=== PATIENT | female | born 1955 | race Caucasian/White ===

== ENCOUNTER 2018-01-15 20:39 | Inpatient (IN) ==
--- NOTE | 2018-01-15 23:34 | P.HPCC ---
History of Present Illness Service: Critical care medicine Primary Care Physician: PROVIDER NON STAFF Chief Complaint: headache, brain mass History of Present Illness: 62-year-old female who has had no significant past medical history until she was recently diagnosed with multiple posterior fossa masses consistent with brain metastasis on outpatient MRI Saturday 01/13. She states she has been having pain in neck and occipital region since the second week of November. She initially attributed symptoms to sinusitis and completed a course of antibiotics. She has also had chiropractic adjustments. Over the last 2 weeks she had worsening headache that she describes as "excruciating" throbbing of anterior and posterior head. It is worse with cough, upright position, and awakens her from sleep. Unremitting with motrin. She has had nausea, vomiting, and poor po intake. Lost 12 pounds over the last 2 weeks, felt "off balance" today. No seizures, focal weakness, visual changes/diplopia. Her primary was arranging for outpatient workup for primary. Today she presented to the emergency department at [facility] due to intractable headache, nausea, vomiting. CT brain demonstrated hyperdense lesions L cerebellum ( largest 18 mm x 18 mm, another 5mm) with surrounding edema. There was 5 mm lesion right cerebellum with moderate hydrocephalus. ED physician discussed with home paraprofessional neurosurgeon and then vice president corporate communications was consulted for admission. CXR demonstrated L lung mass. Patient has had a dry cough, denies chest pain or hemoptysis, +dyspnea with climbing stairs. Her daughter is at bedside and states that earlier this year she had a negative screening colonoscopy, negative mammogram. She had seen a wire weaver for skin cancer screening and had lesions removed from her left shoulder that showed benign pathology. She is a former smoker with extensive family history of malignancy (daughter melanoma, 2 brothers of lung cancer in their 50s, mother colon cancer age 65). Hysterectomy with BSO in 1991 for "precancerous condition". She has been on hormone replacement w/ estradiol. Inpatient Certification: I certify that the inpatient services were ordered in accordance with Medicare regulations governing the order. This includes certification that hospital inpatient services are reasonable and necessary and in the case of services not specified as inpatient-only under 42 CFR 419.22(n), that they are appropriately provided as inpatient services in accordance to with the 2-midnight benchmark under 43 CFR 412.3(e) Review of Systems All other systems reviewed negative except as stated in HPI PMFSH - History History Provided By: Patient, Family Member, Significant Other - Medical History Medical History: Medical History (Last Updated 01/16/18 @ 01:05 by Jacquelyn Holloway MD) Patient denies medical problems - Surgical History Surgical History: Surgical History (Last Updated 01/16/18 @ 01:13 by Jacquelyn Holloway MD) S/P total hysterectomy and BSO (bilateral salpingo-oophorectomy) - Family History Family History: Family History (Last Updated 01/16/18 @ 01:11 by Jacquelyn Hollowya MD) Daughter Melanoma Mother Family history of colon cancer Family history of cancer Family history of hypertension Mother No problems noted. Father Family history of acute myocardial infarction Family history of diabetes mellitus Family history of hypertension Aunt Family history of breast cancer Sister Family history of hypertension Brother Family history of hypertension Lung cancer - Tobacco History Tobacco Use In Past 30 Days: No Smoking Status: Former smoker Tobacco Type: Cigarettes Packs Per Day: 2 Years Smoked: 39 Smoking End Date: 1991 - Substance Use History Substance History: No History of Abuse Medications and Allergies Allergies Allergy/AdvReac Type Severity Reaction Status Date / Time No Known Allergies Allergy Unverified 01/15/18 23:43 Exam Narrative: GENERAL: Well-nourished, well-developed patient patient who is alert and interactive. SKIN: Warm and dry, well perfused. HEAD: Atraumatic. Normocephalic. EYES: Pupils equal and round, 4mm and reactive to 3 mm bilaterally. No scleral icterus. No injection or drainage. ENT: No nasal bleeding or discharge. Mucous membranes pink. NECK: Trachea midline. No JVD. CARDIOVASCULAR: Regular rate and rhythm. No murmurs rubs or gallops. RESPIRATORY: Breathing comfortably on nasal cannula with no accessory muscle use. Clear to auscultation. Breath sounds equal bilaterally. GASTROINTESTINAL: Abdomen soft, non-tender, nondistended. Bowel sounds present, no palpable mass. Hepatic and splenic margins not palpable. MUSCULOSKELETAL: Extremities without clubbing, cyanosis, or edema. No obvious deformities. No calf tenderness. NEUROLOGICAL: Awake and alert, oriented x3 with normal speech. Cranial nerves intact, tongue protrusion midline, EOMI without nystagmus. Strength 5/5 in all extremities, sensation intact. Normal finger to nose on right, slow to perform task with LUE. No truncal ataxia noted. Caprini VTE Risk Assessment Caprini VTE Risk Assessment: Moderate/High Risk (score >= 2) VTE Pharmacological Exception Reason: Intracranial lesions Caprini Risk Assessment Model: Point Value = 1 Point Value = 2 Point Value = 3 Point Value = 5 Age 41-60 Minor surgery BMI > 25 kg/m2 Swollen legs Varicose veins or History of unexplained or recurrent spontaneous Oral contraceptives or hormone replacement Sepsis (< 1 month) Serious lung disease, including pneumonia (< 1 month) Abnormal pulmonary function Acute myocardial infarction Congestive heart failure (< 1 month) History of inflammatory bowel disease Medical patient at bed rest Age 61-74 Arthroscopic surgery Major open surgery (> 45 min) Laparoscopic surgery (> 45 min) Malignancy Confined to bed (> 72 hours) Immobilizing plaster cast Central venous access Age >= 75 History of VTE Family history of VTE Factor V Leiden Prothrombin [id number] Lupus anticoagulant Anticardiolipin antibodies Elevated serum homocysteine Heparin-induced thrombocytopenia Other congenital or acquired thrombophilia Stroke (< 1 month) Elective arthroplasty Hip, pelvis, or leg fracture Acute spinal cord injury (< 1 month) Prophylaxis Regimen: Total Risk Factor Score Risk Level Prophylaxis Regimen 0-1 Low Early ambulation 2 Moderate Order ONE of the following: *Sequential Compression Device (SCD) *Heparin 5000 units SQ BID 3-4 Higher Order ONE of the following medications: *Heparin 5000 units SQ TID *Enoxaparin/Lovenox 40 mg SQ daily (WT < 150 kg, CrCl > 30 mL/min) *Enoxaparin/Lovenox 30 mg SQ daily (WT < 150 kg, CrCl > 10-29 mL/min) *Enoxaparin/Lovenox 30 mg SQ BID (WT < 150 kg, CrCl > 30 mL/min) AND/OR *Sequential Compression Device (SCD) 5 or more Highest Order ONE of the following medications: *Heparin 5000 units SQ TID (Preferred with Epidurals) *Enoxaparin/Lovenox 40 mg SQ daily (WT < 150 kg, CrCl > 30 mL/min) *Enoxaparin/Lovenox 30 mg SQ daily (WT < 150 kg, CrCl > 10-29 mL/min) *Enoxaparin/Lovenox 30 mg SQ BID (WT < 150 kg, CrCl > 30 mL/min) AND *Sequential Compression Device (SCD) Assessment and Plan - Assessment and Plan Plan: NEURO: Multiple cerebellar masses c/w metastatic disease Moderate hydrocephalus MRI brain w&w/o. Decadron 4 mg IV q6 hours. NSG consult Headache Nausea/Vomiting Lortab prn .Morphine prn breakthrough Phenergan prn (Zofran did not help). RESP: L lung mass Former tobacco abuse CT chest/abd/pelvis Albuterol prn IS q1 hour CV: HTN Does not carry diagnosis of essential hypertension. Presently hypertensive and pain anxiety playing some role. Labetalol prn for SBP >165. GI: Regular diet LFTS WNL outside hospital. FEN/RENAL: NS with 20 MQ KCL /L for now as plan to give IV contrast. Received KCl 40 MEQ po at outside hospital for potassium 3.1. Creatinine was 0.45 Monitor BMP ID: Monitor for signs and symptoms of infection. HEME/ONC: Metastatic brain lesions ?Primary lung cancer Followup MRI brain and CT scans C/A/P. Oncology consult. ENDO: Monitor bedside glucose AC/at bedtime while on steroids and administer low-dose insulin sliding scale as indicated. Glucose 131 outside hospital. PROPH: SCDs for DVT prophylaxis. I have held off on Lovenox at this time due to intracerebral lesions, though prophylaxis would likely be appropriate if workup points away from diagnosis of melanoma and if felt to be appropriate from NSG/oncology standpoint. Protonix for stress ulcer prophylaxis (poor po intake, on steroids). ACCESS: PIV providing adequate access at this time. Patient has an advanced directive. Her is her healthcare surrogate and her daughter alternate if she loses capacity. She is currently capacitated for medical decision making. She desires FULL CODE. She would not want prolonged life support if no change of functional recovery. FULL CODE Patient and family updated Level 3 H and P.
[2018-01-16] MEDS ORDERED: Bisacodyl 10 MG Supp RECTAL PRN (00:13)
[2018-01-16] MEDS ORDERED: Dextrose 50% in Water 50 ML Vial IV.PUSH PRN (00:23)
[2018-01-16] MEDS ORDERED: *Labetalol HCl Inj 100 MG/20 ML Vial PERIprocedural Use ONLY IV.PUSH PRN (01:03)
[2018-01-16 01:51] LABS: Hematocrit 37.3 % (35.0-46.0); Mean Corpuscular HGB Conc 34.8 % (32.0-36.0); Mean Corpuscular Hemoglobin 28.4 pg (27.0-34.0); Mean Corpuscular Volume 81.7 fL (80.0-100.0); Mean Platelet Volume 8.3 fL (7.0-11.0); Platelet Count 392 th/mm3 (150-450); Red Blood Count 4.57 mil/mm3 (4.00-5.30); Red Cell Distribution Width 14.3 % (11.6-17.2); White Blood Count 10.3 th/mm3 (4.0-11.0)
[2018-01-16 02:06] LABS: Alanine Aminotransferase 30 U/L (10-53); Albumin 3.3 g/dL (3.4-5.0); Anion Gap 9 meq/L (5-15); Aspartate Aminotransferase 15 U/L (15-37); Blood Urea Nitrogen 12 mg/dL (7-18); Calcium 9.1 mg/dL (8.5-10.1); Carbon Dioxide 26.5 meq/L (21.0-32.0); Chloride 102 meq/L (98-107); Glomerular Filtration Rate Greater Than 89 mL/min (>89); Glucose,Random 137 mg/dL (74-106); Magnesium 2.3 mg/dL (1.5-2.5); Phosphorus 2.3 mg/dL (2.5-4.9); Potassium 3.7 meq/L (3.5-5.1); Sodium 137 meq/L (136-145)
[2018-01-16 02:08] LABS: Alkaline Phosphatase 77 U/L (45-117)
[2018-01-16] MEDS ORDERED: Chlorhexidine Gluconate 2% 1 Pack (2 Cloths) TOPICAL PRN (04:00)
[2018-01-16] MEDS: Chlorhexidine Gluconate 2% 1 Pack (2 Cloths) TOPICAL SCH (05:39)
[2018-01-16] MEDS: Senna/Docusate Sodium 8.6/50 MG Tablet PO SCH ×2 (08:05→20:20)
--- NOTE | 2018-01-16 08:13 | P.CONNS ---
History of Present Illness Service: Neurosurgery Consult date: 01/16/18 Requesting Physician: Jacquelyn Holloway (Take Off Man) Reason for Consult: Brain masses Primary Care Provider: PROVIDER NON STAFF Chief Complaint: headache, brain mass History of Present Illness: 62-year-old female recently diagnosed with multiple brain masses consistent with brain metastasis on outpatient MRI Saturday 01/13. She states she has been experiencing unsteadiness along with the lightheadedness and dizziness for the last couple of months with complaints of pain in neck and occipital region since the second week of November. She initially attributed symptoms to sinusitis and completed a course of antibiotics. She has also had chiropractic adjustments. Over the last 2 weeks she had worsening headache that she describes as "excruciating" throbbing of anterior and posterior head. It is worse with cough, upright position, and awakens her from sleep. Unremitting with motrin. She has had nausea, vomiting, and poor po intake. Lost 12 pounds over the last 2 weeks, felt "off balance" today. No seizures, focal weakness, visual changes/diplopia. Her primary was arranging for outpatient workup for primary. She presented to the emergency department at [facility] due to intractable headache, nausea, vomiting. CT brain demonstrated hyperdense lesions involving the left cerebellar hemisphere as well as possible smaller lesion in the right cerebellar hemisphere with surrounding edema. There is slight impingement of the fourth ventricle to the left side but not completely obstructed. She also has another lesion in the left posterior frontoparietal aspect with surrounding edema. There is moderate hydrocephalus associated with this. She was transferred to [facility] intensive care unit and neurosurgery consultation requested. CXR demonstrated Left lung mass. Patient has had a dry cough, denies chest pain or hemoptysis, although does have dyspnea with climbing stairs. Review of Systems All other systems reviewed negative except as stated in HPI PMFSH - History History Provided By: Patient, Family Member, Significant Other - Medical History Medical History: Medical History (Last Reviewed 01/16/18 @ 08:39 by Bhupinder Espinoza) Patient denies medical problems - Surgical History Surgical History: Surgical History (Last Reviewed 01/16/18 @ 08:39 by Bhupinder Espinoza) S/P total hysterectomy and BSO (bilateral salpingo-oophorectomy) - Family History Family History: Family History (Last Updated 01/16/18 @ 01:11 by Jacquelyn Holloway MD) Daughter Melanoma Mother Family history of colon cancer Family history of cancer Family history of hypertension Mother No problems noted. Father Family history of acute myocardial infarction Family history of diabetes mellitus Family history of hypertension Aunt Family history of breast cancer Sister Family history of hypertension Brother Family history of hypertension Lung cancer - Tobacco History Second Hand Smoke Exposure: No Tobacco Use In Past 30 Days: No Smoking Status: Former smoker Tobacco Type: Cigarettes Packs Per Day: 2 Years Smoked: 39 Smoking End Date: 1991 - Alcohol History How Often Do You Have a Drink Containing Alcohol: Monthly or less - Substance Use History Substance History: No History of Abuse - Immunization History Tetanus Immunization: Unsure Hx Influenza Vaccine This Season: No Medications and Allergies Active Medications: Active Medications Hydrocodone Bitart/Acetaminophen (Scalf 5/325) 1 tab PO Q4H PRN PRN Reason: pain 1-6 Hydrocodone Bitart/Acetaminophen (Scalf 5/325) 2 tab PO Q4H PRN PRN Reason: pain 7-10 Last Admin: 01/16/18 08:06 Dose: 2 tab Al Hydroxide/Mg Hydroxide (Milk Of Leodan Pichardo) 30 ml PO Q12H PRN PRN Reason: Mild Constipation Albuterol (Albuterol Neb (Prn)) 2.5 mg NEB Q2HR NEB PRN PRN Reason: SHORTNESS OF BREATH/WHEEZING Bisacodyl (Dulcolax Supp) 10 mg RECTAL DAILY PRN PRN Reason: SEVERE CONSITIPATION Chlorhexidine Gluconate (Chlorhexidine 2% Cloth) 3 pack TOPICAL DAILY@0400 MARILIA Stop: 01/21/18 03:59 Last Admin: 01/16/18 05:39 Dose: 3 pack Chlorhexidine Gluconate (Chlorhexidine 2% Cloth) 3 pack TOPICAL DAILY@0400 PRN PRN Reason: Extra cloth needed Stop: 01/21/18 03:59 Dexamethasone Sodium Phosphate (Decadron Inj) 4 mg IV.PUSH Q6HR MARILIA Last Admin: 01/16/18 05:39 Dose: 4 mg Dextrose (D50w Vial) 50 ml IV.PUSH UNSCH PRN PRN Reason: PER HYPOGLYCEMIA PROTOCOL Glucagon (Glucagon Inj) 1 mg OTHER PRN PRN PRN Reason: for Hypoglycemia Protocol Potassium Chloride/Sodium Chloride (Ns + Kcl 20 Meq Inj) 1,000 mls @ 84 mls/hr IV.CONT .[id number] [facility] Last Admin: 01/16/18 01:10 Dose: 84 mls/hr Insulin Aspart (Novolog Insulin Correctional Sugar Inj) 0 unit SQ ACHS [facility]; Protocol Labetalol HCl (*Trandate Inj Periprocedural Use Only) 10 mg IV.PUSH Q4H PRN PRN Reason: SBP >165 Lactulose (Lactulose Liq) 30 ml PO DAILY PRN PRN Reason: SEVERE CONSITIPATION Lorazepam (Ativan Inj) 1 mg IV.PUSH Q5M PRN PRN Reason: seizure Morphine Sulfate (Morphine Inj) 2 mg IV.PUSH Q2H PRN PRN Reason: BREAKTHROUGH PAIN Pantoprazole Sodium (Protonix) 40 mg PO DAILY [facility] Last Admin: 01/16/18 08:05 Dose: 40 mg Promethazine HCl (Phenergan) 25 mg PO Q6H PRN PRN Reason: nausea Last Admin: 01/16/18 08:05 Dose: 25 mg Promethazine HCl (Phenergan Inj) 25 mg IM Q6H PRN PRN Reason: nausea/vomiting/cant use po Senna/Docusate Sodium (Geni-Colace) 1 tab PO BID [facility] Last Admin: 01/16/18 08:05 Dose: 1 tab Sennosides (Senokot) 17.2 mg PO Q12H PRN PRN Reason: Moderate Constipation Sodium Chloride (Ns Flush) 2 ml IV.FLUSH BID [facility] Sodium Chloride (Ns Flush) 2 ml IV.FLUSH PRN PRN PRN Reason: FLUSH AFTER USING IV ACCESS Allergies Allergy/AdvReac Type Severity Reaction Status Date / Time No Known Allergies Allergy Unverified 01/15/18 23:43 Exam Vital signs: Vital Signs 01/16/18 00:00 01/16/18 04:00 Temperature 98.4 F 98.6 F Pulse Rate 90 75 Respiratory Rate 29 H 10 L Blood Pressure 175/78 H 151/65 H Pulse Oximetry 96 95 Intake & Output 01/15/18 01/16/18 01/16/18 18:59 06:59 18:59 Weight 58.2 kg Other: # Voids 4 Date of Last Bowel Movement 01/15/18 Weight On Admission 58.2 kg - Constitutional no acute distress, average body habitus - Routine HEENT Exam Head: Present: normocephalic, atraumatic Eye: Present: EOMI, PERRL ENT: Present: mucous membranes moist, oropharynx clear, nares patent, external ear normal - Routine Neck Exam Present: supple, full ROM - Routine Respiratory Exam Present: CTA bilaterally - Routine Cardiovascular Exam Present: RRR, S1, S2 - Routine Abdominal Exam Present: soft, normoactive bowel sounds - Routine Extremities Exam Present: full ROM, pulses intact, normal capillary refill - Routine Skin Exam Present: intact - Routine Neurological Exam Present: oriented X3, CN II-XII intact, abnormal gait, moving all extremities, normal speech, tremors Positive bilateral dysmetria and ataxia Results - Laboratory Findings CBC and BMP: 01/16/18 01:41 01/16/18 01:41 Abnormal lab findings: Abnormal Labs 01/16/18 01:41 Random Glucose 137 H Phosphorus 2.3 L Albumin 3.3 L Assessment and Plan - Assessment (1) Neoplasm of brain causing mass effect on adjacent structures Code(s): D49.6 - Neoplasm of unspecified behavior of brain Status: Acute (2) Lung mass Code(s): R91.8 - Other nonspecific abnormal finding of lung field Status: Acute - Plan 62-year-old lady with the lung mass and multiple brain masses the larger one in the left cerebellar hemisphere with a smaller one in the right posterior frontoparietal lobe with some edema. There is impingement of the fourth ventricle on the left side although not completely obstructed with moderate hydrocephalus. She relates that with the Decadron her headaches have improved along with the nausea. We will obtain MRI scan of the brain to further evaluate the extent of the metastatic disease. Should her neurologic condition deteriorate that we may contemplate placement of a ventriculostomy. Metastatic workup as per the medical team/oncology. Given the multiple brain masses likely metastases from a lung cancer as the working diagnosis her prognosis is very grim. Discussed with patient as well as and daughter at bedside.
[2018-01-16] MEDS: Insulin NovoLOG Aspart Correctional Sugar Inj SQ SCH ×4 (08:20→20:20)
[2018-01-16] MEDS ORDERED: Diatrizoate Meglum/Diatrizoate Sod Liq 9 ML UDC PO ONE (09:45)
--- NOTE | 2018-01-16 09:53 | P.PNCC ---
Subjective Subjective Remarks/Hospital Course: 62-year-old female who has had no significant past medical history until she was recently diagnosed with multiple posterior fossa masses consistent with brain metastasis on outpatient MRI Saturday 01/13. She states she has been having pain in neck and occipital region since the second week of November. She initially attributed symptoms to sinusitis and completed a course of antibiotics. She has also had chiropractic adjustments. Over the last 2 weeks she had worsening headache that she describes as "excruciating" throbbing of anterior and posterior head. It is worse with cough, upright position, and awakens her from sleep. Unremitting with motrin. She has had nausea, vomiting, and poor po intake. Lost 12 pounds over the last 2 weeks, felt "off balance" today. No seizures, focal weakness, visual changes/diplopia. Her primary was arranging for outpatient workup for primary. Today she presented to the emergency department at [facility] due to intractable headache, nausea, vomiting. CT brain demonstrated hyperdense lesions L cerebellum ( largest 18 mm x 18 mm, another 5mm) with surrounding edema. There was 5 mm lesion right cerebellum with moderate hydrocephalus. ED physician discussed with configuration management specialist neurosurgeon and then match up person was consulted for admission. CXR demonstrated L lung mass. Patient has had a dry cough, denies chest pain or hemoptysis, +dyspnea with climbing stairs. Her daughter is at bedside and states that earlier this year she had a negative screening colonoscopy, negative mammogram. She had seen a bank appraiser for skin cancer screening and had lesions removed from her left shoulder that showed benign pathology. She is a former smoker with extensive family history of malignancy (daughter melanoma, 2 brothers of lung cancer in their 50s, mother colon cancer age 65). Hysterectomy with BSO in 1991 for "precancerous condition". She has been on hormone replacement w/ estradiol. SUBJ 01/16: Patient's headaches improved with IV Decadron. Appreciate neurosurgery consult, there is slight impingement of the fourth ventricle on the left side. There is moderate hydrocephalus associated. If patient clinically deteriorates she would need ventriculostomy placement Objective Vital Signs / I&O: Vital Signs 01/16/18 00:00 01/16/18 04:00 01/16/18 08:00 Temperature 98.4 F 98.6 F 98.6 F Pulse Rate 90 75 82 Respiratory Rate 29 H 10 L 15 Blood Pressure 175/78 H 151/65 H 167/80 H Pulse Oximetry 96 95 95 Intake & Output 01/15/18 01/16/18 01/16/18 18:59 06:59 18:59 Weight 58.2 kg Other: # Voids 4 Date of Last Bowel Movement 01/15/18 01/15/18 Weight On Admission 58.2 kg Result Diagrams: 01/16/18 01:41 01/16/18 01:41 Objective Remarks: GENERAL: Well-nourished, well-developed patient patient who is alert and awake, oriented, pleasant SKIN: Warm and dry, well perfused. HEAD: Atraumatic. Normocephalic. EYES: Pupils equal and round, 4mm and reactive to 3 mm bilaterally. No scleral icterus. No nystagmus. ENT: No nasal bleeding or discharge. Mucous membranes pink. NECK: Trachea midline. No JVD. CARDIOVASCULAR: Regular rate and rhythm. No murmurs rubs or gallops. RESPIRATORY: Clear to auscultation. Breath sounds equal bilaterally. GASTROINTESTINAL: Abdomen soft, non-tender, nondistended. Bowel sounds present, no palpable mass. Hepatic and splenic margins not palpable. MUSCULOSKELETAL: Extremities without clubbing, cyanosis, or edema. No obvious deformities. No calf tenderness. NEUROLOGICAL: Awake and alert, oriented x3 with normal speech. Cranial nerves intact, tongue protrusion midline, EOMI without nystagmus. Strength 5/5 in all extremities, sensation intact. Abnormal finger to nose bilaterally. Assessment and Plan - Assessment and Plan Plan: NEURO: Multiple cerebellar masses c/w metastatic disease Moderate hydrocephalus MRI brain w&w/o pending Decadron 4 mg IV q6 hours. NSG consult appreciated. If clinical deterioration may need ventriculostomy placement Headache Nausea/Vomiting Lortab prn .Morphine prn breakthrough Phenergan prn (Zofran did not help). RESP: L lung mass Former tobacco abuse CT chest/abd/pelvis pending at this Albuterol prn IS q1 hour CV: HTN Does not carry diagnosis of essential hypertension. Presently hypertensive and pain anxiety playing some role. Labetalol prn for SBP >165. GI: Regular diet LFTS WNL outside hospital. FEN/RENAL: NS with 20 MQ KCL /L for now as plan to give IV contrast. reduce rate to 50 mL/h Received KCl 40 MEQ po at outside hospital for potassium 3.1. Creatinine was 0.45 Monitor BMP ID: Monitor for signs and symptoms of infection. HEME/ONC: Metastatic brain lesions ?Primary lung cancer Followup MRI brain and CT scans C/A/P. Oncology consult pending at this time ENDO: Monitor bedside glucose AC/at bedtime while on steroids and administer low-dose insulin sliding scale as indicated. PROPH: SCDs for DVT prophylaxis. Avoid chemical DVT prophylaxis until cleared by neurosurgery Protonix for stress ulcer prophylaxis (poor po intake, on steroids). ACCESS: PIV providing adequate access at this time. Patient has an advanced directive. Her is her healthcare surrogate and her daughter alternate if she loses capacity. She is currently capacitated for medical decision making. She desires FULL CODE. She would not want prolonged life support if no change of functional recovery. FULL CODE Patient and family updated Patient is critically ill but stable. She has moderate hydronephrosis, potentially can deteriorate quickly needing emergency airway management and ventriculostomy placement. Continue close ICU monitoring Level 3
[2018-01-16] MEDS ORDERED: Gadobutrol PF 7.5 MMOL/7.5 ML Vial (for RAD) IV.SIG ONE (13:54)
--- NOTE | 2018-01-16 13:59 | CT ---
EXAM DATE: 01/16/2018 1:39 PM EDT AGE/SEX: 62 years / Female INDICATIONS: Lung mass CLINICAL DATA: This is the patient's initial encounter. Patient reports that signs and symptoms have been present for 3 days and indicates a pain score of 7/10. MEDICAL/SURGICAL HISTORY: . Brain Tumor Hysterectomy. RADIATION DOSE: 5.17 CTDI (mGy) ; Combined studies COMPARISON: No prior exams available for comparison. TECHNIQUE: Multiple contiguous axial images were obtained through the chest during bolus infusion of 99ML ml Omnipaque 350 (iohexol) nonionic water-soluble contrast as a cumulative dose for multiple e xams. Images were obtained in suspended respiration using multiple row detector helical technique. Using automated exposure control and adjustment of the mA and/or kV according to patient size, radia tion dose was kept as low as reasonably achievable to obtain optimal diagnostic quality images. DICO M format image data is available electronically for review and comparison. FINDINGS: Approximate 4.7 cm left upper lobe mass is present almost certainly malignant. There is metastatic ad enopathy in the AP window and left hilum the largest measures 4 cm in the left hilum causing mass eff ect on the left main pulmonary artery. Approximate 2 cm hazy parenchymal opacities in right upper lob e with 7 mm similar opacity in left lower lobe anteriorly possible scar, however indeterminant could be inflammatory. Possibility of bronchoalveolar cell carcinoma in these 2 areas of groundglass opacit y is not excluded. There is a questionable tiny 3 to 4 mm nodule versus tortuous blood vessel right a pex of the lung and lingula near the major fissure. Approximate 1.3 cm left adrenal mass is present n onspecific may be metastatic. There is no pleural effusion. CONCLUSION: 1. Left upper lobe mass almost certainly malignant with metastatic adenopathy within the mediastinum and left hilum. 2. Groundglass opacities right upper lobe and left lower lobe could be followed with repeat noncontr ast chest CT in 6 months after appropriate clinical therapy. There are also tiny nodules in both lung s versus tortuous blood vessels. 3. Left adrenal mass could be an adenoma versus metastatic disease. Electronically signed by: Jc Cuevas MD 01/16/2018 1:57 PM EDT
--- NOTE | 2018-01-16 14:14 | CT ---
EXAM DATE: 01/16/2018 1:41 PM EDT AGE/SEX: 62 years / Female INDICATIONS: Mass CLINICAL DATA: This is the patient's initial encounter. Patient reports that signs and symptoms have been present for 3 days and indicates a pain score of 7/10. MEDICAL/SURGICAL HISTORY: . Brain tumor, lung mass Hysterectomy. ORAL CONTRAST: Prescribed oral contrast ingested. RADIATION DOSE: 5.17 CTDI (mGy) ; Combined studies COMPARISON: No prior exams available for comparison. TECHNIQUE: Multiple contiguous axial images were obtained through the abdomen and pelvis following b olus infusion of 99ML ml Omnipaque 350 (iohexol) nonionic water-soluble contrast as a cumulative do se for multiple exams. Prescribed oral contrast ingested. Using automated exposure control and adjus tment of the mA and/or kV according to patient size, radiation dose was kept as low as reasonably ach ievable to obtain optimal diagnostic quality images. DICOM format image data is available electronic ally for review and comparison. FINDINGS: Abdomen CT: The liver, pancreas, right adrenal are unremarkable. Approximate 1.3 cm left adrenal nodule is presen t may be an adenoma, however metastatic disease is difficult to exclude. There are simple cysts in th e kidneys the largest measures 1.7 cm on the left. Approximate 1 cm cystic lesion is present in the m edial portion of the spleen most likely benign. There is no evidence for any appreciable pathological adenopathy, free fluid, or bowel obstruction. Pelvic CT: There is no evidence for mass, abscess formation, or any significant adenopathy within the pelvis. T here are numerous diverticuli within the colon mainly the sigmoid colon without signs of diverticulit is for technique. CONCLUSION: Colonic diverticulosis and left adrenal nodule may be adenoma, however metastatic disease is difficult to exclude. Electronically signed by: Jc Cuevas MD 01/16/2018 2:13 PM EDT
--- NOTE | 2018-01-16 15:07 | MR ---
EXAM DATE: 01/16/2018 2:10 PM EDT AGE/SEX: 62 years / Female INDICATIONS: Metastatic disease. CLINICAL DATA: This is the patient's initial encounter. Patient reports that signs and symptoms have been present for 1 day and indicates a pain score of 0/10. MEDICAL/SURGICAL HISTORY: None. Hysterectomy. COMPARISON: No prior exams available for comparison. TECHNIQUE: Multiplanar, multisequence examination of the brain was performed without and with 6 ml Om niscan (gadodiamide) contrast as a single exam dose. FINDINGS: MRI with contrast reveals too numerous to count metastatic deposits throughout the supratentorial and infratentorial brain majority of which are centered in around the moyer-white matter junction. Severa l small metastatic deposits are present on the cortical surface of the brain showing intense enhancem ent. This appearance can be associated with carcinomatous meningitis as well. A small metastatic deposit is present in the cerebral aqueduct is well between supratentorial and inf ratentorial ventricular system. These metastatic lesions have a hemorrhagic component as well that can be seen with small cell carcin te of the lung. This would be a typical appearance for malignant melanoma however large lung mass cl early favors small cell carcinoma. Ventricles are mildly prominent. There is minimal compression on t he fourth ventricle. There are no extra-axial fluid collections appreciated. CONCLUSION: 1. Too numerous to count enhancing mildly hemorrhagic metastatic deposits throughout the brain most numerous in the posterior fossa with some compression of the fourth ventricle. 2. Carcinomatous meningitis would be consideration 3. Lung mass would be amenable to pancreas biopsy for rapid diagnosis. 4. There is no significant hydronephrosis as yet. Electronically signed by: Edgard Barth MD 01/16/2018 3:05 PM EDT
--- NOTE | 2018-01-16 19:22 | P.CON ---
History of Present Illness Service: Hematology/oncology Consult date: 01/16/18 Requesting Physician: Jacquelyn Holloway Reason for Consult: Left upper lobe lung mass associated with multiple brain masses. Primary Care Provider: PROVIDER NON STAFF Dr. Power in [place], [place]. Chief Complaint: Persistent headache, difficulty balancing, nausea. History of Present Illness: Ms. umana is a very pleasant 62-year-old female who is originally from [place], she moved down to [place] in the late . 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 She reports being a smoker, she smoked about a pack and a half a day for 20 years (she quit in 1991). Ms. umana reports being in her usual very good state of health up until she began to notice headaches in early November 2017. She in fact is able to recall going on a jet ski ride with her son on 26 November, she noticed a headache shortly thereafter. She reports the headache initially involved the back of her head and her upper neck as well as a frontal sinus type distribution. She reported the symptoms to her primary care physician and was initiated on antibiotics for suspected sinusitis. Her symptoms did not resolve and she consulted a chiropractor who performed various adjustments on her neck assuming she had developed muscular skeletal aches. She had a period of time when the headache subsided but this was short-lived. Over the past 2 weeks she has noticed increased headaches, increased lightheadedness, dizziness, difficulty balancing and nausea. Over the past several days she noticed symptoms of worsening headache when she laid flat, worsening headaches when she coughed and progressive nausea. She was advised an MRI of the brain by her chiropractor, this was performed in [place] on 01/13/2018 and finding of multiple brain lesions was established. The results of the scan was reported to her primary care physician Dr. Tono [place] who had recommended an outpatient workup with CT imaging of the chest abdomen pelvis as well as an outpatient referral to an oncologist in [place] (Dr. Polanco). Unfortunately on 01/16/2018 the patient's symptoms worsened and she was brought into [facility] in [place], repeat imaging of the brain was performed. The intracranial brain metastases were identified and the patient was recommended neurosurgical evaluation. Because of lack of neurosurgical coverage in [place] she was referred to [facility] in [place] for evaluation by neurosurgery. Additional imaging was performed this included CT imaging of the chest abdomen pelvis, the patient was found to have a 5.5 x 5 cm mass involving the left upper lobe lung. There is no definite evidence of metastatic disease involving the abdomen or pelvis. The patient has been initiated on corticosteroid therapy with dexamethasone and reports her symptoms of headaches have improved significantly over the past 12 hours. Review of Systems Constitutional: Reports fatigue, Reports lack of energy, Reports malaise, Reports weakness, Denies anorexia Eyes: Denies blurry vision, Denies change in vision, Denies loss of vision Ears, Nose, Mouth, and Throat: Denies abnormal hearing, Denies change in voice, Denies sore throat Cardiovascular: Denies chest pain, Denies fainting, Denies shortness of breath when lying down, Denies shortness of breath causing sudden awakening Respiratory: Denies chest congestion, Denies cough, Denies shortness of breath Gastrointestinal: Denies abdominal pain, Denies belching, Denies bloating, Denies pain with swallowing, Denies vomiting blood Genitourinary: Denies difficulty urinating, Denies painful urination, Denies urinary urgency Musculoskeletal: Reports abnormal walking, Reports neck pain, Denies back pain, Denies body aches, Denies decreased muscle mass, Denies joint pain, Denies joint swelling, Denies muscle weakness Skin/Breast: Denies rash Neurologic: Reports abnormal walking, Reports dizziness, Reports headache(s), Reports lack of coordination, Reports unsteadiness, Denies abnormal hearing, Denies abnormal movements, Denies abnormal speech, Denies confusion, Denies localized weakness, Denies loss of vision, Denies memory loss, Denies numbness, Denies other visual disturbances, Denies restless legs, Denies tremor(s) Psychiatric: Denies abnormal sleep pattern, Denies anxiety, Denies behavioral changes Endocrine: Denies cold intolerance Hematologic/Lymphatic: Denies easy bleeding Allergic/Immunologic: Denies GI upset with certain foods PMFSH - History History Provided By: Patient, Family Member, Significant Other - Medical History Medical History: Medical History (Last Updated 01/16/18 @ 19:12 by Watson Zamorano MD) History of cigarette smoking Patient denies medical problems - Surgical History Surgical History: Surgical History (Last Reviewed 01/16/18 @ 08:39 by Bhupinder Espinoza) S/P total hysterectomy and BSO (bilateral salpingo-oophorectomy) - Family History Family History: Family History (Last Updated 01/16/18 @ 01:11 by Jacquelyn Holloway MD) Daughter Melanoma Mother Family history of colon cancer Family history of cancer Family history of hypertension Mother No problems noted. Father Family history of acute myocardial infarction Family history of diabetes mellitus Family history of hypertension Aunt Family history of breast cancer Sister Family history of hypertension Brother Family history of hypertension Lung cancer - Tobacco History Second Hand Smoke Exposure: No Tobacco Use In Past 30 Days: No Smoking Status: Former smoker Tobacco Type: Cigarettes Packs Per Day: 2 Years Smoked: 39 Smoking End Date: 1991 - Alcohol History How Often Do You Have a Drink Containing Alcohol: Monthly or less - Substance Use History Substance History: No History of Abuse - Immunization History Tetanus Immunization: Unsure Hx Influenza Vaccine This Season: No Medications and Allergies Active Medications: Active Medications Hydrocodone Bitart/Acetaminophen ([place] 5/325) 1 tab PO Q4H PRN PRN Reason: pain 1-6 Last Admin: 01/16/18 16:53 Dose: 1 tab Hydrocodone Bitart/Acetaminophen ([place] 5/325) 2 tab PO Q4H PRN PRN Reason: pain 7-10 Last Admin: 01/16/18 01:11 Dose: 2 tab Al Hydroxide/Mg Hydroxide (Milk Of Leodan Pichardo) 30 ml PO Q12H PRN PRN Reason: Mild Constipation Albuterol (Albuterol Neb (Prn)) 2.5 mg NEB Q2HR NEB PRN PRN Reason: SHORTNESS OF BREATH/WHEEZING Bisacodyl (Dulcolax Supp) 10 mg RECTAL DAILY PRN PRN Reason: SEVERE CONSITIPATION Chlorhexidine Gluconate (Chlorhexidine 2% Cloth) 3 pack TOPICAL DAILY@0400 MARILIA Stop: 01/21/18 03:59 Last Admin: 01/16/18 05:39 Dose: 3 pack Chlorhexidine Gluconate (Chlorhexidine 2% Cloth) 3 pack TOPICAL DAILY@0400 PRN PRN Reason: Extra cloth needed Stop: 01/21/18 03:59 Dexamethasone Sodium Phosphate (Decadron Inj) 4 mg IV.PUSH Q6HR MARILIA Last Admin: 01/16/18 11:44 Dose: 4 mg Dextrose (D50w Vial) 50 ml IV.PUSH UNSCH PRN PRN Reason: PER HYPOGLYCEMIA PROTOCOL Glucagon (Glucagon Inj) 1 mg OTHER PRN PRN PRN Reason: for Hypoglycemia Protocol Potassium Chloride/Sodium Chloride (Ns + Kcl 20 Meq Inj) 1,000 mls @ 50 mls/hr IV.CONT .Q20H [facility] Last Admin: 01/16/18 13:47 Dose: 84 mls/hr Insulin Aspart (Novolog Insulin Correctional Sugar Inj) 0 unit SQ ACHS [facility]; Protocol Last Admin: 01/16/18 16:53 Dose: 3 unit Labetalol HCl (*Trandate Inj Periprocedural Use Only) 10 mg IV.PUSH Q4H PRN PRN Reason: SBP >165 Lactulose (Lactulose Liq) 30 ml PO DAILY PRN PRN Reason: SEVERE CONSITIPATION Lorazepam (Ativan Inj) 1 mg IV.PUSH Q5M PRN PRN Reason: seizure Morphine Sulfate (Morphine Inj) 2 mg IV.PUSH Q2H PRN PRN Reason: BREAKTHROUGH PAIN Pantoprazole Sodium (Protonix) 40 mg PO DAILY [facility] Last Admin: 01/16/18 08:05 Dose: 40 mg Promethazine HCl (Phenergan) 25 mg PO Q6H PRN PRN Reason: nausea Last Admin: 01/16/18 08:05 Dose: 25 mg Promethazine HCl (Phenergan Inj) 25 mg IM Q6H PRN PRN Reason: nausea/vomiting/cant use po Senna/Docusate Sodium (Geni-Colace) 1 tab PO BID [facility] Last Admin: 01/16/18 08:05 Dose: 1 tab Sennosides (Senokot) 17.2 mg PO Q12H PRN PRN Reason: Moderate Constipation Sodium Chloride (Ns Flush) 2 ml IV.FLUSH BID [facility] Last Admin: 01/16/18 08:21 Dose: 2 ml Sodium Chloride (Ns Flush) 2 ml IV.FLUSH PRN PRN PRN Reason: FLUSH AFTER USING IV ACCESS Allergies Allergy/AdvReac Type Severity Reaction Status Date / Time No Known Allergies Allergy Unverified 01/15/18 23:43 Physical Exam Vital signs: Vital Signs 01/16/18 00:00 01/16/18 04:00 01/16/18 08:00 Temperature 98.4 F 98.6 F 98.6 F Pulse Rate 90 75 82 Respiratory Rate 29 H 10 L 15 Blood Pressure 175/78 H 151/65 H 167/80 H Pulse Oximetry 96 95 95 Intake & Output 01/16/18 01/16/18 01/17/18 06:59 18:59 06:59 Intake Total 1000 / 1000 Balance 1000 / 1000 Weight 58.2 kg Intake: IV 1000 / 1000 NS + KCl 20 mEq Inj 1,000 ML @ 1000 / 1000 50 mls/hr IV.CONT .Q20H [facility] Rx# :[id number] Other: # Voids 4 Date of Last Bowel Movement 01/15/18 01/15/18 Weight On Admission 58.2 kg - Constitutional no acute distress - Routine HEENT Exam Head: Present: normocephalic Eye: Present: EOMI, PERRL - Routine Neck Exam Present: supple. Absent: full ROM, JVD, lymphadenopathy - Routine Respiratory Exam Present: CTA bilaterally, rales, respiratory distress, rhonchi, stridor, wheezes , crackles. Absent: accessory muscle use, distant breath sounds - Routine Cardiovascular Exam Present: RRR, S1, S2. Absent: murmur, gallop, rubs, S3, S4, tachycardia - Routine Abdominal Exam Present: soft. Absent: normoactive bowel sounds, tenderness, distended, rebound , guarding - Routine Extremities Exam Present: full ROM, pulses intact. Absent: cyanosis, clubbing, edema - Routine Skin Exam Present: intact - Routine Neurological Exam Present: alert, oriented X3, CN II-XII intact, normal reflexes, normal speech. Absent: sensory deficit, motor deficit, facial asymmetry, tremors, asterixis Assessment and Plan - Plan Ms. umana is a very pleasant 62-year-old female with a remote history of tobaccoism, she developed symptoms of persistent headaches initially frontal but subsequently mostly involving the back of her head and upper neck about 2-1/ 2 months ago. Over the past 2 weeks she has had increasing difficulty with lightheadedness, dizziness, difficulty balancing, coordinating and nausea. Imaging studies performed in the outpatient setting in [place], [place] on revealed multiple intracranial masses with clustering in the cerebellum. She was awaiting outpatient systemic staging studies as well as outpatient referral to an oncologist in [place] when her symptoms acutely worsened on the night of 01/15/2018. She was transferred from the local hospital in [facility] to [facility] in [place] for neurosurgical evaluation. MRI brain revealed findings concerning for hydrocephalus secondary to impingement of the fourth ventricle on the left side by metastatic disease burden. She has been initiated on corticosteroid therapy for management of vasogenic edema. Staging studies including CT thorax, abdomen pelvis indicate findings suggestive of a large mass involving the left upper lobe of the lung which is most certainly the primary lesion. At today's visit I had a long discussion with the patient, her and her children. We talked about the likely underlying diagnosis of primary lung malignancy with extensive intracranial metastases. I explained to the patient and her family that typically a biopsy of 1 of the easily accessed lesions would be obtained to help identify the specific histologic characteristics of her malignancy and to furthermore obtain molecular testing studies to identify any specific molecular/mutational targets which may contribute to treatment selection and also to obtain PDL-1 expression status if the patient has non- small cell carcinoma. I did explain to the patient and her family that treatment is ultimately palliative in nature and designed specifically to help prolong life, help maintain functional status and quality of life. The patient's has requested the patient be treated aggressively without regard to her eventual transition back to care in [place]. Recommendations: 1. Continue corticosteroid therapy for management of vasogenic edema secondary to multiple brain metastases. 2. I have added on Keppra for seizure prophylaxis. 3. I will request CT-guided biopsy of the left upper lobe lung mass. 4. Request radiation oncology evaluation to discuss initiation of palliative radiation as per the family's wishes. Code Status: Full. Discussed Condition With: The patient, her , her children.
[2018-01-16] MEDS: levETIRAcetam 500 MG Tablet PO SCH (20:20)
[2018-01-16] MEDS: Morphine Inj 4 MG/ML Vial IV.PUSH PRN (20:21)
[2018-01-17] MEDS: Labetalol HCl Inj 100 MG/20 ML Vial IV.PUSH PRN ×4 (00:21→18:06)
[2018-01-17 04:30] LABS: Baso % (Auto) 0.1 % (0.0-2.0); Eos % (Auto) 0.1 % (0.0-4.0); Hematocrit 38.6 % (35.0-46.0); Hemoglobin 12.7 gm/dL (11.6-15.3); Lymph # (Auto) 1.9 th/mm3 (1.0-4.8); Lymph % (Auto) 9.6 % (9.0-44.0); Mean Corpuscular HGB Conc 32.8 % (32.0-36.0); Mean Corpuscular Hemoglobin 27.6 pg (27.0-34.0); Mean Corpuscular Volume 84.1 fL (80.0-100.0); Mean Platelet Volume 9.1 fL (7.0-11.0); Mono # (Auto) 0.5 th/mm3 (0.0-0.9); Mono % (Auto) 2.6 % (0.0-8.0); Neut % (Auto) 87.6 % (16.0-70.0); Platelet Count 374 th/mm3 (150-450); Red Blood Count 4.59 mil/mm3 (4.00-5.30); Red Cell Distribution Width 14.5 % (11.6-17.2); White Blood Count 19.4 th/mm3 (4.0-11.0)
[2018-01-17 04:32] LABS: Alanine Aminotransferase 26 U/L (10-53); Albumin 3.3 g/dL (3.4-5.0); Anion Gap 11 meq/L (5-15); Aspartate Aminotransferase 13 U/L (15-37); Blood Urea Nitrogen 14 mg/dL (7-18); Calcium 9.1 mg/dL (8.5-10.1); Carbon Dioxide 24.7 meq/L (21.0-32.0); Chloride 106 meq/L (98-107); Glomerular Filtration Rate 67 mL/min (>89); Glucose,Random 117 mg/dL (74-106); Potassium 3.9 meq/L (3.5-5.1); Sodium 142 meq/L (136-145)
[2018-01-17 04:34] LABS: Alkaline Phosphatase 68 U/L (45-117); Total Protein 7.8 g/dL (6.4-8.2)
[2018-01-17] MEDS: Chlorhexidine Gluconate 2% 1 Pack (2 Cloths) TOPICAL SCH (06:04)
[2018-01-17] MEDS: Insulin NovoLOG Aspart Correctional Sugar Inj SQ SCH ×4 (08:24→20:16)
[2018-01-17] MEDS: levETIRAcetam 500 MG Tablet PO SCH ×2 (08:24→20:15)
[2018-01-17] MEDS: Senna/Docusate Sodium 8.6/50 MG Tablet PO SCH ×2 (08:25→20:15)
--- NOTE | 2018-01-17 08:28 | P.PNCC ---
Subjective Subjective Remarks/Hospital Course: 62-year-old female who has had no significant past medical history until she was recently diagnosed with multiple posterior fossa masses consistent with brain metastasis on outpatient MRI Saturday 01/13. She states she has been having pain in neck and occipital region since the second week of November. She initially attributed symptoms to sinusitis and completed a course of antibiotics. She has also had chiropractic adjustments. Over the last 2 weeks she had worsening headache that she describes as "excruciating" throbbing of anterior and posterior head. It is worse with cough, upright position, and awakens her from sleep. Unremitting with motrin. She has had nausea, vomiting, and poor po intake. Lost 12 pounds over the last 2 weeks, felt "off balance" today. No seizures, focal weakness, visual changes/diplopia. Her primary was arranging for outpatient workup for primary. Today she presented to the emergency department at [facility] due to intractable headache, nausea, vomiting. CT brain demonstrated hyperdense lesions L cerebellum ( largest 18 mm x 18 mm, another 5mm) with surrounding edema. There was 5 mm lesion right cerebellum with moderate hydrocephalus. ED physician discussed with english as a second language instructor neurosurgeon and then windows server architect was consulted for admission. CXR demonstrated L lung mass. Patient has had a dry cough, denies chest pain or hemoptysis, +dyspnea with climbing stairs. Her daughter is at bedside and states that earlier this year she had a negative screening colonoscopy, negative mammogram. She had seen a stencil typist for skin cancer screening and had lesions removed from her left shoulder that showed benign pathology. She is a former smoker with extensive family history of malignancy (daughter melanoma, 2 brothers of lung cancer in their 50s, mother colon cancer age 65). Hysterectomy with BSO in 1991 for "precancerous condition". She has been on hormone replacement w/ estradiol. SUBJ 01/16: Patient's headaches improved with IV Decadron. Appreciate neurosurgery consult, there is slight impingement of the fourth ventricle on the left side. There is moderate hydrocephalus associated. If patient clinically deteriorates she would need ventriculostomy placement. 01/17: Remains conversant. Continues to feel a little better after steroids have been started. Leukocytosis undoubtedly related to steroids. Dr. Zamorano from medical oncology discussed options in detail with the extended family last evening. Objective Vital Signs / I&O: Vital Signs 01/16/18 16:00 01/16/18 19:36 01/16/18 20:00 Temperature 98.6 F 98.2 F Pulse Rate 88 100 H Respiratory Rate 20 18 18 Blood Pressure 173/77 H 159/72 H Pulse Oximetry 99 97 01/17/18 00:00 01/17/18 04:00 Temperature 98.1 F 98.4 F Pulse Rate 78 72 Respiratory Rate 18 16 Blood Pressure 186/80 H 165/74 H Pulse Oximetry Intake & Output 01/16/18 01/17/18 01/17/18 18:59 06:59 18:59 Intake Total 1680 / 1680 1000 / 1000 Balance 1680 / 1680 1000 / 1000 Weight 58.2 kg Intake: IV 1000 / 1000 1000 / 1000 NS + KCl 20 mEq Inj 1,000 ML @ 1000 / 1000 1000 / 1000 50 mls/hr IV.CONT .Q20H [facility] Rx# :[id number] Oral 680 / 680 Other: # Voids 8 2 Date of Last Bowel Movement 01/15/18 01/15/18 Result Diagrams: 01/17/18 03:41 01/17/18 03:41 Imaging: MRI brain -multiple cerebral and cerebellar metastases Objective Remarks: GENERAL: Well-nourished, well-developed patient patient who is alert and awake, oriented, pleasant SKIN: Warm and dry, well perfused. HEAD: Atraumatic. Normocephalic. EYES: Pupils equal and round, 4mm and reactive to 3 mm bilaterally. No scleral icterus. No nystagmus. ENT: No nasal bleeding or discharge. Mucous membranes pink. NECK: Trachea midline. No JVD. CARDIOVASCULAR: Regular rate and rhythm. No murmurs rubs or gallops. RESPIRATORY: Clear to auscultation. Breath sounds equal bilaterally. GASTROINTESTINAL: Abdomen soft, non-tender, nondistended. Bowel sounds present, no palpable mass. Hepatic and splenic margins not palpable. MUSCULOSKELETAL: Extremities without clubbing, cyanosis, or edema. No obvious deformities. No calf tenderness. NEUROLOGICAL: Awake and alert, oriented x3 with normal speech. Cranial nerves intact, tongue protrusion midline, EOMI without nystagmus. Strength 5/5 in all extremities, sensation intact. Abnormal finger to nose bilaterally. Assessment and Plan - Assessment and Plan Plan: NEURO: Multiple cerebellar masses c/w metastatic disease Moderate hydrocephalus MRI brain w&w/o pending Decadron 4 mg IV q6 hours. NSG consult appreciated. If clinical deterioration may need ventriculostomy placement Headache Nausea/Vomiting Lortab prn .Morphine prn breakthrough Phenergan prn (Zofran did not help). RESP: L lung mass Former tobacco abuse CT chest/abd/pelvis pending at this Albuterol prn IS q1 hour CV: HTN Does not carry diagnosis of essential hypertension. Presently hypertensive and pain anxiety playing some role. Labetalol prn for SBP >165. GI: Regular diet LFTS WNL outside hospital. FEN/RENAL: NS with 20 MQ KCL /L for now as plan to give IV contrast. reduce rate to 50 mL/h Received KCl 40 MEQ po at outside hospital for potassium 3.1. Creatinine was 0.45 Monitor BMP ID: Monitor for signs and symptoms of infection. HEME/ONC: Metastatic brain lesions ?Primary lung cancer Followup MRI brain and CT scans C/A/P -multiple cerebral and cerebellar metastases. Oncology consult pending at this time ENDO: Monitor bedside glucose AC/at bedtime while on steroids and administer low-dose insulin sliding scale as indicated. PROPH: SCDs for DVT prophylaxis. Avoid chemical DVT prophylaxis until cleared by neurosurgery Protonix for stress ulcer prophylaxis (poor po intake, on steroids). ACCESS: PIV providing adequate access at this time. Patient has an advanced directive. Her is her healthcare surrogate and her daughter alternate if she loses capacity. She is currently capacitated for medical decision making. She desires FULL CODE. She would not want prolonged life support if no change of functional recovery. FULL CODE Overall impression: Widely metastatic malignancy, undoubtedly lung primary. She protects her airway presently and is neurologically stable.
--- NOTE | 2018-01-17 10:13 | P.PNNS ---
Subjective Interval history: 62-year-old female recently diagnosed with multiple brain masses consistent with brain metastasis on outpatient MRI Saturday 01/13. She states she has been experiencing unsteadiness along with the lightheadedness and dizziness for the last couple of months with complaints of pain in neck and occipital region since the second week of November. She initially attributed symptoms to sinusitis and completed a course of antibiotics. She has also had chiropractic adjustments. Over the last 2 weeks she had worsening headache that she describes as "excruciating" throbbing of anterior and posterior head. It is worse with cough, upright position, and awakens her from sleep. Unremitting with motrin. She has had nausea, vomiting, and poor po intake. Lost 12 pounds over the last 2 weeks, felt "off balance" today. No seizures, focal weakness, visual changes/diplopia. Her primary was arranging for outpatient workup for primary. She presented to the emergency department at [facility] due to intractable headache, nausea, vomiting. CT brain demonstrated hyperdense lesions involving the left cerebellar hemisphere as well as possible smaller lesion in the right cerebellar hemisphere with surrounding edema. There is slight impingement of the fourth ventricle to the left side but not completely obstructed. She also has another lesion in the left posterior frontoparietal aspect with surrounding edema. There is moderate hydrocephalus associated with this. She was transferred to [facility] intensive care unit and neurosurgery consultation requested. CXR demonstrated Left lung mass. Patient has had a dry cough, denies chest pain or hemoptysis, although does have dyspnea with climbing stairs. 01/18: feeling emotional today, however reports headaches better, brief increase if she coughs. denies feeling sleepy, focal weakness, vomiting. <Nan Sy - Last Filed: 01/18/18 11:21> Physical Exam Vital signs: Vital Signs 01/16/18 16:00 01/16/18 19:36 01/16/18 20:00 Temperature 98.6 F 98.2 F Pulse Rate 88 100 H Respiratory Rate 20 18 18 Blood Pressure 173/77 H 159/72 H Pulse Oximetry 99 97 01/17/18 00:00 01/17/18 04:00 Temperature 98.1 F 98.4 F Pulse Rate 78 72 Respiratory Rate 18 16 Blood Pressure 186/80 H 165/74 H Pulse Oximetry Intake & Output 01/16/18 01/17/18 01/17/18 18:59 06:59 18:59 Intake Total 1680 / 1680 1000 / 1000 Balance 1680 / 1680 1000 / 1000 Weight 58.2 kg Intake: IV 1000 / 1000 1000 / 1000 NS + KCl 20 mEq Inj 1,000 ML @ 1000 / 1000 1000 / 1000 50 mls/hr IV.CONT .Q20H [facility] Rx# :[id number] Oral 680 / 680 Other: # Voids 8 2 Date of Last Bowel Movement 01/15/18 01/15/18 Narrative: Constitutional: no acute distress, average body habitus Head: normocephalic, atraumatic Eye: EOMI, PERRL ENT: mucous membranes moist, oropharynx clear, nares patent, external ear normal Neck: supple, full ROM Respiratory: CTA bilaterally Cardiovascular: regular rate rhythm Extremities Exam: full ROM, no obvious deformities Skin: intact Neurological Exam: alert. oriented X3, CN II-XII intact, moving all extremities , normal speech, <Nan Sy - Last Filed: 01/18/18 11:21> Vital signs: Vital Signs 01/17/18 16:00 01/17/18 20:00 01/18/18 00:00 Temperature 97.7 F 98.4 F 99.0 F Pulse Rate 80 78 76 Respiratory Rate 23 18 13 Blood Pressure 173/77 H 157/69 H 156/69 H Pulse Oximetry 96 96 94 L 01/18/18 04:00 01/18/18 08:00 Temperature 98.5 F 97 F L Pulse Rate 63 70 Respiratory Rate 9 L 18 Blood Pressure 145/66 H 177/79 H Pulse Oximetry 97 95 Intake & Output 01/17/18 01/18/18 01/18/18 18:59 06:59 18:59 Intake Total 1620 / 1620 860 / 860 Balance 1620 / 1620 860 / 860 Weight 58.2 kg Intake: IV 900 / 900 NS + KCl 20 mEq Inj 1,000 ML @ 900 / 900 50 mls/hr IV.CONT .Q20H [facility] Rx# :[id number] Oral 720 / 720 860 / 860 Other: # Voids 5 2 Date of Last Bowel Movement 01/15/18 01/17/18 01/17/18 # Bowel Movements 0 3 Narrative: Ms umana is alert, awake. Comfortable, in no acute distress. Speech is fluent. Cranial nerve examination: pupils to be equal, round and reactive to light. Extra-ocular movements are intact. Facial motor and sensory function are normal and symmetrical. Gross hearing appears intact. Sternocleidomastoid and trapezius muscles are symmetrical. Other cranial nerves are intact. Neck is soft and supple with a good range of motion without pain. Muscle strength is normal in all muscle groups of both upper and lower extremities. Sensory examination is intact to light touch and pin prick in both the upper and lower extremities. Deep tendon reflexes are symmetrical in both upper and lower extremities. There is a bilateral plantar flexion response. Cerebellar examination is unremarkable, without deficits. Lungs are clear Heart regular rhythm is regular rate Skin warm and dry <Brandon Serra - Last Filed: 01/18/18 12:41> Assessment and Plan - Plan 62-year-old lady with the lung mass and multiple brain masses the larger one in the left cerebellar hemisphere with a smaller one in the right posterior frontoparietal lobe with some edema. There is impingement of the fourth ventricle on the left side although not completely obstructed with moderate hydrocephalus. MRI Brain reviewed cont Decadron metastatic work up per medical/oncology team Oncology following Should her neurologic condition deteriorate that we may contemplate placement of a ventriculostomy <Nan Sy - Last Filed: 01/18/18 11:21> - Plan 62-year-old lady with the lung mass and multiple brain masses the larger one in the left cerebellar hemisphere with a smaller one in the right posterior frontoparietal lobe with cerebral edema. There is impingement of the fourth ventricle on the left side although not completely obstructed with moderate hydrocephalus. Neuro: Continue neuro checks in a serial fashion. She is at risk for deterioration due to hydrocephalus. She may need a ventriculostomy catheter if her condition gets worse. We evaluated by a radiation oncologist. She has been seen by Dr. Zamorano. She will need to undergo biopsy for tissue diagnosis, possibly of a lung lesion Pulmonary: aggressive pulmonary toilette, nasotracheal suction, and breathing treatments with nebulizers. Daily PT and OT Renal: Continue to monitor closely urine output, BUN and creatinine Endocrine: Continue to Monitor serial Acu checks and SSI as needed in detail ID continue to monitor for signs of infection Continue Protonix for stress ulcer prophylaxis Continue Prashanth mario and SCD's for DVT prophylaxis Further recommendations will be provided depending on the patient's clinical evaluation and follow up studies. The exam, history, and the medical decision-making described in the above note were completed with the assistance of the mid-level provider. I reviewed and agree with the findings presented. I attest that I had a [id number] encounter with the patient on the same day, and personally performed and documented my assessment and findings in the medical record. <Brandon Serra - Last Filed: 01/18/18 12:41>
--- NOTE | 2018-01-17 13:05 | P.PNONC ---
Subjective Interval history: Afebrile Patient sitting up in chair at bedside Reports her headache is much improved Still has pain when she coughs or laughs Did mention she was able to walk the hallways of the unit; her unsteadiness is gone Objective Vital Signs/Intake & Output: Vital Signs 01/16/18 16:00 01/16/18 19:36 01/16/18 20:00 Temperature 98.6 F 98.2 F Pulse Rate 88 100 H Respiratory Rate 20 18 18 Blood Pressure 173/77 H 159/72 H Pulse Oximetry 99 97 01/17/18 00:00 01/17/18 04:00 01/17/18 08:00 Temperature 98.1 F 98.4 F 97.7 F Pulse Rate 78 72 86 Respiratory Rate 18 16 20 Blood Pressure 186/80 H 165/74 H 184/82 H Pulse Oximetry 99 01/17/18 09:00 Temperature Pulse Rate Respiratory Rate 20 Blood Pressure Pulse Oximetry Intake & Output 01/16/18 01/17/18 01/17/18 18:59 06:59 18:59 Intake Total 1680 / 1680 1000 / 1000 Balance 1680 / 1680 1000 / 1000 Weight 128 lb 4.944 oz Intake: IV 1000 / 1000 1000 / 1000 NS + KCl 20 mEq Inj 1,000 ML @ 1000 / 1000 1000 / 1000 50 mls/hr IV.CONT .Q20H [facility] Rx# :[id number] Oral 680 / 680 Other: # Voids 8 2 Date of Last Bowel Movement 01/15/18 01/15/18 01/15/18 Result Diagrams: 01/17/18 03:41 01/17/18 03:41 Laboratory Results: Laboratory Results - last 24 hr 01/16/18 01/16/18 01/17/18 16:33 20:09 03:41 WBC 19.4 H RBC 4.59 Hgb 12.7 Hct 38.6 MCV 84.1 MCH 27.6 MCHC 32.8 RDW 14.5 Plt Count 374 MPV 9.1 Neut % (Auto) 87.6 H Lymph % (Auto) 9.6 Scott % (Auto) 2.6 Eos % (Auto) 0.1 Baso % (Auto) 0.1 Neut # (Auto) 17.0 H Lymph # (Auto) 1.9 Scott # (Auto) 0.5 Eos # (Auto) 0.0 Baso # (Auto) 0.0 WBC Differential . Differential Comment Auto diff final Sodium Potassium Chloride Carbon Dioxide Anion Gap BUN Creatinine Estimated GFR POC Glucose 226 H 174 H Random Glucose Calcium Total Bilirubin AST ALT Alkaline Phosphatase Total Protein Albumin 01/17/18 01/17/18 01/17/18 03:41 07:57 12:46 WBC RBC Hgb Hct MCV MCH MCHC RDW Plt Count MPV Neut % (Auto) Lymph % (Auto) Scott % (Auto) Eos % (Auto) Baso % (Auto) Neut # (Auto) Lymph # (Auto) Scott # (Auto) Eos # (Auto) Baso # (Auto) WBC Differential Differential Comment Sodium 142 Potassium 3.9 Chloride 106 Carbon Dioxide 24.7 Anion Gap 11 BUN 14 Creatinine 0.85 Estimated GFR 67 L POC Glucose 112 H 96 Random Glucose 117 H Calcium 9.1 Total Bilirubin 0.2 AST 13 L ALT 26 Alkaline Phosphatase 68 Total Protein 7.8 Albumin 3.3 L Imaging Studies: Impressions Abdomen/Pelvis CT 01/16/18 00:00 CONCLUSION: Colonic diverticulosis and left adrenal nodule may be adenoma, however metastatic disease is difficult to exclude. Chest CT 01/16/18 00:00 CONCLUSION: 1. Left upper lobe mass almost certainly malignant with metastatic adenopathy within the mediastinum and left hilum. 2. Groundglass opacities right upper lobe and left lower lobe could be followed with repeat noncontrast chest CT in 6 months after appropriate clinical therapy. There are also tiny nodules in both lungs versus tortuous blood vessels. 3. Left adrenal mass could be an adenoma versus metastatic disease. Head MRI 01/16/18 00:00 CONCLUSION: 1. Too numerous to count enhancing mildly hemorrhagic metastatic deposits throughout the brain most numerous in the posterior fossa with some compression of the fourth ventricle. 2. Carcinomatous meningitis would be consideration 3. Lung mass would be amenable to pancreas biopsy for rapid diagnosis. 4. There is no significant hydronephrosis as yet. Medications: Active Medications Generic Name Dose Route Start Last Admin Trade Name Freq PRN Reason Stop Dose Admin Hydrocodone Bitart/Acetaminophen 1 tab 01/15/18 23:43 01/16/18 23:43 [place] 5/325 PO 1 tab Q4H PRN Administration pain 1-6 Hydrocodone Bitart/Acetaminophen 2 tab 01/15/18 23:44 01/17/18 08:30 [place] 5/325 PO 2 tab Q4H PRN Administration pain 7-10 Chlorhexidine Gluconate 3 pack 01/16/18 04:00 01/17/18 06:04 Chlorhexidine 2% Cloth TOPICAL 01/21/18 03:59 Not Given DAILY@0400 [facility] Dexamethasone Sodium Phosphate 4 mg 01/16/18 00:00 01/17/18 12:52 Decadron Inj IV.PUSH 4 mg Q6HR [facility] Administration Potassium Chloride/Sodium Chloride 1,000 mls @ 50 mls/hr 01/16/18 00:15 01/17 08:25 Ns + Kcl 20 Meq Inj IV.CONT Not Given .Q20H [facility] Insulin Aspart 0 unit 01/16/18 08:00 01/17/18 12:52 Novolog Insulin Correctional Sugar Inj SQ Not Given ACHS [facility] Protocol Labetalol HCl 10 mg 01/17/18 00:09 01/17/18 09:34 Trandate Inj IV.PUSH 10 mg Q4H PRN Administration SYSTOLIC BP GREATER THAN 165 Levetiracetam 500 mg 01/16/18 21:00 01/17/18 08:24 Keppra PO 500 mg BID [facility] Administration Morphine Sulfate 2 mg 01/16/18 00:45 01/16/18 20:21 Morphine Inj IV.PUSH 2 mg Q2H PRN Administration BREAKTHROUGH PAIN Pantoprazole Sodium 40 mg 01/16/18 09:00 01/17/18 08:25 Protonix PO 40 mg DAILY [facility] Administration Promethazine HCl 25 mg 01/15/18 23:45 01/16/18 19:35 Phenergan PO 25 mg Q6H PRN Administration nausea Senna/Docusate Sodium 1 tab 01/16/18 09:00 01/17/18 08:25 Geni-Colace PO 1 tab BID [facility] Administration Sodium Chloride 2 ml 01/16/18 09:00 01/17/18 08:25 Ns Flush IV.FLUSH 2 ml BID [facility] Administration Objective Remarks: GENERAL: Older female sitting up in chair at bedside. She appears comfortable. She is speaking in easy conversation. SKIN: Warm and dry. HEAD: Normocephalic. EYES: No scleral icterus. No injection or drainage. NECK: Supple, trachea midline. CARDIOVASCULAR: Regular rate and rhythm without murmurs. RESPIRATORY: Clear anteriorly. Breathing unlabored at rest. GASTROINTESTINAL: Abdomen soft, non-tender, nondistended. EXTREMITIES: No cyanosis, or edema. MUSCULOSKELETAL: Adequate muscle tone. NEUROLOGICAL: Occasional dysarthria. Awake and alert. Follows commands. Assessment/Plan - Plan 62-year-old female with probable new diagnosis of metastatic lung cancer. Patient was transferred from [place] for neurosurgery consultation. She had an outpatient MRI of the brain that showed multiple brain lesions. CT imaging of the chest abdomen and pelvis showed a 5.5 x 5 cm mass involving the left upper lobe lung. No definite evidence of metastatic disease involving the abdomen or pelvis. 1. Patient will have a biopsy on Friday of left upper lobe mass. 2. Awaiting radiation oncology consult for their recommendations. 3. Obtain molecular studies for possible targeted therapy as well as PDL 1 status after biopsy. 4. Continue Roddy Leos. - Attending Statement The exam, history, and the medical decision-making described in the above note were completed with the assistance of the mid-level provider. I reviewed and agree with the findings presented. I attest that I had a [id number] encounter with the patient on the same day, and personally performed and documented my assessment and findings in the medical record. Patient denies any headache or focal weakness. She is sitting up eating her lunch. No pulmonary symptom. Await biopsy of lung mass on Friday. Continue Decadron. Await radiation oncology evaluation. Discussed with patient and family.
--- NOTE | 2018-01-17 18:52 | P.CON ---
History of Present Illness Service: radiation oncology Primary Care Provider: PROVIDER NON STAFF Chief Complaint: Persistent headache, difficulty balancing, nausea. History of Present Illness: Headaches, balance not as good, pressure in head. Better with steroids as inpatient. PMF - History History Provided By: Patient, Family Member, Significant Other - Medical History Medical History: Medical History (Last Updated 01/16/18 @ 19:12 by Watson Zamorano MD) History of cigarette smoking Patient denies medical problems - Surgical History Surgical History: Surgical History (Last Reviewed 01/16/18 @ 08:39 by Bhupinder Espinoza) S/P total hysterectomy and BSO (bilateral salpingo-oophorectomy) - Family History Family History: Family History (Last Updated 01/16/18 @ 01:11 by Jacquelyn Holloway MD) Daughter Melanoma Mother Family history of colon cancer Family history of cancer Family history of hypertension Mother No problems noted. Father Family history of acute myocardial infarction Family history of diabetes mellitus Family history of hypertension Aunt Family history of breast cancer Sister Family history of hypertension Brother Family history of hypertension Lung cancer - Tobacco History Second Hand Smoke Exposure: No Tobacco Use In Past 30 Days: No Smoking Status: Former smoker Tobacco Type: Cigarettes Packs Per Day: 2 Years Smoked: 39 Smoking End Date: 1991 - Alcohol History How Often Do You Have a Drink Containing Alcohol: Monthly or less - Substance Use History Substance History: No History of Abuse - Immunization History Tetanus Immunization: Unsure Hx Influenza Vaccine This Season: No Medications and Allergies Active Medications: Active Medications Hydrocodone Bitart/Acetaminophen ([place] 5/325) 1 tab PO Q4H PRN PRN Reason: pain 1-6 Last Admin: 01/16/18 23:43 Dose: 1 tab Hydrocodone Bitart/Acetaminophen ([place] 5/325) 2 tab PO Q4H PRN PRN Reason: pain 7-10 Last Admin: 01/17/18 15:35 Dose: 2 tab Al Hydroxide/Mg Hydroxide (Milk Of Magnesia Liq) 30 ml PO Q12H PRN PRN Reason: Mild Constipation Albuterol (Albuterol Neb (Prn)) 2.5 mg NEB Q2HR NEB PRN PRN Reason: SHORTNESS OF BREATH/WHEEZING Alprazolam (Xanax) 0.5 mg PO Q6H PRN PRN Reason: ANXIETY Bisacodyl (Dulcolax Supp) 10 mg RECTAL DAILY PRN PRN Reason: SEVERE CONSITIPATION Chlorhexidine Gluconate (Chlorhexidine 2% Cloth) 3 pack TOPICAL DAILY@0400 [facility] Stop: 01/21/18 03:59 Last Admin: 01/17/18 06:04 Dose: Not Given Chlorhexidine Gluconate (Chlorhexidine 2% Cloth) 3 pack TOPICAL DAILY@0400 PRN PRN Reason: Extra cloth needed Stop: 01/21/18 03:59 Dexamethasone Sodium Phosphate (Decadron Inj) 4 mg IV.PUSH Q6HR [facility] Last Admin: 01/17/18 18:06 Dose: 4 mg Dextrose (D50w Vial) 50 ml IV.PUSH UNSCH PRN PRN Reason: PER HYPOGLYCEMIA PROTOCOL Glucagon (Glucagon Inj) 1 mg OTHER PRN PRN PRN Reason: for Hypoglycemia Protocol Potassium Chloride/Sodium Chloride (Ns + Kcl 20 Meq Inj) 1,000 mls @ 50 mls/hr IV.CONT .Q20H [facility] Last Infusion: 01/17/18 17:42 Dose: Infused Insulin Aspart (Novolog Insulin Correctional Sugar Inj) 0 unit SQ ACHS [facility]; Protocol Last Admin: 01/17/18 18:05 Dose: Not Given Labetalol HCl (Trandate Inj) 10 mg IV.PUSH Q4H PRN PRN Reason: SYSTOLIC BP GREATER THAN 165 Last Admin: 01/17/18 18:06 Dose: 10 mg Lactulose (Lactulose Liq) 30 ml PO DAILY PRN PRN Reason: SEVERE CONSITIPATION Levetiracetam (Keppra) 500 mg PO BID [facility] Last Admin: 01/17/18 08:24 Dose: 500 mg Lorazepam (Ativan Inj) 1 mg IV.PUSH Q5M PRN PRN Reason: seizure Morphine Sulfate (Morphine Inj) 2 mg IV.PUSH Q2H PRN PRN Reason: BREAKTHROUGH PAIN Last Admin: 01/16/18 20:21 Dose: 2 mg Pantoprazole Sodium (Protonix) 40 mg PO DAILY [facility] Last Admin: 01/17/18 08:25 Dose: 40 mg Promethazine HCl (Phenergan) 25 mg PO Q6H PRN PRN Reason: nausea Last Admin: 01/16/18 19:35 Dose: 25 mg Promethazine HCl (Phenergan Inj) 25 mg IM Q6H PRN PRN Reason: nausea/vomiting/cant use po Senna/Docusate Sodium (Geni-Colace) 1 tab PO BID [facility] Last Admin: 01/17/18 08:25 Dose: 1 tab Sennosides (Senokot) 17.2 mg PO Q12H PRN PRN Reason: Moderate Constipation Sodium Chloride (Ns Flush) 2 ml IV.FLUSH BID [facility] Last Admin: 01/17/18 08:25 Dose: 2 ml Sodium Chloride (Ns Flush) 2 ml IV.FLUSH PRN PRN PRN Reason: FLUSH AFTER USING IV ACCESS Allergies Allergy/AdvReac Type Severity Reaction Status Date / Time No Known Allergies Allergy Unverified 01/15/18 23:43 Physical Exam Vital signs: Vital Signs 01/16/18 19:36 01/16/18 20:00 01/17/18 00:00 Temperature 98.2 F 98.1 F Pulse Rate 100 H 78 Respiratory Rate 18 18 18 Blood Pressure 159/72 H 186/80 H Pulse Oximetry 97 01/17/18 04:00 01/17/18 08:00 01/17/18 09:00 Temperature 98.4 F 97.7 F Pulse Rate 72 86 Respiratory Rate 16 20 20 Blood Pressure 165/74 H 184/82 H Pulse Oximetry 99 01/17/18 12:00 Temperature 97.9 F Pulse Rate 78 Respiratory Rate 18 Blood Pressure 178/82 H Pulse Oximetry 96 Intake & Output 01/16/18 01/17/18 01/17/18 18:59 06:59 18:59 Intake Total 1680 / 1680 1000 / 1000 900 / 900 Balance 1680 / 1680 1000 / 1000 900 / 900 Weight 58.2 kg Intake: IV 1000 / 1000 1000 / 1000 900 / 900 NS + KCl 20 mEq Inj 1,000 ML @ 1000 / 1000 1000 / 1000 900 / 900 50 mls/hr IV.CONT .Q20H [facility] Rx# :[id number] Oral 680 / 680 Other: # Voids 8 2 Date of Last Bowel Movement 01/15/18 01/15/18 01/15/18 Assessment and Plan - Assessment (1) Neoplasm of brain causing mass effect on adjacent structures Code(s): D49.6 - Neoplasm of unspecified behavior of brain Status: Acute - Plan Discussed whole brain radiation. Lung biopsy pending.
[2018-01-17] MEDS: ALPRAZolam 0.5 MG Tablet PO PRN (20:15)
[2018-01-17] MEDS: Metoprolol Tartrate 25 MG Tablet PO SCH (21:41)
[2018-01-18] MEDS: Morphine Inj 4 MG/ML Vial IV.PUSH PRN ×2 (00:11→23:29)
[2018-01-18] MEDS: Chlorhexidine Gluconate 2% 1 Pack (2 Cloths) TOPICAL SCH (04:18)
[2018-01-18] MEDS: Insulin NovoLOG Aspart Correctional Sugar Inj SQ SCH ×4 (08:25→20:51)
[2018-01-18] MEDS: Metoprolol Tartrate 25 MG Tablet PO SCH ×2 (08:25→20:50)
[2018-01-18] MEDS: levETIRAcetam 500 MG Tablet PO SCH ×2 (08:25→20:50)
[2018-01-18] MEDS: Senna/Docusate Sodium 8.6/50 MG Tablet PO SCH ×2 (08:26→20:51)
--- NOTE | 2018-01-18 08:34 | P.PNCC ---
Subjective Subjective Remarks/Hospital Course: 62-year-old female who has had no significant past medical history until she was recently diagnosed with multiple posterior fossa masses consistent with brain metastasis on outpatient MRI Saturday 01/13. She states she has been having pain in neck and occipital region since the second week of November. She initially attributed symptoms to sinusitis and completed a course of antibiotics. She has also had chiropractic adjustments. Over the last 2 weeks she had worsening headache that she describes as "excruciating" throbbing of anterior and posterior head. It is worse with cough, upright position, and awakens her from sleep. Unremitting with motrin. She has had nausea, vomiting, and poor po intake. Lost 12 pounds over the last 2 weeks, felt "off balance" today. No seizures, focal weakness, visual changes/diplopia. Her primary was arranging for outpatient workup for primary. Today she presented to the emergency department at [facility] due to intractable headache, nausea, vomiting. CT brain demonstrated hyperdense lesions L cerebellum ( largest 18 mm x 18 mm, another 5mm) with surrounding edema. There was 5 mm lesion right cerebellum with moderate hydrocephalus. ED physician discussed with nuclear operations specialist neurosurgeon and then senior db2 systems programmer was consulted for admission. CXR demonstrated L lung mass. Patient has had a dry cough, denies chest pain or hemoptysis, +dyspnea with climbing stairs. Her daughter is at bedside and states that earlier this year she had a negative screening colonoscopy, negative mammogram. She had seen a boatbuilder apprentice wood for skin cancer screening and had lesions removed from her left shoulder that showed benign pathology. She is a former smoker with extensive family history of malignancy (daughter melanoma, 2 brothers of lung cancer in their 50s, mother colon cancer age 65). Hysterectomy with BSO in 1991 for "precancerous condition". She has been on hormone replacement w/ estradiol. SUBJ 01/16: Patient's headaches improved with IV Decadron. Appreciate neurosurgery consult, there is slight impingement of the fourth ventricle on the left side. There is moderate hydrocephalus associated. If patient clinically deteriorates she would need ventriculostomy placement. 01/17: Remains conversant. Continues to feel a little better after steroids have been started. Leukocytosis undoubtedly related to steroids. Dr. Zamorano from medical oncology discussed options in detail with the extended family last evening. 01/18: Large left upper lobe lung mass with pathologic size mediastinal nodes and numerous cerebral metastasis. Easiest source for tissue diagnosis is the lung mass itself. Plan is for needle biopsy tomorrow. Patient is medically ready for this procedure. Objective Vital Signs / I&O: Vital Signs 01/17/18 09:00 01/17/18 12:00 01/17/18 16:00 Temperature 97.9 F 97.7 F Pulse Rate 78 80 Respiratory Rate 20 18 23 Blood Pressure 178/82 H 173/77 H Pulse Oximetry 96 96 01/17/18 20:00 01/18/18 00:00 01/18/18 04:00 Temperature 98.4 F 99.0 F 98.5 F Pulse Rate 78 76 63 Respiratory Rate 18 13 9 L Blood Pressure 157/69 H 156/69 H 145/66 H Pulse Oximetry 96 94 L 97 Intake & Output 01/17/18 01/18/18 01/18/18 18:59 06:59 18:59 Intake Total 1620 / 1620 860 / 860 Balance 1620 / 1620 860 / 860 Weight 58.2 kg Intake: IV 900 / 900 NS + KCl 20 mEq Inj 1,000 ML @ 900 / 900 50 mls/hr IV.CONT .Q20H [facility] Rx# :[id number] Oral 720 / 720 860 / 860 Other: # Voids 5 2 Date of Last Bowel Movement 01/15/18 01/17/18 # Bowel Movements 0 3 Result Diagrams: 01/17/18 03:41 01/17/18 03:41 Objective Remarks: GENERAL: Well-nourished, well-developed patient patient who is alert and awake, oriented, pleasant SKIN: Warm and dry, well perfused. HEAD: Atraumatic. Normocephalic. EYES: Pupils equal and round, 4mm and reactive to 3 mm bilaterally. No scleral icterus. No nystagmus. ENT: No nasal bleeding or discharge. Mucous membranes pink. NECK: Trachea midline. No JVD. CARDIOVASCULAR: Regular rate and rhythm. No murmurs rubs or gallops. RESPIRATORY: Clear to auscultation. Breath sounds equal bilaterally. GASTROINTESTINAL: Abdomen soft, non-tender, nondistended. Bowel sounds present, no palpable mass. Hepatic and splenic margins not palpable. MUSCULOSKELETAL: Extremities without clubbing, cyanosis, or edema. No obvious deformities. No calf tenderness. NEUROLOGICAL: Awake and alert, oriented x3 with normal speech. Cranial nerves intact, tongue protrusion midline, EOMI without nystagmus. Strength 5/5 in all extremities, sensation intact. Abnormal finger to nose bilaterally. Assessment and Plan - Assessment and Plan Plan: NEURO: Multiple cerebellar masses c/w metastatic disease Moderate hydrocephalus MRI brain w&w/o pending Decadron 4 mg IV q6 hours. NSG consult appreciated. If clinical deterioration may need ventriculostomy placement Headache Nausea/Vomiting Lortab prn .Morphine prn breakthrough Phenergan prn (Zofran did not help). RESP: L lung mass, mediastinal adenopathy Former tobacco abuse CT chest/abd/pelvis pending at this Albuterol prn IS q1 hour CV: HTN Does not carry diagnosis of essential hypertension. Presently hypertensive and pain anxiety playing some role. Labetalol prn for SBP >165. GI: Regular diet LFTS WNL outside hospital. FEN/RENAL: NS with 20 MQ KCL /L for now as plan to give IV contrast. reduce rate to 50 mL/h Received KCl 40 MEQ po at outside hospital for potassium 3.1. Creatinine was 0.45 Monitor BMP ID: Monitor for signs and symptoms of infection. HEME/ONC: Metastatic brain lesions ?Primary lung cancer Followup MRI brain and CT scans C/A/P -multiple cerebral and cerebellar metastases. Oncology consult reviewed. ENDO: Monitor bedside glucose AC/at bedtime while on steroids and administer low-dose insulin sliding scale as indicated. PROPH: SCDs for DVT prophylaxis. Avoid chemical DVT prophylaxis until cleared by neurosurgery Protonix for stress ulcer prophylaxis (poor po intake, on steroids). ACCESS: PIV providing adequate access at this time. Patient has an advanced directive. Her is her healthcare surrogate and her daughter alternate if she loses capacity. She is currently capacitated for medical decision making. She desires FULL CODE. She would not want prolonged life support if no change of functional recovery. FULL CODE Overall impression: Widely metastatic malignancy, undoubtedly lung primary. She protects her airway presently and is neurologically stable. Transfer to floor.
--- NOTE | 2018-01-18 09:27 | P.PNNS ---
Subjective Interval history: 01/18: sitting up in chair, remains awake, alert, minimal headaches. denies new neurological symptoms <Nan Sy - Last Filed: 01/18/18 11:21> Physical Exam Vital signs: Vital Signs 01/17/18 12:00 01/17/18 16:00 01/17/18 20:00 Temperature 97.9 F 97.7 F 98.4 F Pulse Rate 78 80 78 Respiratory Rate 18 23 18 Blood Pressure 178/82 H 173/77 H 157/69 H Pulse Oximetry 96 96 96 01/18/18 00:00 01/18/18 04:00 Temperature 99.0 F 98.5 F Pulse Rate 76 63 Respiratory Rate 13 9 L Blood Pressure 156/69 H 145/66 H Pulse Oximetry 94 L 97 Intake & Output 01/17/18 01/18/18 01/18/18 18:59 06:59 18:59 Intake Total 1620 / 1620 860 / 860 Balance 1620 / 1620 860 / 860 Weight 58.2 kg Intake: IV 900 / 900 NS + KCl 20 mEq Inj 1,000 ML @ 900 / 900 50 mls/hr IV.CONT .Q20H [facility] Rx# :[id number] Oral 720 / 720 860 / 860 Other: # Voids 5 2 Date of Last Bowel Movement 01/15/18 01/17/18 # Bowel Movements 0 3 Narrative: Constitutional: no acute distress, average body habitus Head: normocephalic, atraumatic Eye: EOMI, PERRL ENT: mucous membranes moist, oropharynx clear, nares patent, external ear normal Neck: supple, full ROM Respiratory: CTA bilaterally Cardiovascular: regular rate rhythm Extremities Exam: full ROM, no obvious deformities Skin: intact Neurological Exam: alert. oriented X3, CN II-XII intact, moving all extremities , normal speech, <Nan Sy - Last Filed: 01/18/18 11:21> Vital signs: Vital Signs 01/17/18 16:00 01/17/18 20:00 01/18/18 00:00 Temperature 97.7 F 98.4 F 99.0 F Pulse Rate 80 78 76 Respiratory Rate 23 18 13 Blood Pressure 173/77 H 157/69 H 156/69 H Pulse Oximetry 96 96 94 L 01/18/18 04:00 01/18/18 08:00 Temperature 98.5 F 97 F L Pulse Rate 63 70 Respiratory Rate 9 L 18 Blood Pressure 145/66 H 177/79 H Pulse Oximetry 97 95 Intake & Output 01/17/18 01/18/18 01/18/18 18:59 06:59 18:59 Intake Total 1620 / 1620 860 / 860 Balance 1620 / 1620 860 / 860 Weight 58.2 kg Intake: IV 900 / 900 NS + KCl 20 mEq Inj 1,000 ML @ 900 / 900 50 mls/hr IV.CONT .Q20H [facility] Rx# :[id number] Oral 720 / 720 860 / 860 Other: # Voids 5 2 Date of Last Bowel Movement 01/15/18 01/17/18 01/17/18 # Bowel Movements 0 3 Ms gross is alert, awake. Comfortable, in no acute distress. Speech is fluent. Cranial nerve examination: pupils to be equal, round and reactive to light. Extra-ocular movements are intact. Facial motor and sensory function are normal and symmetrical. Gross hearing appears intact. Sternocleidomastoid and trapezius muscles are symmetrical. Other cranial nerves are intact. Neck is soft and supple with a good range of motion without pain. Muscle strength is normal in all muscle groups of both upper and lower extremities. Sensory examination is intact to light touch and pin prick in both the upper and lower extremities. Deep tendon reflexes are symmetrical in both upper and lower extremities. There is a bilateral plantar flexion response. Cerebellar examination is unremarkable, without deficits. Lungs are clear Heart regular rhythm is regular rate Skin warm and dry <Brandon Serra - Last Filed: 01/18/18 12:44> Assessment and Plan - Plan 62-year-old lady with the lung mass and multiple brain masses the larger one in the left cerebellar hemisphere with a smaller one in the right posterior frontoparietal lobe with some edema. There is impingement of the fourth ventricle on the left side although not completely obstructed with moderate hydrocephalus. cont Decadron metastatic work up per medical/oncology team Oncology and radiation oncology following cont neuro checks Should her neurologic condition deteriorate that we may contemplate placement of a ventriculostomy <Nan Sy - Last Filed: 01/18/18 11:21> - Plan 62-year-old lady with the lung mass and multiple brain masses the larger one in the left cerebellar hemisphere with a smaller one in the right posterior frontoparietal lobe with cerebral edema. There is impingement of the fourth ventricle on the left side although not completely obstructed with moderate hydrocephalus. Neuro: Continue neuro checks in a serial fashion. her condition remains critical ! She is at risk for deterioration due to hydrocephalus. She may need a ventriculostomy catheter or a ventriculoperitoneal shunt if her condition gets worse. She has been seen byh Dr arora, from radiation oncologist. She will need full brain radiation her oncologist Dr. Zamorano, recommends alung biopsy biopsy for tissue diagnosis, to be done tomorrow Pulmonary: aggressive pulmonary toilette, nasotracheal suction, and breathing treatments with nebulizers. Daily PT and OT Renal: Continue to monitor closely urine output, BUN and creatinine Endocrine: Continue to Monitor serial Acu checks and SSI as needed in detail ID continue to monitor for signs of infection Continue Protonix for stress ulcer prophylaxis Continue Prashanth hose and SCD's for DVT prophylaxis Further recommendations will be provided depending on the patient's clinical evaluation and follow up studies. The exam, history, and the medical decision-making described in the above note were completed with the assistance of the mid-level provider. I reviewed and agree with the findings presented. I attest that I had a [id number] encounter with the patient on the same day, and personally performed and documented my assessment and findings in the medical record <Brandon Serra - Last Filed: 01/18/18 12:44>
[2018-01-18] MEDS: ALPRAZolam 0.5 MG Tablet PO PRN (11:09)
[2018-01-19] MEDS: ALPRAZolam 0.5 MG Tablet PO PRN ×2 (02:39→08:42)
[2018-01-19] MEDS: Chlorhexidine Gluconate 2% 1 Pack (2 Cloths) TOPICAL SCH (03:40)
--- NOTE | 2018-01-19 08:04 | P.PNONC ---
Subjective Interval history: Ms. Man was seen and examined this morning, vital signs, labs, medications and events over the past weekend were reviewed. Subjectively; the patient reports her headache is improved, she specifically reports pain with coughing, laughing and reclining has resolved. She has remained on corticosteroids since presentation to this facility on 01/15/2018. Over the weekend she was evaluated by radiation oncology for palliative whole brain radiation. She has been advised continued monitoring by neurosurgery as well. No surgical interventions are planned at this time to the best of my knowledge or based on review of electronic medical records. Later today the patient is scheduled to undergo CT-guided biopsy of the left lung mass. Objective Vital Signs/Intake & Output: Vital Signs 01/18/18 12:00 01/18/18 16:00 01/18/18 20:00 Temperature 97.4 F L 97.6 F 98.4 F Pulse Rate 62 68 80 Respiratory Rate 20 18 18 Blood Pressure 166/72 H 124/58 L 176/74 H Pulse Oximetry 94 L 94 L 97 01/19/18 00:00 01/19/18 00:59 01/19/18 01:53 Temperature 97.6 F 97.4 F L Pulse Rate 67 68 70 Respiratory Rate 18 16 Blood Pressure 167/73 H 167/77 H Pulse Oximetry 96 98 01/19/18 04:00 01/19/18 07:00 Temperature 97.5 F L Pulse Rate 65 64 Respiratory Rate 16 Blood Pressure 147/77 H Pulse Oximetry Intake & Output 01/18/18 01/19/18 01/19/18 18:59 06:59 18:59 Intake Total 720 / 720 480 / 480 Balance 720 / 720 480 / 480 Weight 59.4 kg Intake: Oral 720 / 720 480 / 480 Other: # Voids 4 2 Date of Last Bowel Movement 01/18/18 01/18/18 # Bowel Movements 1 Result Diagrams: 01/17/18 03:41 01/17/18 03:41 Laboratory Results: Laboratory Results - last 24 hr 01/18/18 01/18/18 01/18/18 07:55 12:22 17:14 POC Glucose 109 95 165 H 01/18/18 20:23 POC Glucose 173 H Culture Results: Microbiology 01/18/18 19:00 Stool Occult Blood (JELANI) - Final Stool Hemoccult positive Medications: Active Medications Generic Name Dose Route Start Last Admin Trade Name Key PRN Reason Stop Dose Admin Hydrocodone Bitart/Acetaminophen 1 tab 01/15/18 23:43 01/18/18 20:50 [place] 5/325 PO 1 tab Q4H PRN Administration pain 1-6 Hydrocodone Bitart/Acetaminophen 2 tab 01/15/18 23:44 01/19/18 01:22 [place] 5/325 PO 2 tab Q4H PRN Administration pain 7-10 Alprazolam 0.5 mg 01/17/18 15:29 01/19/18 02:39 Xanax PO 0.5 mg Q6H PRN Administration ANXIETY Chlorhexidine Gluconate 3 pack 01/16/18 04:00 01/19/18 03:40 Chlorhexidine 2% Cloth TOPICAL 01/21/18 03:59 3 pack DAILY@0400 [facility] Administration Clonidine HCl 0.1 mg 01/17/18 20:01 01/18/18 12:35 Catapres PO 0.1 mg Q6H PRN Administration SBP >165 Dexamethasone Sodium Phosphate 4 mg 01/16/18 00:00 01/19/18 06:02 Decadron Inj IV.PUSH 4 mg Q6HR [facility] Administration Potassium Chloride/Sodium Chloride 1,000 mls @ 50 mls/hr 01/16/18 00:15 01/19 00:20 Ns + Kcl 20 Meq Inj IV.CONT Not Given .Q20H [facility] Insulin Aspart 0 unit 01/16/18 08:00 01/18/18 20:51 Novolog Insulin Correctional Sugar Inj SQ Not Given ACHS [facility] Protocol Labetalol HCl 10 mg 01/17/18 00:09 01/17/18 18:06 Trandate Inj IV.PUSH 10 mg Q4H PRN Administration SYSTOLIC BP GREATER THAN 165 Levetiracetam 500 mg 01/16/18 21:00 01/18/18 20:50 Keppra PO 500 mg BID [facility] Administration Metoprolol Tartrate 25 mg 01/17/18 21:00 01/18/18 20:50 Lopressor PO 25 mg BID [facility] Administration Morphine Sulfate 2 mg 01/16/18 00:45 01/18/18 23:29 Morphine Inj IV.PUSH 2 mg Q2H PRN Administration BREAKTHROUGH PAIN Pantoprazole Sodium 40 mg 01/16/18 09:00 01/18/18 08:25 Protonix PO 40 mg DAILY [facility] Administration Promethazine HCl 25 mg 01/15/18 23:45 01/16/18 19:35 Phenergan PO 25 mg Q6H PRN Administration nausea Senna/Docusate Sodium 1 tab 01/16/18 09:00 01/18/18 20:51 Geni-Colace PO Not Given BID [facility] Sodium Chloride 2 ml 01/16/18 09:00 01/18/18 20:51 Ns Flush IV.FLUSH 2 ml BID [facility] Administration Objective Remarks: GENERAL: Well-nourished, well-developed patient. SKIN: Warm and dry. HEAD: Normocephalic. EYES: No scleral icterus. No injection or drainage. Oral exam: Thrush. NECK: Supple, trachea midline. No JVD or lymphadenopathy. LYMPHATIC: No adenopathy. CARDIOVASCULAR: Regular rate and rhythm without murmurs. RESPIRATORY: Breath sounds equal bilaterally. No accessory muscle use. GASTROINTESTINAL: Abdomen soft, non-tender, nondistended. EXTREMITIES: No cyanosis, or edema. MUSCULOSKELETAL: Adequate muscle tone. NEUROLOGICAL: No obvious focal deficit. Awake, alert, and oriented x3. PSYCHIATRIC: Appropriate mood and affect; insight and judgment normal. Assessment/Plan - Plan 62-year-old female with probable new diagnosis of metastatic lung cancer. Patient was transferred from [place] for neurosurgery consultation. She had an outpatient MRI of the brain that showed multiple brain lesions. CT imaging of the chest abdomen and pelvis showed a 5.5 x 5 cm mass involving the left upper lobe lung MRI brain performed at this facility confirmed presence of innumerable brain metastases clustered in her cerebellum but also present in the supratentorial brain associated with extensive vasogenic edema. No definite evidence of metastatic disease involving the abdomen or pelvis. 1. Left lung mass: Await CT-guided biopsy. She will depending on histology require PDL 1 testing and additional molecular testing (provided her disease is non-small cell carcinoma). 2. Radiation oncology has seen the patient, she has been advised palliative whole brain radiation therapy. The patient has elected to undergo treatment at our [facility] facility which is the closest facility we have to [place], [place]. 3. Continue Keppra, Decadron. 4. Thrush: Initiate nystatin swish and swallow 5 mL p.o. every 8 hours. Continue ongoing care.
[2018-01-19] MEDS: Metoprolol Tartrate 25 MG Tablet PO SCH ×2 (08:42→20:42)
[2018-01-19] MEDS: levETIRAcetam 500 MG Tablet PO SCH ×2 (08:42→20:42)
[2018-01-19] MEDS: Senna/Docusate Sodium 8.6/50 MG Tablet PO SCH ×2 (08:46→20:41)
[2018-01-19] MEDS: Insulin NovoLOG Aspart Correctional Sugar Inj SQ SCH ×4 (09:04→20:54)
[2018-01-19] MEDS: Labetalol HCl Inj 100 MG/20 ML Vial IV.PUSH PRN (11:17)
[2018-01-19] MEDS: Nystatin Liq 500,000 UNIT/5 ML UDC SWISH-SWAL SCH ×3 (12:16→20:42)
[2018-01-19 13:30] LABS: Prothrombin Time 9.9 sec (9.8-11.6)
[2018-01-19] MEDS ORDERED: Lidocaine 1%/Epinephrine 1:100,000 Inj 20 ML Vial ONE (15:17)
[2018-01-19] MEDS ORDERED: fentaNYL Citrate Inj 100 MCG/2 ML Ampul ONE (15:30)
--- NOTE | 2018-01-19 16:42 | XR ---
EXAM DATE: 01/19/2018 4:36 PM EDT AGE/SEX: 62 years / Female INDICATIONS: Post needle biopsy left lung CLINICAL DATA: This is the patient's initial encounter. Patient reports that signs and symptoms have been present for 1 day and indicates a pain score of 0/10. MEDICAL/SURGICAL HISTORY: . brain tumor, left lung mass, adrenal mass Non-responsive. COMPARISON: No prior exams available for comparison. FINDINGS: Negative for pneumothorax. Large mass left upper lobe. Right lung clear. The heart and pulmonary vasc ularity are normal. CONCLUSION: Negative for pneumothorax Electronically signed by: Edgard Barth MD 01/19/2018 4:40 PM EDT
--- NOTE | 2018-01-19 16:45 | CT ---
EXAM DATE: 01/19/2018 4:33 PM EDT AGE/SEX: 62 years / Female INDICATIONS: Left lung mass. CLINICAL DATA: This is the patient's initial encounter. Patient reports that signs and symptoms have been present for 1 day and indicates a pain score of 4/10. MEDICAL/SURGICAL HISTORY: None. Hysterectomy. COMPARISON: [facility] – [place], [place] CHEST W CONTRAST, 01/16/2018. . BIOPSY SITE: Left lung MEDICATION(S): 2mg midazolam (Versed) IV 100mcg fentanyl (Sublimaze) IV DEVICE(S): 20 gauge BARD biopsy needle One core specimen(s) sent to the laboratory for pathologic evaluation. . . PROCEDURE: CT guided Left lung biopsy Prior to the procedure informed consent was obtained. Any appropriate prior imaging studies were rev iewed. Using automated exposure control and adjustment of the mA and/or kV according to patient size , radiation dose was kept as low as reasonably achievable to obtain optimal diagnostic quality images . DICOM format image data is available electronically for review and comparison. The site was prepped in a sterile fashion. Full sterile technique was used, including cap, mask, brenna rile gloves and gown and a large sterile sheet. Hand hygiene and 2% chlorhexidine and/or betadine/al cohol prep was utilized per protocol for cutaneous antisepsis. The skin and subcutaneous tissues wer e infiltrated with local anesthetic solution. With CT guidance the previously identified target was localized. Biopsy was performed using the presc ribed needle as above. Adequate hemostasis was obtained with compression at the puncture site. Follow-up CT scan reveals no pneumothorax. Conscious sedation was performed with the prescribed dosages and duration as above in the presence of an independent trained radiology nurse to assist in the monitoring of the patient. EKG and oximetry remained stable throughout the procedure. The patient tolerated the procedure well and there were no complications. The patient was sent to Radiology Outpatient Unit in stable condition. FINDINGS: After obtaining consent, a CT-guided left lung mass biopsy was performed as described above. The darcy ent tolerated the procedure well without complications. CONCLUSION: 1. Uncomplicated CT guided biopsy. Electronically signed by: Hitesh Shoemaker MD 01/19/2018 4:44 PM EDT
[2018-01-19] MEDS ORDERED: Fluconazole 100 MG Tablet PO ONE (17:00)
--- NOTE | 2018-01-19 17:13 | P.PNIM ---
Subjective Interval history: No new complaints. Physical Exam Vital signs: 01/19/18 11:51 01/19/18 16:30 01/19/18 16:45 Temperature 97.6 F Pulse Rate 70 66 Respiratory Rate 18 20 Blood Pressure 135/83 175/84 H 159/84 H Pulse Oximetry 97 95 Narrative: GENERAL: This is a well-nourished, well-developed patient, in no apparent distress. CARDIOVASCULAR: Regular rate and rhythm without murmurs, gallops, or rubs. RESPIRATORY: Clear to auscultation. Breath sounds equal bilaterally. No wheezes , rales, or rhonchi. GASTROINTESTINAL: Abdomen soft, non-tender, nondistended. Normal active bowel sounds MUSCULOSKELETAL: Extremities without clubbing, cyanosis, or edema. NEURO: Alert & Oriented x4 to person, place, time, situation. Moves all ext x4 Results - Labs CBC & Chem 7: 01/17/18 03:41 01/17/18 03:41 - Imaging Lung Biopsy CT 01/19/18 00:00 CONCLUSION: 1. Uncomplicated CT guided biopsy. Chest X-Ray 01/19/18 16:16 CONCLUSION: Negative for pneumothorax Assessment and Plan - Assessment (1) Lung mass Code(s): R91.8 - Other nonspecific abnormal finding of lung field Status: Acute Plan: 62-year-old female with probable new diagnosis of metastatic lung cancer. Patient was transferred from [place] for neurosurgery consultation. She had an outpatient MRI of the brain that showed multiple brain lesions. CT imaging of the chest abdomen and pelvis showed a 5.5 x 5 cm mass involving the left upper lobe lung MRI brain performed at this facility confirmed presence of innumerable brain metastases clustered in her cerebellum but also present in the supratentorial brain associated with extensive vasogenic edema. No definite evidence of metastatic disease involving the abdomen or pelvis. - comgmt with Medical Oncology, Surgical Oncology, and Neurosurgery MRI brain 1. Too numerous to count enhancing mildly hemorrhagic metastatic deposits throughout the brain most numerous in the posterior fossa with some compression of the fourth ventricle. 2. Carcinomatous meningitis would be consideration 3. Lung mass would be amenable to pancreas biopsy for rapid diagnosis. 4. There is no significant hydronephrosis as yet. - Pt underwent CT guided Bx of left lung mass (01/19/18) - pathology pending - Per Oncology, depending on histology require PDL 1 testing and additional molecular testing (provided her disease is non-small cell carcinoma). - Radiation oncology has seen the patient, she has been advised palliative whole brain radiation therapy. The patient has elected to undergo treatment at [facility] facility - Roddy Leos. - Celexa xanax - Thrush: Initiate nystatin swish and swallow 5 mL p.o. every 8 hours. HTN - stable - continue BB
--- NOTE | 2018-01-19 18:40 | XR ---
EXAM DATE: 01/19/2018 6:18 PM EDT AGE/SEX: 62 years / Female INDICATIONS: Follow-up post left lung biopsy. CLINICAL DATA: This is the patient's subsequent encounter. Patient reports that signs and symptoms h ave been present for 1 day and indicates a pain score of 0/10. MEDICAL/SURGICAL HISTORY: . Brain tumor, left lung mass, adrenal mass. None. COMPARISON: [facility] – [place], [place] BIOPSY LUNG LEFT, 01/19/2018. [facility] – [place], CHEST EXPIRATION ONLY, 01/19/2018. . FINDINGS: There is a 5.6 cm mass in the left upper lung. Since the prior examination is been development of a p neumothorax. This appears mild. It measures up to 1 cm. The heart size is normal. There is enlargemen t of the left hilum. The right lung is grossly clear. CONCLUSION: Development of a mild left pneumothorax. Electronically signed by: Elton Hernandez MD 01/19/2018 6:39 PM EDT
--- NOTE | 2018-01-19 18:42 | P.PNNS ---
Subjective Interval history: Pt awake and alert. Complains of left sided trapezius area pain states she thinks because she had to hold her LUE up for a while. She denies any chest pain or sob. No headaches currently. No n/v. <Primo [place] - Last Filed: 01/19/18 18:38> Physical Exam Vital signs: Vital Signs 01/18/18 20:00 01/19/18 00:00 01/19/18 00:59 Temperature 98.4 F 97.6 F 97.4 F L Pulse Rate 80 67 68 Respiratory Rate 18 18 16 Blood Pressure 176/74 H 167/73 H 167/77 H Pulse Oximetry 97 96 98 01/19/18 01:53 01/19/18 04:00 01/19/18 07:00 Temperature 97.5 F L Pulse Rate 70 65 64 Respiratory Rate 16 Blood Pressure 147/77 H Pulse Oximetry 01/19/18 08:27 01/19/18 11:00 01/19/18 11:10 Temperature 97.6 F 97.6 F Pulse Rate 65 69 70 Respiratory Rate 18 18 Blood Pressure 170/73 H 165/87 H Pulse Oximetry 98 98 01/19/18 11:51 01/19/18 16:30 01/19/18 16:45 Temperature 97.6 F Pulse Rate 70 66 Respiratory Rate 18 20 Blood Pressure 135/83 175/84 H 159/84 H Pulse Oximetry 97 95 01/19/18 17:16 Temperature 96 F L Pulse Rate 66 Respiratory Rate 18 Blood Pressure 145/71 H Pulse Oximetry 98 Intake & Output 01/18/18 01/19/18 01/19/18 18:59 06:59 18:59 Intake Total 720 / 720 480 / 480 480 / 480 Balance 720 / 720 480 / 480 480 / 480 Weight 59.4 kg Intake: Oral 720 / 720 480 / 480 480 / 480 Other: # Voids 4 2 3 Date of Last Bowel Movement 01/18/18 01/18/18 01/18/18 # Bowel Movements 1 - Constitutional no acute distress - Routine HEENT Exam Head: Present: normocephalic, atraumatic Eye: Present: PERRL (Pupils 4mm bilaterally reactive bilaterally.). Absent: conjunctival icterus ENT: Present: oropharynx clear - Routine Neck Exam Present: trachea midline - Routine Respiratory Exam Present: CTA bilaterally. Absent: respiratory distress, rhonchi, wheezes - Routine Cardiovascular Exam Present: RRR, S1, S2. Absent: murmur - Routine Abdominal Exam Present: soft, normoactive bowel sounds. Absent: tenderness, distended - Routine Skin Exam Absent: cyanosis, erythema - Routine Neurological Exam Present: alert, oriented X3, CN II-XII intact, moving all extremities, vision grossly intact, normal speech. Absent: sensory deficit, motor deficit, altered mental status - Detailed Neurological Exam: Coma Scale Eye Opening: Spontaneous Verbal Response: Oriented Motor Response: Obey commands [place] Coma Scale Total: 15 - Routine Psychiatric Exam Present: normal affect, normal thought process, cooperative, good insight, good judgment. Absent: agitated <Primo [place] - Last Filed: 01/19/18 18:38> Vital signs: Vital Signs 01/19/18 16:30 01/19/18 16:45 01/19/18 17:16 Temperature 97.6 F 96 F L Pulse Rate 70 66 66 Respiratory Rate 18 20 18 Blood Pressure 175/84 H 159/84 H 145/71 H Pulse Oximetry 97 95 98 01/19/18 18:49 01/19/18 20:00 01/19/18 20:54 Temperature 97.5 F L Pulse Rate 74 Respiratory Rate 18 18 18 Blood Pressure 128/63 Pulse Oximetry 97 01/19/18 23:13 01/19/18 23:47 01/20/18 00:42 Temperature 97.9 F Pulse Rate 72 69 Respiratory Rate 18 18 Blood Pressure 143/79 H Pulse Oximetry 01/20/18 04:00 01/20/18 07:00 01/20/18 07:52 Temperature 98 F 97.7 F Pulse Rate 67 70 64 Respiratory Rate 18 18 Blood Pressure 135/89 177/95 H Pulse Oximetry 97 97 01/20/18 09:40 01/20/18 09:55 01/20/18 10:10 Temperature 98.0 F Pulse Rate 73 69 75 Respiratory Rate 18 18 18 Blood Pressure 156/76 H 130/80 150/80 H Pulse Oximetry 93 L 95 95 01/20/18 10:49 01/20/18 11:15 01/20/18 11:26 Temperature 97.6 F Pulse Rate 72 82 Respiratory Rate 18 18 Blood Pressure 159/87 H Pulse Oximetry 96 Intake & Output 0801/20/18 01/20/18 18:59 06:59 18:59 Intake Total 480 / 480 720 / 720 Balance 480 / 480 720 / 720 Weight 56.9 kg Intake: Oral 480 / 480 720 / 720 Other: # Voids 3 1 Date of Last Bowel Movement 01/18/18 01/18/18 01/18/18 <Dex Mendoza - Last Filed: 01/20/18 13:05> Assessment and Plan - Assessment (1) History of hysterectomy Code(s): Z90.710 - Acquired absence of both cervix and uterus Status: Acute (2) Neck pain Code(s): M54.2 - Cervicalgia Status: Acute (3) H/O hysterectomy for benign disease Code(s): Z90.710 - Acquired absence of both cervix and uterus Status: Acute (4) Neoplasm of brain causing mass effect on adjacent structures Code(s): D49.6 - Neoplasm of unspecified behavior of brain Status: Acute (5) Lung mass Code(s): R91.8 - Other nonspecific abnormal finding of lung field Status: Acute - Plan 62-year-old lady with the lung mass and multiple brain masses the larger one in the left cerebellar hemisphere with a smaller one in the right posterior frontoparietal lobe with cerebral edema. There is impingement of the fourth ventricle on the left side although not completely obstructed with moderate hydrocephalus. Neuro: Continue neuro checks in a serial fashion. She is at risk for deterioration due to hydrocephalus. She may need a ventriculostomy catheter or a ventriculoperitoneal shunt if her condition gets worse. She has been seen by Dr arora, from radiation oncologist. She will need full brain radiation Pt has undergone a lung biopsy for tissue diagnosis today 01/19/18. Pulmonary: aggressive pulmonary toilette, nasotracheal suction, and breathing treatments with nebulizers. Daily PT and OT Renal: Continue to monitor closely urine output, BUN and creatinine Endocrine: Continue to Monitor serial Acu checks and SSI as needed in detail ID continue to monitor for signs of infection Continue Protonix for stress ulcer prophylaxis Continue Prashanth hose and SCD's for DVT prophylaxis Further recommendations will be provided depending on the patient's clinical evaluation and follow up studies. <Primo [place] - Last Filed: 01/19/18 18:38> - Assessment (1) Neoplasm of brain causing mass effect on adjacent structures Code(s): D49.6 - Neoplasm of unspecified behavior of brain Status: Acute (2) Lung mass Code(s): R91.8 - Other nonspecific abnormal finding of lung field Status: Acute - Attending Attestation The exam, history, and the medical decision-making described in the above note were completed with the assistance of the mid-level provider. I reviewed and agree with the findings presented. I attest that I had a [id number] encounter with the patient on the same day, and personally performed and documented my assessment and findings in the medical record. <Dex Mendoza - Last Filed: 01/20/18 13:05>
[2018-01-19] MEDS: Morphine Inj 4 MG/ML Vial IV.PUSH PRN (20:52)
[2018-01-20] MEDS: ALPRAZolam 0.5 MG Tablet PO PRN ×2 (00:28→13:17)
[2018-01-20] MEDS: Chlorhexidine Gluconate 2% 1 Pack (2 Cloths) TOPICAL SCH (06:00)
--- NOTE | 2018-01-20 06:21 | XR ---
EXAM DATE: 01/20/2018 6:09 AM EDT AGE/SEX: 62 years / Female INDICATIONS: Evaluate PTX CLINICAL DATA: This is the patient's subsequent encounter. Patient reports that signs and symptoms h ave been present for 2 days and indicates a pain score of 0/10. MEDICAL/SURGICAL HISTORY: . Brain tumor, left lung mass, adrenal mass None. COMPARISON: [facility] – [place], CT CHEST W CONTRAST, 01/16/2018. [facility] – [place], CHEST EXPIRATION ONLY, 01/19/2018. . FINDINGS: Persistent pneumothorax on the left and appears slightly larger, currently small to moderate; slight mediastinal shift to the right. Large mass of the left upper lobe again noted. Right lung is clear. N o pleural effusion. No right pneumothorax. Heart size stable, within normal limits. CONCLUSION: Small to moderate left pneumothorax is slightly larger than yesterday. Electronically signed by: Elton Spence MD 01/20/2018 6:20 AM EDT
--- NOTE | 2018-01-20 07:35 | P.PNONC ---
Subjective Interval history: Patient seen and examined, vital signs, labs and medications reviewed. Patient reports having had an uneventful CT-guided biopsy yesterday. She reports having some pain on the back of her left shoulder this morning. She denies difficulty breathing, cough or hemoptysis. 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 She feels her thrush is better with 1 day of nystatin. Objective Vital Signs/Intake & Output: Vital Signs 01/19/18 08:27 01/19/18 11:00 01/19/18 11:10 Temperature 97.6 F 97.6 F Pulse Rate 65 69 70 Respiratory Rate 18 18 Blood Pressure 170/73 H 165/87 H Pulse Oximetry 98 98 01/19/18 11:51 01/19/18 16:30 01/19/18 16:45 Temperature 97.6 F Pulse Rate 70 66 Respiratory Rate 18 20 Blood Pressure 135/83 175/84 H 159/84 H Pulse Oximetry 97 95 01/19/18 17:16 01/19/18 18:49 01/19/18 20:00 Temperature 96 F L 97.5 F L Pulse Rate 66 74 Respiratory Rate 18 18 18 Blood Pressure 145/71 H 128/63 Pulse Oximetry 98 97 01/19/18 20:54 01/19/18 23:13 01/19/18 23:47 Temperature 97.9 F Pulse Rate 72 Respiratory Rate 18 18 18 Blood Pressure 143/79 H Pulse Oximetry 01/20/18 00:42 01/20/18 04:00 Temperature 98 F Pulse Rate 69 67 Respiratory Rate 18 Blood Pressure 135/89 Pulse Oximetry 97 Intake & Output 01/19/18 01/20/18 01/20/18 18:59 06:59 18:59 Intake Total 480 / 480 480 / 480 Balance 480 / 480 480 / 480 Weight 56.9 kg Intake: Oral 480 / 480 480 / 480 Other: # Voids 3 2 Date of Last Bowel Movement 01/18/18 01/18/18 Result Diagrams: 01/17/18 03:41 01/17/18 03:41 Laboratory Results: Laboratory Results - last 24 hr 01/19/18 01/19/18 01/19/18 08:33 11:11 12:59 PT 9.9 INR 1.0 POC Glucose 119 H 106 01/19/18 01/19/18 17:22 20:47 PT INR POC Glucose 110 125 H Culture Results: Microbiology 01/18/18 19:00 Stool Occult Blood (JELANI) - Final Stool Hemoccult positive Imaging Studies: Impressions Lung Biopsy CT 01/19/18 00:00 CONCLUSION: 1. Uncomplicated CT guided biopsy. Chest X-Ray 01/19/18 16:16 CONCLUSION: Negative for pneumothorax Chest X-Ray 01/19/18 18:15 CONCLUSION: Development of a mild left pneumothorax. Chest X-Ray 01/20/18 06:00 CONCLUSION: Small to moderate left pneumothorax is slightly larger than yesterday. Medications: Active Medications Generic Name Dose Route Start Last Admin Trade Name Freq PRN Reason Stop Dose Admin Hydrocodone Bitart/Acetaminophen 1 tab 01/15/18 23:43 01/19/18 18:19 [place] 5/325 PO 1 tab Q4H PRN Administration pain 1-6 Hydrocodone Bitart/Acetaminophen 2 tab 01/15/18 23:44 01/20/18 06:58 [place] 5/325 PO 2 tab Q4H PRN Administration pain 7-10 Alprazolam 0.5 mg 01/17/18 15:29 01/20/18 00:28 Xanax PO 0.5 mg Q6H PRN Administration ANXIETY Chlorhexidine Gluconate 3 pack 01/16/18 04:00 01/20/18 06:00 Chlorhexidine 2% Cloth TOPICAL 01/21/18 03:59 Not Given DAILY@0400 [facility] Clonidine HCl 0.1 mg 01/17/18 20:01 01/19/18 08:42 Catapres PO 0.1 mg Q6H PRN Administration SBP >165 Dexamethasone Sodium Phosphate 4 mg 01/16/18 00:00 01/20/18 05:55 Decadron Inj IV.PUSH 4 mg Q6HR MARILIA Administration Insulin Aspart 0 unit 01/16/18 08:00 01/19/18 20:54 Novolog Insulin Correctional Sugar Inj SQ Not Given [facility] Protocol Labetalol HCl 10 mg 01/17/18 00:09 01/19/18 11:17 Trandate Inj IV.PUSH 10 mg Q4H PRN Administration SYSTOLIC BP GREATER THAN 165 Levetiracetam 500 mg 01/16/18 21:00 01/19/18 20:42 Keppra PO 500 mg BID MARILIA Administration Metoprolol Tartrate 25 mg 01/17/18 21:00 01/19/18 20:42 Lopressor PO 25 mg BID MARILIA Administration Morphine Sulfate 2 mg 01/16/18 00:45 01/19/18 20:52 Morphine Inj IV.PUSH 2 mg Q2H PRN Administration BREAKTHROUGH PAIN Nystatin 5 ml 01/19/18 13:00 01/19/18 20:42 Mycostatin Liq SWISH-SWAL 5 ml QID MARILIA Administration Pantoprazole Sodium 40 mg 01/16/18 09:00 01/19/18 08:42 Protonix PO 40 mg DAILY MARILIA Administration Promethazine HCl 25 mg 01/15/18 23:45 01/16/18 19:35 Phenergan PO 25 mg Q6H PRN Administration nausea Senna/Docusate Sodium 1 tab 01/16/18 09:00 01/19/18 20:41 Geni-Colace PO 1 tab BID MARILIA Administration Sodium Chloride 2 ml 01/16/18 09:00 01/19/18 20:45 Ns Flush IV.FLUSH 2 ml BID MARILIA Administration Objective Remarks: GENERAL: Middle-aged female, sitting up in bed, appears to be comfortable, speaks to me in full sentences at bedside.. SKIN: Warm and dry. HEAD: Normocephalic. EYES: No scleral icterus. No injection or drainage. NECK: Supple, trachea midline. No JVD or lymphadenopathy. LYMPHATIC: No adenopathy. CARDIOVASCULAR: Regular rate and rhythm without murmurs. RESPIRATORY: Breath sounds equal bilaterally. No accessory muscle use. GASTROINTESTINAL: Abdomen soft, non-tender, nondistended. EXTREMITIES: No cyanosis, or edema. MUSCULOSKELETAL: Adequate muscle tone. NEUROLOGICAL: No obvious focal deficit. Awake, alert, and oriented x3. PSYCHIATRIC: Appropriate mood and affect; insight and judgment normal. Assessment/Plan - Plan 62-year-old female with probable new diagnosis of metastatic lung cancer. Patient was transferred from [place] for neurosurgery consultation. She had an outpatient MRI of the brain that showed multiple brain lesions. CT imaging of the chest abdomen and pelvis showed a 5.5 x 5 cm mass involving the left upper lobe lung MRI brain performed at this facility confirmed presence of innumerable brain metastases clustered in her cerebellum but also present in the supratentorial brain associated with extensive vasogenic edema. No definite evidence of metastatic disease involving the abdomen or pelvis. 1. Left lung mass: CT-guided biopsy of left upper lobe lung mass performed on . Await histologic evaluation, molecular testing and PDL 1 testing if her disease is non-small cell histology. If she has adenocarcinoma/non- squamous histology additional testing including EGFR, ALK, ROS-1, B DENISE mutation analysis will be ordered. 2. Numerous brain metastases: I will need to have radiation oncology coordinate with neurosurgery. If neurosurgery do not plan surgical intervention this patient will need to proceed with radiation planning. At some point we will be ready to discharge her home, she certainly does not need to wait in the hospital to await the results of her lung biopsy. The focus should be on managing her brain metastases and if surgical intervention is not indicated at this time appropriate management of her brain metastases would be whole brain radiation. 3. Continue Keppra, Decadron. 4. Thrush: Continue nystatin swish and swallow 5 mL p.o. every 8 hours. 5. Iatrogenic left-sided pneumothorax: She may require a chest tube, results of chest x-ray on the morning of 01/20/2018 were reviewed.
[2018-01-20] MEDS ORDERED: fentaNYL Citrate Inj 100 MCG/2 ML Ampul ONE (08:07)
[2018-01-20] MEDS: Labetalol HCl Inj 100 MG/20 ML Vial IV.PUSH PRN (08:18)
[2018-01-20] MEDS: Insulin NovoLOG Aspart Correctional Sugar Inj SQ SCH ×4 (08:33→20:53)
--- NOTE | 2018-01-20 09:24 | P.RAD ---
Post Procedure Progress Note - Procedure Information Procedure Date: 01/20/18 Supervising Radiologist: Guille John MD Estimated blood loss (mL): 5 Anesthesia: Conscious Sedation - Plan of Activity Patient to Unit: ROPU Patient Condition: Good See PACS Report for procedural detail/treatment.
[2018-01-20] MEDS: Nystatin Liq 500,000 UNIT/5 ML UDC SWISH-SWAL SCH ×4 (10:53→20:48)
[2018-01-20] MEDS: levETIRAcetam 500 MG Tablet PO SCH ×2 (11:04→20:48)
[2018-01-20] MEDS: Senna/Docusate Sodium 8.6/50 MG Tablet PO SCH ×2 (11:04→20:48)
[2018-01-20] MEDS: Metoprolol Tartrate 25 MG Tablet PO SCH ×2 (11:05→20:48)
--- NOTE | 2018-01-20 13:16 | P.PNNS ---
Subjective Interval history: 62-year-old female with a lung mass and multiple brain metastasis bilaterally supratentorial and infratentorial with the left cerebellar hemisphere masses being the larger ones with the surrounding edema and mass-effect with partial compression of the fourth ventricle and moderate hydrocephalus. With initiation of steroids the severe headaches that prompted the emergency room visit have improved. She underwent a lung mass biopsy yesterday and has developed a pneumothorax and had a chest tube placed today. She has been seen by medical and radiation oncology and are planning on whole brain radiation therapy once the lung biopsy pathology reports are available. Physical Exam Vital signs: Vital Signs 01/19/18 16:30 01/19/18 16:45 01/19/18 17:16 Temperature 97.6 F 96 F L Pulse Rate 70 66 66 Respiratory Rate 18 20 18 Blood Pressure 175/84 H 159/84 H 145/71 H Pulse Oximetry 97 95 98 01/19/18 18:49 01/19/18 20:00 01/19/18 20:54 Temperature 97.5 F L Pulse Rate 74 Respiratory Rate 18 18 18 Blood Pressure 128/63 Pulse Oximetry 97 01/19/18 23:13 01/19/18 23:47 01/20/18 00:42 Temperature 97.9 F Pulse Rate 72 69 Respiratory Rate 18 18 Blood Pressure 143/79 H Pulse Oximetry 01/20/18 04:00 01/20/18 07:00 01/20/18 07:52 Temperature 98 F 97.7 F Pulse Rate 67 70 64 Respiratory Rate 18 18 Blood Pressure 135/89 177/95 H Pulse Oximetry 97 97 01/20/18 09:40 01/20/18 09:55 01/20/18 10:10 Temperature 98.0 F Pulse Rate 73 69 75 Respiratory Rate 18 18 18 Blood Pressure 156/76 H 130/80 150/80 H Pulse Oximetry 93 L 95 95 01/20/18 10:49 01/20/18 11:15 01/20/18 11:26 Temperature 97.6 F Pulse Rate 72 82 Respiratory Rate 18 18 Blood Pressure 159/87 H Pulse Oximetry 96 Intake & Output 01/19/18 01/20/18 01/20/18 18:59 06:59 18:59 Intake Total 480 / 480 720 / 720 Balance 480 / 480 720 / 720 Weight 56.9 kg Intake: Oral 480 / 480 720 / 720 Other: # Voids 3 1 Date of Last Bowel Movement 01/18/18 01/18/18 01/18/18 - Constitutional no acute distress, average body habitus - Routine HEENT Exam Head: Present: normocephalic, atraumatic Eye: Present: EOMI, PERRL ENT: Present: mucous membranes moist, oropharynx clear, nares patent, external ear normal - Routine Neck Exam Present: supple, full ROM - Routine Respiratory Exam Present: decreased breath sounds, CTA bilaterally - Routine Cardiovascular Exam Present: RRR, S1, S2 - Routine Abdominal Exam Present: soft, normoactive bowel sounds - Routine Extremities Exam Present: full ROM - Routine Skin Exam Present: intact - Routine Neurological Exam Present: oriented X3, CN II-XII intact, abnormal gait, moving all extremities, normal speech - Detailed Neurological Exam: Coma Scale Eye Opening: Spontaneous Verbal Response: Oriented Motor Response: Obey commands Marichuy Coma Scale Total: 15 - Routine Psychiatric Exam Present: normal affect, normal thought process, good insight, good judgment - Additional findings Additional findings: Abdomen/Pelvis CT 01/16/18 00:00 CONCLUSION: Colonic diverticulosis and left adrenal nodule may be adenoma, however metastatic disease is difficult to exclude. Chest CT 01/16/18 00:00 CONCLUSION: 1. Left upper lobe mass almost certainly malignant with metastatic adenopathy within the mediastinum and left hilum. 2. Groundglass opacities right upper lobe and left lower lobe could be followed with repeat noncontrast chest CT in 6 months after appropriate clinical therapy. There are also tiny nodules in both lungs versus tortuous blood vessels. 3. Left adrenal mass could be an adenoma versus metastatic disease. Head MRI 01/16/18 00:00 CONCLUSION: 1. Too numerous to count enhancing mildly hemorrhagic metastatic deposits throughout the brain most numerous in the posterior fossa with some compression of the fourth ventricle. 2. Carcinomatous meningitis would be consideration 3. Lung mass would be amenable to pancreas biopsy for rapid diagnosis. 4. There is no significant hydronephrosis as yet. Lung Biopsy CT 01/19/18 00:00 CONCLUSION: 1. Uncomplicated CT guided biopsy. Chest X-Ray 01/19/18 16:16 CONCLUSION: Negative for pneumothorax Chest X-Ray 01/19/18 18:15 CONCLUSION: Development of a mild left pneumothorax. Chest X-Ray 01/20/18 06:00 CONCLUSION: Small to moderate left pneumothorax is slightly larger than yesterday. Assessment and Plan - Assessment (1) Neoplasm of brain causing mass effect on adjacent structures Code(s): D49.6 - Neoplasm of unspecified behavior of brain Status: Acute (2) Lung mass Code(s): R91.8 - Other nonspecific abnormal finding of lung field Status: Acute - Plan 62-year-old lady with the lung mass and multiple brain masses bilateral cerebral hemispheres supratentorial and bilateral cerebellar hemispheres infratentorial the larger ones in the left cerebellar hemisphere with cerebral edema. There is impingement of the fourth ventricle on the left side although not completely obstructed with moderate hydrocephalus. Neuro: Continue neuro checks in a serial fashion. She is at risk for deterioration due to hydrocephalus. She may need a ventriculostomy catheter or a ventriculoperitoneal shunt if her condition gets worse. She has been seen by Dr arora, from radiation oncologist and plan is for whole brain radiation Pt has undergone a lung biopsy for tissue diagnosis 01/19/18 with the subsequent pneumothorax status post chest tube placement today. Pulmonary: aggressive pulmonary toilette, nasotracheal suction, and breathing treatments with nebulizers. Daily PT and OT Renal: Continue to monitor closely urine output, BUN and creatinine Endocrine: Continue to Monitor serial Acu checks and SSI as needed in detail ID continue to monitor for signs of infection Continue Protonix for stress ulcer prophylaxis Continue Prashanth hose and SCD's for DVT prophylaxis Had a lengthy discussion with the patient as well as hier sister and brother-in- law at the bedside regarding treatment options for the brain masses. Of particular concern and more likely to lead to neurologic decompensation in the near future are the left cerebellar hemisphere larger masses with surrounding edema and partial compression of the fourth ventricle. It appears that with steroids the headaches have improved although there is a potential of worsening with acute obstruction of the fourth ventricle and worsening hydrocephalus. Radiation treatment can also trigger cerebral edema although steroids hopefully will prevent complete obstruction of the fourth ventricle. The other option is left suboccipital craniectomy with resection of the cerebellar masses but this will not address the other multiple brain masses. The risks and benefits involved were discussed and her questions answered. Accordingly she will review her options with her and daughter and subsequently inform us accordingly.
--- NOTE | 2018-01-20 13:35 | IR ---
rEXAM DATE: 01/20/2018 9:38 AM EDT AGE/SEX: 62 years / Female INDICATIONS: Patient presents with left pneumothorax post left lung biopsy, in need of chest tube pl acement. CLINICAL DATA: This is the patient's initial encounter. Patient reports that signs and symptoms have been present for 1 day and indicates a pain score of 2/10. MEDICAL/SURGICAL HISTORY: Carcinoma, lung. Hysterectomy. BSO COMPARISON: [facility], CT BIOPSY LUNG LEFT, 01/19/2018. . FLUORO TIME (min): 1.9 IMAGE SERIES: 2 ACCESS SITE: SEDATION TIME (min): 30 MEDICATION(S): 1.5mg midazolam (Versed) IV 125mcg fentanyl (Sublimaze) IV DEVICE(S): 8 Latvian non-locking catheter Melvin . . PROCEDURE: 1. Fluoroscopically guided chest tube placement. 2. Conscious sedation with continuous EKG and oximetry monitoring. The risks, benefits and alternatives to the procedure were explained and verbal and written consent w as obtained. The site was prepped in sterile fashion. Full sterile technique was used, including ca p, mask, sterile gloves and gown and a large sterile sheet. Hand hygiene and 2% chlorhexidine and/or betadine/alcohol prep was utilized per protocol for cutaneous antisepsis. The skin and subcutaneous tissues were infiltrated with local anesthetic solution. With fluoroscopic guidance the chest was punctured between the first and second interspace and the pr escribed catheter was placed in the lung apex. Wall suction was applied. Post procedure images demon strate satisfactory position of the tube. The catheter was sutured in place and a Percu-Stay was cathleen lied. Conscious sedation was performed with the prescribed dosages and duration as above in the presence of an independent trained radiology nurse to assist in the monitoring of the patient. EKG and oximetry remained stable throughout the procedure. The patient tolerated the procedure well and there were n o complications. The patient was sent to post anesthesia recovery in stable condition. CONCLUSION: 1. Uncomplicated chest tube placement as above. Electronically signed by: Guille John MD 01/20/2018 1:34 PM EDT
--- NOTE | 2018-01-20 14:13 | P.PNIM ---
Subjective Interval history: HAs improved from admission. Pt denies SOB. Physical Exam Vital signs: 01/20/18 10:49 01/20/18 11:15 01/20/18 11:26 Temperature 97.6 F Pulse Rate 72 82 Respiratory Rate 18 18 Blood Pressure 159/87 H Pulse Oximetry 96 Narrative: GENERAL: This is a well-nourished, well-developed patient, in no apparent distress. CARDIOVASCULAR: Regular rate and rhythm without murmurs, gallops, or rubs. RESPIRATORY: Clear to auscultation. Breath sounds equal bilaterally. No wheezes , rales, or rhonchi. GASTROINTESTINAL: Abdomen soft, non-tender, nondistended. Normal active bowel sounds MUSCULOSKELETAL: Extremities without clubbing, cyanosis, or edema. NEURO: Alert & Oriented x4 to person, place, time, situation. Moves all ext x4 Results - Labs CBC & Chem 7: 01/17/18 03:41 01/17/18 03:41 - Imaging Abdomen/Pelvis CT 01/16/18 00:00 CONCLUSION: Colonic diverticulosis and left adrenal nodule may be adenoma, however metastatic disease is difficult to exclude. Chest CT 01/16/18 00:00 CONCLUSION: 1. Left upper lobe mass almost certainly malignant with metastatic adenopathy within the mediastinum and left hilum. 2. Groundglass opacities right upper lobe and left lower lobe could be followed with repeat noncontrast chest CT in 6 months after appropriate clinical therapy. There are also tiny nodules in both lungs versus tortuous blood vessels. 3. Left adrenal mass could be an adenoma versus metastatic disease. Head MRI 01/16/18 00:00 CONCLUSION: 1. Too numerous to count enhancing mildly hemorrhagic metastatic deposits throughout the brain most numerous in the posterior fossa with some compression of the fourth ventricle. 2. Carcinomatous meningitis would be consideration 3. Lung mass would be amenable to pancreas biopsy for rapid diagnosis. 4. There is no significant hydronephrosis as yet. Lung Biopsy CT 01/19/18 00:00 CONCLUSION: 1. Uncomplicated CT guided biopsy. Chest X-Ray 01/19/18 16:16 CONCLUSION: Negative for pneumothorax Chest X-Ray 01/19/18 18:15 CONCLUSION: Development of a mild left pneumothorax. Chest Tube Insertion 01/20/18 00:00 CONCLUSION: 1. Uncomplicated chest tube placement as above. Chest X-Ray 01/20/18 06:00 CONCLUSION: Small to moderate left pneumothorax is slightly larger than yesterday. Assessment and Plan - Assessment (1) Lung mass Code(s): R91.8 - Other nonspecific abnormal finding of lung field Status: Acute Plan: 62-year-old female with probable new diagnosis of metastatic lung cancer. Patient was transferred from [place] for neurosurgery consultation. She had an outpatient MRI of the brain that showed multiple brain lesions. CT imaging of the chest abdomen and pelvis showed a 5.5 x 5 cm mass involving the left upper lobe lung MRI brain performed at this facility confirmed presence of innumerable brain metastases clustered in her cerebellum but also present in the supratentorial brain associated with extensive vasogenic edema. No definite evidence of metastatic disease involving the abdomen or pelvis. - comgmt with Medical Oncology, Surgical Oncology, and Neurosurgery MRI brain 1. Too numerous to count enhancing mildly hemorrhagic metastatic deposits throughout the brain most numerous in the posterior fossa with some compression of the fourth ventricle. 2. Carcinomatous meningitis would be consideration 3. Lung mass would be amenable to pancreas biopsy for rapid diagnosis. 4. There is no significant hydronephrosis as yet. - Pt underwent CT guided Bx of left lung mass (01/19/18) - pathology pending - Per Oncology, depending on histology require PDL 1 testing and additional molecular testing (provided her disease is non-small cell carcinoma). - Radiation oncology has seen the patient, she has been advised palliative whole brain radiation therapy. The patient has elected to undergo treatment at [facility] facility - Roddy Leos. - Celexa, xanax - Thrush: Initiate nystatin swish and swallow 5 mL p.o. every 8 hours. - Case d/w Dr. Zamorano (01/20) - Pt/family met with Dr. Mendoza earlier today. - Pt/family consider if she should proceed with surgical excision of obstructing brain lesion HTN - stable - continue BB Pneumothorax - chest tube placed by IR (01/20/18)
--- NOTE | 2018-01-21 07:55 | P.PNONC ---
Subjective Interval history: Patient seen and examined, vital signs, labs, medications and clinical operations consultant notes reviewed. Subjectively; patient reports her headaches are well controlled, she denies pain with coughing, she denies pain with reclining. Yesterday she required a left-sided chest tube to be placed for management of a pneumothorax. Chest x-ray from this morning is pending at this time. Yesterday, the patient was evaluated/reevaluated by neurosurgery, she was advised to consider undergoing surgical resection/debulking of the bulky metastatic deposits involving the right and the left cerebellar hemisphere. The concern was radiation related swelling which could worsen hydrocephalus. Objective Vital Signs/Intake & Output: Vital Signs 01/20/18 07:52 01/20/18 09:40 01/20/18 09:55 Temperature 97.7 F 98.0 F Pulse Rate 64 73 69 Respiratory Rate 18 18 18 Blood Pressure 177/95 H 156/76 H 130/80 Pulse Oximetry 97 93 L 95 01/20/18 10:10 01/20/18 10:49 01/20/18 11:15 Temperature 97.6 F Pulse Rate 75 72 82 Respiratory Rate 18 18 Blood Pressure 150/80 H 159/87 H Pulse Oximetry 95 96 01/20/18 11:26 01/20/18 13:32 01/20/18 15:00 Temperature Pulse Rate 78 Respiratory Rate 18 18 Blood Pressure Pulse Oximetry 01/20/18 16:00 01/20/18 20:00 01/21/18 00:00 Temperature 97.9 F 98 F 97.5 F L Pulse Rate 80 87 63 Respiratory Rate 18 16 16 Blood Pressure 144/68 H 163/79 H 163/79 H Pulse Oximetry 96 96 98 01/21/18 04:00 01/21/18 05:00 Temperature 97.6 F Pulse Rate 75 Respiratory Rate Blood Pressure 184/92 H 134/76 Pulse Oximetry 95 Intake & Output 01/20/18 01/21/18 01/21/18 18:59 06:59 18:59 Intake Total 1000 / 1000 240 / 240 Output Total 600 / 600 Balance 1000 / 1000 -360 / -360 Weight 56.7 kg Intake: Oral 1000 / 1000 240 / 240 Output: Urine 600 / 600 Other: # Voids 4 1 Date of Last Bowel Movement 01/18/18 01/18/18 # Bowel Movements 1 Result Diagrams: 01/17/18 03:41 01/17/18 03:41 Laboratory Results: Laboratory Results - last 24 hr 01/20/18 01/20/18 01/20/18 08:03 11:04 16:16 POC Glucose 124 H 116 H 162 H 01/20/18 01/20/18 17:16 20:45 POC Glucose 176 H 177 H Culture Results: Microbiology 01/18/18 19:00 Stool Occult Blood (JELANI) - Final Stool Hemoccult positive Imaging Studies: Impressions Chest Tube Insertion 01/20/18 00:00 CONCLUSION: 1. Uncomplicated chest tube placement as above. Medications: Active Medications Generic Name Dose Route Start Last Admin Trade Name Freq PRN Reason Stop Dose Admin Hydrocodone Bitart/Acetaminophen 1 tab 01/15/18 23:43 01/19/18 18:19 [place] 5/325 PO 1 tab Q4H PRN Administration pain 1-6 Hydrocodone Bitart/Acetaminophen 2 tab 01/15/18 23:44 01/21/18 03:44 [place] 5/325 PO 2 tab Q4H PRN Administration pain 7-10 Alprazolam 0.5 mg 01/17/18 15:29 01/20/18 13:17 Xanax PO 0.5 mg Q6H PRN Administration ANXIETY Clonidine HCl 0.1 mg 01/17/18 20:01 01/21/18 03:47 Catapres PO 0.1 mg Q6H PRN Administration SBP >165 Dexamethasone Sodium Phosphate 4 mg 01/16/18 00:00 01/21/18 06:26 Decadron Inj IV.PUSH 4 mg Q6HR MARILIA Administration Insulin Aspart 0 unit 01/16/18 08:00 01/20/18 20:53 Novolog Insulin Correctional Sugar Inj SQ 1 unit ACHS MARILIA Administration Protocol Labetalol HCl 10 mg 01/17/18 00:09 01/20/18 08:18 Trandate Inj IV.PUSH 10 mg Q4H PRN Administration SYSTOLIC BP GREATER THAN 165 Levetiracetam 500 mg 01/16/18 21:00 01/20/18 20:48 Keppra PO 500 mg BID MARILIA Administration Metoprolol Tartrate 25 mg 01/17/18 21:00 01/20/18 20:48 Lopressor PO 25 mg BID MARILIA Administration Morphine Sulfate 2 mg 01/16/18 00:45 01/19/18 20:52 Morphine Inj IV.PUSH 2 mg Q2H PRN Administration BREAKTHROUGH PAIN Nystatin 5 ml 01/19/18 13:00 01/20/18 20:48 Mycostatin Liq SWISH-SWAL 5 ml QID MARILIA Administration Pantoprazole Sodium 40 mg 01/16/18 09:00 01/20/18 11:04 Protonix PO 40 mg DAILY MARILIA Administration Promethazine HCl 25 mg 01/15/18 23:45 01/16/18 19:35 Phenergan PO 25 mg Q6H PRN Administration nausea Senna/Docusate Sodium 1 tab 01/16/18 09:00 01/20/18 20:48 Geni-Colace PO 1 tab BID MARILAI Administration Sodium Chloride 2 ml 01/16/18 09:00 01/20/18 20:49 Ns Flush IV.FLUSH 2 ml BID MARILIA Administration Objective Remarks: GENERAL: Elderly lady, sitting up in bed, no acute distress speaks in full sentences, she is awake, alert and oriented. SKIN: Warm and dry. HEAD: Normocephalic. EYES: No scleral icterus. No injection or drainage. NECK: Supple, trachea midline. No JVD or lymphadenopathy. LYMPHATIC: No adenopathy. CARDIOVASCULAR: Regular rate and rhythm without murmurs. RESPIRATORY: Breath sounds equal bilaterally. No accessory muscle use. Left-sided chest tube in place. GASTROINTESTINAL: Abdomen soft, non-tender, nondistended. EXTREMITIES: No cyanosis, or edema. MUSCULOSKELETAL: Adequate muscle tone. NEUROLOGICAL: No obvious focal deficit. Awake, alert, and oriented x3. PSYCHIATRIC: Appropriate mood and affect; insight and judgment normal. Assessment/Plan - Plan 62-year-old female with probable new diagnosis of metastatic lung cancer. Patient was transferred from [place] for neurosurgery consultation. She had an outpatient MRI of the brain that showed multiple brain lesions. CT imaging of the chest abdomen and pelvis showed a 5.5 x 5 cm mass involving the left upper lobe lung MRI brain performed at this facility confirmed presence of innumerable brain metastases clustered in her cerebellum but also present in the supratentorial brain associated with extensive vasogenic edema. No definite evidence of metastatic disease involving the abdomen or pelvis. 1. Left lung mass: CT-guided biopsy of left upper lobe lung mass performed on . Await histologic evaluation, molecular testing and PDL 1 testing if her disease is non-small cell histology. If she has adenocarcinoma/non- squamous histology additional testing including EGFR, ALK, ROS-1, B DENISE mutation analysis will be ordered. 2. Numerous brain metastases: Neurosurgeons have recommended surgical debulking followed by radiation. The patient is considering her options, she is considering whether or not to pursue aggressive therapeutic interventions which include surgical resection of the brain tumors followed by palliative radiation. She is also considering hospice and comfort oriented care. 3. Continue Keppra, Decadron. 4. Thrush: Continue nystatin swish and swallow 5 mL p.o. every 8 hours. 5. Iatrogenic left-sided pneumothorax: She may require a chest tube, results of chest x-ray on the morning of 01/20/2018 were reviewed. Discussion: This morning I had a 35 minute sitdown meeting with the patient, her , her daughter and a niece. Her family members had driven up early this morning from [place], [place] for this meeting. We discussed the patient's diagnosis , metastatic tumor burden involving the cerebellum and the brain in general. We talked about the pending nature of her lung biopsy and how this may impact future prognosis and treatment options. The patient wanted to know what surgical interventions may involve, what the recovery period would be and what postsurgical treatment would consist of. I did inform the patient that typically after craniotomy for debulking of metastatic deposits in individual spends 2 or 3 days in the critical care unit followed by transition to the oncology unit followed by radiation which will likely include whole brain radiation therapy within 1-2 weeks of undergoing surgery. Following which she would be candidate for systemic therapeutic interventions depending on her tumor histology and any targeted treatments which the tumor may be vulnerable to. Ultimately, I explained to the patient that individuals with her degree of intracranial disease burden have atypical median survival measured between 6-8 months that is with aggressive therapeutic interventions. I did explain that the degree to which we control her intracranial metastatic disease burden will be the major drive her of her survival and overall predicted survival. I explained to her that if she pursues palliation her predicted survival will be measured in weeks. We talked about additional considerations both medical and philosophical. The patient tells me she will need to pray and talk to her family before she decides whether or not to pursue treatment of any sort. I have advised her to make her decision about surgical intervention sooner rather than later.
[2018-01-21] MEDS: ALPRAZolam 0.5 MG Tablet PO PRN ×2 (09:18→17:27)
[2018-01-21] MEDS: levETIRAcetam 500 MG Tablet PO SCH ×2 (09:18→21:00)
[2018-01-21] MEDS: Nystatin Liq 500,000 UNIT/5 ML UDC SWISH-SWAL SCH ×4 (09:18→21:00)
[2018-01-21] MEDS: Metoprolol Tartrate 25 MG Tablet PO SCH ×2 (09:19→21:00)
[2018-01-21] MEDS: Senna/Docusate Sodium 8.6/50 MG Tablet PO SCH ×3 (09:19→21:01)
--- NOTE | 2018-01-21 09:33 | P.PN ---
Subjective Interval history: Patient reports headache controlled Physical Exam Vital signs: Vital Signs 01/20/18 09:40 01/20/18 09:55 01/20/18 10:10 Temperature 98.0 F Pulse Rate 73 69 75 Respiratory Rate 18 18 18 Blood Pressure 156/76 H 130/80 150/80 H Pulse Oximetry 93 L 95 95 01/20/18 10:49 01/20/18 11:15 01/20/18 11:26 Temperature 97.6 F Pulse Rate 72 82 Respiratory Rate 18 18 Blood Pressure 159/87 H Pulse Oximetry 96 01/20/18 13:32 01/20/18 15:00 01/20/18 16:00 Temperature 97.9 F Pulse Rate 78 80 Respiratory Rate 18 18 Blood Pressure 144/68 H Pulse Oximetry 96 01/20/18 20:00 01/21/18 00:00 01/21/18 04:00 Temperature 98 F 97.5 F L 97.6 F Pulse Rate 87 63 75 Respiratory Rate 16 16 Blood Pressure 163/79 H 163/79 H 184/92 H Pulse Oximetry 96 98 95 01/21/18 05:00 01/21/18 08:00 Temperature 98 F Pulse Rate 82 Respiratory Rate 18 Blood Pressure 134/76 140/73 Pulse Oximetry 97 Intake & Output 01/20/18 01/21/18 01/21/18 18:59 06:59 18:59 Intake Total 1000 / 1000 240 / 240 Output Total 600 / 600 Balance 1000 / 1000 -360 / -360 Weight 56.7 kg Intake: Oral 1000 / 1000 240 / 240 Output: Urine 600 / 600 Other: # Voids 4 1 Date of Last Bowel Movement 01/18/18 01/18/18 # Bowel Movements 1 Narrative: GENERAL: This is a well-nourished, well-developed patient, in no apparent distress. CARDIOVASCULAR: Regular rate and rhythm RESPIRATORY: Clear to auscultation. Breath sounds equal bilaterally. GASTROINTESTINAL: Abdomen soft, non-tender, nondistended. Normal active bowel sounds MUSCULOSKELETAL: Extremities without clubbing, cyanosis, or edema. NEURO: Alert & Oriented x4 to person, place, time, situation. Moves all ext x4 Results - Labs CBC & Chem 7: 01/17/18 03:41 01/17/18 03:41 Laboratory Results - last 24 hr 01/20/18 01/20/18 01/20/18 11:04 16:16 17:16 POC Glucose 116 H 162 H 176 H 01/20/18 20:45 POC Glucose 177 H - Imaging Impressions Chest Tube Insertion 01/20/18 00:00 CONCLUSION: 1. Uncomplicated chest tube placement as above. Assessment and Plan - Assessment (1) Lung mass Code(s): R91.8 - Other nonspecific abnormal finding of lung field Status: Acute Plan: 62-year-old female with probable new diagnosis of metastatic lung cancer. Patient was transferred from [facility] for neurosurgery consultation. She had an outpatient MRI of the brain that showed multiple brain lesions. CT imaging of the chest abdomen and pelvis showed a 5.5 x 5 cm mass involving the left upper lobe lung MRI brain performed at this facility confirmed presence of innumerable brain metastases clustered in her cerebellum but also present in the supratentorial brain associated with extensive vasogenic edema. No definite evidence of metastatic disease involving the abdomen or pelvis. Left lung mass with numerous brain metastases - comgmt with Medical Oncology, Surgical Oncology, and Neurosurgery MRI brain 1. Too numerous to count enhancing mildly hemorrhagic metastatic deposits throughout the brain most numerous in the posterior fossa with some compression of the fourth ventricle. 2. Carcinomatous meningitis would be consideration 3. Lung mass would be amenable to pancreas biopsy for rapid diagnosis. 4. There is no significant hydronephrosis as yet. - Pt underwent CT guided Bx of left lung mass (01/19/18) - pathology pending - Per Oncology, depending on histology require PDL 1 testing and additional molecular testing (provided her disease is non-small cell carcinoma). - Radiation oncology has seen the patient, she has been advised palliative whole brain radiation therapy. The patient has elected to undergo treatment at [facility] facility - [facility]. - Celexa, xanax - Thrush: Initiate nystatin swish and swallow 5 mL p.o. every 8 hours. - Case d/w Dr. Zamorano (01/20) - Pt/family met with Dr. Mendoza 01/20 who has recommended surgical debulking followed by radiation - Pt/family discussed options and predicted survival with Dr. Zamorano 01/20. Per Dr. Zamorano's note: individuals with her degree of intracranial disease burden have atypical median survival measured between 6-8 months that is with aggressive therapeutic interventions. I did explain that the degree to which we control her intracranial metastatic disease burden will be the major drive her of her survival and overall predicted survival. If she pursues palliation her predicted survival will be measured in weeks. The patient tells me she will need to pray and talk to her family before she decides whether or not to pursue treatment of any sort. Iatrogenic Pneumothorax - chest tube placed by IR (01/20/18) - Chest X-Ray 01/21/18: Uncomplicated chest tube placement without pneumothorax. HTN - stable - continue BB - Attending Attestation Patient examined. Assessment and plan formulated with Michelle Mercado PA-C. I agree with the above.
--- NOTE | 2018-01-21 09:44 | XR ---
EXAM DATE: 01/21/2018 9:42 AM EDT AGE/SEX: 62 years / Female INDICATIONS: Chest tube placement. CLINICAL DATA: This is the patient's initial encounter. Patient reports that signs and symptoms have been present for 4 - 6 days and indicates a pain score of 0/10. MEDICAL/SURGICAL HISTORY: . Brain tumor, left lung mass, adrenal mass None. COMPARISON: [facility] – [place], CHEST EXPIRATION ONLY, 01/20/2018. . FINDINGS: The cardiac silhouette is normal in transverse diameter. There is subcutaneous emphysema along the le ft lateral chest wall. A left chest tube is in place. There is no evidence of pneumothorax. CONCLUSION: Uncomplicated chest tube placement without pneumothorax. Electronically signed by: Gadiel Crooks MD 01/21/2018 9:43 AM EDT
[2018-01-21] MEDS: Insulin NovoLOG Aspart Correctional Sugar Inj SQ SCH ×4 (12:39→21:00)
--- NOTE | 2018-01-21 13:34 | P.PNNS ---
Subjective Interval history: Overall stable examination and states the headache is mild and does not worsen with coughing like it did prior to her admission. She has been ambulating short distances with a walker and assistance although does have an unsteady gait. She has discussed her treatment options with her family as well as medical oncologist and are awaiting pathologic diagnosis from the lung mass biopsy to decide on the treatment options. Physical Exam Vital signs: Vital Signs 01/20/18 13:32 01/20/18 15:00 01/20/18 16:00 Temperature 97.9 F Pulse Rate 78 80 Respiratory Rate 18 18 Blood Pressure 144/68 H Pulse Oximetry 96 01/20/18 20:00 01/21/18 00:00 01/21/18 04:00 Temperature 98 F 97.5 F L 97.6 F Pulse Rate 87 63 75 Respiratory Rate 16 16 Blood Pressure 163/79 H 163/79 H 184/92 H Pulse Oximetry 96 98 95 01/21/18 05:00 01/21/18 08:00 01/21/18 12:00 Temperature 98 F 97 F L Pulse Rate 82 82 Respiratory Rate 18 18 Blood Pressure 134/76 140/73 153/73 H Pulse Oximetry 97 97 Intake & Output 01/20/18 01/21/18 01/21/18 18:59 06:59 18:59 Intake Total 1000 / 1000 240 / 240 Output Total 600 / 600 Balance 1000 / 1000 -360 / -360 Weight 56.7 kg Intake: Oral 1000 / 1000 240 / 240 Output: Urine 600 / 600 Other: # Voids 4 1 Date of Last Bowel Movement 01/18/18 01/18/18 # Bowel Movements 1 - Constitutional no acute distress - Routine HEENT Exam Head: Present: normocephalic, atraumatic Eye: Present: EOMI, PERRL ENT: Present: mucous membranes moist, oropharynx clear, external ear normal - Routine Neck Exam Present: supple, full ROM - Routine Respiratory Exam Present: CTA bilaterally - Routine Cardiovascular Exam Present: RRR, S1, S2 - Routine Abdominal Exam Present: soft, normoactive bowel sounds - Routine Extremities Exam Present: full ROM, normal capillary refill - Routine Skin Exam Present: intact - Routine Neurological Exam Present: oriented X3, CN II-XII intact, plantar reflex, abnormal gait, moving all extremities, normal speech - Routine Psychiatric Exam Present: normal affect, normal thought process, good insight, good judgment - Additional findings Additional findings: Impressions Chest Tube Insertion 01/20/18 00:00 CONCLUSION: 1. Uncomplicated chest tube placement as above. Chest X-Ray 01/21/18 09:22 CONCLUSION: Uncomplicated chest tube placement without pneumothorax. Active Medications Generic Name Dose Route Start Last Admin Trade Name Freq PRN Reason Stop Dose Admin Hydrocodone Bitart/Acetaminophen 1 tab 01/15/18 23:43 01/21/18 09:18 Haughton 5/325 PO 1 tab Q4H PRN Administration pain 1-6 Hydrocodone Bitart/Acetaminophen 2 tab 01/15/18 23:44 01/21/18 03:44 Haughton 5/325 PO 2 tab Q4H PRN Administration pain 7-10 Al Hydroxide/Mg Hydroxide 30 ml 01/16/18 00:13 Milk Of Magnesia Liq PO Q12H PRN Mild Constipation Albuterol 2.5 mg 01/16/18 02:00 Albuterol Neb (Prn) NEB Q2HR NEB PRN SHORTNESS OF BREATH/WHEEZING Alprazolam 0.5 mg 01/17/18 15:29 01/21/18 09:18 Xanax PO 0.5 mg Q6H PRN Administration ANXIETY Bisacodyl 10 mg 01/16/18 00:13 Dulcolax Supp RECTAL DAILY PRN SEVERE CONSITIPATION Clonidine HCl 0.1 mg 01/17/18 20:01 01/21/18 03:47 Catapres PO 0.1 mg Q6H PRN Administration SBP >165 Dexamethasone Sodium Phosphate 4 mg 01/16/18 00:00 01/21/18 12:38 Decadron Inj IV.PUSH 4 mg Q6HR MARILIA Administration Dextrose 50 ml 01/16/18 00:23 D50w Vial IV.PUSH UNSCH PRN PER HYPOGLYCEMIA PROTOCOL Glucagon 1 mg 01/16/18 00:23 Glucagon Inj OTHER PRN PRN for Hypoglycemia Protocol Insulin Aspart 0 unit 01/16/18 08:00 01/21/18 12:40 Novolog Insulin Correctional Sugar Inj SQ Not Given ACHS MARILIA Protocol Labetalol HCl 10 mg 01/17/18 00:09 01/20/18 08:18 Trandate Inj IV.PUSH 10 mg Q4H PRN Administration SYSTOLIC BP GREATER THAN 165 Lactulose 30 ml 01/16/18 00:13 Lactulose Liq PO DAILY PRN SEVERE CONSITIPATION Levetiracetam 500 mg 01/16/18 21:00 01/21/18 09:18 Keppra PO 500 mg BID MARILIA Administration Lorazepam 1 mg 01/16/18 00:13 Ativan Inj IV.PUSH Q5M PRN seizure Metoprolol Tartrate 25 mg 01/17/18 21:00 01/21/18 09:19 Lopressor PO 25 mg BID MARILIA Administration Morphine Sulfate 2 mg 01/16/18 00:45 01/19/18 20:52 Morphine Inj IV.PUSH 2 mg Q2H PRN Administration BREAKTHROUGH PAIN Nystatin 5 ml 01/19/18 13:00 01/21/18 12:38 Mycostatin Liq SWISH-SWAL 5 ml QID [facility] Administration Pantoprazole Sodium 40 mg 01/16/18 09:00 01/21/18 10:05 Protonix PO 40 mg DAILY MARILIA Administration Promethazine HCl 25 mg 01/15/18 23:45 01/16/18 19:35 Phenergan PO 25 mg Q6H PRN Administration nausea Promethazine HCl 25 mg 01/16/18 00:10 Phenergan Inj IM Q6H PRN nausea/vomiting/cant use po Senna/Docusate Sodium 1 tab 01/16/18 09:00 01/21/18 10:06 Geni-Colace PO Not Given BID [facility] Sennosides 17.2 mg 01/16/18 00:13 Senokot PO Q12H PRN Moderate Constipation Sodium Chloride 2 ml 01/16/18 09:00 01/21/18 09:21 Ns Flush IV.FLUSH 2 ml BID MARILIA Administration Sodium Chloride 2 ml 01/16/18 00:13 Ns Flush IV.FLUSH PRN PRN FLUSH AFTER USING IV ACCESS Assessment and Plan - Assessment (1) Neoplasm of brain causing mass effect on adjacent structures Code(s): D49.6 - Neoplasm of unspecified behavior of brain Status: Acute (2) Lung mass Code(s): R91.8 - Other nonspecific abnormal finding of lung field Status: Acute - Plan 62-year-old lady with the lung mass and multiple brain masses bilateral cerebral hemispheres supratentorial and bilateral cerebellar hemispheres infratentorial the larger ones in the left cerebellar hemisphere with cerebral edema. There is impingement of the fourth ventricle on the left side although not completely obstructed with moderate hydrocephalus. Neuro: Continue neuro checks in a serial fashion. She is at risk for deterioration due to hydrocephalus. She may need a ventriculostomy catheter or a ventriculoperitoneal shunt if her condition gets worse. She has been seen by Dr arora, from radiation oncologist and plan is for whole brain radiation Pt has undergone a lung biopsy for tissue diagnosis 01/19/18 with the subsequent pneumothorax status post chest tube placement today. Pulmonary: aggressive pulmonary toilette, nasotracheal suction, and breathing treatments with nebulizers. Daily PT and OT Renal: Continue to monitor closely urine output, BUN and creatinine Endocrine: Continue to Monitor serial Acu checks and SSI as needed in detail ID continue to monitor for signs of infection Continue Protonix for stress ulcer prophylaxis Continue Prashanth hose and SCD's for DVT prophylaxis Discussed again with patient, and daughter at the bedside regarding treatment options for the brain masses. The lung mass biopsy results are pending and if this is small cell carcinoma then whole brain radiation therapy would be the preferred option. The option of left suboccipital craniectomy with resection of the cerebellar masses for posterior fossa decompression can be considered for other pathological diagnosis. Either way the prognosis given the multiple cerebral brain masses is a poor. The risks and benefits involved were discussed and all of their questions answered.
[2018-01-22] MEDS: ALPRAZolam 0.5 MG Tablet PO PRN ×2 (07:29→20:27)
[2018-01-22] MEDS: Insulin NovoLOG Aspart Correctional Sugar Inj SQ SCH ×4 (08:32→20:35)
[2018-01-22] MEDS: Nystatin Liq 500,000 UNIT/5 ML UDC SWISH-SWAL SCH ×4 (08:34→20:27)
[2018-01-22] MEDS: levETIRAcetam 500 MG Tablet PO SCH ×2 (08:34→20:26)
[2018-01-22] MEDS: Metoprolol Tartrate 25 MG Tablet PO SCH ×2 (08:34→20:26)
[2018-01-22] MEDS: Senna/Docusate Sodium 8.6/50 MG Tablet PO SCH ×2 (08:34→20:26)
--- NOTE | 2018-01-22 11:08 | P.PNIM ---
Subjective Interval history: No new complaints. Physical Exam Vital signs: 01/22/18 05:00 01/22/18 08:00 Temperature 98.1 F Pulse Rate 58 L Respiratory Rate 20 Blood Pressure 141/79 H 140/62 Pulse Oximetry 95 Narrative: GENERAL: This is a well-nourished, well-developed patient, in no apparent distress. CARDIOVASCULAR: Regular rate and rhythm RESPIRATORY: Clear to auscultation. Breath sounds equal bilaterally. GASTROINTESTINAL: Abdomen soft, non-tender, nondistended. Normal active bowel sounds MUSCULOSKELETAL: Extremities without clubbing, cyanosis, or edema. NEURO: Alert & Oriented x4 to person, place, time, situation. Moves all ext x4 Results - Labs CBC & Chem 7: 01/17/18 03:41 01/17/18 03:41 - Imaging Abdomen/Pelvis CT 01/16/18 00:00 CONCLUSION: Colonic diverticulosis and left adrenal nodule may be adenoma, however metastatic disease is difficult to exclude. Chest CT 01/16/18 00:00 CONCLUSION: 1. Left upper lobe mass almost certainly malignant with metastatic adenopathy within the mediastinum and left hilum. 2. Groundglass opacities right upper lobe and left lower lobe could be followed with repeat noncontrast chest CT in 6 months after appropriate clinical therapy. There are also tiny nodules in both lungs versus tortuous blood vessels. 3. Left adrenal mass could be an adenoma versus metastatic disease. Head MRI 01/16/18 00:00 CONCLUSION: 1. Too numerous to count enhancing mildly hemorrhagic metastatic deposits throughout the brain most numerous in the posterior fossa with some compression of the fourth ventricle. 2. Carcinomatous meningitis would be consideration 3. Lung mass would be amenable to pancreas biopsy for rapid diagnosis. 4. There is no significant hydronephrosis as yet. Lung Biopsy CT 01/19/18 00:00 CONCLUSION: 1. Uncomplicated CT guided biopsy. Chest X-Ray 01/19/18 16:16 CONCLUSION: Negative for pneumothorax Chest X-Ray 01/19/18 18:15 CONCLUSION: Development of a mild left pneumothorax. Chest Tube Insertion 01/20/18 00:00 CONCLUSION: 1. Uncomplicated chest tube placement as above. Chest X-Ray 01/20/18 06:00 CONCLUSION: Small to moderate left pneumothorax is slightly larger than yesterday. Chest X-Ray 01/21/18 09:22 CONCLUSION: Uncomplicated chest tube placement without pneumothorax. Assessment and Plan - Assessment (1) Lung mass Code(s): R91.8 - Other nonspecific abnormal finding of lung field Status: Acute Plan: 62-year-old female with probable new diagnosis of metastatic lung cancer. Patient was transferred from [place] for neurosurgery consultation. She had an outpatient MRI of the brain that showed multiple brain lesions. CT imaging of the chest abdomen and pelvis showed a 5.5 x 5 cm mass involving the left upper lobe lung MRI brain performed at this facility confirmed presence of innumerable brain metastases clustered in her cerebellum but also present in the supratentorial brain associated with extensive vasogenic edema. No definite evidence of metastatic disease involving the abdomen or pelvis. Left lung mass with numerous brain metastases - comgmt with Medical Oncology, Surgical Oncology, and Neurosurgery MRI brain 1. Too numerous to count enhancing mildly hemorrhagic metastatic deposits throughout the brain most numerous in the posterior fossa with some compression of the fourth ventricle. 2. Carcinomatous meningitis would be consideration 3. Lung mass would be amenable to pancreas biopsy for rapid diagnosis. 4. There is no significant hydronephrosis as yet. - Pt underwent CT guided Bx of left lung mass (01/19/18) - pathology pending - Per Oncology, depending on histology require PDL 1 testing and additional molecular testing (provided her disease is non-small cell carcinoma). - Radiation oncology has seen the patient, she has been advised palliative whole brain radiation therapy. The patient has elected to undergo treatment at [facility] facility - [facility]. - Celexa, xanax - Thrush: Initiate nystatin swish and swallow 5 mL p.o. every 8 hours. - Case d/w Dr. Zamorano (01/20) - Pt/family met with Dr. Mendoza 01/20 who has recommended surgical debulking followed by radiation - Pt/family discussed options and predicted survival with Dr. Zamorano 01/20. Per Dr. Zamorano's note: individuals with her degree of intracranial disease burden have atypical median survival measured between 6-8 months that is with aggressive therapeutic interventions. I did explain that the degree to which we control her intracranial metastatic disease burden will be the major drive her of her survival and overall predicted survival. - Case d/w Dr. Zamorano (01/22). - Preliminary pathology c/w adenocarcinoma - Case d/w Neurosurgery (01/22). Tenatively will proceed with resection of brain lesion (01/27/18) Iatrogenic Pneumothorax - chest tube placed by IR (01/20/18) - Chest X-Ray 01/21/18: Uncomplicated chest tube placement without pneumothorax. - await repeat CXR (01/22) - anticipate removal of chest tube by IR today. HTN - stable - continue BB
--- NOTE | 2018-01-22 12:18 | XR ---
EXAM DATE: 01/22/2018 11:44 AM EDT AGE/SEX: 62 years / Female INDICATIONS: Pneumothorax. CLINICAL DATA: This is the patient's subsequent encounter. Patient reports that signs and symptoms h ave been present for 2 days and indicates a pain score of 3/10. MEDICAL/SURGICAL HISTORY: . Brain tumor. Lung mass. Hysterectomy. . COMPARISON: [facility] – [place], CHEST EXPIRATION ONLY, 01/21/2018. . FINDINGS: There is evidence of a left sided pneumothorax which measures 2.6 cm at the left apex. A small left-s ided chest tube is noted. Subcutaneous emphysema is noted within the left chest wall. The left pulmon lata mass is stable. CONCLUSION: Left-sided pneumothorax measuring 2.6 cm at the left apex. Electronically signed by: Hitesh Shoemaker MD 01/22/2018 12:16 PM EDT
--- NOTE | 2018-01-22 16:25 | P.PNNS ---
Subjective Interval history: Pt awake and alert sitting up in chair. She denies headache, nausea, vomiting, chest pain or sob. Her chest tube is out and RN thinks pt pulled it out, but the pt doesn't recall. <Primo Stockton - Last Filed: 01/22/18 16:17> Physical Exam Vital signs: Vital Signs 01/21/18 20:00 01/22/18 00:00 01/22/18 03:30 Temperature 97.9 F 98.3 F 97.6 F Pulse Rate 78 67 63 Respiratory Rate 16 18 17 Blood Pressure 141/72 H 149/76 H 172/78 H Pulse Oximetry 95 98 98 01/22/18 04:00 01/22/18 05:00 01/22/18 08:00 Temperature 98.1 F Pulse Rate 56 L 58 L Respiratory Rate 20 Blood Pressure 141/79 H 140/62 Pulse Oximetry 95 01/22/18 12:00 01/22/18 16:00 Temperature 98.3 F Pulse Rate 55 L 78 Respiratory Rate 18 20 Blood Pressure 148/85 H 147/79 H Pulse Oximetry 96 97 Intake & Output 01/21/18 01/22/18 01/22/18 18:59 06:59 18:59 Intake Total 720 / 720 Output Total 0 / 0 Balance 720 / 720 Weight 56.6 kg Intake: Oral 720 / 720 Output: Chest Tube Drainage 0 / 0 Left 0 / 0 Other: # Voids 6 Date of Last Bowel Movement 01/18/18 01/18/18 - Constitutional no acute distress - Routine HEENT Exam Head: Present: normocephalic, atraumatic Eye: Present: PERRL. Absent: conjunctival icterus ENT: Present: oropharynx clear - Routine Neck Exam Present: trachea midline - Routine Respiratory Exam Present: CTA bilaterally. Absent: rhonchi, wheezes - Routine Cardiovascular Exam Present: RRR, S1, S2. Absent: murmur - Routine Abdominal Exam Present: soft, normoactive bowel sounds. Absent: distended - Routine Extremities Exam Absent: cyanosis - Routine Skin Exam Absent: cyanosis, erythema - Routine Neurological Exam Present: alert, oriented X3, moving all extremities, normal speech. Absent: sensory deficit, motor deficit, altered mental status, facial asymmetry - Detailed Neurological Exam: Coma Scale Eye Opening: Spontaneous Verbal Response: Oriented Motor Response: Obey commands Marichuy Coma Scale Total: 15 - Routine Psychiatric Exam Present: normal affect, cooperative <Primo Stockton - Last Filed: 01/22/18 16:17> Vital signs: Vital Signs 01/21/18 20:00 01/22/18 00:00 01/22/18 03:30 Temperature 97.9 F 98.3 F 97.6 F Pulse Rate 78 67 63 Respiratory Rate 16 18 17 Blood Pressure 141/72 H 149/76 H 172/78 H Pulse Oximetry 95 98 98 01/22/18 04:00 01/22/18 05:00 01/22/18 08:00 Temperature 98.1 F Pulse Rate 56 L 58 L Respiratory Rate 20 Blood Pressure 141/79 H 140/62 Pulse Oximetry 95 01/22/18 12:00 01/22/18 16:00 Temperature 98.3 F Pulse Rate 55 L 78 Respiratory Rate 18 20 Blood Pressure 148/85 H 147/79 H Pulse Oximetry 96 97 Intake & Output 01/21/18 01/22/18 01/22/18 18:59 06:59 18:59 Intake Total 720 / 720 Output Total 0 / 0 Balance 720 / 720 Weight 56.6 kg Intake: Oral 720 / 720 Output: Chest Tube Drainage 0 / 0 Left 0 / 0 Other: # Voids 6 Date of Last Bowel Movement 01/18/18 01/18/18 <Dex Mendoza - Last Filed: 01/22/18 16:54> Assessment and Plan - Assessment (1) History of hysterectomy Code(s): Z90.710 - Acquired absence of both cervix and uterus Status: Acute (2) Neck pain Code(s): M54.2 - Cervicalgia Status: Acute (3) H/O hysterectomy for benign disease Code(s): Z90.710 - Acquired absence of both cervix and uterus Status: Acute (4) Neoplasm of brain causing mass effect on adjacent structures Code(s): D49.6 - Neoplasm of unspecified behavior of brain Status: Acute (5) Lung mass Code(s): R91.8 - Other nonspecific abnormal finding of lung field Status: Acute - Plan 62-year-old lady with the lung mass and multiple brain masses bilateral cerebral hemispheres supratentorial and bilateral cerebellar hemispheres infratentorial the larger ones in the left cerebellar hemisphere with cerebral edema. There is impingement of the fourth ventricle on the left side although not completely obstructed with moderate hydrocephalus. Neuro: Continue neuro checks in a serial fashion. She is at risk for deterioration due to hydrocephalus. She may need a ventriculostomy catheter or a ventriculoperitoneal shunt if her condition gets worse. She has been seen by Dr arora, from radiation oncologist and plan is for whole brain radiation Pt has undergone a lung biopsy for tissue diagnosis 01/19/18 with the subsequent pneumothorax status post chest tube placement. Pulmonary: aggressive pulmonary toilette, nasotracheal suction, and breathing treatments with nebulizers. Daily PT and OT Renal: Continue to monitor closely urine output, BUN and creatinine Endocrine: Continue to Monitor serial Acu checks and SSI as needed in detail ID continue to monitor for signs of infection Continue Protonix for stress ulcer prophylaxis Continue Prashanth hose and SCD's for DVT prophylaxis Pt is wanting to proceed with left suboccipital craniectomy with resection of the cerebellar masses for posterior fossa decompression can be considered for other pathological diagnosis. She is being treated for pneumothorax and we are tentatively planning on Friday if she improves medically over the weekend. We have discussed with her hospitalist Dr. Agosto. <Primo Stockton - Last Filed: 01/22/18 16:17> - Assessment (1) Neoplasm of brain causing mass effect on adjacent structures Code(s): D49.6 - Neoplasm of unspecified behavior of brain Status: Acute (2) Lung mass Code(s): R91.8 - Other nonspecific abnormal finding of lung field Status: Acute - Attending Attestation The exam, history, and the medical decision-making described in the above note were completed with the assistance of the mid-level provider. I reviewed and agree with the findings presented. I attest that I had a [id number] encounter with the patient on the same day, and personally performed and documented my assessment and findings in the medical record. <Dex Mendoza - Last Filed: 01/22/18 16:54>
--- NOTE | 2018-01-22 16:38 | XR ---
EXAM DATE: 01/22/2018 4:35 PM EDT AGE/SEX: 62 years / Female INDICATIONS: Pneumothorax, chest tube fell out left side. CLINICAL DATA: This is the patient's initial encounter. Patient reports that signs and symptoms have been present for 1 day and indicates a pain score of 0/10. MEDICAL/SURGICAL HISTORY: None. None. COMPARISON: [facility], CHEST 1V SINGLE AP, 01/22/2018. . FINDINGS: There continues to be a left-sided pneumothorax with approximately 2.6 cm of separation at the apex. This is unchanged compared to the prior study. There continues to be subcutaneous emphysema along the left chest wall. No change in the large mass in the left upper lung. Right lung remains grossly joshua r and well-aerated. CONCLUSION: No change in the left-sided pneumothorax with 2.6 cm of separation. Electronically signed by: Zach Francis MD 01/22/2018 4:37 PM EDT
--- NOTE | 2018-01-23 05:20 | XR ---
EXAM DATE: 01/23/2018 5:04 AM EDT AGE/SEX: 62 years / Female INDICATIONS: Please evaluate pneumothorax. CLINICAL DATA: This is the patient's subsequent encounter. Patient reports that signs and symptoms h ave been present for 4 - 6 days and indicates a pain score of 0/10. MEDICAL/SURGICAL HISTORY: . Brain tumor. Lung mass. . Hysterectomy. COMPARISON: [facility] – [place], CHEST 1V SINGLE AP, 01/22/2018. . FINDINGS: A single frontal expiratory view of the chest was performed. Again seen is a small apical pneumothora x the left. This is slightly larger from the prior study. Left upper lobe pulmonary mass noted. Heart is normal in size. No effusions. Subcutaneous air overlying the left chest. CONCLUSION: Slight increase in size of the left pneumothorax. Electronically signed by: Jean-Pierre White MD 01/23/2018 5:19 AM EDT
[2018-01-23] MEDS: Insulin NovoLOG Aspart Correctional Sugar Inj SQ SCH ×4 (07:56→20:51)
[2018-01-23] MEDS: Metoprolol Tartrate 25 MG Tablet PO SCH ×2 (07:59→20:27)
[2018-01-23] MEDS: Nystatin Liq 500,000 UNIT/5 ML UDC SWISH-SWAL SCH ×4 (07:59→20:27)
[2018-01-23] MEDS: Senna/Docusate Sodium 8.6/50 MG Tablet PO SCH ×2 (07:59→20:27)
[2018-01-23] MEDS: levETIRAcetam 500 MG Tablet PO SCH ×2 (07:59→20:27)
[2018-01-23] MEDS: ALPRAZolam 0.5 MG Tablet PO PRN (08:01)
--- NOTE | 2018-01-23 10:23 | P.PNIM ---
Subjective Interval history: DRAFT NOTE Pt accidentally pulled out chest tube yesterday evening. Repeat CXR (01/23) shows enlargement of left pneumothorax. Pt has NO new clinical complaints at this time. Pt is tolerating PO intake. No n/v/d. Physical Exam Vital signs: 01/23/18 08:00 Temperature 97.7 F Pulse Rate 79 Respiratory Rate 18 Blood Pressure 159/89 H Pulse Oximetry 99 Narrative: GENERAL: This is a well-nourished, well-developed patient, in no apparent distress. CARDIOVASCULAR: Regular rate and rhythm RESPIRATORY: Clear to auscultation. Breath sounds equal bilaterally. GASTROINTESTINAL: Abdomen soft, non-tender, nondistended. Normal active bowel sounds MUSCULOSKELETAL: Extremities without clubbing, cyanosis, or edema. NEURO: Alert & Oriented x4 to person, place, time, situation. Moves all ext x4 Results - Labs CBC & Chem 7: 01/17/18 03:41 01/17/18 03:41 - Imaging Chest X-Ray 01/22/18 11:03 CONCLUSION: Left-sided pneumothorax measuring 2.6 cm at the left apex. Chest X-Ray 01/22/18 16:11 CONCLUSION: No change in the left-sided pneumothorax with 2.6 cm of separation. Chest X-Ray 01/23/18 06:00 CONCLUSION: Slight increase in size of the left pneumothorax. Assessment and Plan - Assessment (1) Lung mass Code(s): R91.8 - Other nonspecific abnormal finding of lung field Status: Acute Plan: 62-year-old female with probable new diagnosis of metastatic lung cancer. Patient was transferred from [place] for neurosurgery consultation. She had an outpatient MRI of the brain that showed multiple brain lesions. CT imaging of the chest abdomen and pelvis showed a 5.5 x 5 cm mass involving the left upper lobe lung MRI brain performed at this facility confirmed presence of innumerable brain metastases clustered in her cerebellum but also present in the supratentorial brain associated with extensive vasogenic edema. No definite evidence of metastatic disease involving the abdomen or pelvis. Left lung mass with numerous brain metastases - comgmt with Medical Oncology, Surgical Oncology, and Neurosurgery MRI brain 1. Too numerous to count enhancing mildly hemorrhagic metastatic deposits throughout the brain most numerous in the posterior fossa with some compression of the fourth ventricle. 2. Carcinomatous meningitis would be consideration 3. Lung mass would be amenable to pancreas biopsy for rapid diagnosis. 4. There is no significant hydronephrosis as yet. - Pt underwent CT guided Bx of left lung mass (01/19/18) - pathology pending - Per Oncology, depending on histology require PDL 1 testing and additional molecular testing (provided her disease is non-small cell carcinoma). - Radiation oncology has seen the patient, she has been advised palliative whole brain radiation therapy. The patient has elected to undergo treatment at [facility] facility - Roddy Leos. - Celexa, xanax - Thrush: Initiate nystatin swish and swallow 5 mL p.o. every 8 hours. - Case d/w Dr. Zamorano (01/20) - Pt/family met with Dr. Mnedoza 01/20 who has recommended surgical debulking followed by radiation - Pt/family discussed options and predicted survival with Dr. Zamorano 01/20. Per Dr. Zamorano's note: individuals with her degree of intracranial disease burden have atypical median survival measured between 6-8 months that is with aggressive therapeutic interventions. I did explain that the degree to which we control her intracranial metastatic disease burden will be the major drive her of her survival and overall predicted survival. - Case d/w Dr. Zamorano (01/22). - Preliminary pathology c/w adenocarcinoma - Case d/w Neurosurgery (01/22). Tentatively will proceed with resection of brain lesion (01/27/18) Iatrogenic Pneumothorax - chest tube placed by IR (01/20/18) - Chest X-Ray 01/21/18: Uncomplicated chest tube placement without pneumothorax. - Pt accidentally pulled out chest tube (01/22/18) - repeat CXR (01/23) --> slight enlargement of left pneumothorax - Case d/w Radiology. Pt will need new chest tube. HTN - stable - continue BB
[2018-01-23] MEDS ORDERED: fentaNYL Citrate Inj 100 MCG/2 ML Ampul ONE ×2 (12:03→12:34)
--- NOTE | 2018-01-23 13:16 | IR ---
EXAM DATE: 01/23/2018 12:54 PM EDT AGE/SEX: 62 years / Female INDICATIONS: Patient with pneumothorax in need of chest tube placement. CLINICAL DATA: This is the patient's subsequent encounter. Patient reports that signs and symptoms h ave been present for 1 week and indicates a pain score of 0/10. MEDICAL/SURGICAL HISTORY: Multiple posterior fossa masses consistent with brain metastasis, Left lung mass Chest tube, left. Hysterectomy. Lung mass biopsy, Bilateral salpingo-oophorectomy COMPARISON: [facility] [place], CHEST EXPIRATION ONLY, 01/23/2018. . FLUORO TIME (min): 2.1 IMAGE SERIES: 1 ACCESS SITE: SEDATION TIME (min): 30 MEDICATION(S): 150mcg fentanyl (Sublimaze) IV 2mg lorazepam (Ativan) IV DEVICE(S): 12 Irish non-locking catheter Melvin . . PROCEDURE: 1. Fluoroscopically guided chest tube placement. 2. Conscious sedation with continuous EKG and oximetry monitoring. The risks, benefits and alternatives to the procedure were explained and verbal and written consent w as obtained. The site was prepped in sterile fashion. Full sterile technique was used, including ca p, mask, sterile gloves and gown and a large sterile sheet. Hand hygiene and 2% chlorhexidine and/or betadine/alcohol prep was utilized per protocol for cutaneous antisepsis. The skin and subcutaneous tissues were infiltrated with local anesthetic solution. With fluoroscopic guidance the chest was punctured between the first and second interspace and the pr escribed catheter was placed in the lung apex. Wall suction was applied. Post procedure images demon strate satisfactory position of the tube. The catheter was sutured in place and a Percu-Stay was cathleen lied. Conscious sedation was performed with the prescribed dosages and duration as above in the presence of an independent trained radiology nurse to assist in the monitoring of the patient. EKG and oximetry remained stable throughout the procedure. The patient tolerated the procedure well and there were n o complications. The patient was sent to post anesthesia recovery in stable condition. CONCLUSION: Uncomplicated fluoroscopic guided left chest tube placement as above. Electronically signed by: Elton Henriquez MD 01/23/2018 1:15 PM EDT
--- NOTE | 2018-01-23 13:26 | XR ---
EXAM DATE: 01/23/2018 1:15 PM EDT AGE/SEX: 62 years / Female INDICATIONS: Left chest tube placement. CLINICAL DATA: This is the patient's subsequent encounter. Patient reports that signs and symptoms h ave been present for 2 days and indicates a pain score of Nonresponsive. MEDICAL/SURGICAL HISTORY: . Brain tumor. Lung mass. . Hysterectomy. COMPARISON: [facility] [place]ST [place], 01/23/2018. . FINDINGS: Left upper lobe mass is noted. Extensive subcutaneous emphysema along the left chest and neck again n oted. There is a left-sided chest tube present with distal coil overlying the left lung apex. I do no t see a pneumothorax. Right lung is clear. Osseous structures are intact. CONCLUSION: Interval chest tube placement without obvious pneumothorax. Electronically signed by: Han Lainez MD 01/23/2018 1:24 PM EDT
--- NOTE | 2018-01-23 16:05 | P.PNNS ---
Subjective Interval history: Pt awake and alert. Sitting up in bed. Denies headaches, nausea, vomiting. No paresthesias or weakness. Complains of discomfort in left neck and shoulder. Just had chest tube placed again. <Primo Stockton - Last Filed: 01/23/18 16:00> Physical Exam Vital signs: Vital Signs 01/22/18 19:09 01/22/18 20:25 01/22/18 20:57 Temperature 98 F Pulse Rate 68 76 Respiratory Rate 20 16 Blood Pressure 173/90 H Pulse Oximetry 96 01/23/18 00:00 01/23/18 00:08 01/23/18 00:55 Temperature 97.7 F Pulse Rate 73 74 Respiratory Rate 20 18 Blood Pressure 168/85 H Pulse Oximetry 98 01/23/18 04:00 01/23/18 08:00 01/23/18 12:41 Temperature 97.9 F 97.7 F 98.2 F Pulse Rate 74 79 Respiratory Rate 18 18 16 Blood Pressure 152/90 H 159/89 H 150/72 H Pulse Oximetry 98 99 01/23/18 12:56 01/23/18 13:26 01/23/18 13:56 Temperature Pulse Rate 62 68 74 Respiratory Rate 19 17 18 Blood Pressure 152/83 H 148/78 H 153/79 H Pulse Oximetry 96 98 96 01/23/18 15:03 Temperature 96.7 F L Pulse Rate 83 Respiratory Rate 18 Blood Pressure 153/93 H Pulse Oximetry 97 Intake & Output 01/22/18 01/23/18 01/23/18 18:59 06:59 18:59 Intake Total 1130 / 1130 Balance 1130 / 1130 Weight 54.5 kg Intake: Oral 1130 / 1130 Other: # Voids 4 6 Date of Last Bowel Movement 01/22/18 01/22/18 01/22/18 # Bowel Movements 2 1 - Constitutional no acute distress, cooperative - Routine HEENT Exam Head: Present: atraumatic Eye: Present: PERRL (Pupils 4mm bilaterally reactive bilaterally.). Absent: conjunctival icterus ENT: Present: oropharynx clear - Routine Neck Exam Present: trachea midline - Routine Respiratory Exam Present: CTA bilaterally. Absent: rhonchi, wheezes Comments: Chest tube in place. - Routine Cardiovascular Exam Present: RRR, S1, S2, murmur - Routine Abdominal Exam Present: soft, normoactive bowel sounds - Routine Extremities Exam Absent: cyanosis - Routine Skin Exam Absent: cyanosis, erythema - Routine Neurological Exam Present: alert, moving all extremities, facial asymmetry, normal speech. Absent : sensory deficit, motor deficit - Routine Psychiatric Exam Present: normal affect, cooperative. Absent: agitated <Primo Stockton - Last Filed: 01/23/18 16:00> Vital signs: Vital Signs 01/22/18 20:25 01/22/18 20:57 01/23/18 00:00 Temperature 98 F 97.7 F Pulse Rate 76 73 Respiratory Rate 20 16 20 Blood Pressure 173/90 H 168/85 H Pulse Oximetry 96 98 01/23/18 00:08 01/23/18 00:55 01/23/18 04:00 Temperature 97.9 F Pulse Rate 74 74 Respiratory Rate 18 18 Blood Pressure 152/90 H Pulse Oximetry 98 01/23/18 08:00 01/23/18 12:41 01/23/18 12:56 Temperature 97.7 F 98.2 F Pulse Rate 79 62 Respiratory Rate 18 16 19 Blood Pressure 159/89 H 150/72 H 152/83 H Pulse Oximetry 99 96 01/23/18 13:26 01/23/18 13:56 01/23/18 15:03 Temperature 96.7 F L Pulse Rate 68 74 83 Respiratory Rate 17 18 18 Blood Pressure 148/78 H 153/79 H 153/93 H Pulse Oximetry 98 96 97 Intake & Output 01/23/18 01/23/18 01/24/18 06:59 18:59 06:59 Intake Total 730 / 730 Balance 730 / 730 Weight 54.5 kg Intake: Oral 730 / 730 Other: # Voids 6 4 Date of Last Bowel Movement 01/22/18 01/23/18 # Bowel Movements 1 1 <Dex Mendoza - Last Filed: 01/23/18 19:55> Assessment and Plan - Assessment (1) History of hysterectomy Code(s): Z90.710 - Acquired absence of both cervix and uterus Status: Acute (2) Neck pain Code(s): M54.2 - Cervicalgia Status: Acute (3) H/O hysterectomy for benign disease Code(s): Z90.710 - Acquired absence of both cervix and uterus Status: Acute (4) Neoplasm of brain causing mass effect on adjacent structures Code(s): D49.6 - Neoplasm of unspecified behavior of brain Status: Acute (5) Lung mass Code(s): R91.8 - Other nonspecific abnormal finding of lung field Status: Acute - Plan 62-year-old lady with the lung mass and multiple brain masses bilateral cerebral hemispheres supratentorial and bilateral cerebellar hemispheres infratentorial the larger ones in the left cerebellar hemisphere with cerebral edema. There is impingement of the fourth ventricle on the left side although not completely obstructed with moderate hydrocephalus. Neuro: Continue neuro checks in a serial fashion. She is at risk for deterioration due to hydrocephalus. She may need a ventriculostomy catheter or a ventriculoperitoneal shunt if her condition gets worse. She has been seen by Dr arora, from radiation oncologist and plan is for whole brain radiation Pt has undergone a lung biopsy for tissue diagnosis 01/19/18 with the subsequent pneumothorax status post chest tube placement. Pulmonary: aggressive pulmonary toilette, nasotracheal suction, and breathing treatments with nebulizers. Daily PT and OT Renal: Continue to monitor closely urine output, BUN and creatinine Endocrine: Continue to Monitor serial Acu checks and SSI as needed in detail ID continue to monitor for signs of infection Continue Protonix for stress ulcer prophylaxis Continue Prashanth hose and SCD's for DVT prophylaxis Pt is wanting to proceed with left suboccipital craniectomy with resection of the cerebellar masses for posterior fossa decompression can be considered for other pathological diagnosis. She is being treated for pneumothorax and we are tentatively planning on Friday if she improves medically over the weekend. We have discussed with her RN and family at bedside. <Primo Stockton - Last Filed: 01/23/18 16:00> - Assessment (1) Neoplasm of brain causing mass effect on adjacent structures Code(s): D49.6 - Neoplasm of unspecified behavior of brain Status: Acute (2) Lung mass Code(s): R91.8 - Other nonspecific abnormal finding of lung field Status: Acute - Attending Attestation The exam, history, and the medical decision-making described in the above note were completed with the assistance of the mid-level provider. I reviewed and agree with the findings presented. I attest that I had a [id number] encounter with the patient on the same day, and personally performed and documented my assessment and findings in the medical record. <Dex Mendoza - Last Filed: 01/23/18 19:55>
[2018-01-24] MEDS: ALPRAZolam 0.5 MG Tablet PO PRN ×3 (00:32→21:25)
[2018-01-24] MEDS: Insulin NovoLOG Aspart Correctional Sugar Inj SQ SCH ×2 (08:27→12:01)
[2018-01-24] MEDS: Metoprolol Tartrate 25 MG Tablet PO SCH ×2 (08:31→21:58)
[2018-01-24] MEDS: Senna/Docusate Sodium 8.6/50 MG Tablet PO SCH ×2 (08:31→21:58)
[2018-01-24] MEDS: levETIRAcetam 500 MG Tablet PO SCH ×2 (08:31→21:58)
[2018-01-24] MEDS: Nystatin Liq 500,000 UNIT/5 ML UDC SWISH-SWAL SCH ×4 (08:31→21:58)
--- NOTE | 2018-01-24 10:03 | P.PNIM ---
Subjective Interval history: Follow up new dx metastatic lung CA Patient sitting up in bed with multiple family members at bedside offers no new complaints left sided chest tube in place to wall suction, denies SOB Physical Exam Vital signs: Vital Signs 01/23/18 12:41 01/23/18 12:56 01/23/18 13:26 Temperature 98.2 F Pulse Rate 62 68 Respiratory Rate 16 19 17 Blood Pressure 150/72 H 152/83 H 148/78 H Pulse Oximetry 96 98 01/23/18 13:56 01/23/18 15:03 01/23/18 20:23 Temperature 96.7 F L 98 F Pulse Rate 74 83 68 Respiratory Rate 18 18 20 Blood Pressure 153/79 H 153/93 H 151/89 H Pulse Oximetry 96 97 95 01/23/18 20:27 01/23/18 21:00 01/23/18 23:54 Temperature Pulse Rate 65 64 Respiratory Rate 18 Blood Pressure Pulse Oximetry 01/24/18 00:26 01/24/18 01:00 01/24/18 04:00 Temperature 97.4 F L 97.9 F Pulse Rate 64 64 Respiratory Rate 16 16 18 Blood Pressure 140/85 150/84 H Pulse Oximetry 96 97 01/24/18 04:01 01/24/18 06:20 01/24/18 07:30 Temperature Pulse Rate 58 L 58 L Respiratory Rate 16 Blood Pressure Pulse Oximetry 01/24/18 08:22 Temperature 97.6 F Pulse Rate 65 Respiratory Rate 18 Blood Pressure 155/91 H Pulse Oximetry 98 Intake & Output 01/23/18 01/24/18 01/24/18 18:59 06:59 18:59 Intake Total 730 / 730 480 / 480 Output Total 50 / 50 Balance 730 / 730 430 / 430 Weight 57.5 kg Intake: Oral 730 / 730 480 / 480 Output: Urine 50 / 50 Other: # Voids 4 2 Date of Last Bowel Movement 01/23/18 01/23/18 01/24/18 # Bowel Movements 1 Narrative: GENERAL: This is a well-nourished, well-developed patient, in no apparent distress. CARDIOVASCULAR: Regular rate and rhythm RESPIRATORY: Clear to auscultation. Breath sounds equal bilaterally. left sided chest tube to wall suction GASTROINTESTINAL: Abdomen soft, non-tender, nondistended. Normal active bowel sounds MUSCULOSKELETAL: Extremities without clubbing, cyanosis, or edema. NEURO: Alert & Oriented x4 to person, place, time, situation. Moves all ext x4 Results - Labs CBC & Chem 7: 01/25/18 04:32 01/25/18 04:32 Laboratory Results - last 24 hr 01/23/18 01/24/18 20:36 08:26 POC Glucose 134 H 110 - Imaging Impressions Chest Tube Insertion 01/23/18 11:03 CONCLUSION: Uncomplicated fluoroscopic guided left chest tube placement as above. Chest X-Ray 01/23/18 12:41 CONCLUSION: Interval chest tube placement without obvious pneumothorax. Assessment and Plan - Assessment (1) Lung mass Code(s): R91.8 - Other nonspecific abnormal finding of lung field Status: Acute Plan: 62-year-old female with probable new diagnosis of metastatic lung cancer. Patient was transferred from [place] for neurosurgery consultation. She had an outpatient MRI of the brain that showed multiple brain lesions. CT imaging of the chest abdomen and pelvis showed a 5.5 x 5 cm mass involving the left upper lobe lung MRI brain performed at this facility confirmed presence of innumerable brain metastases clustered in her cerebellum but also present in the supratentorial brain associated with extensive vasogenic edema. No definite evidence of metastatic disease involving the abdomen or pelvis. Left lung mass with numerous brain metastases - comgmt with Medical Oncology, Surgical Oncology, and Neurosurgery MRI brain 1. Too numerous to count enhancing mildly hemorrhagic metastatic deposits throughout the brain most numerous in the posterior fossa with some compression of the fourth ventricle. 2. Carcinomatous meningitis would be consideration 3. Lung mass would be amenable to pancreas biopsy for rapid diagnosis. 4. There is no significant hydronephrosis as yet. - Pt underwent CT guided Bx of left lung mass (01/19/18) - pathology pending - Per Oncology, depending on histology require PDL 1 testing and additional molecular testing (provided her disease is non-small cell carcinoma). - Radiation oncology has seen the patient, she has been advised palliative whole brain radiation therapy. The patient has elected to undergo treatment at [facility] facility - [facility]. - Celexa, xanax - Thrush: Initiate nystatin swish and swallow 5 mL p.o. every 8 hours. - Case d/w Dr. Zamorano (01/20) - Pt/family met with Dr. Mendoza 01/20 who has recommended surgical debulking followed by radiation - Pt/family discussed options and predicted survival with Dr. Zamorano 01/20. Per Dr. Zamorano's note: individuals with her degree of intracranial disease burden have atypical median survival measured between 6-8 months that is with aggressive therapeutic interventions. I did explain that the degree to which we control her intracranial metastatic disease burden will be the major drive her of her survival and overall predicted survival. - Case d/w Dr. Zamorano (01/22). - Preliminary pathology c/w adenocarcinoma - Case d/w Neurosurgery (01/22). Tentatively will proceed with resection of brain lesion (01/27/18) Iatrogenic Pneumothorax - chest tube placed by IR (01/20/18) - Chest X-Ray 01/21/18: Uncomplicated chest tube placement without pneumothorax. - Pt accidentally pulled out chest tube (01/22/18) - repeat CXR (01/23) --> slight enlargement of left pneumothorax - Case d/w Radiology (01/23). - 01/23 new left chest tube placed by IR HTN - stable - continue BB - Attending Attestation Patient examined. Assessment and plan formulated with Michelle Mercado PA-C. I agree with the above.
--- NOTE | 2018-01-24 10:16 | P.PNONC ---
Subjective Interval history: Afebrile Patient complaining of some soreness around chest tube insertion site Reports her breathing is okay; has been attempting to use incentive spirometer Asking questions about additional studies on specimen Objective Vital Signs/Intake & Output: Vital Signs 01/23/18 12:41 01/23/18 12:56 01/23/18 13:26 Temperature 98.2 F Pulse Rate 62 68 Respiratory Rate 16 19 17 Blood Pressure 150/72 H 152/83 H 148/78 H Pulse Oximetry 96 98 01/23/18 13:56 01/23/18 15:03 01/23/18 20:23 Temperature 96.7 F L 98 F Pulse Rate 74 83 68 Respiratory Rate 18 18 20 Blood Pressure 153/79 H 153/93 H 151/89 H Pulse Oximetry 96 97 95 01/23/18 20:27 01/23/18 21:00 01/23/18 23:54 Temperature Pulse Rate 65 64 Respiratory Rate 18 Blood Pressure Pulse Oximetry 01/24/18 00:26 01/24/18 01:00 01/24/18 04:00 Temperature 97.4 F L 97.9 F Pulse Rate 64 64 Respiratory Rate 16 16 18 Blood Pressure 140/85 150/84 H Pulse Oximetry 96 97 01/24/18 04:01 01/24/18 06:20 01/24/18 07:30 Temperature Pulse Rate 58 L 58 L Respiratory Rate 16 Blood Pressure Pulse Oximetry 01/24/18 08:22 Temperature 97.6 F Pulse Rate 65 Respiratory Rate 18 Blood Pressure 155/91 H Pulse Oximetry 98 Intake & Output 01/23/18 01/24/18 01/24/18 18:59 06:59 18:59 Intake Total 730 / 730 480 / 480 Output Total 50 / 50 Balance 730 / 730 430 / 430 Weight 126 lb 12.253 oz Intake: Oral 730 / 730 480 / 480 Output: Urine 50 / 50 Other: # Voids 4 2 Date of Last Bowel Movement 01/23/18 01/23/18 01/24/18 # Bowel Movements 1 Result Diagrams: 01/17/18 03:41 01/17/18 03:41 Laboratory Results: Laboratory Results - last 24 hr 01/23/18 01/24/18 20:36 08:26 POC Glucose 134 H 110 Imaging Studies: Impressions Chest Tube Insertion 01/23/18 11:03 CONCLUSION: Uncomplicated fluoroscopic guided left chest tube placement as above. Chest X-Ray 01/23/18 12:41 CONCLUSION: Interval chest tube placement without obvious pneumothorax. Medications: Active Medications Generic Name Dose Route Start Last Admin Trade Name Freq PRN Reason Stop Dose Admin Hydrocodone Bitart/Acetaminophen 1 tab 01/15/18 23:43 01/24/18 00:32 Pierce 5/325 PO 1 tab Q4H PRN Administration pain 1-6 Hydrocodone Bitart/Acetaminophen 2 tab 01/15/18 23:44 01/24/18 05:50 Pierce 5/325 PO 2 tab Q4H PRN Administration pain 7-10 Alprazolam 0.5 mg 01/17/18 15:29 01/24/18 08:36 Xanax PO 0.5 mg Q6H PRN Administration ANXIETY Clonidine HCl 0.1 mg 01/17/18 20:01 01/23/18 00:25 Catapres PO 0.1 mg Q6H PRN Administration SBP >165 Dexamethasone Sodium Phosphate 4 mg 01/16/18 00:00 01/24/18 05:41 Decadron Inj IV.PUSH 4 mg Q6HR MARILIA Administration Insulin Aspart 0 unit 01/16/18 08:00 01/24/18 08:27 Novolog Insulin Correctional Sugar Inj SQ Not Given ACHS [facility] Protocol Labetalol HCl 10 mg 01/17/18 00:09 01/20/18 08:18 Trandate Inj IV.PUSH 10 mg Q4H PRN Administration SYSTOLIC BP GREATER THAN 165 Levetiracetam 500 mg 01/16/18 21:00 01/24/18 08:31 Keppra PO 500 mg BID MARILIA Administration Metoprolol Tartrate 25 mg 01/17/18 21:00 01/24/18 08:31 Lopressor PO 25 mg BID MARILIA Administration Morphine Sulfate 2 mg 01/16/18 00:45 01/19/18 20:52 Morphine Inj IV.PUSH 2 mg Q2H PRN Administration BREAKTHROUGH PAIN Nystatin 5 ml 01/19/18 13:00 01/24/18 08:31 Mycostatin Liq SWISH-SWAL 5 ml QID MARILIA Administration Pantoprazole Sodium 40 mg 01/16/18 09:00 01/24/18 08:31 Protonix PO 40 mg DAILY MARILIA Administration Promethazine HCl 25 mg 01/15/18 23:45 01/16/18 19:35 Phenergan PO 25 mg Q6H PRN Administration nausea Senna/Docusate Sodium 1 tab 01/16/18 09:00 01/24/18 08:31 Geni-Colace PO 1 tab BID MARILIA Administration Sodium Chloride 2 ml 01/16/18 09:00 01/23/18 20:51 Ns Flush IV.FLUSH 2 ml BID MARILIA Administration Sodium Chloride 2 ml 01/16/18 00:13 01/23/18 00:11 Ns Flush IV.FLUSH 2 ml PRN PRN Administration FLUSH AFTER USING IV ACCESS Objective Remarks: GENERAL: Older female sitting up in chair at bedside. She appears comfortable. SKIN: Warm and dry. HEAD: Normocephalic. EYES: No scleral icterus. No injection or drainage. NECK: Supple, trachea midline. CARDIOVASCULAR: Regular rate and rhythm without murmurs. RESPIRATORY: Clear anteriorly. Chest tube in place to left upper chest wall GASTROINTESTINAL: Abdomen soft, non-tender, nondistended. EXTREMITIES: No cyanosis, or edema. MUSCULOSKELETAL: Adequate muscle tone. NEUROLOGICAL: Occasional dysarthria. Awake and alert. Follows commands. Assessment/Plan - Plan 62-year-old female with probable new diagnosis of metastatic lung cancer. Patient was transferred from [place] for neurosurgery consultation. She had an outpatient MRI of the brain that showed multiple brain lesions. CT imaging of the chest abdomen and pelvis showed a 5.5 x 5 cm mass involving the left upper lobe lung MRI brain performed at this facility confirmed presence of innumerable brain metastases clustered in her cerebellum but also present in the supratentorial brain associated with extensive vasogenic edema. No definite evidence of metastatic disease involving the abdomen or pelvis. 1. Left lung mass: CT-guided biopsy of left upper lobe lung mass performed on . Pathology shows poorly differentiated adenocarcinoma. Additional testing including EGFR, ALK, ROS-1, BRAF mutation analysis will be ordered on Friday when pathology returns as I can no longer add this independently with the upgraded [employer]. 2. Numerous brain metastases: Neurosurgeons have recommended surgical debulking followed by radiation. Surgical debulking is planned for Friday. 3. Continue Keppra, Decadron. 4. Iatrogenic left-sided pneumothorax: Chest tube replaced yesterday after it was accidentally pulled out. Chest x-ray taken on 01/23/18 after placement of chest tube shows no further pneumothorax. - Attending Statement The exam, history, and the medical decision-making described in the above note were completed with the assistance of the mid-level provider. I reviewed and agree with the findings presented. I attest that I had a [id number] encounter with the patient on the same day, and personally performed and documented my assessment and findings in the medical record. Family at bedside, very supportive. Denies any pain at present. Chest tube in place. We discussed plan for neurosurgery on Friday as outlined by Dr. Zamorano. Noted final pathology from a lung biopsy reveals an adenocarcinoma/non-small cell lung cancer. Additional testing will be requested for ALK, EGFR and PDL-1.
--- NOTE | 2018-01-24 13:03 | XR ---
EXAM DATE: 01/24/2018 12:55 PM EDT AGE/SEX: 62 years / Female INDICATIONS: Post-chest tube evaluation. CLINICAL DATA: This is the patient's initial encounter. Patient reports that signs and symptoms have been present for 2 days and indicates a pain score of 0/10. MEDICAL/SURGICAL HISTORY: . Carcinoma, left lung. Metastatic carcinoma, brain. Hysterectomy. COMPARISON: [facility] [place], CHEST EXPIRATION ONLY, 01/23/2018. [facility] [place], CT CHEST W CONTRAST, 01/16/2018. . FINDINGS: There is a left upper lobe mass and left hilar adenopathy. A left sided pigtail catheter is noted wit h the distal coil overlying the left lung apex. There is subcutaneous air seen. I do not see a pneumo thorax. Right lung is clear. Heart size normal. Osseous structures are intact. CONCLUSION: Chest tube in place without obvious pneumothorax. Subcutaneous air is again seen. Electronically signed by: Han Lainez MD 01/24/2018 1:01 PM EDT
--- NOTE | 2018-01-24 22:12 | XR ---
EXAM DATE: 01/24/2018 9:57 PM EDT AGE/SEX: 62 years / Female INDICATIONS: Pneumothorax. CLINICAL DATA: This is the patient's subsequent encounter. Patient reports that signs and symptoms h ave been present for 1 week and indicates a pain score of 1/10. MEDICAL/SURGICAL HISTORY: . Carcinoma, left lung. Metastatic carcinoma, brain. . Hysterectomy. [place] [facility] [place]. . FINDINGS: Almost 4 cm upper lobe mass is again seen. Left apical chest tube is present with an approx imate 1.8 cm pneumothorax. Subcutaneous emphysema is also seen on the left. CONCLUSION: Left apical pneumothorax. Electronically signed by: Jc Cuevas MD 01/24/2018 10:11 PM EDT
[2018-01-25 04:57] LABS: Baso % (Auto) 0.1 % (0.0-2.0); Eos % (Auto) 0.1 % (0.0-4.0); Hematocrit 36.8 % (35.0-46.0); Hemoglobin 12.6 gm/dL (11.6-15.3); Lymph # (Auto) 1.8 th/mm3 (1.0-4.8); Lymph % (Auto) 11.1 % (9.0-44.0); Mean Corpuscular HGB Conc 34.2 % (32.0-36.0); Mean Corpuscular Hemoglobin 28.2 pg (27.0-34.0); Mean Corpuscular Volume 82.5 fL (80.0-100.0); Mean Platelet Volume 8.9 fL (7.0-11.0); Mono # (Auto) 0.9 th/mm3 (0.0-0.9); Mono % (Auto) 5.5 % (0.0-8.0); Neut # (Auto) 13.3 th/mm3 (1.8-7.7); Neut % (Auto) 83.2 % (16.0-70.0); Platelet Count 292 th/mm3 (150-450); Red Blood Count 4.46 mil/mm3 (4.00-5.30); Red Cell Distribution Width 14.9 % (11.6-17.2)
[2018-01-25 05:20] LABS: Anion Gap 11 meq/L (5-15); Blood Urea Nitrogen 22 mg/dL (7-18); Calcium 8.5 mg/dL (8.5-10.1); Carbon Dioxide 27.5 meq/L (21.0-32.0); Chloride 98 meq/L (98-107); Glomerular Filtration Rate Greater Than 89 mL/min (>89); Glucose,Random 123 mg/dL (74-106); Potassium 4.1 meq/L (3.5-5.1); Sodium 136 meq/L (136-145)
[2018-01-25] MEDS: ALPRAZolam 0.5 MG Tablet PO PRN ×2 (06:38→13:29)
[2018-01-25] MEDS: levETIRAcetam 500 MG Tablet PO SCH ×2 (09:22→21:48)
[2018-01-25] MEDS: Metoprolol Tartrate 25 MG Tablet PO SCH ×2 (09:23→21:48)
[2018-01-25] MEDS: Nystatin Liq 500,000 UNIT/5 ML UDC SWISH-SWAL SCH ×4 (09:23→21:49)
[2018-01-25] MEDS: Senna/Docusate Sodium 8.6/50 MG Tablet PO SCH ×2 (09:25→21:48)
--- NOTE | 2018-01-25 13:09 | P.PNIM ---
Subjective Interval history: Follow up: new dx metastatic lung CA Patient continues to have left sided chest tube to wall suction denies SOB awaiting craniotomy on Friday Offer no concerns/complaints at this time Physical Exam Vital signs: Vital Signs 01/24/18 17:09 01/24/18 20:00 01/25/18 00:00 Temperature 97.7 F 98.3 F 97.8 F Pulse Rate 88 80 73 Respiratory Rate 20 20 20 Blood Pressure 148/79 H 159/91 H 157/81 H Pulse Oximetry 97 93 L 95 01/25/18 09:05 Temperature 97.2 F L Pulse Rate 77 Respiratory Rate 19 Blood Pressure 121/62 Pulse Oximetry 99 Intake & Output 01/24/18 01/25/18 01/25/18 18:59 06:59 18:59 Intake Total 700 / 700 240 / 240 Balance 700 / 700 240 / 240 Weight 57.5 kg Intake: Oral 700 / 700 240 / 240 Other: # Voids 4 3 Date of Last Bowel Movement 01/24/18 01/24/18 # Bowel Movements 3 Narrative: GENERAL: This is a well-nourished, well-developed patient, in no apparent distress. CARDIOVASCULAR: Regular rate and rhythm RESPIRATORY: Clear to auscultation. Breath sounds equal bilaterally. left sided chest tube in place GASTROINTESTINAL: Abdomen soft, non-tender, nondistended. Normal active bowel sounds MUSCULOSKELETAL: Extremities without clubbing, cyanosis, or edema. NEURO: Alert & Oriented x4 to person, place, time, situation. Moves all ext x4 Results - Labs CBC & Chem 7: 01/25/18 04:32 01/25/18 04:32 Laboratory Results - last 24 hr 01/25/18 01/25/18 04:32 04:32 WBC 16.0 H RBC 4.46 Hgb 12.6 Hct 36.8 MCV 82.5 MCH 28.2 MCHC 34.2 RDW 14.9 Plt Count 292 MPV 8.9 Neut % (Auto) 83.2 H Lymph % (Auto) 11.1 Sully % (Auto) 5.5 Eos % (Auto) 0.1 Baso % (Auto) 0.1 Neut # (Auto) 13.3 H Lymph # (Auto) 1.8 Sully # (Auto) 0.9 Eos # (Auto) 0.0 Baso # (Auto) 0.0 WBC Differential . Differential Comment Auto diff final Sodium 136 Potassium 4.1 Chloride 98 Carbon Dioxide 27.5 Anion Gap 11 BUN 22 H Creatinine 0.56 Estimated GFR Greater than 89 Random Glucose 123 H Calcium 8.5 - Imaging Impressions Chest X-Ray 01/24/18 21:36 CONCLUSION: Left apical pneumothorax. Assessment and Plan - Assessment (1) Lung mass Code(s): R91.8 - Other nonspecific abnormal finding of lung field Status: Acute Plan: 62-year-old female with probable new diagnosis of metastatic lung cancer. Patient was transferred from [place] for neurosurgery consultation. She had an outpatient MRI of the brain that showed multiple brain lesions. CT imaging of the chest abdomen and pelvis showed a 5.5 x 5 cm mass involving the left upper lobe lung MRI brain performed at this facility confirmed presence of innumerable brain metastases clustered in her cerebellum but also present in the supratentorial brain associated with extensive vasogenic edema. No definite evidence of metastatic disease involving the abdomen or pelvis. Left lung mass with numerous brain metastases - comgmt with Medical Oncology, Surgical Oncology, and Neurosurgery MRI brain 1. Too numerous to count enhancing mildly hemorrhagic metastatic deposits throughout the brain most numerous in the posterior fossa with some compression of the fourth ventricle. 2. Carcinomatous meningitis would be consideration 3. Lung mass would be amenable to pancreas biopsy for rapid diagnosis. 4. There is no significant hydronephrosis as yet. - Pt underwent CT guided Bx of left lung mass (01/19/18) - pathology pending - Per Oncology, depending on histology require PDL 1 testing and additional molecular testing (provided her disease is non-small cell carcinoma). - Radiation oncology has seen the patient, she has been advised palliative whole brain radiation therapy. The patient has elected to undergo treatment at [facility] facility - [facility]. - Celexa, xanax - Thrush: Initiate nystatin swish and swallow 5 mL p.o. every 8 hours. - Case d/w Dr. Zamorano (01/20) - Pt/family met with Dr. Mendoza 01/20 who has recommended surgical debulking followed by radiation - Pt/family discussed options and predicted survival with Dr. Zamorano 01/20. Per Dr. Zamorano's note: individuals with her degree of intracranial disease burden have atypical median survival measured between 6-8 months that is with aggressive therapeutic interventions. I did explain that the degree to which we control her intracranial metastatic disease burden will be the major drive her of her survival and overall predicted survival. - Case d/w Dr. Zamorano (01/22). - Preliminary pathology c/w adenocarcinoma - Case d/w Neurosurgery (01/22). Tentatively will proceed with resection of brain lesion (01/27/18) Iatrogenic Pneumothorax - chest tube placed by IR (01/20/18) - Chest X-Ray 01/21/18: Uncomplicated chest tube placement without pneumothorax. - Pt accidentally pulled out chest tube (01/22/18) - repeat CXR (01/23) --> slight enlargement of left pneumothorax - Case d/w Radiology (01/23). - 01/23 new left chest tube placed by IR - 01/24 CXR 12:[address] without obvious pneumothorax. Subcutaneous air is again seen. - repeat CXR 01/24 2136 Left apical pneumothorax 1.8 cm - CXR in AM HTN - stable - continue BB - Attending Attestation Patient examined. Assessment and plan formulated with Michelle Mercado PA-C. I agree with the above.
[2018-01-26] MEDS: ALPRAZolam 0.5 MG Tablet PO PRN ×2 (02:53→14:01)
--- NOTE | 2018-01-26 06:13 | XR ---
EXAM DATE: 01/26/2018 6:08 AM EDT AGE/SEX: 62 years / Female INDICATIONS: Pneumothorax. CLINICAL DATA: This is the patient's subsequent encounter. Patient reports that signs and symptoms h ave been present for 1 week and indicates a pain score of Nonresponsive. MEDICAL/SURGICAL HISTORY: . Carcinoma, left lung. Metastatic carcinoma, brain. None. COMPARISON: [facility], CHEST 1V SINGLE AP, 01/24/2018. [facility], CHEST 1V SINGLE AP, 01/22/2018. [facility], CHEST EXPIRATION ONLY, 01/24/2018. . FINDINGS: Portable upright AP view of the chest demonstrates a normal-sized cardiac silhouette. Pigtail left ch est tube is present with tip overlying the apex of the left hemithorax. There is mild asymmetric luce ncy at the left apex but a definite pleural line is not seen. The left upper lobe pulmonary mass aileen ins stable. There is mild atelectasis at the lung bases. Left chest wall soft tissue air is stable. CONCLUSION: 1. Mild asymmetric lucency at the left apex without a pleural line visualized. This appearance could indicate a small residual pneumothorax. Consider follow-up with expiratory technique. 2. Stable left chest wall subcutaneous emphysema. Electronically signed by: Elton Kang MD 01/26/2018 6:12 AM EDT
[2018-01-26] MEDS: Nystatin Liq 500,000 UNIT/5 ML UDC SWISH-SWAL SCH ×4 (08:50→21:34)
[2018-01-26] MEDS: Senna/Docusate Sodium 8.6/50 MG Tablet PO SCH ×2 (08:50→21:32)
[2018-01-26] MEDS: levETIRAcetam 500 MG Tablet PO SCH ×2 (08:50→21:32)
[2018-01-26] MEDS: Metoprolol Tartrate 25 MG Tablet PO SCH ×2 (08:50→21:33)
--- NOTE | 2018-01-26 10:11 | P.PNIM ---
Subjective Interval history: no new complaints Physical Exam Vital signs: Vital Signs 01/25/18 13:17 01/25/18 18:17 01/25/18 20:06 Temperature 98.1 F 98.2 F 98.4 F Pulse Rate 78 77 76 Respiratory Rate 20 19 20 Blood Pressure 131/66 139/70 154/77 H Pulse Oximetry 99 96 93 L 01/25/18 20:15 01/25/18 23:27 01/26/18 00:00 Temperature 98.4 F Pulse Rate 66 Respiratory Rate 18 18 18 Blood Pressure 150/84 H Pulse Oximetry 95 01/26/18 03:00 01/26/18 08:00 Temperature 97.1 F L 98.3 F Pulse Rate 61 71 Respiratory Rate 18 18 Blood Pressure 180/85 H 154/77 H Pulse Oximetry 97 96 Intake & Output 01/25/18 01/26/18 01/26/18 18:59 06:59 18:59 Intake Total 720 / 720 480 / 480 Output Total 450 / 450 550 / 550 Balance 270 / 270 -70 / -70 Weight 52.3 kg Intake: Oral 720 / 720 480 / 480 Output: Urine 450 / 450 550 / 550 Other: Date of Last Bowel Movement 01/25/18 01/25/18 heart reg lung cta abd s/nt ext no edema Results - Labs CBC & Chem 7: 01/25/18 04:32 01/25/18 04:32 - Imaging Impressions Chest X-Ray 01/26/18 06:00 CONCLUSION: 1. Mild asymmetric lucency at the left apex without a pleural line visualized. This appearance could indicate a small residual pneumothorax. Consider follow- up with expiratory technique. 2. Stable left chest wall subcutaneous emphysema. Assessment and Plan - Assessment (1) Lung mass Code(s): R91.8 - Other nonspecific abnormal finding of lung field Status: Acute Plan: 62-year-old female with probable new diagnosis of metastatic lung cancer. Patient was transferred from [place] for neurosurgery consultation. She had an outpatient MRI of the brain that showed multiple brain lesions. CT imaging of the chest abdomen and pelvis showed a 5.5 x 5 cm mass involving the left upper lobe lung MRI brain performed at this facility confirmed presence of innumerable brain metastases clustered in her cerebellum but also present in the supratentorial brain associated with extensive vasogenic edema. No definite evidence of metastatic disease involving the abdomen or pelvis. Left lung mass with numerous brain metastases - comgmt with Medical Oncology, Surgical Oncology, and Neurosurgery MRI brain 1. Too numerous to count enhancing mildly hemorrhagic metastatic deposits throughout the brain most numerous in the posterior fossa with some compression of the fourth ventricle. 2. Carcinomatous meningitis would be consideration 3. Lung mass would be amenable to pancreas biopsy for rapid diagnosis. 4. There is no significant hydronephrosis as yet. - Pt underwent CT guided Bx of left lung mass (01/19/18) - Per Oncology, depending on histology require PDL 1 testing and additional molecular testing (provided her disease is non-small cell carcinoma). - Radiation oncology has seen the patient, she has been advised palliative whole brain radiation therapy. The patient has elected to undergo treatment at [facility] facility - [facility]. - Celexa, xanax - Thrush: Initiate nystatin swish and swallow 5 mL p.o. every 8 hours. - Case d/w Dr. Zamorano (01/20) - Pt/family met with Dr. Mendoza 01/20 who has recommended surgical debulking followed by radiation - Pt/family discussed options and predicted survival with Dr. Zamorano 01/20. Per Dr. Zamorano's note: individuals with her degree of intracranial disease burden have atypical median survival measured between 6-8 months that is with aggressive therapeutic interventions. I did explain that the degree to which we control her intracranial metastatic disease burden will be the major drive her of her survival and overall predicted survival. - Case d/w Dr. Zamorano (01/22). - Preliminary pathology c/w adenocarcinoma - Case d/w Neurosurgery (01/22). Tentatively will proceed with resection of brain lesion (01/27/18) Iatrogenic Pneumothorax - chest tube placed by IR (01/20/18) - Chest X-Ray 01/21/18: Uncomplicated chest tube placement without pneumothorax. - Pt accidentally pulled out chest tube (01/22/18) - repeat CXR (01/23) --> slight enlargement of left pneumothorax - Case d/w Radiology (01/23). - 01/23 new left chest tube placed by IR - 01/24 CXR 12:[address] without obvious pneumothorax. Subcutaneous air is again seen. - repeat CXR 01/25 2136 Left apical pneumothorax 1.8 cm - CXR 01/26. questionable tiny ptx. HTN - stable - continue BB
[2018-01-27] MEDS: ALPRAZolam 0.5 MG Tablet PO PRN ×2 (00:17→08:15)
[2018-01-27] MEDS ORDERED: Metoprolol Tartrate 25 MG Tablet PO ONE (01:24)
[2018-01-27] MEDS ORDERED: Chlorhexidine Gluconate 2% 1 Pack (2 Cloths) TOPICAL ONE (01:24)
[2018-01-27] MEDS ORDERED: Sodium Chlor 0.9% Inj 500 ML IV.SIG SCH (02:00)
[2018-01-27] MEDS ORDERED: Bupivacaine/Epinephrine 0.5% Inj 50 ML Vial ONE (07:22)
[2018-01-27] MEDS ORDERED: Gelatin Size 100 Topical Foam ONE (07:22)
[2018-01-27] MEDS ORDERED: Thrombin Topical Soln 5,000 UNIT Vial TOPICAL ONE (07:22)
--- NOTE | 2018-01-27 07:58 | ECG ---
Date Performed: 01/27/2018 Time Performed: 00:14:58 PTAGE: 62 years EKG: Sinus rhythm Normal ECG NO PREVIOUS TRACING DOCTOR: Silverio Li Interpretating Date/Time 01/27/2018 07:56:03
--- NOTE | 2018-01-27 08:05 | P.PNIM ---
Subjective Interval history: eager to proceed with surgery. family present. Physical Exam Vital signs: Vital Signs 01/26/18 12:00 01/26/18 16:00 01/26/18 21:05 Temperature 97.7 F 97.7 F 97.4 F L Pulse Rate 96 H 95 H 67 Respiratory Rate 18 18 16 Blood Pressure 145/81 H 141/75 H 173/89 H Pulse Oximetry 97 97 98 01/27/18 00:00 01/27/18 00:49 01/27/18 04:55 Temperature 97.5 F L 97.9 F Pulse Rate 67 60 Respiratory Rate 18 16 Blood Pressure 169/89 H 146/89 H 161/85 H Pulse Oximetry 97 98 Intake & Output 01/26/18 01/27/18 01/27/18 18:59 06:59 18:59 Intake Total 1190 / 1190 720 / 720 Output Total 400 / 400 1000 / 1000 Balance 790 / 790 -280 / -280 Intake: Oral 1190 / 1190 720 / 720 Output: Urine 400 / 400 1000 / 1000 Other: # Voids 1 Date of Last Bowel Movement 01/26/18 01/26/18 # Bowel Movements 1 heart reg lung cta abd s/nt ext no edema Results - Labs CBC & Chem 7: 01/25/18 04:32 01/25/18 04:32 Laboratory Results - last 24 hr 01/27/18 05:24 Blood Type O Positive Antibody Screen Negative Assessment and Plan - Assessment (1) Lung mass Code(s): R91.8 - Other nonspecific abnormal finding of lung field Status: Acute Plan: 62-year-old female with probable new diagnosis of metastatic lung cancer. Patient was transferred from [place] for neurosurgery consultation. She had an outpatient MRI of the brain that showed multiple brain lesions. CT imaging of the chest abdomen and pelvis showed a 5.5 x 5 cm mass involving the left upper lobe lung MRI brain performed at this facility confirmed presence of innumerable brain metastases clustered in her cerebellum but also present in the supratentorial brain associated with extensive vasogenic edema. No definite evidence of metastatic disease involving the abdomen or pelvis. Left lung mass with numerous brain metastases - comgmt with Medical Oncology, Surgical Oncology, and Neurosurgery MRI brain 1. Too numerous to count enhancing mildly hemorrhagic metastatic deposits throughout the brain most numerous in the posterior fossa with some compression of the fourth ventricle. 2. Carcinomatous meningitis would be consideration 3. Lung mass would be amenable to pancreas biopsy for rapid diagnosis. 4. There is no significant hydronephrosis as yet. - Pt underwent CT guided Bx of left lung mass (01/19/18) - Per Oncology, depending on histology require PDL 1 testing and additional molecular testing (provided her disease is non-small cell carcinoma). - Radiation oncology has seen the patient, she has been advised palliative whole brain radiation therapy. The patient has elected to undergo treatment at [facility] facility - [facility]. - Celexa, xanax - Thrush: Initiate nystatin swish and swallow 5 mL p.o. every 8 hours. - Case d/w Dr. Zamorano (01/20) - Pt/family met with Dr. Mendoza 01/20 who has recommended surgical debulking followed by radiation - Pt/family discussed options and predicted survival with Dr. Zamorano 01/20. Per Dr. Zamorano's note: individuals with her degree of intracranial disease burden have atypical median survival measured between 6-8 months that is with aggressive therapeutic interventions. I did explain that the degree to which we control her intracranial metastatic disease burden will be the major drive her of her survival and overall predicted survival. - Case d/w Dr. Zamorano (01/22). - Preliminary pathology c/w adenocarcinoma - Case d/w Neurosurgery (01/22). I'm told the pt has OR time scheduled for noon today. npo. ivf. Iatrogenic Pneumothorax - chest tube placed by IR (01/20/18) - Chest X-Ray 01/21/18: Uncomplicated chest tube placement without pneumothorax. - Pt accidentally pulled out chest tube (01/22/18) - repeat CXR (01/23) --> slight enlargement of left pneumothorax - Case d/w Radiology (01/23). - 01/23 new left chest tube placed by IR - 01/24 CXR 12:[address] without obvious pneumothorax. Subcutaneous air is again seen. - repeat CXR 01/24 2136 Left apical pneumothorax 1.8 cm - CXR 01/26. questionable tiny ptx. CT management per IR HTN - stable - continue BB
[2018-01-27] MEDS: Nystatin Liq 500,000 UNIT/5 ML UDC SWISH-SWAL SCH ×4 (08:15→20:08)
[2018-01-27] MEDS: Senna/Docusate Sodium 8.6/50 MG Tablet PO SCH ×2 (08:15→20:08)
[2018-01-27] MEDS: levETIRAcetam 500 MG Tablet PO SCH ×2 (08:15→20:08)
[2018-01-27] MEDS: Metoprolol Tartrate 25 MG Tablet PO SCH ×2 (08:16→20:08)
[2018-01-27] MEDS: Sod Chloride 0.9% Inj 1,000 ML IV.CONT SCH (08:31)
[2018-01-27 11:03] LABS: Prothrombin Time 9.7 sec (9.8-11.6)
[2018-01-27] MEDS ORDERED: Sugammadex Inj 200 MG/2 ML Vial IV.PUSH ONE (11:53)
[2018-01-27] MEDS ORDERED: Dexmedetomidine Inj 200 MCG/2 ML Vial ONE (11:53)
[2018-01-27] MEDS ORDERED: Esmolol Bolus Inj 100 MG/10 ML Vial IV.PUSH ONE (13:21)
[2018-01-27] MEDS ORDERED: Lidocaine PF 1% Inj 5 ML Syringe INFILTRATN ONE (13:21)
[2018-01-27] MEDS ORDERED: Phenylephrine/NS 1000 MCG/10ML Syringe IV.PUSH ONE (13:21)
[2018-01-27] MEDS ORDERED: Normosol-R pH 7.4 Inj 2,000 ML IV.CONT ONE (13:21)
[2018-01-27] MEDS ORDERED: Labetalol HCl Inj 100 MG/20 ML Vial IV.CONT ONE (13:21)
[2018-01-27] MEDS ORDERED: Potassium Chlor 20 mEq Premix 20 MEQ/100 ML PIGGYBACK IV.SIG PRN (15:22)
[2018-01-27] MEDS ORDERED: Calcium Chloride Inj 0.34 GM in Sodium Chlor 0.9% Inj 100 ML IV.SIG PRN (15:22)
[2018-01-27] MEDS ORDERED: Menthol 5.8 MG Lozenge BUCCAL PRN (15:22)
[2018-01-27] MEDS ORDERED: Magnesium Sulfate Inj 2 GM in Sodium Chlor 0.9% Inj 96 ML IV.SIG PRN (15:22)
--- NOTE | 2018-01-27 15:40 | P.OP ---
- Preoperative Diagnosis (1) Secondary malignant neoplasm of cerebellum (2) Obstructive hydrocephalus (3) Neoplasm of brain causing mass effect on adjacent structures Date of procedure: 01/27/18 Procedure: Left suboccipital craniectomy with resection of cerebellar neoplasms; expansive dural repair with allograft patch graft; left occipital keenan hole for ventriculostomy placement; BrainLab intraoperative stereotactic navigation guidance; microsurgical technique Anesthesia: OLAYINKAA Surgeon: Dex Mendoza MD Corporate Intern: Reyna Carmona Estimated blood loss (mL): 100 Operation and Findings: Following administration of general endotracheal anesthesia, a gram of vancomycin and Decadron 10 mg was then administered. After invasive lines were placed she was turned on a lateral position with the left side up on a beanbag with an axillary roll and the head secured with a 3 pin Red headrest with the neck in a neutral position. The posterior left occipital region was then shaved and prepped with ChloraPrep and sterilely draped. A linear incision was then made after infiltrating the scalp with 0.5% Marcaine with epinephrine incision extending down through the galea. The occipital fascia also incised and the muscle fibers split and detached from the occipital bone down to the foramen magnum. With the navigation guidance dictating the extent of the exposure and then using an M2 drill bar craniectomy was undertaken and bone wax at the edges for hemostasis. The dura was opened in a cruciate format. Further dissection was undertaken using microtechnique with microscope magnification. There was significant cerebellar hemispheres swelling noted through the durotomy and CSF was removed from the cisterna magna to decompress the posterior fossa. A corticectomy was made in the cerebellar hemisphere and identified 2 masses adjacent to each other which are well circumscribed borders and brownish blackish in coloration. Using microscope magnification circumferential dissection was undertaken with the bipolar cautery and cottonoids and the masses resected and the resection bed cauterized with bipolar cautery for hemostasis. More medial and superior aspect of the cerebellar hemisphere also identified a third mass which was more grayish with necrotic center which is also circumferentially dissected and resected in a gross total resection of all 3 left cerebral hemisphere masses achieved. The specimen was sent for permanent pathology sections. At this point the cerebellar hemisphere was more relaxed and pulsatile. The resection beds were then lined with Surgicel after hemostasis was achieved .The dura was then approximated using 4 Nurolon interrupted sutures in a watertight fashion with a bovine pericardial dural patch graft since a watertight closure would put too much tension on the dural edges. Using the stereotactic guidance the left occipital bur hole was then made to the same incision extended superiorly and the underlying dura cauterized bipolar cautery and opened in cruciate format. A Bactiseal ventricular catheter was then passed into the occipital horn into the lateral ventricle with a clear CSF output noted. The distal end of the catheter was tunneled with a trocar and secured the exit site and the scalp incision was approximated using 4-0 nylon interrupted stitches. Compressed Gelfoam along with the of BioGlue was used for reinforcement of the durotomy. The bone dust from the craniectomy was then packed reconstructing the cranial defect. The area prior to this copiously irrigated. The muscle fascia was approximated using 2-0 Vicryl in a sutures in the galea partially using 2-0 Vicryl in a stitches and finds concords with cathleen. A sterile dressing was then applied and she was in turn in a supine position and the Red headrest removed. Sterile pressure dressing was then applied and she was then taken to recovery room. There were no intraoperative complications and all sponge and needle count was correct at the end of the procedure. Estimated blood loss 100 cc.
--- NOTE | 2018-01-27 16:27 | XR ---
EXAM DATE: 01/27/2018 4:21 PM EDT AGE/SEX: 62 years / Female INDICATIONS: Short of Breath CLINICAL DATA: This is the patient's subsequent encounter. Patient reports that signs and symptoms h ave been present for 2 weeks and indicates a pain score of Nonresponsive. MEDICAL/SURGICAL HISTORY: . Carcinoma, left lung. Metastatic carcinoma, brain. None. COMPARISON: [facility] [place] [facility] [place] 1[place], [place]/24/2018. . FINDINGS: The left chest remains in place. There is a very small residual left apical pneumothorax with 9 mm of separation at the apex. There continues to be a mass in the left upper lung. The right lung is gross ly clear. There are no pleural effusions. Heart size is stable. Bony structures are stable. CONCLUSION: 1. Left chest tube remains in place. 2. Small residual left apical pneumothorax with 9 mm of separation. Electronically signed by: Zach Francis MD 01/27/2018 4:26 PM EDT
[2018-01-27 16:35] LABS: Baso % (Auto) 0.1 % (0.0-2.0); Eos % (Auto) 0.1 % (0.0-4.0); Hematocrit 37.3 % (35.0-46.0); Hemoglobin 12.5 gm/dL (11.6-15.3); Lymph # (Auto) 1.3 th/mm3 (1.0-4.8); Lymph % (Auto) 8.2 % (9.0-44.0); Mean Corpuscular HGB Conc 33.6 % (32.0-36.0); Mean Corpuscular Hemoglobin 28.1 pg (27.0-34.0); Mean Corpuscular Volume 83.7 fL (80.0-100.0); Mean Platelet Volume 8.8 fL (7.0-11.0); Mono # (Auto) 0.5 th/mm3 (0.0-0.9); Mono % (Auto) 3.3 % (0.0-8.0); Neut # (Auto) 13.9 th/mm3 (1.8-7.7); Neut % (Auto) 88.3 % (16.0-70.0); Platelet Count 269 th/mm3 (150-450); Red Blood Count 4.45 mil/mm3 (4.00-5.30); Red Cell Distribution Width 14.8 % (11.6-17.2); White Blood Count 15.7 th/mm3 (4.0-11.0)
[2018-01-27] MEDS ORDERED: fentaNYL Citrate Inj 100 MCG/2 ML Ampul ONE (16:39)
[2018-01-27] MEDS ORDERED: Morphine Inj 4 MG/ML Vial ONE (16:40)
[2018-01-27 16:56] LABS: Anion Gap 11 meq/L (5-15); Blood Urea Nitrogen 17 mg/dL (7-18); Carbon Dioxide 28.1 meq/L (21.0-32.0); Chloride 101 meq/L (98-107); Glomerular Filtration Rate Greater Than 89 mL/min (>89); Glucose,Random 100 mg/dL (74-106); Magnesium 2.4 mg/dL (1.5-2.5); Potassium 4.4 meq/L (3.5-5.1); Sodium 140 meq/L (136-145)
[2018-01-27] MEDS: ceFAZolin 2 GM Premix Inj 2 GM/50 ML PIGGYBACK IV.SIG SCH (18:18)
[2018-01-27] MEDS: Labetalol HCl Inj 100 MG/20 ML Vial IV.PUSH PRN (18:19)
[2018-01-27] MEDS: Morphine Inj 4 MG/ML Vial IV.PUSH PRN ×2 (20:01→23:40)
[2018-01-28] MEDS: ceFAZolin 2 GM Premix Inj 2 GM/50 ML PIGGYBACK IV.SIG SCH ×2 (02:25→08:33)
[2018-01-28] MEDS: ALPRAZolam 0.5 MG Tablet PO PRN (04:46)
[2018-01-28] MEDS: Labetalol HCl Inj 100 MG/20 ML Vial IV.PUSH PRN ×2 (05:00→17:10)
[2018-01-28] MEDS: Sod Chloride 0.9% Inj 1,000 ML IV.CONT SCH ×2 (05:03→08:30)
[2018-01-28] MEDS: Morphine Inj 4 MG/ML Vial IV.PUSH PRN ×2 (05:03→12:22)
[2018-01-28] MEDS: Nystatin Liq 500,000 UNIT/5 ML UDC SWISH-SWAL SCH ×4 (08:31→21:05)
[2018-01-28] MEDS: levETIRAcetam 500 MG Tablet PO SCH ×2 (08:31→21:05)
[2018-01-28] MEDS: Senna/Docusate Sodium 8.6/50 MG Tablet PO SCH ×2 (08:32→21:05)
[2018-01-28] MEDS: Metoprolol Tartrate 25 MG Tablet PO SCH ×2 (08:32→21:05)
--- NOTE | 2018-01-28 10:04 | P.PNIM ---
Subjective Interval history: Pt sitting up in the chair, feeling well She walked with PT this morning BP was elevated overnight but pt reports that she was concerned about her who had to be seen in the ED for cellulitis Physical Exam Vital signs: Vital Signs 01/27/18 15:44 01/27/18 16:00 01/27/18 16:15 Temperature 97.4 F L Pulse Rate 74 70 69 Respiratory Rate 20 18 13 Blood Pressure 161/70 H 150/70 H 146/72 H Pulse Oximetry 99 98 98 01/27/18 16:30 01/27/18 17:00 01/27/18 20:00 Temperature 97.6 F 97.6 F 97.9 F Pulse Rate 67 67 64 Respiratory Rate 15 12 11 L Blood Pressure 152/74 H 178/80 H 176/82 H Pulse Oximetry 98 99 98 01/28/18 00:00 01/28/18 00:30 01/28/18 04:00 Temperature 98.2 F 97.8 F Pulse Rate 58 L 62 Respiratory Rate 11 L 11 L 12 Blood Pressure 158/63 H 185/81 H Pulse Oximetry 92 L 97 Intake & Output 01/27/18 01/28/18 01/28/18 18:59 06:59 18:59 Intake Total 50 / 50 1530 / 1530 486 / 486 Output Total 100 / 100 1000 / 1000 Balance -50 / -50 530 / 530 486 / 486 Weight 63.3 kg Intake: IV 50 / 50 1050 / 1050 486 / 486 NS Inj 1,000 ML @ 84 mls/hr IV. 1000 / 1000 436 / 436 CONT .[id number] MARILIA Rx#:[id number] Ancef 2 GM Premix Inj 2 gm In 50 / 50 50 / 50 50 / 50 50 ml @ 100 mls/hr IV.SIG Q8H MARILIA Rx#:[id number] Oral 480 / 480 Output: Urine 1000 / 1000 Estimated Blood Loss 100 / 100 Chest Tube Drainage 0 / 0 Left 0 / 0 Other: Date of Last Bowel Movement 01/27/18 01/27/18 Narrative: GENERAL: This is a well-nourished, well-developed patient, in no apparent distress. CARDIO: Regular RESP: CTA bilaterally. left sided chest tube in place ABD: +BS, soft, non-tender, nondistended. EXT: Extremities without clubbing, cyanosis, or edema. NEURO: Moves all ext x4 - Urinary Catheter Management 1300 Cath placed during this visit: no Reason for continuing: Hourly intake/output Results - Labs CBC & Chem 7: 01/27/18 15:57 01/27/18 15:57 Laboratory Results - last 24 hr 01/27/18 01/27/18 01/27/18 10:12 15:57 15:57 WBC 15.7 H RBC 4.45 Hgb 12.5 Hct 37.3 MCV 83.7 MCH 28.1 MCHC 33.6 RDW 14.8 Plt Count 269 MPV 8.8 Neut % (Auto) 88.3 H Lymph % (Auto) 8.2 L Casey % (Auto) 3.3 Eos % (Auto) 0.1 Baso % (Auto) 0.1 Neut # (Auto) 13.9 H Lymph # (Auto) 1.3 Casey # (Auto) 0.5 Eos # (Auto) 0.0 Baso # (Auto) 0.0 WBC Differential . Differential Comment Auto diff final PT 9.7 L INR 1.0 Sodium 140 Potassium 4.4 Chloride 101 Carbon Dioxide 28.1 Anion Gap 11 BUN 17 Creatinine 0.61 Estimated GFR Greater than 89 Random Glucose 100 Calcium 8.0 L Magnesium 2.4 - Imaging Impressions Chest X-Ray 01/27/18 00:00 CONCLUSION: 1. Left chest tube remains in place. 2. Small residual left apical pneumothorax with 9 mm of separation. Abdomen/Pelvis CT 01/16/18 00:00 CONCLUSION: Colonic diverticulosis and left adrenal nodule may be adenoma, however metastatic disease is difficult to exclude. Chest CT 01/16/18 00:00 CONCLUSION: 1. Left upper lobe mass almost certainly malignant with metastatic adenopathy within the mediastinum and left hilum. 2. Groundglass opacities right upper lobe and left lower lobe could be followed with repeat noncontrast chest CT in 6 months after appropriate clinical therapy. There are also tiny nodules in both lungs versus tortuous blood vessels. 3. Left adrenal mass could be an adenoma versus metastatic disease. Head MRI 01/16/18 00:00 CONCLUSION: 1. Too numerous to count enhancing mildly hemorrhagic metastatic deposits throughout the brain most numerous in the posterior fossa with some compression of the fourth ventricle. 2. Carcinomatous meningitis would be consideration 3. Lung mass would be amenable to pancreas biopsy for rapid diagnosis. 4. There is no significant hydronephrosis as yet. Lung Biopsy CT 01/19/18 00:00 CONCLUSION: 1. Uncomplicated CT guided biopsy. Chest X-Ray 01/19/18 16:16 CONCLUSION: Negative for pneumothorax Chest X-Ray 01/19/18 18:15 CONCLUSION: Development of a mild left pneumothorax. Chest Tube Insertion 01/20/18 00:00 CONCLUSION: 1. Uncomplicated chest tube placement as above. Chest X-Ray 01/20/18 06:00 CONCLUSION: Small to moderate left pneumothorax is slightly larger than yesterday. Chest X-Ray 01/21/18 09:22 CONCLUSION: Uncomplicated chest tube placement without pneumothorax. Chest X-Ray 01/22/18 11:03 CONCLUSION: Left-sided pneumothorax measuring 2.6 cm at the left apex. Chest X-Ray 01/22/18 16:11 CONCLUSION: No change in the left-sided pneumothorax with 2.6 cm of separation. Chest X-Ray 01/23/18 06:00 CONCLUSION: Slight increase in size of the left pneumothorax. Chest Tube Insertion 01/23/18 11:03 CONCLUSION: Uncomplicated fluoroscopic guided left chest tube placement as above. Chest X-Ray 01/23/18 12:41 CONCLUSION: Interval chest tube placement without obvious pneumothorax. Chest X-Ray 01/24/18 12:41 CONCLUSION: Chest tube in place without obvious pneumothorax. Subcutaneous air is again seen. Chest X-Ray 01/24/18 21:36 CONCLUSION: Left apical pneumothorax. Chest X-Ray 01/26/18 06:00 CONCLUSION: 1. Mild asymmetric lucency at the left apex without a pleural line visualized. This appearance could indicate a small residual pneumothorax. Consider follow- up with expiratory technique. 2. Stable left chest wall subcutaneous emphysema. Chest X-Ray 01/27/18 00:00 CONCLUSION: 1. Left chest tube remains in place. 2. Small residual left apical pneumothorax with 9 mm of separation. Assessment and Plan - Assessment (1) Lung mass Code(s): R91.8 - Other nonspecific abnormal finding of lung field Status: Acute Plan: 62-year-old female with probable new diagnosis of metastatic lung cancer. Patient was transferred from [place] for neurosurgery consultation. She had an outpatient MRI of the brain that showed multiple brain lesions. CT imaging of the chest abdomen and pelvis showed a 5.5 x 5 cm mass involving the left upper lobe lung MRI brain performed at this facility confirmed presence of innumerable brain metastases clustered in her cerebellum but also present in the supratentorial brain associated with extensive vasogenic edema. No definite evidence of metastatic disease involving the abdomen or pelvis. Left lung mass with numerous brain metastases - comgmt with Medical Oncology, Surgical Oncology, and Neurosurgery - MRI brain (01/16/18) 1. Too numerous to count enhancing mildly hemorrhagic metastatic deposits throughout the brain most numerous in the posterior fossa with some compression of the fourth ventricle. 2. Carcinomatous meningitis would be consideration 3. Lung mass would be amenable to pancreas biopsy for rapid diagnosis. 4. There is no significant hydronephrosis as yet. 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 The patient has elected to undergo treatment at [facility] facility - [facility]. - Celexa, xanax - Thrush: Initiate nystatin swish and swallow 5 mL p.o. every 8 hours. - Case d/w Dr. Zamorano (01/20) - Pt/family met with Dr. Mendoza 01/20 who has recommended surgical debulking followed by radiation - Pt/family discussed options and predicted survival with Dr. Zamorano 01/20. Per Dr. Zamorano's note: individuals with her degree of intracranial disease burden have atypical median survival measured between 6-8 months that is with aggressive therapeutic interventions. I did explain that the degree to which we control her intracranial metastatic disease burden will be the major drive her of her survival and overall predicted survival. 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 Mendoza. - Post-op management of ventriculostomy per NeuroSx Iatrogenic Pneumothorax - chest tube placed by IR (01/20/18) - Chest X-Ray 01/21/18: Uncomplicated chest tube placement without pneumothorax. - Pt accidentally pulled out chest tube (01/22/18) - repeat CXR (01/23) --> slight enlargement of left pneumothorax - Case d/w Radiology (01/23). - 01/23 new left chest tube placed by IR - 01/24 CXR 12:[address] without obvious pneumothorax. Subcutaneous air is again seen. - repeat CXR 01/24 2136 Left apical pneumothorax 1.8 cm - CXR 01/26. questionable tiny ptx. - CT management per IR HTN - stable this morning, it was elevated overnight last night but pt was rather anxious - continue BB The exam, history, and the medical decision-making described in the above note were completed with the assistance of the mid-level provider. I reviewed and agree with the findings presented. I attest that I had a [id number] encounter with the patient on the same day, and personally performed and documented my assessment and findings in the medical record.
--- NOTE | 2018-01-28 10:34 | CT ---
EXAM DATE: 01/28/2018 10:27 AM EDT AGE/SEX: 62 years / Female INDICATIONS: Post op left suboccipital craniectomy. CLINICAL DATA: This is the patient's initial encounter. Patient reports that signs and symptoms have been present for 1 day and indicates a pain score of 4/10. MEDICAL/SURGICAL HISTORY: Metastatic disease. . Craniectomy. RADIATION DOSE: 54.49 CTDI (mGy) COMPARISON: [facility] [place], MR HEAD W & W/O CONTRAST, 01/16/2018. . TECHNIQUE: CT of the head without contrast. Using automated exposure control and adjustment of the mA and/or kV according to patient size, radiation dose was kept as low as reasonably achievable to ob tain optimal diagnostic quality images. DICOM format image data is available electronically for revi ew and comparison. FINDINGS: The patient is status post suboccipital craniectomy on the left, and there is pneumocephalus identifi ed at the level of the left cerebellar hemisphere postop mass resection. There is a small amount of s urrounding edema. No midline shift is seen. There is a hypodense mass in the left parietal region aga in seen on axial image 20. There is a ventriculostomy catheter from a left parietal approach with tip terminating in the frontal horn of the left lateral ventricle. There is pneumocephalus seen anterior ly on the left. CONCLUSION: 1. Postoperative changes are noted. . Electronically signed by: Han Lainez MD 01/28/2018 10:32 AM EDT
--- NOTE | 2018-01-28 11:05 | XR ---
EXAM DATE: 01/28/2018 11:00 AM EDT AGE/SEX: 62 years / Female INDICATIONS: Evaluate pneumothorax. CLINICAL DATA: This is the patient's subsequent encounter. Patient reports that signs and symptoms h ave been present for 4 - 6 days and indicates a pain score of 0/10. MEDICAL/SURGICAL HISTORY: . Metastatic disease. . Craniectomy . COMPARISON: [facility] – [place], CHEST 1V SINGLE AP, 01/27/2018. . FINDINGS: A single frontal expiratory view of the chest was performed. Left thoracostomy tube is coiled in the apex. No pneumothorax. A small amount of subcutaneous air overlies the left chest. Left upper lobe pu lmonary mass is unchanged. Heart is normal in size. No effusions. CONCLUSION: No pneumothorax. Electronically signed by: Jean-Pierre White MD 01/28/2018 11:04 AM EDT
--- NOTE | 2018-01-28 14:16 | P.PNNS ---
Subjective Interval history: Pt awake and alert. Complains of incisional pain as expected but controlled. No numbness or tingling in face or extremities. No n/v tolerating diet well. No weakness. States she walked in [place] with walker. Ventriculostomy in place at [id number]. <Primo Stockton - Last Filed: 01/28/18 14:09> Physical Exam Vital signs: Vital Signs 01/27/18 15:44 01/27/18 16:00 01/27/18 16:15 Temperature 97.4 F L Pulse Rate 74 70 69 Respiratory Rate 20 18 13 Blood Pressure 161/70 H 150/70 H 146/72 H Pulse Oximetry 99 98 98 01/27/18 16:30 01/27/18 17:00 01/27/18 20:00 Temperature 97.6 F 97.6 F 97.9 F Pulse Rate 67 67 64 Respiratory Rate 15 12 11 L Blood Pressure 152/74 H 178/80 H 176/82 H Pulse Oximetry 98 99 98 01/28/18 00:00 01/28/18 00:30 01/28/18 04:00 Temperature 98.2 F 97.8 F Pulse Rate 58 L 62 Respiratory Rate 11 L 11 L 12 Blood Pressure 158/63 H 185/81 H Pulse Oximetry 92 L 97 01/28/18 08:00 01/28/18 12:00 Temperature 97.9 F 98.0 F Pulse Rate 70 68 Respiratory Rate 15 18 Blood Pressure 139/65 127/59 L Pulse Oximetry 97 92 L Intake & Output 01/27/18 01/28/18 01/28/18 18:59 06:59 18:59 Intake Total 50 / 50 1530 / 1530 686 / 686 Output Total 100 / 100 1000 / 1000 Balance -50 / -50 530 / 530 686 / 686 Weight 63.3 kg Intake: IV 50 / 50 1050 / 1050 686 / 686 NS Inj 1,000 ML @ 84 mls/hr IV. 1000 / 1000 636 / 636 CONT .[id number] MARILIA Rx#:[id number] Ancef 2 GM Premix Inj 2 gm In 50 / 50 50 / 50 50 / 50 50 ml @ 100 mls/hr IV.SIG Q8H MARILIA Rx#:[id number] Oral 480 / 480 Output: Urine 1000 / 1000 Estimated Blood Loss 100 / 100 Chest Tube Drainage 0 / 0 Left 0 / 0 Other: Date of Last Bowel Movement 01/27/18 01/27/18 - Constitutional no acute distress, average body habitus - Routine HEENT Exam Head: Absent: normocephalic (Head bandaged with ventriculostomy drain in place s /p Left suboccipital craniectomy with resection of cerebellar neoplasms; expansive dural repair with allograft patch graft; left occipital keenan hole for ventriculostomy placement; [facility] intraoperative stereotactic navigation guidance; microsurgical technique) Eye: Present: PERRL (Pupils 3mm bilaterally reactive bilaterally.). Absent: conjunctival icterus ENT: Present: oropharynx clear - Routine Neck Exam Present: trachea midline - Routine Respiratory Exam Present: CTA bilaterally. Absent: respiratory distress, rhonchi, stridor Comments: Left chest tube remains in place. - Routine Cardiovascular Exam Present: RRR, S1, S2. Absent: murmur - Routine Abdominal Exam Present: soft, normoactive bowel sounds. Absent: distended - Routine Skin Exam Absent: cyanosis, erythema Comments: Head bandaged but dry. - Routine Neurological Exam Present: alert, oriented X3, CN II-XII intact, moving all extremities, vision grossly intact, normal speech. Absent: sensory deficit, motor deficit, altered mental status - Detailed Neurological Exam: Coma Scale Eye Opening: Spontaneous Verbal Response: Oriented Motor Response: Obey commands Marichuy Coma Scale Total: 15 - Routine Psychiatric Exam Present: normal affect, cooperative. Absent: anxious, agitated - Urinary Catheter Management 1300 Cath placed during this visit: yes, but has since been removed by the nurse Reason for continuing: Not indwelling catheter Removal date: 01/28/18 Removal time: 10:00 <Primo Stockton - Last Filed: 01/28/18 14:09> Vital signs: Vital Signs 01/27/18 20:00 01/28/18 00:00 01/28/18 00:30 Temperature 97.9 F 98.2 F Pulse Rate 64 58 L Respiratory Rate 11 L 11 L 11 L Blood Pressure 176/82 H 158/63 H Pulse Oximetry 98 92 L 01/28/18 04:00 01/28/18 08:00 01/28/18 12:00 Temperature 97.8 F 97.9 F 98.0 F Pulse Rate 62 70 68 Respiratory Rate 12 15 18 Blood Pressure 185/81 H 139/65 127/59 L Pulse Oximetry 97 97 92 L 01/28/18 16:00 Temperature 98.1 F Pulse Rate 69 Respiratory Rate 13 Blood Pressure 133/64 Pulse Oximetry 95 Intake & Output 01/28/18 01/28/18 01/29/18 06:59 18:59 06:59 Intake Total 1530 / 1530 686 / 686 Output Total 1000 / 1000 1700 / 1700 Balance 530 / 530 -1014 / -1014 Weight 63.3 kg Intake: IV 1050 / 1050 686 / 686 NS Inj 1,000 ML @ 84 mls/hr IV. 1000 / 1000 636 / 636 CONT .[id number] MARILIA Rx#:[id number] Ancef 2 GM Premix Inj 2 gm In 50 / 50 50 / 50 50 ml @ 100 mls/hr IV.SIG Q8H MARILIA Rx#:[id number] Oral 480 / 480 Output: Urine 1000 / 1000 800 / 800 Urine Amount (Catheter) 900 / 900 1300 900 / 900 Chest Tube Drainage 0 / 0 Left 0 / 0 Other: # Voids 2 Date of Last Bowel Movement 01/27/18 - Urinary Catheter Management 1300 Cath placed during this visit: no <KellyDex bai - Last Filed: 01/28/18 19:32> Assessment and Plan - Assessment (1) History of hysterectomy Code(s): Z90.710 - Acquired absence of both cervix and uterus Status: Acute (2) Neck pain Code(s): M54.2 - Cervicalgia Status: Acute (3) H/O hysterectomy for benign disease Code(s): Z90.710 - Acquired absence of both cervix and uterus Status: Acute (4) Neoplasm of brain causing mass effect on adjacent structures Code(s): D49.6 - Neoplasm of unspecified behavior of brain Status: Acute (5) Lung mass Code(s): R91.8 - Other nonspecific abnormal finding of lung field Status: Acute - Plan 62-year-old lady with the lung mass and multiple brain masses bilateral cerebral hemispheres supratentorial and bilateral cerebellar hemispheres infratentorial the larger ones in the left cerebellar hemisphere with cerebral edema. There is impingement of the fourth ventricle on the left side although not completely obstructed with moderate hydrocephalus. s/p Left suboccipital craniectomy with resection of cerebellar neoplasms; expansive dural repair with allograft patch graft; left occipital keenan hole for ventriculostomy placement; [facility] intraoperative stereotactic navigation guidance; microsurgical technique on 01/27/18. Neuro: Continue neuro checks in a serial fashion. Continue with ventriculostomy drain. Follow up CT head today revealed post op changes. She has been seen by Dr arora, from radiation oncologist and plan is for whole brain radiation Pt has undergone a lung biopsy for tissue diagnosis 01/19/18 with the subsequent pneumothorax status post chest tube placement. Pulmonary: aggressive pulmonary toilette, nasotracheal suction, and breathing treatments with nebulizers prn. Daily PT and OT. Continue to ambulate. Renal: Continue to monitor closely urine output, BUN and creatinine Endocrine: Continue to Monitor serial Acu checks and SSI as needed in detail ID continue to monitor for signs of infection Continue Protonix for stress ulcer prophylaxis Continue Prashanth hose and SCD's for DVT prophylaxis <Primo Stockton - Last Filed: 01/28/18 14:09> - Assessment (1) Neoplasm of brain causing mass effect on adjacent structures Code(s): D49.6 - Neoplasm of unspecified behavior of brain Status: Acute (2) Lung mass Code(s): R91.8 - Other nonspecific abnormal finding of lung field Status: Acute - Attending Attestation The exam, history, and the medical decision-making described in the above note were completed with the assistance of the mid-level provider. I reviewed and agree with the findings presented. I attest that I had a [id number] encounter with the patient on the same day, and personally performed and documented my assessment and findings in the medical record. <Dex Mendoza - Last Filed: 01/28/18 19:32>
--- NOTE | 2018-01-28 15:01 | XR ---
EXAM DATE: 01/28/2018 2:54 PM EDT AGE/SEX: 62 years / Female INDICATIONS: Evaluate for pneumothorax. CLINICAL DATA: This is the patient's subsequent encounter. Patient reports that signs and symptoms h ave been present for 3 days and indicates a pain score of 0/10. MEDICAL/SURGICAL HISTORY: Carcinoma, lung. None. COMPARISON: [facility] [place], 01/28/2018. . FINDINGS: A single frontal expiratory view of the chest was performed. There has been interval development of a small apical pneumothorax on the left. Left thoracostomy tube is coiled in the apex. Left upper lobe pulmonary mass is unchanged. Right lung is clear. No effusions. Heart is normal in size. CONCLUSION: Redevelopment of small left apical pneumothorax with left chest tube in good position. Electronically signed by: Jean-Pierre White MD 01/28/2018 3:00 PM EDT
[2018-01-29] MEDS: Morphine Inj 4 MG/ML Vial IV.PUSH PRN (01:07)
[2018-01-29] MEDS: Labetalol HCl Inj 100 MG/20 ML Vial IV.PUSH PRN (01:30)
[2018-01-29] MEDS: ALPRAZolam 0.5 MG Tablet PO PRN ×3 (02:53→19:06)
[2018-01-29 05:06] LABS: Baso % (Auto) 0.2 % (0.0-2.0); Eos % (Auto) 0.1 % (0.0-4.0); Hematocrit 36.2 % (35.0-46.0); Hemoglobin 11.8 gm/dL (11.6-15.3); Lymph # (Auto) 1.2 th/mm3 (1.0-4.8); Lymph % (Auto) 5.8 % (9.0-44.0); Mean Corpuscular HGB Conc 32.7 % (32.0-36.0); Mean Corpuscular Hemoglobin 27.4 pg (27.0-34.0); Mean Platelet Volume 8.9 fL (7.0-11.0); Mono # (Auto) 1.4 th/mm3 (0.0-0.9); Mono % (Auto) 6.6 % (0.0-8.0); Neut # (Auto) 18.5 th/mm3 (1.8-7.7); Neut % (Auto) 87.3 % (16.0-70.0); Platelet Count 251 th/mm3 (150-450); Red Blood Count 4.31 mil/mm3 (4.00-5.30); Red Cell Distribution Width 15.2 % (11.6-17.2); White Blood Count 21.1 th/mm3 (4.0-11.0)
[2018-01-29 05:28] LABS: Anion Gap 9 meq/L (5-15); Blood Urea Nitrogen 17 mg/dL (7-18); Calcium 8.5 mg/dL (8.5-10.1); Carbon Dioxide 28.8 meq/L (21.0-32.0); Chloride 100 meq/L (98-107); Glomerular Filtration Rate Greater Than 89 mL/min (>89); Glucose,Random 121 mg/dL (74-106); Potassium 3.7 meq/L (3.5-5.1); Sodium 138 meq/L (136-145)
--- NOTE | 2018-01-29 05:43 | XR ---
EXAM DATE: 01/29/2018 5:38 AM EDT AGE/SEX: 62 years / Female INDICATIONS: Shortness of breath. CLINICAL DATA: This is the patient's subsequent encounter. Patient reports that signs and symptoms h ave been present for 4 - 6 days and indicates a pain score of 0/10. MEDICAL/SURGICAL HISTORY: . Carcinoma, lung. None. [place] [facility] [place], 01/27/2018. [facility] [place]. . FINDINGS: Portable AP view of the chest demonstrates a normal-sized cardiac silhouette. EKG lines overlie the p atient. Smallbore pigtail chest tube overlies the apex of the left hemithorax. Small left apical pneu mothorax likely remains present. There is a stable left upper lobe lung mass measuring approximately 4.8 cm and there is stable left hilar opacity. The left chest wall subcutaneous emphysema has almost completely resolved. No pleural effusion is present. CONCLUSION: 1. Left chest tube is present and there is a suspected small left apical pneumothorax, not significa ntly changed from the prior study. 2. Left upper lobe lung mass remains visualized. Electronically signed by: Elton Kang MD 01/29/2018 5:42 AM EDT
[2018-01-29] MEDS: Senna/Docusate Sodium 8.6/50 MG Tablet PO SCH ×2 (08:33→20:44)
[2018-01-29] MEDS: Nystatin Liq 500,000 UNIT/5 ML UDC SWISH-SWAL SCH ×4 (08:33→20:44)
[2018-01-29] MEDS: levETIRAcetam 500 MG Tablet PO SCH ×2 (08:33→20:44)
[2018-01-29] MEDS: Metoprolol Tartrate 25 MG Tablet PO SCH ×2 (08:34→20:44)
--- NOTE | 2018-01-29 08:41 | P.PNNS ---
Subjective Interval history: Pt awake and alert. States had more incisional pain and headache last night. Also pt has been requiring blood pressure medication for spike in BP. She denies any n/v. No paresthesias in face or extremities. No weakness. No difficulty with speech. <Primo Stockton - Last Filed: 01/29/18 15:29> Physical Exam Vital signs: Vital Signs 01/28/18 12:00 01/28/18 16:00 01/28/18 20:00 Temperature 98.0 F 98.1 F 97.8 F Pulse Rate 68 69 82 Respiratory Rate 18 13 20 Blood Pressure 127/59 L 133/64 140/65 Pulse Oximetry 92 L 95 96 01/29/18 04:00 Temperature 98.1 F Pulse Rate 75 Respiratory Rate 22 Blood Pressure 136/64 Pulse Oximetry 94 L Intake & Output 01/28/18 01/29/18 01/29/18 18:59 06:59 18:59 Intake Total 686 / 686 Output Total 1700 / 1700 1600 / 1600 Balance -1014 / -1014 -1600 / -1600 Weight 58.9 kg Intake: IV 686 / 686 NS Inj 1,000 ML @ 84 mls/hr IV. 636 / 636 CONT .[id number] MARILIA Rx#:[id number] Ancef 2 GM Premix Inj 2 gm In 50 / 50 50 ml @ 100 mls/hr IV.SIG Q8H MARILIA Rx#:[id number] Output: Urine 800 / 800 1600 / 1600 Urine Amount (Catheter) 900 / 900 1300 900 / 900 Chest Tube Drainage 0 / 0 Left 0 / 0 Other: # Voids 2 - Constitutional no acute distress - Routine HEENT Exam Head: Absent: normocephalic (Head bandaged. Incision clean and dry. Ventriculostomy in place.) Eye: Present: PERRL (Pupils 3mm bilaterally.), conjunctival icterus ENT: Present: oropharynx clear - Routine Neck Exam Present: trachea midline - Routine Respiratory Exam Present: CTA bilaterally. Absent: respiratory distress, rhonchi, wheezes - Routine Cardiovascular Exam Present: RRR, S1, S2. Absent: murmur - Routine Abdominal Exam Present: soft, distended - Routine Skin Exam Absent: cyanosis, erythema - Routine Neurological Exam Present: alert, oriented X3, moving all extremities, normal tone, normal speech. Absent: sensory deficit, motor deficit, altered mental status, facial asymmetry - Detailed Neurological Exam: Coma Scale Eye Opening: Spontaneous Verbal Response: Oriented Motor Response: Obey commands Driggs Coma Scale Total: 15 - Routine Psychiatric Exam Present: normal affect, cooperative. Absent: agitated - Urinary Catheter Management 1300 Cath placed during this visit: yes, but has since been removed by the nurse Reason for continuing: Not indwelling catheter Removal date: 01/28/18 Removal time: 10:00 <Primo Stockton - Last Filed: 01/29/18 15:29> Vital signs: Vital Signs 01/28/18 20:00 01/29/18 04:00 01/29/18 08:00 Temperature 97.8 F 98.1 F 97.8 F Pulse Rate 82 75 70 Respiratory Rate 20 22 18 Blood Pressure 140/65 136/64 194/87 H Pulse Oximetry 96 94 L 94 L 01/29/18 09:03 01/29/18 12:00 01/29/18 13:10 Temperature 97.7 F Pulse Rate 74 Respiratory Rate 12 11 L 14 Blood Pressure 145/66 H Pulse Oximetry 95 01/29/18 16:00 Temperature 97.8 F Pulse Rate 80 Respiratory Rate 14 Blood Pressure 130/63 Pulse Oximetry 95 Intake & Output 01/28/18 01/29/18 01/29/18 18:59 06:59 18:59 Intake Total 686 / 686 Output Total 1700 / 1700 1600 / 1600 Balance -1014 / -1014 -1600 / -1600 Weight 58.9 kg Intake: IV 686 / 686 NS Inj 1,000 ML @ 84 mls/hr IV. 636 / 636 CONT .[id number] MARILIA Rx#:[id number] Ancef 2 GM Premix Inj 2 gm In 50 / 50 50 ml @ 100 mls/hr IV.SIG Q8H MARILIA Rx#:[id number] Output: Urine 800 / 800 1600 / 1600 Urine Amount (Catheter) 900 / 900 1300 900 / 900 Chest Tube Drainage 0 / 0 Left 0 / 0 Other: # Voids 2 - Urinary Catheter Management 1300 Cath placed during this visit: no <Dex Mendoza - Last Filed: 01/29/18 16:23> Assessment and Plan - Assessment (1) History of hysterectomy Code(s): Z90.710 - Acquired absence of both cervix and uterus Status: Acute (2) Neck pain Code(s): M54.2 - Cervicalgia Status: Acute (3) H/O hysterectomy for benign disease Code(s): Z90.710 - Acquired absence of both cervix and uterus Status: Acute (4) Neoplasm of brain causing mass effect on adjacent structures Code(s): D49.6 - Neoplasm of unspecified behavior of brain Status: Acute (5) Lung mass Code(s): R91.8 - Other nonspecific abnormal finding of lung field Status: Acute - Plan 62-year-old lady with the lung mass and multiple brain masses bilateral cerebral hemispheres supratentorial and bilateral cerebellar hemispheres infratentorial the larger ones in the left cerebellar hemisphere with cerebral edema. There is impingement of the fourth ventricle on the left side although not completely obstructed with moderate hydrocephalus. s/p Left suboccipital craniectomy with resection of cerebellar neoplasms; expansive dural repair with allograft patch graft; left occipital keenan hole for ventriculostomy placement; [employer] intraoperative stereotactic navigation guidance; microsurgical technique on 01/27/18. Neuro: Continue neuro checks in a serial fashion. We will discontinue ventriculostomy drain. Follow up CT head revealed post op changes. She has been seen by Dr arora, from radiation oncologist and plan is for whole brain radiation Pt has undergone a lung biopsy for tissue diagnosis 01/19/18 with the subsequent pneumothorax status post chest tube placement. Pulmonary: aggressive pulmonary toilette, nasotracheal suction, and breathing treatments with nebulizers prn. Daily PT and OT. Continue to ambulate. Renal: Continue to monitor closely urine output, BUN and creatinine Endocrine: Continue to Monitor serial Acu checks and SSI as needed in detail ID continue to monitor for signs of infection Continue Protonix for stress ulcer prophylaxis Continue Prashanth hose and SCD's for DVT prophylaxis Addendum: Pts ventriculostomy drain can be removed. The ventric exit site was cleaned with betadine. Lidocaine 1% with epi 1cc was used for local anesthesia. The drain was removed. Two cathleen were placed using sterile technique. All needles were disposed of in sharps container. No CSF drainage was seen. <Primo Stockton - Last Filed: 01/29/18 15:29> - Assessment (1) Neoplasm of brain causing mass effect on adjacent structures Code(s): D49.6 - Neoplasm of unspecified behavior of brain Status: Acute (2) Lung mass Code(s): R91.8 - Other nonspecific abnormal finding of lung field Status: Acute - Attending Attestation The exam, history, and the medical decision-making described in the above note were completed with the assistance of the mid-level provider. I reviewed and agree with the findings presented. I attest that I had a [id number] encounter with the patient on the same day, and personally performed and documented my assessment and findings in the medical record. <Dex Mendoza - Last Filed: 01/29/18 16:23>
--- NOTE | 2018-01-29 09:09 | P.PNIM ---
Subjective Interval history: alot of pain overnight and elevation of bp. overall did well yesterday. Physical Exam Vital signs: Vital Signs 01/28/18 12:00 01/28/18 16:00 01/28/18 20:00 Temperature 98.0 F 98.1 F 97.8 F Pulse Rate 68 69 82 Respiratory Rate 18 13 20 Blood Pressure 127/59 L 133/64 140/65 Pulse Oximetry 92 L 95 96 01/29/18 04:00 Temperature 98.1 F Pulse Rate 75 Respiratory Rate 22 Blood Pressure 136/64 Pulse Oximetry 94 L Intake & Output 01/28/18 01/29/18 01/29/18 18:59 06:59 18:59 Intake Total 686 / 686 Output Total 1700 / 1700 1600 / 1600 Balance -1014 / -1014 -1600 / -1600 Weight 58.9 kg Intake: IV 686 / 686 NS Inj 1,000 ML @ 84 mls/hr IV. 636 / 636 CONT .[id number] MARILIA Rx#:[id number] Ancef 2 GM Premix Inj 2 gm In 50 / 50 50 ml @ 100 mls/hr IV.SIG Q8H MARILIA Rx#:[id number] Output: Urine 800 / 800 1600 / 1600 Urine Amount (Catheter) 900 / 900 1300 900 / 900 Chest Tube Drainage 0 / 0 Left 0 / 0 Other: # Voids 2 scalp bandaged. ventriculostomy tube left chest tube heart reg lng cta abd s/nt ext no edema - Urinary Catheter Management 1300 Cath placed during this visit: yes, but has since been removed by the nurse Reason for continuing: Not indwelling catheter Removal date: 01/28/18 Removal time: 10:00 Results - Labs CBC & Chem 7: 01/29/18 04:39 01/29/18 04:39 Laboratory Results - last 24 hr 01/29/18 01/29/18 04:39 04:39 WBC 21.1 H RBC 4.31 Hgb 11.8 Hct 36.2 MCV 84.0 MCH 27.4 MCHC 32.7 RDW 15.2 Plt Count 251 MPV 8.9 Neut % (Auto) 87.3 H Lymph % (Auto) 5.8 L Fajardo % (Auto) 6.6 Eos % (Auto) 0.1 Baso % (Auto) 0.2 Neut # (Auto) 18.5 H Lymph # (Auto) 1.2 Fajardo # (Auto) 1.4 H Eos # (Auto) 0.0 Baso # (Auto) 0.0 WBC Differential . Differential Comment Auto diff final Sodium 138 Potassium 3.7 Chloride 100 Carbon Dioxide 28.8 Anion Gap 9 BUN 17 Creatinine 0.52 Estimated GFR Greater than 89 Random Glucose 121 H Calcium 8.5 - Imaging Impressions Chest X-Ray 01/28/18 00:00 CONCLUSION: No pneumothorax. Head CT 01/28/18 08:00 CONCLUSION: 1. Postoperative changes are noted. . Chest X-Ray 01/28/18 14:00 CONCLUSION: Redevelopment of small left apical pneumothorax with left chest tube in good position. Chest X-Ray 01/29/18 06:00 CONCLUSION: 1. Left chest tube is present and there is a suspected small left apical pneumothorax, not significantly changed from the prior study. 2. Left upper lobe lung mass remains visualized. Assessment and Plan - Assessment (1) Lung mass Code(s): R91.8 - Other nonspecific abnormal finding of lung field Status: Acute Plan: 62-year-old female with probable new diagnosis of metastatic lung cancer. Patient was transferred from [facility] for neurosurgery consultation. She had an outpatient MRI of the brain that showed multiple brain lesions. CT imaging of the chest abdomen and pelvis showed a 5.5 x 5 cm mass involving the left upper lobe lung MRI brain performed at this facility confirmed presence of innumerable brain metastases clustered in her cerebellum but also present in the supratentorial brain associated with extensive vasogenic edema. No definite evidence of metastatic disease involving the abdomen or pelvis. Left lung mass with numerous brain metastases - comgmt with Medical Oncology, Surgical Oncology, and Neurosurgery - MRI brain (01/16/18) 1. Too numerous to count enhancing mildly hemorrhagic metastatic deposits throughout the brain most numerous in the posterior fossa with some compression of the fourth ventricle. 2. Carcinomatous meningitis would be consideration 3. Lung mass would be amenable to pancreas biopsy for rapid diagnosis. 4. There is no significant hydronephrosis as yet. 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 The patient has elected to undergo treatment at [facility] facility - Keppra, Decadron. - Celexa, xanax - Thrush: Initiate nystatin swish and swallow 5 mL p.o. every 8 hours. - Case d/w Dr. Zamorano (01/20) - Pt/family met with Dr. Mendoza 01/20 who has recommended surgical debulking followed by radiation - Pt/family discussed options and predicted survival with Dr. Zamorano 01/20. Per Dr. Zamorano's note: individuals with her degree of intracranial disease burden have atypical median survival measured between 6-8 months that is with aggressive therapeutic interventions. I did explain that the degree to which we control her intracranial metastatic disease burden will be the major drive her of her survival and overall predicted survival. 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 Mendoza. - iv steroids per nsg. Iatrogenic Pneumothorax - chest tube placed by IR (01/20/18) - Chest X-Ray 01/21/18: Uncomplicated chest tube placement without pneumothorax. - Pt accidentally pulled out chest tube (01/22/18) - repeat CXR (01/23) --> slight enlargement of left pneumothorax - Case d/w Radiology (01/23). - 01/23 new left chest tube placed by IR - 01/24 CXR 12:[address] without obvious pneumothorax. Subcutaneous air is again seen. - repeat CXR 01/24 2136 Left apical pneumothorax 1.8 cm - CXR 01/26. questionable tiny ptx. - CT management per IR. Will check with them today regarding attempts at removal. HTN -bp elevated overnight with pain. prn meds ordered.
[2018-01-29] MEDS ORDERED: Lidocaine 1%/Epinephrine 1:100,000 Inj 50 ML Vial INFILTRATN ONE (13:02)
--- NOTE | 2018-01-29 13:22 | P.CON ---
History of Present Illness Service: Cardiothoracic surgery Consult date: 01/29/18 Requesting Physician: Mir Coleman Primary Care Provider: PROVIDER NON STAFF Chief Complaint: Persistent headache, difficulty balancing, nausea. History of Present Illness: 62-year-old very pleasant young lady with no prior cardiac history who presented with new onset of headaches with progression to nausea dizziness lightheadedness and gait disturbance. Further workup including a brain MRI revealed multiple metastatic lesions. For this she was transferred here from [place] for a neurosurgical evaluation. Additional workup including a chest CT revealed a 5.5 x 5 cm left upper lobe lung mass which on biopsy is consistent with a primary non-small cell lung cancer. She has undergone recent debulking of her brain lesions in preparation for adjuvant therapy. Following her percutaneous CT-guided biopsy of the lung mass she developed a pneumothorax which she has had an indwelling small bore pigtail catheter. There has been interval development of a small left apical pneumothorax. I am now be consulted for further management of the thoracic strain. At the present time she is hemodynamically stable with no desaturations and comfortable on supplemental oxygen therapy. Review of Systems All other systems reviewed negative except as stated in HPI PMFSH - History History Provided By: Patient - Medical History Medical History: Medical History (Last Reviewed 01/29/18 @ 13:17 by Geoffrey Mendoza MD) History of cigarette smoking Patient denies medical problems - Surgical History Surgical History: Surgical History (Last Reviewed 01/29/18 @ 13:17 by Geoffrey Mendoza MD) S/P total hysterectomy and BSO (bilateral salpingo-oophorectomy) - Family History Family History: Family History (Last Reviewed 01/29/18 @ 13:17 by Geoffrey Mendoza MD) Daughter Melanoma Mother Family history of colon cancer Family history of cancer Family history of hypertension Mother No problems noted. Father Family history of acute myocardial infarction Family history of diabetes mellitus Family history of hypertension Aunt Family history of breast cancer Sister Family history of hypertension Brother Family history of hypertension Lung cancer - Tobacco History Second Hand Smoke Exposure: No Tobacco Use In Past 30 Days: No Smoking Status: Former smoker Tobacco Type: Cigarettes Packs Per Day: 2 Years Smoked: 39 Smoking End Date: 1991 - Alcohol History How Often Do You Have a Drink Containing Alcohol: Monthly or less - Substance Use History Substance History: No History of Abuse - Immunization History Tetanus Immunization: Unsure Hx Influenza Vaccine This Season: No Medications and Allergies Active Medications: Active Medications Hydrocodone Bitart/Acetaminophen ([place] 5/325) 1 tab PO Q4H PRN PRN Reason: pain 1-6 Last Admin: 01/27/18 05:31 Dose: 1 tab Hydrocodone Bitart/Acetaminophen ([place] 5/325) 2 tab PO Q4H PRN PRN Reason: pain 7-10 Last Admin: 01/29/18 12:30 Dose: 2 tab Al Hydroxide/Mg Hydroxide (Milk Of Magnroque Liq) 30 ml PO Q12H PRN PRN Reason: Mild Constipation Albuterol (Albuterol Neb (Prn)) 2.5 mg NEB Q2HR NEB PRN PRN Reason: SHORTNESS OF BREATH/WHEEZING Alprazolam (Xanax) 0.5 mg PO Q6H PRN PRN Reason: ANXIETY Last Admin: 01/29/18 11:42 Dose: 0.5 mg Bisacodyl (Dulcolax Supp) 10 mg RECTAL DAILY PRN PRN Reason: SEVERE CONSITIPATION Clonidine HCl (Catapres) 0.1 mg PO Q6H PRN PRN Reason: SBP >165 Last Admin: 01/29/18 01:07 Dose: 0.1 mg Dexamethasone Sodium Phosphate (Decadron Inj) 4 mg IV.PUSH Q6HR MARILIA Last Admin: 01/29/18 12:30 Dose: 4 mg Dextrose (D50w Vial) 50 ml IV.PUSH UNSCH PRN PRN Reason: PER HYPOGLYCEMIA PROTOCOL Glucagon (Glucagon Inj) 1 mg OTHER PRN PRN PRN Reason: for Hypoglycemia Protocol Sodium Chloride (Ns Inj) 500 mls @ 30 mls/hr IV.SIG .Q10H MARILIA Last Admin: 01/27/18 21:48 Dose: Not Given Calcium Chloride 0.34 gm/ (Sodium Chloride) 103.4 mls @ 110 mls/hr IV.SIG UNSCH PRN PRN Reason: SEE LABEL COMMENTS Magnesium Sulfate Inj 2 gm/ (Sodium Chloride) 100 mls @ 100 mls/hr IV.SIG UNSCH PRN PRN Reason: MAGNESIUM LESS THAN 2 Potassium Chloride (Kcl 20 Meq Premix Inj) 20 meq in 100 mls @ 50 mls/hr IV.SIG UNSCH PRN PRN Reason: POTASSIUM LESS THAN 4 Labetalol HCl (Trandate Inj) 10 mg IV.PUSH Q4H PRN PRN Reason: SYSTOLIC BP GREATER THAN 165 Last Admin: 01/29/18 01:30 Dose: 10 mg Lactulose (Lactulose Liq) 30 ml PO DAILY PRN PRN Reason: SEVERE CONSITIPATION Levetiracetam (Keppra) 500 mg PO BID [facility] Last Admin: 01/29/18 08:33 Dose: 500 mg Lidocaine/Epinephrine (Xylocaine/Epi 1%-1:100,000 Inj) 50 ml INFILTRATN ONCE ONE Stop: 01/29/18 13:03 Lorazepam (Ativan Inj) 1 mg IV.PUSH Q5M PRN PRN Reason: seizure Menthol ([place]) 1 lozenge BUCCAL UNSCH PRN PRN Reason: SORE THROAT Metoprolol Tartrate (Lopressor) 25 mg PO BID [facility] Last Admin: 01/29/18 08:34 Dose: 25 mg Morphine Sulfate (Morphine Inj) 2 mg IV.PUSH Q2H PRN PRN Reason: BREAKTHROUGH PAIN Last Admin: 01/29/18 01:07 Dose: 2 mg Nystatin (Mycostatin Liq) 5 ml SWISH-SWAL QID [facility] Last Admin: 01/29/18 12:30 Dose: 5 ml Ondansetron HCl (Zofran Inj) 4 mg IV.PUSH Q6H PRN PRN Reason: NAUSEA OR VOMITING Pantoprazole Sodium (Protonix) 40 mg PO DAILY [facility] Last Admin: 01/29/18 08:33 Dose: 40 mg Promethazine HCl (Phenergan) 25 mg PO Q6H PRN PRN Reason: nausea Last Admin: 01/24/18 23:04 Dose: 25 mg Promethazine HCl (Phenergan Inj) 25 mg IM Q6H PRN PRN Reason: nausea/vomiting/cant use po Senna/Docusate Sodium (Geni-Colace) 1 tab PO BID [facility] Last Admin: 01/29/18 08:33 Dose: 1 tab Sennosides (Senokot) 17.2 mg PO Q12H PRN PRN Reason: Moderate Constipation Sodium Chloride (Ns Flush) 2 ml IV.FLUSH BID [facility] Last Admin: 01/29/18 08:34 Dose: 2 ml Sodium Chloride (Ns Flush) 2 ml IV.FLUSH PRN PRN PRN Reason: FLUSH AFTER USING IV ACCESS Last Admin: 01/23/18 00:11 Dose: 2 ml Allergies Allergy/AdvReac Type Severity Reaction Status Date / Time No Known Allergies Allergy Unverified 01/15/18 23:43 Physical Exam Vital signs: Vital Signs 01/28/18 16:00 01/28/18 20:00 01/29/18 04:00 Temperature 98.1 F 97.8 F 98.1 F Pulse Rate 69 82 75 Respiratory Rate 13 20 22 Blood Pressure 133/64 140/65 136/64 Pulse Oximetry 95 96 94 L 01/29/18 08:00 01/29/18 09:03 01/29/18 12:00 Temperature 97.8 F 97.7 F Pulse Rate 70 74 Respiratory Rate 18 12 11 L Blood Pressure 194/87 H 145/66 H Pulse Oximetry 94 L 95 01/29/18 13:10 Temperature Pulse Rate Respiratory Rate 14 Blood Pressure Pulse Oximetry Intake & Output 01/28/18 01/29/18 01/29/18 18:59 06:59 18:59 Intake Total 686 / 686 Output Total 1700 / 1700 1600 / 1600 Balance -1014 / -1014 -1600 / -1600 Weight 58.9 kg Intake: IV 686 / 686 NS Inj 1,000 ML @ 84 mls/hr IV. 636 / 636 CONT .[id number] MARILIA Rx#:[id number] Ancef 2 GM Premix Inj 2 gm In 50 / 50 50 ml @ 100 mls/hr IV.SIG Q8H MARILIA Rx#:[id number] Output: Urine 800 / 800 1600 / 1600 Urine Amount (Catheter) 900 / 900 1300 900 / 900 Chest Tube Drainage 0 / 0 Left 0 / 0 Other: # Voids 2 - Constitutional no acute distress - Routine HEENT Exam Eye: Present: EOMI, PERRL ENT: Present: mucous membranes moist Comments: Status post recent craniotomy - Routine Neck Exam Present: supple, full ROM. Absent: JVD, carotid bruit - Routine Respiratory Exam Present: CTA bilaterally. Absent: accessory muscle use - Routine Cardiovascular Exam Present: RRR, S1, S2. Absent: murmur, gallop, rubs - Routine Abdominal Exam Present: soft, normoactive bowel sounds. Absent: tenderness, distended, rebound - Routine Extremities Exam Present: full ROM, pulses intact. Absent: cyanosis, clubbing, edema - Routine Skin Exam Present: intact. Absent: cyanosis, erythema - Routine Neurological Exam Present: alert, oriented X3 - Routine Psychiatric Exam Present: normal affect, normal thought process - Urinary Catheter Management 1300 Cath placed during this visit: yes, but has since been removed by the nurse Reason for continuing: Not indwelling catheter Removal date: 01/28/18 Removal time: 10:00 Assessment and Plan - Assessment (1) Lung cancer metastatic to brain Code(s): C34.90 - Malignant neoplasm of unspecified part of unspecified bronchus or lung; C79.31 - Secondary malignant neoplasm of brain Status: Acute (2) Pneumothorax after biopsy Code(s): J95.811 - Postprocedural pneumothorax Status: Acute - Plan The clinical, and radiographic findings were discussed in detail with the patient and her sister today. At the present time there appears to be a small intermittent air leak through the small bore catheter on Valsalva only. There is no continuous air leak. The chest x-ray does reveal a very small left apical pneumothorax at the site of the biopsy. Agree with continued suction for another 24 hours with repeat chest x-ray in the a.m. Should there be no interval change in the appearance of the chest x-ray, then the chest drain can be placed to waterseal. Ideally the lung will heal on its own and the chest catheter can be removed, however, if the air leak persists she may require VATS with pleurodesis and repair of bronchopleural fistula. We will continue to follow with you. Thank you for allowing me to participate in the care of this patient
[2018-01-30] MEDS: ALPRAZolam 0.5 MG Tablet PO PRN ×3 (05:15→21:56)
[2018-01-30] MEDS: Metoprolol Tartrate 25 MG Tablet PO SCH ×2 (08:01→21:10)
[2018-01-30] MEDS: Nystatin Liq 500,000 UNIT/5 ML UDC SWISH-SWAL SCH ×4 (08:01→21:10)
[2018-01-30] MEDS: Senna/Docusate Sodium 8.6/50 MG Tablet PO SCH ×2 (08:02→21:10)
--- NOTE | 2018-01-30 08:23 | P.PNIM ---
Subjective Interval history: doing well. no new complaints Physical Exam Vital signs: Vital Signs 01/29/18 09:03 01/29/18 12:00 01/29/18 13:10 Temperature 97.7 F Pulse Rate 74 Respiratory Rate 12 11 L 14 Blood Pressure 145/66 H Pulse Oximetry 95 01/29/18 16:00 01/29/18 16:28 01/29/18 20:00 Temperature 97.8 F 97.8 F Pulse Rate 80 75 Respiratory Rate 14 14 12 Blood Pressure 130/63 163/76 H Pulse Oximetry 95 94 L 01/29/18 23:00 01/30/18 00:00 01/30/18 04:00 Temperature 97.8 F 97.8 F Pulse Rate 67 61 Respiratory Rate 24 12 22 Blood Pressure 151/70 H 161/74 H Pulse Oximetry 94 L 95 01/30/18 04:20 Temperature Pulse Rate Respiratory Rate 12 Blood Pressure Pulse Oximetry Intake & Output 01/29/18 01/30/18 01/30/18 18:59 06:59 18:59 Intake Total 720 / 720 Output Total 10 10 1100 / 1100 Balance 710 / 710 -1100 / -1100 Weight 59.3 kg Intake: Oral 720 / 720 Output: Urine 1100 / 1100 Chest Tube Drainage 10 / 10 Left 10 / 10 Intracranial Drainage 0 / 0 Ventricle Left Temporoparietal 0 / 0 Other: # Voids 3 # Urine Diapers 5 Date of Last Bowel Movement 01/29/18 01/29/18 # Bowel Movements 1 craniotomy. ventriculostomy removed heart reg lung cta left chest tube. air leak with cough abd s/nt ext no edema - Urinary Catheter Management 1300 Cath placed during this visit: yes, but has since been removed by the nurse Reason for continuing: Not indwelling catheter Removal date: 01/28/18 Removal time: 10:00 Results - Labs CBC & Chem 7: 01/29/18 04:39 01/29/18 04:39 Assessment and Plan - Assessment (1) Lung mass Code(s): R91.8 - Other nonspecific abnormal finding of lung field Status: Acute Plan: 62-year-old female with probable new diagnosis of metastatic lung cancer. Patient was transferred from [place] for neurosurgery consultation. She had an outpatient MRI of the brain that showed multiple brain lesions. CT imaging of the chest abdomen and pelvis showed a 5.5 x 5 cm mass involving the left upper lobe lung MRI brain performed at this facility confirmed presence of innumerable brain metastases clustered in her cerebellum but also present in the supratentorial brain associated with extensive vasogenic edema. No definite evidence of metastatic disease involving the abdomen or pelvis. Left lung mass with numerous brain metastases - comgmt with Medical Oncology, Surgical Oncology, and Neurosurgery - MRI brain (01/16/18) 1. Too numerous to count enhancing mildly hemorrhagic metastatic deposits throughout the brain most numerous in the posterior fossa with some compression of the fourth ventricle. 2. Carcinomatous meningitis would be consideration 3. Lung mass would be amenable to pancreas biopsy for rapid diagnosis. 4. There is no significant hydronephrosis as yet. 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 The patient has elected to undergo treatment at [facility] facility - Roddy Leos per [facility] [place] - Celshasha connors - Thrush: nystatin swish and swallow 5 mL p.o. every 8 hours. - Case d/w Dr. Zamorano (01/20) - Pt/family met with Dr. Mendoza 01/20 who has recommended surgical debulking followed by radiation - Pt/family discussed options and predicted survival with Dr. Zamorano 01/20. Per Dr. Zamorano's note: individuals with her degree of intracranial disease burden have atypical median survival measured between 6-8 months that is with aggressive therapeutic interventions. I did explain that the degree to which we control her intracranial metastatic disease burden will be the major drive her of her survival and overall predicted survival. 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 Mendoza. - iv steroids per [facility] [place]. Iatrogenic Pneumothorax - chest tube placed by IR (01/20/18) - Chest X-Ray 01/21/18: Uncomplicated chest tube placement without pneumothorax. - Pt accidentally pulled out chest tube (01/22/18) - repeat CXR (01/23) --> slight enlargement of left pneumothorax - Case d/w Radiology (01/23). - 01/23 new left chest tube placed by IR - 01/24 CXR 12:[address] without obvious pneumothorax. Subcutaneous air is again seen. - repeat CXR 01/24 2136 Left apical pneumothorax 1.8 cm - CXR 01/26. questionable tiny ptx. -IR recommended CTS consult. consult placed to Dr Manjula Mendoza. discussed with Dr Mendoza. HTN -bp elevated overnight with pain. prn meds ordered.
[2018-01-30] MEDS: levETIRAcetam 500 MG Tablet PO SCH ×2 (08:25→21:10)
[2018-01-30] MEDS: Labetalol HCl Inj 100 MG/20 ML Vial IV.PUSH PRN (09:12)
--- NOTE | 2018-01-30 10:01 | P.PNCV ---
- Note Subjective/Hospital Course: 01/30 Clinically stable. Chest tube continues to have persistent intermittent air leak with Valsalva Continue chest tube to suction for now. We will continue to watch over the next 24-48 hours. If air leak persists may need thoracoscopic exploration with possible pleurodesis We will continue to follow with you Objective: Vital Signs - 24 hr 01/29/18 12:00 01/29/18 13:10 01/29/18 16:00 Temperature 97.7 F 97.8 F Pulse Rate 74 80 Respiratory Rate 11 L 14 14 Blood Pressure 145/66 H 130/63 Pulse Oximetry 95 95 01/29/18 16:28 01/29/18 20:00 01/29/18 23:00 Temperature 97.8 F Pulse Rate 75 Respiratory Rate 14 12 24 Blood Pressure 163/76 H Pulse Oximetry 94 L 01/30/18 00:00 01/30/18 04:00 01/30/18 04:20 Temperature 97.8 F 97.8 F Pulse Rate 67 61 Respiratory Rate 12 22 12 Blood Pressure 151/70 H 161/74 H Pulse Oximetry 94 L 95 01/30/18 08:00 Temperature 97.6 F Pulse Rate 71 Respiratory Rate 20 Blood Pressure 172/67 H Pulse Oximetry 95 Result Diagrams: 01/29/18 04:39 01/29/18 04:39
--- NOTE | 2018-01-30 10:02 | P.PNNS ---
Subjective Interval history: Pt awake and alert. Sitting up in bed. Mild incisional discomfort. No headaches, nausea, vomiting, difficulty with speech or lethargy. Pt monitored in ICU for her hypertension. <Primo Stockton - Last Filed: 01/30/18 09:56> Physical Exam Vital signs: Vital Signs 01/29/18 12:00 01/29/18 13:10 01/29/18 16:00 Temperature 97.7 F 97.8 F Pulse Rate 74 80 Respiratory Rate 11 L 14 14 Blood Pressure 145/66 H 130/63 Pulse Oximetry 95 95 01/29/18 16:28 01/29/18 20:00 01/29/18 23:00 Temperature 97.8 F Pulse Rate 75 Respiratory Rate 14 12 24 Blood Pressure 163/76 H Pulse Oximetry 94 L 01/30/18 00:00 01/30/18 04:00 01/30/18 04:20 Temperature 97.8 F 97.8 F Pulse Rate 67 61 Respiratory Rate 12 22 12 Blood Pressure 151/70 H 161/74 H Pulse Oximetry 94 L 95 01/30/18 08:00 Temperature 97.6 F Pulse Rate 71 Respiratory Rate 20 Blood Pressure 172/67 H Pulse Oximetry 95 Intake & Output 01/29/18 01/30/18 01/30/18 18:59 06:59 18:59 Intake Total 720 / 720 Output Total 10 / 10 1100 / 1100 Balance 710 / 710 -1100 / -1100 Weight 59.3 kg Intake: Oral 720 / 720 Output: Urine 1100 / 1100 Chest Tube Drainage 10 / 10 Left 10 / 10 Intracranial Drainage 0 / 0 Ventricle Left Temporoparietal 0 / 0 Other: # Voids 3 # Urine Diapers 5 Date of Last Bowel Movement 01/29/18 01/29/18 01/29/18 # Bowel Movements 1 - Constitutional no acute distress, cooperative - Routine HEENT Exam Head: Absent: normocephalic (Posterior left incision clean and dry without signs of infection.) Eye: Present: PERRL (Pupils 3mm bilaterally reactive bilaterally.). Absent: conjunctival icterus ENT: Present: oropharynx clear - Routine Neck Exam Present: trachea midline - Routine Respiratory Exam Present: CTA bilaterally. Absent: respiratory distress, rhonchi, wheezes Comments: Left chest tube remains in place. - Routine Cardiovascular Exam Present: RRR, S1, S2. Absent: murmur - Routine Abdominal Exam Present: soft, normoactive bowel sounds. Absent: tenderness - Routine Skin Exam Absent: cyanosis, erythema Comments: Posterior left incision clean and dry. Stephanie in place. No signs of infection or complication. - Routine Neurological Exam Present: alert, oriented X3, CN II-XII intact, moving all extremities, normal speech. Absent: sensory deficit, motor deficit, altered mental status - Detailed Neurological Exam: Coma Scale Eye Opening: Spontaneous Verbal Response: Oriented Motor Response: Obey commands [place] Coma Scale Total: 15 - Routine Psychiatric Exam Present: normal affect, normal thought process, cooperative. Absent: agitated - Urinary Catheter Management 1300 Cath placed during this visit: yes, but has since been removed by the nurse Reason for continuing: Not indwelling catheter Removal date: 01/28/18 Removal time: 10:00 <Primo Stockton - Last Filed: 01/30/18 09:56> Vital signs: Vital Signs 01/29/18 12:00 01/29/18 13:10 01/29/18 16:00 Temperature 97.7 F 97.8 F Pulse Rate 74 80 Respiratory Rate 11 L 14 14 Blood Pressure 145/66 H 130/63 Pulse Oximetry 95 95 01/29/18 16:28 01/29/18 20:00 01/29/18 23:00 Temperature 97.8 F Pulse Rate 75 Respiratory Rate 14 12 24 Blood Pressure 163/76 H Pulse Oximetry 94 L 01/30/18 00:00 01/30/18 04:00 01/30/18 04:20 Temperature 97.8 F 97.8 F Pulse Rate 67 61 Respiratory Rate 12 22 12 Blood Pressure 151/70 H 161/74 H Pulse Oximetry 94 L 95 01/30/18 08:00 Temperature 97.6 F Pulse Rate 71 Respiratory Rate 20 Blood Pressure 172/67 H Pulse Oximetry 95 Intake & Output 01/29/18 01/30/18 01/30/18 18:59 06:59 18:59 Intake Total 720 / 720 Output Total 1100 / 1100 Balance 710 / 710 -1100 / -1100 Weight 59.3 kg Intake: Oral 720 / 720 Output: Urine 1100 / 1100 Chest Tube Drainage Left Intracranial Drainage 0 / 0 Ventricle Left Temporoparietal 0 / 0 Other: # Voids 3 # Urine Diapers 5 Date of Last Bowel Movement 01/29/18 01/29/18 01/29/18 # Bowel Movements 1 - Urinary Catheter Management 1300 Cath placed during this visit: no <Dex Mendoza - Last Filed: 01/30/18 11:01> Assessment and Plan - Assessment (1) History of hysterectomy Code(s): Z90.710 - Acquired absence of both cervix and uterus Status: Acute (2) Neck pain Code(s): M54.2 - Cervicalgia Status: Acute (3) H/O hysterectomy for benign disease Code(s): Z90.710 - Acquired absence of both cervix and uterus Status: Acute (4) Neoplasm of brain causing mass effect on adjacent structures Code(s): D49.6 - Neoplasm of unspecified behavior of brain Status: Acute (5) Lung mass Code(s): R91.8 - Other nonspecific abnormal finding of lung field Status: Acute - Plan 62-year-old lady with the lung mass and multiple brain masses bilateral cerebral hemispheres supratentorial and bilateral cerebellar hemispheres infratentorial the larger ones in the left cerebellar hemisphere with cerebral edema. There is impingement of the fourth ventricle on the left side although not completely obstructed with moderate hydrocephalus. s/p Left suboccipital craniectomy with resection of cerebellar neoplasms; expansive dural repair with allograft patch graft; left occipital keenan hole for ventriculostomy placement; [employer] intraoperative stereotactic navigation guidance; microsurgical technique on 01/27/18. Neuro: Continue neuro checks in a serial fashion. Ventriculostomy drain discontinued on 01/29. Follow up CT head revealed post op changes. She has been seen by Dr arora, from radiation oncologist and plan is for whole brain radiation Pt has undergone a lung biopsy for tissue diagnosis 01/19/18 with the subsequent pneumothorax status post chest tube placement. Pulmonary: aggressive pulmonary toilette, nasotracheal suction, and breathing treatments with nebulizers prn. Daily PT and OT. Continue to ambulate. Renal: Continue to monitor closely urine output, BUN and creatinine Endocrine: Continue to Monitor serial Acu checks and SSI as needed in detail ID continue to monitor for signs of infection Continue Protonix for stress ulcer prophylaxis Continue Prashanth hose and SCD's for DVT prophylaxis <Primo Stockton - Last Filed: 01/30/18 09:56> - Assessment (1) Neoplasm of brain causing mass effect on adjacent structures Code(s): D49.6 - Neoplasm of unspecified behavior of brain Status: Acute (2) Lung mass Code(s): R91.8 - Other nonspecific abnormal finding of lung field Status: Acute - Attending Attestation The exam, history, and the medical decision-making described in the above note were completed with the assistance of the mid-level provider. I reviewed and agree with the findings presented. I attest that I had a [id number] encounter with the patient on the same day, and personally performed and documented my assessment and findings in the medical record. Doing well from a neurologic standpoint. Switch Decadron to p.o. can transfer to neuro floor once hypertension has been well regulated. Discharge home when pulmonary conditions have been addressed/resolved. <Dex Mendoza - Last Filed: 01/30/18 11:01>
[2018-01-30] MEDS: Morphine Inj 4 MG/ML Vial IV.PUSH PRN ×2 (13:17→21:10)
[2018-01-31] MEDS: levETIRAcetam 500 MG Tablet PO SCH ×2 (08:14→21:12)
[2018-01-31] MEDS: Senna/Docusate Sodium 8.6/50 MG Tablet PO SCH ×2 (08:14→21:12)
[2018-01-31] MEDS: Metoprolol Tartrate 25 MG Tablet PO SCH ×2 (08:14→21:12)
[2018-01-31] MEDS: Nystatin Liq 500,000 UNIT/5 ML UDC SWISH-SWAL SCH ×4 (08:14→21:13)
--- NOTE | 2018-01-31 09:00 | P.PNIM ---
Subjective Interval history: doing well. no pain. eating ok bp elevated again this AM up to 200 systolic. no h/a Physical Exam Vital signs: Vital Signs 01/30/18 12:00 01/30/18 16:00 01/30/18 20:00 Temperature 98.0 F 98.1 F 98 F Pulse Rate 86 80 86 Respiratory Rate 13 25 H 22 Blood Pressure 131/62 163/74 H 167/73 H Pulse Oximetry 97 95 01/30/18 21:09 01/30/18 23:15 01/31/18 00:00 Temperature 98.1 F Pulse Rate 86 71 Respiratory Rate 20 16 Blood Pressure 139/62 Pulse Oximetry 01/31/18 04:00 01/31/18 08:00 Temperature 97.8 F 98.0 F Pulse Rate 61 64 Respiratory Rate 16 18 Blood Pressure 160/71 H 173/80 H Pulse Oximetry 95 Intake & Output 01/30/18 01/31/18 01/31/18 18:59 06:59 18:59 Intake Total 700 / 700 Output Total 0 / 0 950 / 950 Balance 700 / 700 -950 / -950 Weight 58.2 kg Intake: Oral 700 / 700 Output: Urine 950 / 950 Chest Tube Drainage 0 / 0 Left 0 / 0 Other: # Voids 6 Date of Last Bowel Movement 01/30/18 01/30/18 01/30/18 # Bowel Movements 1 heart reg lung left chest tube. air leak with cough abd s/nt ext no edema - Urinary Catheter Management 1300 Cath placed during this visit: yes, but has since been removed by the nurse Reason for continuing: Not indwelling catheter Removal date: 01/28/18 Removal time: 10:00 Results - Labs CBC & Chem 7: 01/29/18 04:39 01/29/18 04:39 Assessment and Plan - Assessment (1) Lung mass Code(s): R91.8 - Other nonspecific abnormal finding of lung field Status: Acute Plan: 62-year-old female with probable new diagnosis of metastatic lung cancer. Patient was transferred from [place] for neurosurgery consultation. She had an outpatient MRI of the brain that showed multiple brain lesions. CT imaging of the chest abdomen and pelvis showed a 5.5 x 5 cm mass involving the left upper lobe lung MRI brain performed at this facility confirmed presence of innumerable brain metastases clustered in her cerebellum but also present in the supratentorial brain associated with extensive vasogenic edema. No definite evidence of metastatic disease involving the abdomen or pelvis. Left lung mass with numerous brain metastases - comgmt with Medical Oncology, Surgical Oncology, and Neurosurgery - MRI brain (01/16/18) 1. Too numerous to count enhancing mildly hemorrhagic metastatic deposits throughout the brain most numerous in the posterior fossa with some compression of the fourth ventricle. 2. Carcinomatous meningitis would be consideration 3. Lung mass would be amenable to pancreas biopsy for rapid diagnosis. 4. There is no significant hydronephrosis as yet. 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 The patient has elected to undergo treatment at [facility] facility - Roddy Leos per [facility] [place] - shasha Vigil - Thrush: nystatin swish and swallow 5 mL p.o. every 8 hours. - Case d/w Dr. Zamorano (01/20) - Pt/family met with Dr. Mendoza 01/20 who has recommended surgical debulking followed by radiation - Pt/family discussed options and predicted survival with Dr. Zamorano 01/20. Per Dr. Zamorano's note: individuals with her degree of intracranial disease burden have atypical median survival measured between 6-8 months that is with aggressive therapeutic interventions. I did explain that the degree to which we control her intracranial metastatic disease burden will be the major drive her of her survival and overall predicted survival. 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 Mendoza. - iv steroids per [facility] [place]. Iatrogenic Pneumothorax - chest tube placed by IR (01/20/18) - Chest X-Ray 01/21/18: Uncomplicated chest tube placement without pneumothorax. - Pt accidentally pulled out chest tube (01/22/18) - repeat CXR (01/23) --> slight enlargement of left pneumothorax - Case d/w Radiology (01/23). - 01/23 new left chest tube placed by IR - 01/24 CXR 12:[address] without obvious pneumothorax. Subcutaneous air is again seen. - repeat CXR 9/1 2136 Left apical pneumothorax 1.8 cm - CXR 01/26. questionable tiny ptx. -IR recommended CTS consult. consult placed to Dr Manjula Mendoza. discussed with Dr Mendoza. observe air leak over weekend. IF no improvement VATS being considered HTN -bp elevated again overnight. pt says not really any pain -will begin scheduled bp med. procardia. prn meds also.
--- NOTE | 2018-01-31 09:47 | P.PNNS ---
Subjective Interval history: patient without any issues. denies any headache/nausea/vomiting (concerns for hydrocephalus) Physical Exam Vital signs: Vital Signs 01/30/18 12:00 01/30/18 16:00 01/30/18 20:00 Temperature 98.0 F 98.1 F 98 F Pulse Rate 86 80 86 Respiratory Rate 13 25 H 22 Blood Pressure 131/62 163/74 H 167/73 H Pulse Oximetry 97 95 01/30/18 21:09 01/30/18 23:15 01/31/18 00:00 Temperature 98.1 F Pulse Rate 86 71 Respiratory Rate 20 16 Blood Pressure 139/62 Pulse Oximetry 01/31/18 04:00 01/31/18 08:00 01/31/18 09:25 Temperature 97.8 F 98.0 F Pulse Rate 61 64 Respiratory Rate 16 18 14 Blood Pressure 160/71 H 173/80 H Pulse Oximetry 95 Intake & Output 01/30/18 01/31/18 01/31/18 18:59 06:59 18:59 Intake Total 700 / 700 Output Total 0 / 0 950 / 950 Balance 700 / 700 -950 / -950 Weight 58.2 kg Intake: Oral 700 / 700 Output: Urine 950 / 950 Chest Tube Drainage 0 / 0 Left 0 / 0 Other: # Voids 6 Date of Last Bowel Movement 01/30/18 01/30/18 01/30/18 # Bowel Movements 1 Narrative: E4 AOx3 FCC x 4 5/5 strength in the upper and lower extremities no drift incision: cathleen, without drainage - Urinary Catheter Management 1300 Cath placed during this visit: yes, but has since been removed by the nurse Reason for continuing: Not indwelling catheter Removal date: 01/28/18 Removal time: 10:00 Assessment and Plan - Assessment (1) Neoplasm of brain causing mass effect on adjacent structures Code(s): D49.6 - Neoplasm of unspecified behavior of brain Status: Acute (2) Lung mass Code(s): R91.8 - Other nonspecific abnormal finding of lung field Status: Acute - Plan 62 yo POD 4 Left SOC for resection of metastatic lesion. -neuro stable -EVD remove 01/30 (without any issues) -Whole brain XRT once incision healed -dispo and downgrade to floor pending chest tube
[2018-01-31] MEDS: ALPRAZolam 0.5 MG Tablet PO PRN ×2 (14:40→21:12)
--- NOTE | 2018-02-01 07:57 | P.PNNS ---
Subjective Interval history: reports only mild frontal headache. without other issues Physical Exam Vital signs: Vital Signs 01/31/18 08:00 01/31/18 09:25 01/31/18 12:00 Temperature 98.0 F 98.1 F Pulse Rate 64 67 Respiratory Rate 18 14 17 Blood Pressure 173/80 H 137/67 Pulse Oximetry 95 95 01/31/18 16:00 01/31/18 17:27 01/31/18 20:00 Temperature 98.0 F 97.8 F Pulse Rate 68 76 Respiratory Rate 16 18 18 Blood Pressure 117/57 L 130/61 Pulse Oximetry 95 95 02/01/18 00:00 02/01/18 04:00 Temperature 98.1 F 97.6 F Pulse Rate 66 68 Respiratory Rate 16 14 Blood Pressure 114/57 L 154/65 H Pulse Oximetry Intake & Output 01/31/18 02/01/18 02/01/18 18:59 06:59 18:59 Intake Total 720 / 720 Output Total 0 / 0 950 / 950 Balance 720 / 720 -950 / -950 Weight 56.5 kg Intake: Oral 720 / 720 Output: Urine 950 / 950 Chest Tube Drainage 0 / 0 0 / 0 Left 0 / 0 0 / 0 Other: # Voids 5 Date of Last Bowel Movement 01/31/18 01/31/18 # Bowel Movements 2 Narrative: E4 AOx3 FCC x 4 5/5 strength in the upper and lower extremities no drift incision: cathleen, without drainage - Urinary Catheter Management 1300 Cath placed during this visit: yes, but has since been removed by the nurse Reason for continuing: Not indwelling catheter Removal date: 01/28/18 Removal time: 10:00 Assessment and Plan - Assessment (1) Neoplasm of brain causing mass effect on adjacent structures Code(s): D49.6 - Neoplasm of unspecified behavior of brain Status: Acute (2) Lung mass Code(s): R91.8 - Other nonspecific abnormal finding of lung field Status: Acute - Plan 62 yo POD 5 Left SOC for resection of metastatic lesion. -neuro stable -EVD remove 01/30 (without any issues) -Whole brain XRT once incision healed -ok to relax neuro checks to q4 hours and allow quiet time at night -dispo vs downgrade to floor pending chest tube
--- NOTE | 2018-02-01 09:22 | P.PNIM ---
Subjective Interval history: nad. mild headache. Physical Exam Vital signs: Vital Signs 01/31/18 09:25 01/31/18 12:00 01/31/18 16:00 Temperature 98.1 F 98.0 F Pulse Rate 67 68 Respiratory Rate 14 17 16 Blood Pressure 137/67 117/57 L Pulse Oximetry 95 95 01/31/18 17:27 01/31/18 20:00 02/01/18 00:00 Temperature 97.8 F 98.1 F Pulse Rate 76 66 Respiratory Rate 18 18 16 Blood Pressure 130/61 114/57 L Pulse Oximetry 95 02/01/18 04:00 Temperature 97.6 F Pulse Rate 68 Respiratory Rate 14 Blood Pressure 154/65 H Pulse Oximetry Intake & Output 01/31/18 02/01/18 02/01/18 18:59 06:59 18:59 Intake Total 720 / 720 Output Total 0 / 0 950 / 950 Balance 720 / 720 -950 / -950 Weight 56.5 kg Intake: Oral 720 / 720 Output: Urine 950 / 950 Chest Tube Drainage 0 / 0 0 / 0 Left 0 / 0 0 / 0 Other: # Voids 5 Date of Last Bowel Movement 01/31/18 01/31/18 # Bowel Movements 2 heart reg lung cta abd s/nt ext no edema - Urinary Catheter Management 1300 Cath placed during this visit: yes, but has since been removed by the nurse Reason for continuing: Not indwelling catheter Removal date: 01/28/18 Removal time: 10:00 Results - Labs CBC & Chem 7: 01/29/18 04:39 01/29/18 04:39 Assessment and Plan - Assessment (1) Lung mass Code(s): R91.8 - Other nonspecific abnormal finding of lung field Status: Acute Plan: 62-year-old female with probable new diagnosis of metastatic lung cancer. Patient was transferred from [place] for neurosurgery consultation. She had an outpatient MRI of the brain that showed multiple brain lesions. CT imaging of the chest abdomen and pelvis showed a 5.5 x 5 cm mass involving the left upper lobe lung MRI brain performed at this facility confirmed presence of innumerable brain metastases clustered in her cerebellum but also present in the supratentorial brain associated with extensive vasogenic edema. No definite evidence of metastatic disease involving the abdomen or pelvis. Left lung mass with numerous brain metastases - comgmt with Medical Oncology, Surgical Oncology, and Neurosurgery - MRI brain (01/16/18) 1. Too numerous to count enhancing mildly hemorrhagic metastatic deposits throughout the brain most numerous in the posterior fossa with some compression of the fourth ventricle. 2. Carcinomatous meningitis would be consideration 3. Lung mass would be amenable to pancreas biopsy for rapid diagnosis. 4. There is no significant hydronephrosis as yet. 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 The patient has elected to undergo treatment at [facility] facility - Roddy Leos per [facility] [place] - Celexa xanax - Thrush: nystatin swish and swallow 5 mL p.o. every 8 hours. - Case d/w Dr. Zamorano (01/20) - Pt/family met with Dr. Mendoza 01/20 who has recommended surgical debulking followed by radiation - Pt/family discussed options and predicted survival with Dr. Zamorano 01/20. Per Dr. Zamorano's note: individuals with her degree of intracranial disease burden have atypical median survival measured between 6-8 months that is with aggressive therapeutic interventions. I did explain that the degree to which we control her intracranial metastatic disease burden will be the major drive her of her survival and overall predicted survival. - Pt underwent left suboccipital craniectomy with resection of cerebellar neoplasms; expansive dural repair with allograft patch graft; left occipital keenna hole for ventriculostomy placement on 01/27/[address] Mendoza. - iv steroids per ns. converted to po Iatrogenic Pneumothorax - chest tube placed by IR (01/20/18) - Chest X-Ray 01/21/18: Uncomplicated chest tube placement without pneumothorax. - Pt accidentally pulled out chest tube (01/22/18) - repeat CXR (01/23) --> slight enlargement of left pneumothorax - Case d/w Radiology (01/23). - 01/23 new left chest tube placed by IR - 01/24 CXR 12:[address] without obvious pneumothorax. Subcutaneous air is again seen. - repeat CXR 01/24 2136 Left apical pneumothorax 1.8 cm - CXR 01/26. questionable tiny ptx. -IR recommended CTS consult. consult placed to Dr Manjula Mendoza. discussed with Dr Mendoza. observe air leak over weekend. IF no improvement VATS being considered HTN -bp elevated pt says not really any pain -procardia 30mg bid started on 01/31..titrate as needed. prn meds ordered.
[2018-02-01] MEDS: levETIRAcetam 500 MG Tablet PO SCH ×2 (09:33→20:36)
[2018-02-01] MEDS: Nystatin Liq 500,000 UNIT/5 ML UDC SWISH-SWAL SCH ×4 (09:34→20:36)
[2018-02-01] MEDS: Metoprolol Tartrate 25 MG Tablet PO SCH ×2 (09:34→20:36)
[2018-02-01] MEDS: Senna/Docusate Sodium 8.6/50 MG Tablet PO SCH ×2 (09:34→20:36)
[2018-02-01] MEDS: ALPRAZolam 0.5 MG Tablet PO PRN ×2 (09:38→18:03)
[2018-02-02] MEDS: ALPRAZolam 0.5 MG Tablet PO PRN ×3 (01:30→17:56)
[2018-02-02] MEDS: Senna/Docusate Sodium 8.6/50 MG Tablet PO SCH ×2 (08:17→22:33)
[2018-02-02] MEDS: Metoprolol Tartrate 25 MG Tablet PO SCH ×2 (08:17→22:33)
[2018-02-02] MEDS: levETIRAcetam 500 MG Tablet PO SCH ×2 (08:17→22:33)
[2018-02-02] MEDS: Nystatin Liq 500,000 UNIT/5 ML UDC SWISH-SWAL SCH ×4 (08:17→22:32)
--- NOTE | 2018-02-02 09:14 | P.PNNS ---
Subjective Interval history: Pt awake and alert. Complains of mild frontal headaches. No N/V. No difficulty with speech. No paresthesias in face or extremities. <Primo Stockton - Last Filed: 02/02/18 09:09> Physical Exam Vital signs: Vital Signs 02/01/18 12:00 02/01/18 16:00 02/01/18 20:00 Temperature 97.9 F 98.1 F 98 F Pulse Rate 82 82 80 Respiratory Rate 16 16 20 Blood Pressure 145/69 H 152/70 H 149/68 H Pulse Oximetry 02/02/18 00:00 02/02/18 04:00 02/02/18 08:00 Temperature 97.8 F 98.1 F 97.9 F Pulse Rate 74 60 69 Respiratory Rate 20 16 17 Blood Pressure 130/60 137/66 172/78 H Pulse Oximetry 96 95 95 Intake & Output 02/01/18 02/02/18 02/02/18 18:59 06:59 18:59 Intake Total 720 / 720 Output Total 850 / 850 Balance 720 / 720 -850 / -850 Weight 56.5 kg Intake: Oral 720 / 720 Output: Urine 850 / 850 Chest Tube Drainage 0 / 0 Left 0 / 0 Other: # Voids 3 Date of Last Bowel Movement 01/31/18 01/31/18 01/31/18 # Bowel Movements 0 0 - Constitutional no acute distress, average body habitus, cooperative - Routine HEENT Exam Head: Absent: normocephalic (Left posterior craniotomy incision clean and dry without signs of infection or complication.) Eye: Absent: PERRL (Left pupil larger than right 0.5-1mm.), conjunctival icterus ENT: Present: oropharynx clear - Routine Neck Exam Present: trachea midline - Routine Respiratory Exam Present: CTA bilaterally. Absent: respiratory distress, rhonchi, wheezes Comments: Left chest tube in place. - Routine Cardiovascular Exam Present: RRR, S1, S2. Absent: murmur - Routine Abdominal Exam Present: soft, normoactive bowel sounds. Absent: tenderness, distended - Routine Skin Exam Absent: cyanosis, erythema Comments: Left posterior craniotomy incision clean and dry without signs of infection or complication. - Routine Neurological Exam Present: alert, oriented X3, moving all extremities, normal speech. Absent: sensory deficit, motor deficit, altered mental status - Detailed Neurological Exam: Coma Scale Eye Opening: Spontaneous Verbal Response: Oriented Motor Response: Obey commands [place] Coma Scale Total: 15 - Routine Psychiatric Exam Present: normal affect, cooperative, anxious (Seem so.). Absent: agitated - Urinary Catheter Management 1300 Cath placed during this visit: yes, but has since been removed by the nurse Reason for continuing: Not indwelling catheter Removal date: 01/28/18 Removal time: 10:00 <Primo Stockton - Last Filed: 02/02/18 09:09> Vital signs: Vital Signs 02/01/18 20:00 02/02/18 00:00 02/02/18 04:00 Temperature 98 F 97.8 F 98.1 F Pulse Rate 80 74 60 Respiratory Rate 20 20 16 Blood Pressure 149/68 H 130/60 137/66 Pulse Oximetry 96 95 02/02/18 08:00 02/02/18 12:00 02/02/18 16:00 Temperature 97.9 F 98.3 F 98.2 F Pulse Rate 69 75 86 Respiratory Rate 17 18 19 Blood Pressure 172/78 H 127/61 121/67 Pulse Oximetry 95 96 95 Intake & Output 02/01/18 02/02/18 02/02/18 18:59 06:59 18:59 Intake Total 720 / 720 Output Total 850 / 850 Balance 720 / 720 -850 / -850 Weight 56.5 kg Intake: Oral 720 / 720 Output: Urine 850 / 850 Chest Tube Drainage 0 / 0 Left 0 / 0 Other: # Voids 3 Date of Last Bowel Movement 01/31/18 01/31/18 01/31/18 # Bowel Movements 0 0 - Urinary Catheter Management 1300 Cath placed during this visit: no <Dex Mendoza - Last Filed: 02/02/18 17:43> Assessment and Plan - Assessment (1) History of hysterectomy Code(s): Z90.710 - Acquired absence of both cervix and uterus Status: Acute (2) Neck pain Code(s): M54.2 - Cervicalgia Status: Acute (3) H/O hysterectomy for benign disease Code(s): Z90.710 - Acquired absence of both cervix and uterus Status: Acute (4) Neoplasm of brain causing mass effect on adjacent structures Code(s): D49.6 - Neoplasm of unspecified behavior of brain Status: Acute (5) Lung mass Code(s): R91.8 - Other nonspecific abnormal finding of lung field Status: Acute - Plan 62 yo s/p Left SOC for resection of metastatic lesion. -neuro stable -EVD remove 01/30 (without any issues) -Whole brain XRT once incision healed -ok to relax neuro checks to q4 hours and allow quiet time at night -dispo vs downgrade to floor pending chest tube. Pt scheduled for x-ray today. <Primo Stockton - Last Filed: 02/02/18 09:09> - Assessment (1) Neoplasm of brain causing mass effect on adjacent structures Code(s): D49.6 - Neoplasm of unspecified behavior of brain Status: Acute (2) Lung mass Code(s): R91.8 - Other nonspecific abnormal finding of lung field Status: Acute - Plan Discussed Condition With: Patient Milka Man has decided to leave the hospital against medical advice. This patient has the capacity to refuse care and understands the risks of leaving, including permanent disability and/or , and has had an opportunity to ask questions about his/her condition. The patient has been informed that he/she may return for care at any time, and follow up has been arranged/advised. <Dex Mendoza - Last Filed: 02/02/18 17:43>
--- NOTE | 2018-02-02 12:00 | XR ---
EXAM DATE: 02/02/2018 11:54 AM EDT AGE/SEX: 62 years / Female INDICATIONS: Evaluate for pneumonia, pneumothorax, or communicable disease. CLINICAL DATA: This is the patient's subsequent encounter. Patient reports that signs and symptoms h ave been present for 4 - 6 days and indicates a pain score of 0/10. MEDICAL/SURGICAL HISTORY: . Carcinoma, lung. None. COMPARISON: [facility] [place]ST 1V SINGLE AP, 01/29/2018. . FINDINGS: Left apical chest tube is noted in place. Small residual pneumothorax identified on the previous stud y is no longer appreciated. Left upper lobe mass is again noted. Right lung remains clear. CONCLUSION: No evidence of significant left-sided pneumothorax. Left chest tube remains in stable position. Left upper lobe pulmonary mass; unchanged. Electronically signed by: Leonard Mcdonald MD 02/02/2018 11:59 AM EDT
--- NOTE | 2018-02-02 12:11 | P.PNIM ---
Subjective Interval history: Pt feeling well today She is sitting up in the chair, eating lunch. Pt with some headaches but the pain is manageable with meds Physical Exam Vital signs: Vital Signs 02/01/18 16:00 02/01/18 20:00 02/02/18 00:00 Temperature 98.1 F 98 F 97.8 F Pulse Rate 82 80 74 Respiratory Rate 16 20 20 Blood Pressure 152/70 H 149/68 H 130/60 Pulse Oximetry 96 02/02/18 04:00 02/02/18 08:00 Temperature 98.1 F 97.9 F Pulse Rate 60 69 Respiratory Rate 16 17 Blood Pressure 137/66 172/78 H Pulse Oximetry 95 95 Intake & Output 02/01/18 02/02/18 02/02/18 18:59 06:59 18:59 Intake Total 720 / 720 Output Total 850 / 850 Balance 720 / 720 -850 / -850 Weight 56.5 kg Intake: Oral 720 / 720 Output: Urine 850 / 850 Chest Tube Drainage 0 / 0 Left 0 / 0 Other: # Voids 3 Date of Last Bowel Movement 01/31/18 01/31/18 01/31/18 # Bowel Movements 0 0 Narrative: General: NAD, AAOx3 HEENT: incision well approximated, cathleen, without drainage Chest: CTA Cardiac: Regular Abd: +BS, soft ND/NT Ext: No edema Neuro: 5/5 strength in the upper and lower extremities - Urinary Catheter Management 1300 Cath placed during this visit: yes, but has since been removed by the nurse Reason for continuing: Not indwelling catheter Removal date: 01/28/18 Removal time: 10:00 Results - Labs CBC & Chem 7: 02/02/18 17:42 02/04/18 03:51 - Imaging Impressions Chest X-Ray 02/02/18 06:00 CONCLUSION: No evidence of significant left-sided pneumothorax. Left chest tube remains in stable position. Left upper lobe pulmonary mass; unchanged. Assessment and Plan - Assessment (1) Lung mass Code(s): R91.8 - Other nonspecific abnormal finding of lung field Status: Acute Plan: 62-year-old female with probable new diagnosis of metastatic lung cancer. Patient was transferred from [place] for neurosurgery consultation. She had an outpatient MRI of the brain that showed multiple brain lesions. CT imaging of the chest abdomen and pelvis showed a 5.5 x 5 cm mass involving the left upper lobe lung MRI brain performed at this facility confirmed presence of innumerable brain metastases clustered in her cerebellum but also present in the supratentorial brain associated with extensive vasogenic edema. No definite evidence of metastatic disease involving the abdomen or pelvis. Left lung mass with numerous brain metastases - comgmt with Medical Oncology, Surgical Oncology, and Neurosurgery - MRI brain (01/16/18) 1. Too numerous to count enhancing mildly hemorrhagic metastatic deposits throughout the brain most numerous in the posterior fossa with some compression of the fourth ventricle. 2. Carcinomatous meningitis would be consideration 3. Lung mass would be amenable to pancreas biopsy for rapid diagnosis. 4. There is no significant hydronephrosis as yet. 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 The patient has elected to undergo treatment at [facility] facility - Keppra, Decadron per [facility] [place] - Celbeverly connorsx - Thrush: nystatin swish and swallow 5 mL p.o. every 8 hours. - Case d/w Dr. Zamorano (01/20) - Pt/family met with Dr. Mendoza 01/20 who has recommended surgical debulking followed by radiation - Pt/family discussed options and predicted survival with Dr. Zamorano 01/20. Per Dr. Zamorano's note: individuals with her degree of intracranial disease burden have atypical median survival measured between 6-8 months that is with aggressive therapeutic interventions. I did explain that the degree to which we control her intracranial metastatic disease burden will be the major drive her of her survival and overall predicted survival. 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 Mendoza. - Ventriculostomy removed on 01/30/18 - Pt currently on Decadron 4mg po BID, management per ns. Iatrogenic Pneumothorax - chest tube placed by IR (01/20/18) - Chest X-Ray 01/21/18: Uncomplicated chest tube placement without pneumothorax. - Pt accidentally pulled out chest tube (01/22/18) - repeat CXR (01/23) --> slight enlargement of left pneumothorax - Case d/w Radiology (01/23). - 01/23 new left chest tube placed by IR - 01/24 CXR 12:[address] without obvious pneumothorax. Subcutaneous air is again seen. - repeat CXR 01/25 2136 Left apical pneumothorax 1.8 cm - CXR 01/26. questionable tiny ptx. - IR recommended CTS consult, consult placed to Dr Manjula Mendoza. - Case discussed between Dr. Coleman and Dr. Mendoza on 02/01/18 and pt will likely require surgical intervention this week, possibly Friday. HTN - BP was elevated pt says not really any pain - Procardia 30mg bid started on 01/31, BP improving with meds - Monitor closely and titrate as needed. - prn meds ordered. - Attending Attestation Patient examined. Assessment and plan formulated with Loulou Michaud PA-C. I agree with the above.
[2018-02-02] MEDS ORDERED: Dextrose 50% in Water 50 ML Vial IV.PUSH PRN (14:24)
[2018-02-02] MEDS ORDERED: Chlorhexidine 4% Topical 120 APPLIC/120 ML Bottle TOPICAL SCH (14:30)
[2018-02-02] MEDS ORDERED: Sodium Chloride 0.9% Irr Bot 500 ML, ceFAZolin Inj 500 MG IRRIGATION SCH ×2 (14:30)
--- NOTE | 2018-02-02 14:30 | P.PNCV ---
- Note Subjective/Hospital Course: 01/30 Clinically stable. Chest tube continues to have persistent intermittent air leak with Valsalva Continue chest tube to suction for now. We will continue to watch over the next 24-48 hours. If air leak persists may need thoracoscopic exploration with possible pleurodesis We will continue to follow with you 02/02 pt still has intermittent air leak pt now scheduled for left VATS, pleurodesis in am Objective: Vital Signs - 24 hr 02/01/18 16:00 02/01/18 20:00 02/02/18 00:00 Temperature 98.1 F 98 F 97.8 F Pulse Rate 82 80 74 Respiratory Rate 16 20 20 Blood Pressure 152/70 H 149/68 H 130/60 Pulse Oximetry 96 02/02/18 04:00 02/02/18 08:00 02/02/18 12:00 Temperature 98.1 F 97.9 F 98.3 F Pulse Rate 60 69 75 Respiratory Rate 16 17 18 Blood Pressure 137/66 172/78 H 127/61 Pulse Oximetry 95 95 96 Result Diagrams: 01/29/18 04:39 01/29/18 04:39 - Plan (2) Pneumothorax after biopsy Plan: still has persistent air leak , for surgery in am
[2018-02-02] MEDS ORDERED: ceFAZolin Inj 2,000 MG in Sodium Chlor 0.9% Inj 80 ML IV.SIG SCH (15:00)
[2018-02-02 18:50] LABS: Baso % (Auto) 0.1 % (0.0-2.0); Eos # (Auto) 0.1 th/mm3 (0.0-0.4); Eos % (Auto) 0.5 % (0.0-4.0); Hematocrit 38.2 % (35.0-46.0); Hemoglobin 13.1 gm/dL (11.6-15.3); Lymph # (Auto) 1.6 th/mm3 (1.0-4.8); Lymph % (Auto) 10.8 % (9.0-44.0); Mean Corpuscular HGB Conc 34.3 % (32.0-36.0); Mean Corpuscular Hemoglobin 28.9 pg (27.0-34.0); Mean Corpuscular Volume 84.3 fL (80.0-100.0); Mean Platelet Volume 8.9 fL (7.0-11.0); Mono # (Auto) 0.8 th/mm3 (0.0-0.9); Mono % (Auto) 5.1 % (0.0-8.0); Neut # (Auto) 12.5 th/mm3 (1.8-7.7); Neut % (Auto) 83.5 % (16.0-70.0); Platelet Count 282 th/mm3 (150-450); Red Blood Count 4.53 mil/mm3 (4.00-5.30); Red Cell Distribution Width 15.8 % (11.6-17.2); White Blood Count 14.9 th/mm3 (4.0-11.0)
[2018-02-02 18:59] LABS: INR 0.9 Ratio; Prothrombin Time 9.2 sec (9.8-11.6)
[2018-02-03] MEDS: ALPRAZolam 0.5 MG Tablet PO PRN ×2 (05:26→23:06)
[2018-02-03] MEDS ORDERED: Lidocaine PF 1% Inj 5 ML Syringe OTHER ONE (07:15)
[2018-02-03] MEDS ORDERED: Phenylephrine/NS 1000 MCG/10ML Syringe IV.PUSH ONE (07:15)
[2018-02-03] MEDS ORDERED: Neostigmine Inj 5 MG/5 ML Syringe IV.PUSH ONE (07:15)
[2018-02-03] MEDS ORDERED: Glycopyrrolate Inj 1 MG/5 ML Syringe IV.PUSH ONE (07:15)
[2018-02-03] MEDS ORDERED: Bupivacaine PF 0.5% Inj 30 ML Vial ONE (08:20)
[2018-02-03] MEDS ORDERED: Talc Aerosol Sterile 4 GM/30 GM Aerosol Can I-PLEURAL ONE (08:30)
[2018-02-03] MEDS: levETIRAcetam 500 MG Tablet PO SCH ×2 (09:00→21:10)
[2018-02-03] MEDS: Senna/Docusate Sodium 8.6/50 MG Tablet PO SCH ×2 (09:00→21:10)
[2018-02-03] MEDS: Nystatin Liq 500,000 UNIT/5 ML UDC SWISH-SWAL SCH ×4 (09:00→21:35)
--- NOTE | 2018-02-03 09:25 | P.OP ---
Date of procedure: 02/03/18 Anesthesia: GETA Surgeon: Geoffrey Mendoza MD Operation and Findings: PREOPERATIVE DIAGNOSES 1. Left Upper Lobe Metastatic Lung Cancer 2. Bronchopleural Fistula 3. Brain Metastasis - s/p craniotomy POSTOPERATIVE DIAGNOSES Same SURGICAL PROCEDURE 1. Left Video-Assisted Thoracoscopic Surgery (VATS). 2. Lysis of Adhesions 3. Mechanical and Talc Pleurodesis. 4. Intercostal Nerve Block SURGEON Geoffrey Mendoza MD CHILDCARE WORKER EMMIE Sauceda ANESTHESIA General double lumen endotracheal. WEATHER CLERK TACHO Nicholas MD PREPARATION ChloraPrep. COUNTS Needle, sponge, and instrument counts are correct. DRAINS One 28 Fr Chest tube COMPLICATIONS None. INDICATIONS The patient is a 62 yo with metastatic lung cancer to brain presenting with bronchopleural fistula post percutaneous biopsy of the lung mass. The patient is being brought to the operating room for repair of BPF and pleurodesis. DESCRIPTION OF PROCEDURE The patient was brought to the operating room and placed supine on the OR table. Following the induction of adequate general double lumen endotracheal anesthesia and placement of appropriate monitoring devices, the patient was placed in the right lateral decubitus position. The left chest and surrounding areas were then prepped and draped in a standard sterile fashion. A 5 mm camera port was introduced into the 8th intercostal space in mid axillary line, and the camera introduced. A second 5 mm port was then placed anteriorly under direct visual guidance and one posteriorly. There were dense adhesions between the lung and the lateral chest wall as well as the mediastinum which were divided to expose the apical segment of the left upper lobe. The lung mass was appreciated in the upper lobe. Additionally the previously placed percutaneous drain was visualized in the apical aspect of the left chest. The entire left lung was submerged under sterile saline and ventilated with no appreciable significant air leak. The upper lobe was then sprayed with Evicel.Through the port site, mechanical and talc pleurodesis was performed. The anterior port was removed and a 28 Fr chest tube was placed. This was maintained in place with a nonabsorbable suture. Both of the entry sites were injected with 0.5% Marcaine as was the port site. Following confirmation of the catheter in the proper place , the incision was closed in 2 layers. The drain was attached to a suction device, and sterile dressing applied. Intercostal nerve block was performed using Ropivacaine/Morphine solution. Double lung ventilation at this point revealed no evidence of any residual air leak or bronchopleural fistula. The old chest tube was removed and a sterile occlusive dressing applied. The patient tolerated the procedure well and was extubated and transferred to the recovery room in stable condition.
[2018-02-03] MEDS ORDERED: Post-op Orders (for Pharmacy) OTHER STA (09:26)
[2018-02-03] MEDS ORDERED: fentaNYL Citrate Inj 100 MCG/2 ML Ampul ONE ×2 (09:47)
[2018-02-03] MEDS ORDERED: *morphine SULFATE 4 MG/ML PERIprocedure ONLY ONE ×2 (09:54→10:03)
[2018-02-03] MEDS: Labetalol HCl Inj 100 MG/20 ML Vial IV.PUSH PRN (09:55)
[2018-02-03] MEDS ORDERED: Bupivacaine PF 0.5% Inj 30 ML Vial INFILTRATN ONE (09:58)
[2018-02-03] MEDS ORDERED: *Meperidine Inj 25 MG/ML Vial PERIprocedural Use ONLY ONE (10:16)
--- NOTE | 2018-02-03 10:22 | XR ---
EXAM DATE: 02/03/2018 10:02 AM EDT AGE/SEX: 62 years / Female INDICATIONS: Post thoracotomy. CLINICAL DATA: This is the patient's initial encounter. Patient reports that signs and symptoms have been present for 1 day and indicates a pain score of Nonresponsive. MEDICAL/SURGICAL HISTORY: . Metastatic disease. . Craniectomy. . COMPARISON: [facility] [place], MR HEAD W & W/O CONTRAST, 01/16/2018. . FINDINGS: Large bore chest tube in place on the left following thoracotomy of a left upper lobe mass. There is no pneumothorax. Right lung is clear. The heart and pulmonary vascularity are normal. The portion of the bony skeleton visualized is unrema rkable. CONCLUSION: Left chest tube in good position without pneumothorax Persistent area of parenchymal opacity left upper lobe. Electronically signed by: Edgard Barth MD 02/03/2018 10:21 AM EDT
--- NOTE | 2018-02-03 10:25 | P.DCO ---
- Home Health Nursing Order: Medical education, Signs/symptoms of disease process, Wound care and dressing changes, Nursing assessment with vital signs - Certification I have seen patient Milka Man on 02/03/18. My clinical findings support the need for the requested home health care services because: Deconditioned with increased weakness I certify that my clinical findings support that this patient is homebound because: Post-op weakness
[2018-02-03] MEDS: Metoprolol Tartrate 25 MG Tablet PO SCH ×2 (12:00→21:36)
--- NOTE | 2018-02-03 16:59 | P.PNIM ---
Subjective Interval history: No new complaints. Physical Exam Vital signs: 02/03/18 16:00 Temperature 98.3 F Pulse Rate 66 Respiratory Rate 20 Blood Pressure 177/75 H Pulse Oximetry 97 Narrative: General: NAD, AAOx3 HEENT: incision well approximated, cathleen, without drainage Chest: CTA Cardiac: Regular Abd: +BS, soft ND/NT Ext: No edema Neuro: 5/5 strength in the upper and lower extremities - Urinary Catheter Management 1300 Cath placed during this visit: yes, but has since been removed by the nurse Reason for continuing: Not indwelling catheter Removal date: 01/28/18 Removal time: 10:00 Results - Labs CBC & Chem 7: 02/02/18 17:42 02/04/18 03:51 - Imaging Abdomen/Pelvis CT 01/16/18 00:00 CONCLUSION: Colonic diverticulosis and left adrenal nodule may be adenoma, however metastatic disease is difficult to exclude. Chest CT 01/16/18 00:00 CONCLUSION: 1. Left upper lobe mass almost certainly malignant with metastatic adenopathy within the mediastinum and left hilum. 2. Groundglass opacities right upper lobe and left lower lobe could be followed with repeat noncontrast chest CT in 6 months after appropriate clinical therapy. There are also tiny nodules in both lungs versus tortuous blood vessels. 3. Left adrenal mass could be an adenoma versus metastatic disease. Head MRI 01/16/18 00:00 CONCLUSION: 1. Too numerous to count enhancing mildly hemorrhagic metastatic deposits throughout the brain most numerous in the posterior fossa with some compression of the fourth ventricle. 2. Carcinomatous meningitis would be consideration 3. Lung mass would be amenable to pancreas biopsy for rapid diagnosis. 4. There is no significant hydronephrosis as yet. Lung Biopsy CT 01/19/18 00:00 CONCLUSION: 1. Uncomplicated CT guided biopsy. Chest Tube Insertion 01/23/18 11:03 CONCLUSION: Uncomplicated fluoroscopic guided left chest tube placement as above. Head CT 01/28/18 08:00 CONCLUSION: 1. Postoperative changes are noted. Chest X-Ray 02/03/18 09:26 CONCLUSION: Left chest tube in good position without pneumothorax Persistent area of parenchymal opacity left upper lobe. Assessment and Plan - Assessment (1) Lung mass Code(s): R91.8 - Other nonspecific abnormal finding of lung field Status: Acute Plan: 62-year-old female with probable new diagnosis of metastatic lung cancer. Patient was transferred from [place] for neurosurgery consultation. She had an outpatient MRI of the brain that showed multiple brain lesions. CT imaging of the chest abdomen and pelvis showed a 5.5 x 5 cm mass involving the left upper lobe lung MRI brain performed at this facility confirmed presence of innumerable brain metastases clustered in her cerebellum but also present in the supratentorial brain associated with extensive vasogenic edema. No definite evidence of metastatic disease involving the abdomen or pelvis. Left lung mass with numerous brain metastases - comgmt with Medical Oncology, Surgical Oncology, and Neurosurgery - MRI brain (01/16/18) 1. Too numerous to count enhancing mildly hemorrhagic metastatic deposits throughout the brain most numerous in the posterior fossa with some compression of the fourth ventricle. 2. Carcinomatous meningitis would be consideration 3. Lung mass would be amenable to pancreas biopsy for rapid diagnosis. 4. There is no significant hydronephrosis as yet. 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 The patient has elected to undergo treatment at [facility] facility - Keppra, Decadron per [facility] [place] - Celexa, xanax - Thrush: nystatin swish and swallow 5 mL p.o. every 8 hours. - Case d/w Dr. Zamorano (01/20) - Pt/family met with Dr. Mendoza 01/20 who has recommended surgical debulking followed by radiation - Pt/family discussed options and predicted survival with Dr. Zamorano 01/20. Per Dr. Zamorano's note: individuals with her degree of intracranial disease burden have atypical median survival measured between 6-8 months that is with aggressive therapeutic interventions. I did explain that the degree to which we control her intracranial metastatic disease burden will be the major drive her of her survival and overall predicted survival. 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 Mendoza. - Ventriculostomy removed on 01/30/18 - Pt currently on Decadron 4mg po BID, management per ns. Iatrogenic Pneumothorax - chest tube placed by IR (01/20/18) - Chest X-Ray 01/21/18: Uncomplicated chest tube placement without pneumothorax. - Pt accidentally pulled out chest tube (01/22/18) - repeat CXR (01/23) --> slight enlargement of left pneumothorax - Case d/w Radiology (01/23). - 01/23 new left chest tube placed by IR - 01/24 CXR 12:[address] without obvious pneumothorax. Subcutaneous air is again seen. - repeat CXR 01/24 2136 Left apical pneumothorax 1.8 cm - CXR 01/26. questionable tiny ptx. - Pt underwent VATS (02/03/18) with GT and talc pleurodesis performed by Dr. Geoffrey Mendoza. - transfer out of ICU when bed available. HTN - BP was elevated pt says not really any pain - Procardia 30mg bid started on 01/31, BP improving with meds - Monitor closely and titrate as needed. - prn meds ordered.
[2018-02-03] MEDS: Morphine Inj 4 MG/ML Vial IV.PUSH PRN (21:08)
[2018-02-04 05:18] LABS: Anion Gap 11 meq/L (5-15); Blood Urea Nitrogen 13 mg/dL (7-18); Calcium 9.3 mg/dL (8.5-10.1); Carbon Dioxide 28.4 meq/L (21.0-32.0); Chloride 95 meq/L (98-107); Glomerular Filtration Rate Greater Than 89 mL/min (>89); Glucose,Random 125 mg/dL (74-106); Potassium 4.2 meq/L (3.5-5.1); Sodium 134 meq/L (136-145)
[2018-02-04] MEDS: Nystatin Liq 500,000 UNIT/5 ML UDC SWISH-SWAL SCH ×4 (08:19→21:02)
[2018-02-04] MEDS: Senna/Docusate Sodium 8.6/50 MG Tablet PO SCH ×2 (08:19→21:02)
[2018-02-04] MEDS: Metoprolol Tartrate 25 MG Tablet PO SCH ×2 (08:19→21:02)
[2018-02-04] MEDS: levETIRAcetam 500 MG Tablet PO SCH ×2 (08:19→21:02)
--- NOTE | 2018-02-04 08:23 | XR ---
EXAM DATE: 02/04/2018 8:17 AM EDT AGE/SEX: 62 years / Female INDICATIONS: Left chest tube and pain associated with it. CLINICAL DATA: This is the patient's subsequent encounter. Patient reports that signs and symptoms h ave been present for 1 month and indicates a pain score of 10/10. MEDICAL/SURGICAL HISTORY: None. Hysterectomy. COMPARISON: C, CHEST 1V SINGLE AP, 02/03/2018. . FINDINGS: Lungs are hypoaerated. Left-sided tracheostomy tube remains in stable position. There is no significa nt pneumothorax. Masslike opacity remains evident of the left upper lobe. Subsegmental consolidating airspace disease is seen in the right lung base. CONCLUSION: No evidence of pneumothorax Left upper lobe mass; unchanged. Subsegmental airspace disease right lung base Electronically signed by: Leonard Mcdonald MD 02/04/2018 8:21 AM EDT
--- NOTE | 2018-02-04 11:48 | P.PNCV ---
- Note Subjective/Hospital Course: 01/30 Clinically stable. Chest tube continues to have persistent intermittent air leak with Valsalva Continue chest tube to suction for now. We will continue to watch over the next 24-48 hours. If air leak persists may need thoracoscopic exploration with possible pleurodesis We will continue to follow with you 02/02 pt still has intermittent air leak pt now scheduled for left VATS, pleurodesis in am 02/03 surgery: PREOPERATIVE DIAGNOSES 1. Left Upper Lobe Metastatic Lung Cancer 2. Bronchopleural Fistula 3. Brain Metastasis - s/p craniotomy POSTOPERATIVE DIAGNOSES Same SURGICAL PROCEDURE 1. Left Video-Assisted Thoracoscopic Surgery (VATS). 2. Lysis of Adhesions 3. Mechanical and Talc Pleurodesis. 4. Intercostal Nerve Block 02/04 CXR noted , no air leak chest tube drained 60cc/ [address] to water seal Objective: Vital Signs - 24 hr 02/03/18 12:00 02/03/18 12:08 02/03/18 16:00 Temperature 97.5 F L 98.3 F Pulse Rate 76 64 66 Respiratory Rate 18 18 20 Blood Pressure 147/64 H 177/75 H Pulse Oximetry 98 98 97 02/03/18 20:00 02/03/18 20:13 02/03/18 21:10 Temperature 97.8 F Pulse Rate 72 Respiratory Rate 20 20 Blood Pressure 147/65 H Pulse Oximetry 94 L 97 02/03/18 21:35 02/03/18 23:58 02/04/18 00:00 Temperature 97.6 F Pulse Rate 65 70 Respiratory Rate 16 18 Blood Pressure 128/59 L Pulse Oximetry 96 02/04/18 04:00 02/04/18 07:53 02/04/18 08:00 Temperature 97.6 F 97.8 F Pulse Rate 72 68 Respiratory Rate 18 18 Blood Pressure 133/63 144/66 H Pulse Oximetry 97 97 97 GENERAL: A&O x 3 SKIN: Warm and dry. incision intact left lateral chest wall HEAD: Normocephalic. EYES: No scleral icterus. No injection or drainage. NECK: Supple, trachea midline. No JVD or lymphadenopathy. CARDIOVASCULAR: Regular rate and rhythm without murmurs, gallops, or rubs. RESPIRATORY: Breath sounds equal bilaterally. No accessory muscle use. left lateral chest tube in place with no air leak GASTROINTESTINAL: Abdomen soft, non-tender, nondistended. MUSCULOSKELETAL: No cyanosis, or edema. BACK: Nontender without obvious deformity. No CVA tenderness. Labs: Laboratory Results - last 12 hr 02/03/18 02/04/18 07:20 03:51 Sodium 134 L Potassium 4.2 Chloride 95 L Carbon Dioxide 28.4 Anion Gap 11 BUN 13 Creatinine 0.45 L Estimated GFR Greater than 89 Random Glucose 125 H Calcium 9.3 MTS Gel Crossmatch See Detail Result Diagrams: 02/02/18 17:42 02/04/18 03:51 - Plan (1) S/P thoracotomy Plan: IS, acapella pulm toileting OOB ambulate eval for chest tube removal in am (5) Pneumothorax after biopsy Plan: still has persistent air leak , for surgery in am
--- NOTE | 2018-02-04 12:25 | P.PNNS ---
Subjective Interval history: Pt awake and alert. States she was having a lot of left rib pain last night. Comfortable but painful currently. No headaches. No n/v. <Primo Stockton - Last Filed: 02/04/18 12:19> Physical Exam Vital signs: Vital Signs 02/03/18 16:00 02/03/18 20:00 02/03/18 20:13 Temperature 98.3 F 97.8 F Pulse Rate 66 72 Respiratory Rate 20 20 Blood Pressure 177/75 H 147/65 H Pulse Oximetry 97 94 L 97 02/03/18 21:10 02/03/18 21:35 02/03/18 23:58 Temperature Pulse Rate 65 Respiratory Rate 20 16 Blood Pressure Pulse Oximetry 02/04/18 00:00 02/04/18 04:00 02/04/18 07:53 Temperature 97.6 F 97.6 F Pulse Rate 70 72 Respiratory Rate 18 18 Blood Pressure 128/59 L 133/63 Pulse Oximetry 96 97 97 02/04/18 08:00 Temperature 97.8 F Pulse Rate 68 Respiratory Rate 18 Blood Pressure 144/66 H Pulse Oximetry 97 Intake & Output 02/03/18 02/04/18 02/04/18 18:59 06:59 18:59 Intake Total 1700 / 1700 480 / 480 Output Total 70 / 70 1070 / 1070 Balance 1630 / 1630 -590 / -590 Weight 57.9 kg Intake: IV 100 / 100 Ancef Inj 2,000 MG In NS Inj 80 100 / 100 ML @ 200 mls/hr IV.SIG ACCOUNTS RECEIVABLE CLERK [facility] Rx#:[id number] Oral 400 / 400 480 / 480 Anesthesia Amount 1200 / 1200 Output: Urine 1000 / 1000 Estimated Blood Loss 10 10 Chest Tube Drainage 60 / 60 70 / 70 Left 60 / 60 70 / 70 Other: # Voids 1 Date of Last Bowel Movement 02/02/18 02/02/18 - Constitutional no acute distress - Routine HEENT Exam Head: Absent: normocephalic (Left posterior SOC incision clean and dry. No signs of infection.) Eye: Present: PERRL (At times left pupil a little bigger than right but within 1mm.). Absent: conjunctival icterus ENT: Present: oropharynx clear - Routine Neck Exam Present: trachea midline - Routine Respiratory Exam Present: CTA bilaterally. Absent: respiratory distress, rhonchi, wheezes Comments: CT remains in place on Left. - Routine Cardiovascular Exam Present: RRR, S1, S2. Absent: murmur - Routine Abdominal Exam Present: soft, normoactive bowel sounds. Absent: distended - Routine Skin Exam Absent: cyanosis, erythema Comments: SOC incision clean and dry without signs of infection. - Routine Neurological Exam Present: alert, oriented X3, moving all extremities, normal speech. Absent: sensory deficit, motor deficit, altered mental status - Detailed Neurological Exam: Coma Scale Eye Opening: Spontaneous Verbal Response: Oriented Motor Response: Obey commands [place] Coma Scale Total: 15 - Routine Psychiatric Exam Present: normal affect, cooperative, good insight, good judgment, anxious (mild. ). Absent: agitated - Urinary Catheter Management 1300 Cath placed during this visit: yes, but has since been removed by the nurse Reason for continuing: Not indwelling catheter Removal date: 01/28/18 Removal time: 10:00 <Primo Stockton - Last Filed: 02/04/18 12:19> Vital signs: Vital Signs 02/04/18 20:00 02/04/18 20:50 02/05/18 00:00 Temperature 98.5 F 98.3 F Pulse Rate 80 80 Respiratory Rate 16 16 Blood Pressure 156/70 H 167/75 H Pulse Oximetry 96 96 97 02/05/18 04:00 02/05/18 08:00 02/05/18 12:00 Temperature 97.8 F 97.6 F 97.8 F Pulse Rate 62 74 76 Respiratory Rate 19 18 22 Blood Pressure 120/59 L 147/73 H 185/86 H Pulse Oximetry 97 94 L 96 02/05/18 16:00 Temperature 97.9 F Pulse Rate 75 Respiratory Rate 18 Blood Pressure 134/63 Pulse Oximetry 94 L Intake & Output 02/04/18 02/05/18 02/05/18 18:59 06:59 18:59 Intake Total 720 / 720 Output Total 110 / 110 10 / 10 Balance -110 / -110 710 / 710 Weight 56.3 kg Intake: Oral 720 / 720 Output: Chest Tube Drainage 110 / 110 10 / 10 Left 110 / 110 10 / 10 Other: # Voids 4 1 Date of Last Bowel Movement 02/02/18 # Bowel Movements 0 - Urinary Catheter Management 1300 Cath placed during this visit: no <Dex Mendoza - Last Filed: 02/05/18 17:48> Assessment and Plan - Assessment (1) History of hysterectomy Code(s): Z90.710 - Acquired absence of both cervix and uterus Status: Acute (2) Neck pain Code(s): M54.2 - Cervicalgia Status: Acute (3) H/O hysterectomy for benign disease Code(s): Z90.710 - Acquired absence of both cervix and uterus Status: Acute (4) Neoplasm of brain causing mass effect on adjacent structures Code(s): D49.6 - Neoplasm of unspecified behavior of brain Status: Acute (5) Lung mass Code(s): R91.8 - Other nonspecific abnormal finding of lung field Status: Acute - Plan 62 yo s/p Left SOC for resection of metastatic lesion on 01/27 -neuro stable -EVD remove 01/30 (without any issues) -Whole brain XRT once incision healed -ok to relax neuro checks to q4 hours and allow quiet time at night -dispo vs downgrade to floor pending chest tube. Pt scheduled for x-ray today. Remove scalp cathleen 2 weeks post op. <Primo Stockton - Last Filed: 02/04/18 12:19> - Assessment (1) Neoplasm of brain causing mass effect on adjacent structures Code(s): D49.6 - Neoplasm of unspecified behavior of brain Status: Acute (2) Lung mass Code(s): R91.8 - Other nonspecific abnormal finding of lung field Status: Acute - Attending Attestation The exam, history, and the medical decision-making described in the above note were completed with the assistance of the mid-level provider. I reviewed and agree with the findings presented. I attest that I had a [id number] encounter with the patient on the same day, and personally performed and documented my assessment and findings in the medical record. <Dex Mendoza - Last Filed: 02/05/18 17:48>
--- NOTE | 2018-02-04 13:59 | P.PNIM ---
Subjective Interval history: Follow up: Left lung mass with numerous brain metastases and Iatrogenic Pneumothorax s/p VATS (02/03/18) with GT and talc pleurodesis performed by Dr. Geoffrey Mendoza. Patient reports feeling, "pretty good, " today. endorses pain at chest tube site current pain medications are helping Physical Exam Vital signs: Vital Signs 02/03/18 16:00 02/03/18 20:00 02/03/18 20:13 Temperature 98.3 F 97.8 F Pulse Rate 66 72 Respiratory Rate 20 20 Blood Pressure 177/75 H 147/65 H Pulse Oximetry 97 94 L 97 02/03/18 21:10 02/03/18 21:35 02/03/18 23:58 Temperature Pulse Rate 65 Respiratory Rate 20 16 Blood Pressure Pulse Oximetry 02/04/18 00:00 02/04/18 04:00 02/04/18 07:53 Temperature 97.6 F 97.6 F Pulse Rate 70 72 Respiratory Rate 18 18 Blood Pressure 128/59 L 133/63 Pulse Oximetry 96 97 97 02/04/18 08:00 02/04/18 12:00 Temperature 97.8 F 97.8 F Pulse Rate 68 78 Respiratory Rate 18 20 Blood Pressure 144/66 H 124/60 Pulse Oximetry 97 96 Intake & Output 02/03/18 02/04/18 02/04/18 18:59 06:59 18:59 Intake Total 1700 / 1700 480 / 480 Output Total 70 / 70 1070 / 1070 Balance 1630 / 1630 -590 / -590 Weight 57.9 kg Intake: IV 100 / 100 Ancef Inj 2,000 MG In NS Inj 80 100 / 100 ML @ 200 mls/hr IV.SIG [facility] [employer] Rx#:[id number] Oral 400 / 400 480 / 480 Anesthesia Amount 1200 / 1200 Output: Urine 1000 / 1000 Estimated Blood Loss Chest Tube Drainage 60 / 60 70 / 70 Left 60 / 60 70 / 70 Other: # Voids 1 Date of Last Bowel Movement 02/02/18 02/02/18 Narrative: General: NAD, AAOx3 HEENT: incision well approximated, cathleen, without drainage Chest: CTA, left chest tube in place Cardiac: Regular Abd: +BS, soft ND/NT Ext: No edema Neuro: 5/5 strength in the upper and lower extremities - Urinary Catheter Management 1300 Cath placed during this visit: yes, but has since been removed by the nurse Reason for continuing: Not indwelling catheter Removal date: 01/28/18 Removal time: 10:00 Results - Labs CBC & Chem 7: 02/02/18 17:42 02/04/18 03:51 Laboratory Results - last 24 hr 02/03/18 02/04/18 07:20 03:51 Sodium 134 L Potassium 4.2 Chloride 95 L Carbon Dioxide 28.4 Anion Gap 11 BUN 13 Creatinine 0.45 L Estimated GFR Greater than 89 Random Glucose 125 H Calcium 9.3 MTS Gel Crossmatch See Detail - Imaging Impressions Chest X-Ray 02/04/18 09:26 CONCLUSION: No evidence of pneumothorax Left upper lobe mass; unchanged. Subsegmental airspace disease right lung base Assessment and Plan - Assessment (1) Lung mass Code(s): R91.8 - Other nonspecific abnormal finding of lung field Status: Acute Plan: 62-year-old female with probable new diagnosis of metastatic lung cancer. Patient was transferred from [place] for neurosurgery consultation. She had an outpatient MRI of the brain that showed multiple brain lesions. CT imaging of the chest abdomen and pelvis showed a 5.5 x 5 cm mass involving the left upper lobe lung MRI brain performed at this facility confirmed presence of innumerable brain metastases clustered in her cerebellum but also present in the supratentorial brain associated with extensive vasogenic edema. No definite evidence of metastatic disease involving the abdomen or pelvis. Left lung mass with numerous brain metastases - comgmt with Medical Oncology, Surgical Oncology, and Neurosurgery - MRI brain (01/16/18) 1. Too numerous to count enhancing mildly hemorrhagic metastatic deposits throughout the brain most numerous in the posterior fossa with some compression of the fourth ventricle. 2. Carcinomatous meningitis would be consideration 3. Lung mass would be amenable to pancreas biopsy for rapid diagnosis. 4. There is no significant hydronephrosis as yet. 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 The patient has elected to undergo treatment at [facility] facility [place] [facility] [place] Celexa, xanax - Thrush: nystatin swish and swallow 5 mL p.o. every 8 hours. - Case d/w Dr. Zamorano (01/20) - Pt/family met with Dr. Mendoza 01/20 who has recommended surgical debulking followed by radiation - Pt/family discussed options and predicted survival with Dr. Zamorano 01/20. Per Dr. Zamorano's note: individuals with her degree of intracranial disease burden have atypical median survival measured between 6-8 months that is with aggressive therapeutic interventions. I did explain that the degree to which we control her intracranial metastatic disease burden will be the major drive her of her survival and overall predicted survival. 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 Mendoza. - Ventriculostomy removed on 01/30/18 - Pt currently on Decadron 4mg po BID, management per nsg. Iatrogenic Pneumothorax - chest tube placed by IR (01/20/18) - Chest X-Ray 01/21/18: Uncomplicated chest tube placement without pneumothorax. - Pt accidentally pulled out chest tube (01/22/18) - repeat CXR (01/23) --> slight enlargement of left pneumothorax - Case d/w Radiology (01/23). - 01/23 new left chest tube placed by IR - 01/24 CXR 12:[address] without obvious pneumothorax. Subcutaneous air is again seen. - repeat CXR 01/24 2136 Left apical pneumothorax 1.8 cm - CXR 01/26. questionable tiny ptx. - Pt underwent VATS (02/03/18) with GT and talc pleurodesis performed by Dr. Geoffrey Mendoza. - left chest tube in place - transfer out of ICU when bed available. HTN - BP was elevated pt says not really any pain - Procardia 30mg bid started on 01/31, BP improving with meds - Monitor closely and titrate as needed. - prn meds ordered. - Attending Attestation Patient examined. Assessment and plan formulated with Michelle Mercado PA-C. I agree with the above.
[2018-02-04] MEDS: Morphine Inj 4 MG/ML Vial IV.PUSH PRN ×2 (14:17→19:05)
[2018-02-05] MEDS: Senna/Docusate Sodium 8.6/50 MG Tablet PO SCH ×2 (08:21→20:35)
[2018-02-05] MEDS: Nystatin Liq 500,000 UNIT/5 ML UDC SWISH-SWAL SCH ×4 (08:21→20:34)
[2018-02-05] MEDS: levETIRAcetam 500 MG Tablet PO SCH ×2 (08:21→20:35)
[2018-02-05] MEDS: Metoprolol Tartrate 25 MG Tablet PO SCH ×2 (08:22→20:35)
--- NOTE | 2018-02-05 08:45 | P.PNIM ---
Subjective Interval history: pt had some mild pain at chest tube site Physical Exam Vital signs: Vital Signs 02/04/18 12:00 02/04/18 16:00 02/04/18 20:00 Temperature 97.8 F 97.8 F 98.5 F Pulse Rate 78 78 80 Respiratory Rate 20 20 16 Blood Pressure 124/60 153/78 H 156/70 H Pulse Oximetry 96 96 96 02/04/18 20:50 02/05/18 00:00 02/05/18 04:00 Temperature 98.3 F 97.8 F Pulse Rate 80 62 Respiratory Rate 16 19 Blood Pressure 167/75 H 120/59 L Pulse Oximetry 96 97 97 Intake & Output 02/04/18 02/05/18 02/05/18 18:59 06:59 18:59 Intake Total 720 / 720 Output Total 110 / 110 10 10 Balance -110 / -110 710 / 710 Weight 56.3 kg Intake: Oral 720 / 720 Output: Chest Tube Drainage 110 / 110 10 10 Left 110 / 110 10 / 10 Other: # Voids 4 1 Date of Last Bowel Movement 02/02/18 # Bowel Movements 0 heart reg lung left chest tube. no air leak with cough abd s/nt ext no edema - Urinary Catheter Management 1300 Cath placed during this visit: yes, but has since been removed by the nurse Reason for continuing: Not indwelling catheter Removal date: 01/28/18 Removal time: 10:00 Results - Labs CBC & Chem 7: 02/02/18 17:42 02/04/18 03:51 Laboratory Results - last 24 hr 02/03/18 07:20 MTS Gel Crossmatch See Detail Assessment and Plan - Assessment (1) Lung mass Code(s): R91.8 - Other nonspecific abnormal finding of lung field Status: Acute Plan: 62-year-old female with probable new diagnosis of metastatic lung cancer. Patient was transferred from [place] for neurosurgery consultation. She had an outpatient MRI of the brain that showed multiple brain lesions. CT imaging of the chest abdomen and pelvis showed a 5.5 x 5 cm mass involving the left upper lobe lung MRI brain performed at this facility confirmed presence of innumerable brain metastases clustered in her cerebellum but also present in the supratentorial brain associated with extensive vasogenic edema. No definite evidence of metastatic disease involving the abdomen or pelvis. Left lung mass with numerous brain metastases - comgmt with Medical Oncology, Surgical Oncology, and Neurosurgery - MRI brain (01/16/18) 1. Too numerous to count enhancing mildly hemorrhagic metastatic deposits throughout the brain most numerous in the posterior fossa with some compression of the fourth ventricle. 2. Carcinomatous meningitis would be consideration 3. Lung mass would be amenable to pancreas biopsy for rapid diagnosis. 4. There is no significant hydronephrosis as yet. 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 The patient has elected to undergo treatment at [facility] [place] [facility] [place], [place] - Thrush: nystatin swish and swallow 5 mL p.o. every 8 hours. - Case d/w Dr. Zamorano (01/20) - Pt/family met with Dr. Mendoza 01/20 who has recommended surgical debulking followed by radiation - Pt/family discussed options and predicted survival with Dr. Zamorano 01/20. Per Dr. Zamorano's note: individuals with her degree of intracranial disease burden have atypical median survival measured between 6-8 months that is with aggressive therapeutic interventions. I did explain that the degree to which we control her intracranial metastatic disease burden will be the major drive her of her survival and overall predicted survival. 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 Mendoza. - Ventriculostomy removed on 01/30/18 - Pt currently on Decadron 4mg po BID, management per ns. Iatrogenic Pneumothorax - chest tube placed by IR (01/20/18) - Chest X-Ray 01/21/18: Uncomplicated chest tube placement without pneumothorax. - Pt accidentally pulled out chest tube (01/22/18) - repeat CXR (01/23) --> slight enlargement of left pneumothorax - Case d/w Radiology (01/23). - 01/23 new left chest tube placed by IR - 01/24 CXR 12:[address] without obvious pneumothorax. Subcutaneous air is again seen. - repeat CXR 01/24 2136 Left apical pneumothorax 1.8 cm - CXR 01/26. questionable tiny ptx. - Pt underwent VATS (02/03/18) with GT and talc pleurodesis performed by Dr. Geoffrey Mendoza. - left chest tube in place. hopefully clamped tube today and pull if no ptx on cxr. - transfer out of ICU when bed available. HTN - BP was elevated pt says not really any pain - Procardia 30mg bid started on 01/31, BP improving with meds - Monitor closely and titrate as needed. - prn meds ordered.
[2018-02-05] MEDS: Morphine Inj 4 MG/ML Vial IV.PUSH PRN ×2 (12:19→23:50)
[2018-02-05] MEDS: ALPRAZolam 0.5 MG Tablet PO PRN (12:45)
--- NOTE | 2018-02-05 13:43 | P.PNCV ---
- Note Subjective/Hospital Course: 01/30 Clinically stable. Chest tube continues to have persistent intermittent air leak with Valsalva Continue chest tube to suction for now. We will continue to watch over the next 24-48 hours. If air leak persists may need thoracoscopic exploration with possible pleurodesis We will continue to follow with you 02/02 pt still has intermittent air leak pt now scheduled for left VATS, pleurodesis in am 02/03 surgery: PREOPERATIVE DIAGNOSES 1. Left Upper Lobe Metastatic Lung Cancer 2. Bronchopleural Fistula 3. Brain Metastasis - s/p craniotomy POSTOPERATIVE DIAGNOSES Same SURGICAL PROCEDURE 1. Left Video-Assisted Thoracoscopic Surgery (VATS). 2. Lysis of Adhesions 3. Mechanical and Talc Pleurodesis. 4. Intercostal Nerve Block 02/04 CXR noted , no air leak chest tube drained 60cc/ [address] to water seal 02/05 chest tube drained 120cc/ 24 hrs no air leak check CXR in am , if stable then dc chest tube Objective: Vital Signs - 24 hr 02/04/18 16:00 02/04/18 20:00 02/04/18 20:50 Temperature 97.8 F 98.5 F Pulse Rate 78 80 Respiratory Rate 20 16 Blood Pressure 153/78 H 156/70 H Pulse Oximetry 96 96 96 02/05/18 00:00 02/05/18 04:00 02/05/18 08:00 Temperature 98.3 F 97.8 F 97.6 F Pulse Rate 80 62 74 Respiratory Rate 16 19 18 Blood Pressure 167/75 H 120/59 L 147/73 H Pulse Oximetry 97 97 94 L 02/05/18 12:00 Temperature 97.8 F Pulse Rate 76 Respiratory Rate 22 Blood Pressure 185/86 H Pulse Oximetry 96 Labs: Laboratory Results - last 12 hr 02/03/18 07:20 MTS Gel Crossmatch See Detail Result Diagrams: 02/02/18 17:42 02/04/18 03:51 - Plan (1) S/P thoracotomy Plan: IS, acapella pulm toileting OOB ambulate f/u CXR in am wean 02 as tolerated eval for chest tube removal in am (5) Pneumothorax after biopsy Plan: still has persistent air leak , for surgery in am
--- NOTE | 2018-02-06 06:59 | XR ---
EXAM DATE: 02/06/2018 6:55 AM EDT AGE/SEX: 62 years / Female INDICATIONS: Short of breath, pain left chest, evaluate left pneumothorax and chest tube CLINICAL DATA: This is the patient's subsequent encounter. Patient reports that signs and symptoms h ave been present for 1 month and indicates a pain score of 4/10. MEDICAL/SURGICAL HISTORY: Metastatic disease. Chest tube, left. Craniotomy. COMPARISON: [facility] [place], CHEST 1V SINGLE AP, 02/04/2018. . FINDINGS: Stable left apical chest tube without significant pneumothorax. Persistent left upper lobe masslike o pacity. Cardiomediastinal contours are within normal limits. Remainder of the exam is unchanged. CONCLUSION: 1. Stable left apical chest tube without significant pneumothorax. 2. Stable masslike left upper lobe opacity. Electronically signed by: Guille John MD 02/06/2018 6:57 AM EDT
[2018-02-06] MEDS: Nystatin Liq 500,000 UNIT/5 ML UDC SWISH-SWAL SCH ×4 (08:23→21:36)
[2018-02-06] MEDS: Senna/Docusate Sodium 8.6/50 MG Tablet PO SCH ×2 (08:24→21:37)
[2018-02-06] MEDS: levETIRAcetam 500 MG Tablet PO SCH ×2 (08:24→21:37)
[2018-02-06] MEDS: Metoprolol Tartrate 25 MG Tablet PO SCH ×2 (08:25→21:36)
--- NOTE | 2018-02-06 15:23 | P.PNCV ---
- Note Subjective/Hospital Course: 01/30 Clinically stable. Chest tube continues to have persistent intermittent air leak with Valsalva Continue chest tube to suction for now. We will continue to watch over the next 24-48 hours. If air leak persists may need thoracoscopic exploration with possible pleurodesis We will continue to follow with you 02/02 pt still has intermittent air leak pt now scheduled for left VATS, pleurodesis in am 02/03 surgery: PREOPERATIVE DIAGNOSES 1. Left Upper Lobe Metastatic Lung Cancer 2. Bronchopleural Fistula 3. Brain Metastasis - s/p craniotomy POSTOPERATIVE DIAGNOSES Same SURGICAL PROCEDURE 1. Left Video-Assisted Thoracoscopic Surgery (VATS). 2. Lysis of Adhesions 3. Mechanical and Talc Pleurodesis. 4. Intercostal Nerve Block 02/04 CXR noted , no air leak chest tube drained 60cc/ [address] to water seal 02/05 chest tube drained 120cc/ 24 hrs no air leak check CXR in am , if stable then dc chest tube 02/06 Chest tube removed without difficulty check CXR in am if stable then will see prn Objective: Vital Signs - 24 hr 02/05/18 16:00 02/05/18 20:00 02/06/18 00:00 Temperature 97.9 F 98.3 F 97.6 F Pulse Rate 75 78 68 Respiratory Rate 18 21 20 Blood Pressure 134/63 150/70 H 147/83 H Pulse Oximetry 94 L 95 95 02/06/18 04:00 02/06/18 08:15 02/06/18 08:16 Temperature 97.6 F 98.0 F Pulse Rate 77 78 79 Respiratory Rate 20 20 Blood Pressure 166/77 H 137/56 L Pulse Oximetry 93 L 94 L 02/06/18 11:09 02/06/18 12:05 02/06/18 12:13 Temperature 97.8 F Pulse Rate 74 78 67 Respiratory Rate 20 20 Blood Pressure 123/57 L 123/62 Pulse Oximetry 94 L 02/06/18 13:15 Temperature 97.5 F L Pulse Rate 74 Respiratory Rate 20 Blood Pressure 131/63 Pulse Oximetry 95 GENERAL: SKIN: Warm and dry. HEAD: Normocephalic. EYES: No scleral icterus. No injection or drainage. NECK: Supple, trachea midline. No JVD or lymphadenopathy. CARDIOVASCULAR: Regular rate and rhythm without murmurs, gallops, or rubs. RESPIRATORY: Breath sounds equal bilaterally. No accessory muscle use. chest tube removed without difficulty GASTROINTESTINAL: Abdomen soft, non-tender, nondistended. MUSCULOSKELETAL: No cyanosis, or edema. BACK: Nontender without obvious deformity. No CVA tenderness. Result Diagrams: 02/02/18 17:42 02/04/18 03:51 - Plan (1) S/P thoracotomy Plan: IS, acapella pulm toileting OOB ambulate f/u CXR in am wean 02 as tolerated chest tube removed ok to remove dressing and shower in 48hrs (5) Pneumothorax after biopsy Plan: still has persistent air leak , for surgery in am
--- NOTE | 2018-02-06 16:02 | P.PNIM ---
Subjective Interval history: No new complaints. Physical Exam Vital signs: 02/06/18 12:05 02/06/18 12:13 02/06/18 13:15 Temperature 97.8 F 97.5 F L Pulse Rate 78 67 74 Respiratory Rate 20 20 Blood Pressure 123/62 131/63 Pulse Oximetry 94 L 95 Narrative: General: NAD, AAOx3 HEENT: incision well approximated, cathleen, without drainage Chest: CTA Cardiac: Regular Abd: +BS, soft ND/NT Ext: No edema Neuro: 5/5 strength in the upper and lower extremities - Urinary Catheter Management 1300 Cath placed during this visit: yes, but has since been removed by the nurse Reason for continuing: Not indwelling catheter Removal date: 01/28/18 Removal time: 10:00 Results - Labs CBC & Chem 7: 02/02/18 17:42 02/04/18 03:51 - Imaging Abdomen/Pelvis CT 01/16/18 00:00 CONCLUSION: Colonic diverticulosis and left adrenal nodule may be adenoma, however metastatic disease is difficult to exclude. Chest CT 01/16/18 00:00 CONCLUSION: 1. Left upper lobe mass almost certainly malignant with metastatic adenopathy within the mediastinum and left hilum. 2. Groundglass opacities right upper lobe and left lower lobe could be followed with repeat noncontrast chest CT in 6 months after appropriate clinical therapy. There are also tiny nodules in both lungs versus tortuous blood vessels. 3. Left adrenal mass could be an adenoma versus metastatic disease. Head MRI 01/16/18 00:00 CONCLUSION: 1. Too numerous to count enhancing mildly hemorrhagic metastatic deposits throughout the brain most numerous in the posterior fossa with some compression of the fourth ventricle. 2. Carcinomatous meningitis would be consideration 3. Lung mass would be amenable to pancreas biopsy for rapid diagnosis. 4. There is no significant hydronephrosis as yet. Lung Biopsy CT 01/19/18 00:00 CONCLUSION: 1. Uncomplicated CT guided biopsy. Chest X-Ray 01/19/18 16:16 CONCLUSION: Negative for pneumothorax Chest X-Ray 01/19/18 18:15 CONCLUSION: Development of a mild left pneumothorax. Chest Tube Insertion 01/20/18 00:00 CONCLUSION: 1. Uncomplicated chest tube placement as above. Chest X-Ray 01/20/18 06:00 CONCLUSION: Small to moderate left pneumothorax is slightly larger than yesterday. Chest X-Ray 01/21/18 09:22 CONCLUSION: Uncomplicated chest tube placement without pneumothorax. Chest X-Ray 01/22/18 11:03 CONCLUSION: Left-sided pneumothorax measuring 2.6 cm at the left apex. Chest X-Ray 01/22/18 16:11 CONCLUSION: No change in the left-sided pneumothorax with 2.6 cm of separation. Chest X-Ray 01/23/18 06:00 CONCLUSION: Slight increase in size of the left pneumothorax. Chest Tube Insertion 01/23/18 11:03 CONCLUSION: Uncomplicated fluoroscopic guided left chest tube placement as above. Chest X-Ray 01/23/18 12:41 CONCLUSION: Interval chest tube placement without obvious pneumothorax. Chest X-Ray 01/24/18 12:41 CONCLUSION: Chest tube in place without obvious pneumothorax. Subcutaneous air is again seen. Chest X-Ray 01/24/18 21:36 CONCLUSION: Left apical pneumothorax. Chest X-Ray 01/26/18 06:00 CONCLUSION: 1. Mild asymmetric lucency at the left apex without a pleural line visualized. This appearance could indicate a small residual pneumothorax. Consider follow- up with expiratory technique. 2. Stable left chest wall subcutaneous emphysema. Chest X-Ray 01/27/18 00:00 CONCLUSION: 1. Left chest tube remains in place. 2. Small residual left apical pneumothorax with 9 mm of separation. Chest X-Ray 01/28/18 00:00 CONCLUSION: No pneumothorax. Head CT 01/28/18 08:00 CONCLUSION: 1. Postoperative changes are noted. . Chest X-Ray 01/28/18 14:00 CONCLUSION: Redevelopment of small left apical pneumothorax with left chest tube in good position. Chest X-Ray 01/29/18 06:00 CONCLUSION: 1. Left chest tube is present and there is a suspected small left apical pneumothorax, not significantly changed from the prior study. 2. Left upper lobe lung mass remains visualized. Chest X-Ray 02/02/18 06:00 CONCLUSION: No evidence of significant left-sided pneumothorax. Left chest tube remains in stable position. Left upper lobe pulmonary mass; unchanged. Chest X-Ray 02/03/18 09:26 CONCLUSION: Left chest tube in good position without pneumothorax Persistent area of parenchymal opacity left upper lobe. Chest X-Ray 02/04/18 09:26 CONCLUSION: No evidence of pneumothorax Left upper lobe mass; unchanged. Subsegmental airspace disease right lung base Chest X-Ray 02/06/18 06:00 CONCLUSION: 1. Stable left apical chest tube without significant pneumothorax. 2. Stable masslike left upper lobe opacity. Assessment and Plan - Assessment (1) Lung mass Code(s): R91.8 - Other nonspecific abnormal finding of lung field Status: Acute Plan: 62-year-old female with probable new diagnosis of metastatic lung cancer. Patient was transferred from [place] for neurosurgery consultation. She had an outpatient MRI of the brain that showed multiple brain lesions. CT imaging of the chest abdomen and pelvis showed a 5.5 x 5 cm mass involving the left upper lobe lung MRI brain performed at this facility confirmed presence of innumerable brain metastases clustered in her cerebellum but also present in the supratentorial brain associated with extensive vasogenic edema. No definite evidence of metastatic disease involving the abdomen or pelvis. Left lung mass with numerous brain metastases - comgmt with Medical Oncology, Surgical Oncology, and Neurosurgery - MRI brain (01/16/18) 1. Too numerous to count enhancing mildly hemorrhagic metastatic deposits throughout the brain most numerous in the posterior fossa with some compression of the fourth ventricle. 2. Carcinomatous meningitis would be consideration 3. Lung mass would be amenable to pancreas biopsy for rapid diagnosis. 4. There is no significant hydronephrosis as yet. 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 The patient has elected to undergo treatment at [facility] facility - Roddy Leos per [facility] [place] - shasha Vigil - Thrush: nystatin swish and swallow 5 mL p.o. every 8 hours. - Case d/w Dr. Zamorano (01/20) - Pt/family met with Dr. Mendoza 01/20 who has recommended surgical debulking followed by radiation - Pt/family discussed options and predicted survival with Dr. Zamorano 01/20. Per Dr. Zamorano's note: individuals with her degree of intracranial disease burden have atypical median survival measured between 6-8 months that is with aggressive therapeutic interventions. I did explain that the degree to which we control her intracranial metastatic disease burden will be the major drive her of her survival and overall predicted survival. 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 Mendoza. - Ventriculostomy removed on 01/30/18 - Pt currently on Decadron 4mg po BID, management per nsg. Iatrogenic Pneumothorax - chest tube placed by IR (01/20/18) - Chest X-Ray 01/21/18: Uncomplicated chest tube placement without pneumothorax. - Pt accidentally pulled out chest tube (01/22/18) - repeat CXR (01/23) --> slight enlargement of left pneumothorax - Case d/w Radiology (01/23). - 01/23 new left chest tube placed by IR - 01/24 CXR 12:[address] without obvious pneumothorax. Subcutaneous air is again seen. - repeat CXR 01/24 2136 Left apical pneumothorax 1.8 cm - CXR 01/26. questionable tiny ptx. - Pt underwent VATS (02/03/18) with GT and talc pleurodesis performed by Dr. Geoffrey Mendoza. - chest tube from VATS removed (02/06) - repeat CXR 02/07 HTN - BP was elevated pt says not really any pain - Procardia 30mg bid started on 01/31, BP improving with meds - Monitor closely and titrate as needed. - prn meds ordered.
[2018-02-06] MEDS: ALPRAZolam 0.5 MG Tablet PO PRN (17:33)
--- NOTE | 2018-02-06 18:07 | P.DCO ---
- Diagnosis (1) Secondary malignant neoplasm of cerebellum Status: Acute (2) Lung cancer metastatic to brain Status: Acute - Physical Therapy Order: Evaluate and treat - Home Health Nursing Order: Medical education, Signs/symptoms of disease process, Medication education-adverse effect, Nursing assessment with vital signs - Case Management Consult No - Certification I have seen patient Milka Man on 02/06/18. My clinical findings support the need for the requested home health care services because: Limited mobility due to disease progression, Deconditioned with increased weakness, Limited ability to care for self I certify that my clinical findings support that this patient is homebound because: Impaired cognitive ability/safety, Unsteady gait/balance
--- NOTE | 2018-02-07 06:02 | XR ---
EXAM DATE: 02/07/2018 5:33 AM EDT AGE/SEX: 62 years / Female INDICATIONS: Chest tube removal. Rule out pneumothorax. CLINICAL DATA: This is the patient's subsequent encounter. Patient reports that signs and symptoms h ave been present for 1 month and indicates a pain score of 4/10. MEDICAL/SURGICAL HISTORY: . Metastatic disease. . Chest tube, left. Craniotomy. [place] [facility] [place]. . FINDINGS: Interval removal of left-sided chest tube without significant pneumothorax. Redemonstration of left a pical mass with interval development of discoid airspace disease in the right lower lung zone. Cardio megaly mediastinal contours are stable. Remainder of exam is unchanged. CONCLUSION: 1. No significant pneumothorax following chest tube removal. 2. Stable left apical mass. 3. New discoid atelectasis in the right lower lung zone. Electronically signed by: Guille John MD 02/07/2018 6:01 AM EDT
[2018-02-07] MEDS: Metoprolol Tartrate 25 MG Tablet PO SCH ×2 (08:43→21:14)
[2018-02-07] MEDS: Nystatin Liq 500,000 UNIT/5 ML UDC SWISH-SWAL SCH ×4 (08:43→21:14)
[2018-02-07] MEDS: levETIRAcetam 500 MG Tablet PO SCH ×2 (08:43→21:13)
[2018-02-07] MEDS: Senna/Docusate Sodium 8.6/50 MG Tablet PO SCH ×2 (08:46→21:13)
[2018-02-07] MEDS: ALPRAZolam 0.5 MG Tablet PO PRN ×3 (10:31→22:49)
--- NOTE | 2018-02-07 11:16 | P.DS ---
<Michelle Mercado W - Last Filed: 02/08/18 15:34> Date of admission: 01/15/18 22:09 Primary care physician: PROVIDER NON STAFF Attending physician on discharge: Silver Agosto Anticipated date of discharge: 02/08/18 Brief History from admission: 62-year-old female who has had no significant past medical history until she was recently diagnosed with multiple posterior fossa masses consistent with brain metastasis on outpatient MRI Saturday 01/13. She states she has been having pain in neck and occipital region since the second week of November. She initially attributed symptoms to sinusitis and completed a course of antibiotics. She has also had chiropractic adjustments. Over the last 2 weeks she had worsening headache that she describes as "excruciating" throbbing of anterior and posterior head. It is worse with cough, upright position, and awakens her from sleep. Unremitting with motrin. She has had nausea, vomiting, and poor po intake. Lost 12 pounds over the last 2 weeks, felt "off balance" today. No seizures, focal weakness, visual changes/diplopia. Her primary was arranging for outpatient workup for primary. Today she presented to the emergency department at [facility] due to intractable headache, nausea, vomiting. CT brain demonstrated hyperdense lesions L cerebellum ( largest 18 mm x 18 mm, another 5mm) with surrounding edema. There was 5 mm lesion right cerebellum with moderate hydrocephalus. ED physician discussed with information coder neurosurgeon and then bulk tank driver was consulted for admission. CXR demonstrated L lung mass. Patient has had a dry cough, denies chest pain or hemoptysis, +dyspnea with climbing stairs. Her daughter is at bedside and states that earlier this year she had a negative screening colonoscopy, negative mammogram. She had seen a blasting coal miner for skin cancer screening and had lesions removed from her left shoulder that showed benign pathology. She is a former smoker with extensive family history of malignancy (daughter melanoma, 2 brothers of lung cancer in their 50s, mother colon cancer age 65). Hysterectomy with BSO in 1991 for "precancerous condition". She has been on hormone replacement w/ estradiol. DS: Diagnosis - Discharge Diagnosis (1) Secondary malignant neoplasm of cerebellum Status: Acute (2) Lung cancer metastatic to brain Status: Acute (3) Lung mass Status: Acute DS: Medications - Discharge Medications Prescriptions: alprazolam [Xanax] 0.5 mg PO Q6H PRN #60 tab PRN Reason: Anxiety hydrocodone-acetaminophen 1 - 2 tab PO Q4H PRN #100 tab PRN Reason: Pain metoprolol tartrate 25 mg PO BID 30 Days #60 tab nifedipine 30 mg PO BID 30 Days #60 tab pantoprazole 40 mg PO DAILY 30 Days #30 tab DS: Summary Hospital Course: 62-year-old female with probable new diagnosis of metastatic lung cancer. Patient was transferred from [place] for neurosurgery consultation. She had an outpatient MRI of the brain that showed multiple brain lesions. CT imaging of the chest abdomen and pelvis showed a 5.5 x 5 cm mass involving the left upper lobe lung MRI brain performed at this facility confirmed presence of innumerable brain metastases clustered in her cerebellum but also present in the supratentorial brain associated with extensive vasogenic edema. No definite evidence of metastatic disease involving the abdomen or pelvis. Left lung mass with numerous brain metastases - comgmt with Medical Oncology, Surgical Oncology, and Neurosurgery - MRI brain (01/16/18) 1. Too numerous to count enhancing mildly hemorrhagic metastatic deposits throughout the brain most numerous in the posterior fossa with some compression of the fourth ventricle. 2. Carcinomatous meningitis would be consideration 3. Lung mass would be amenable to pancreas biopsy for rapid diagnosis. 4. There is no significant hydronephrosis as yet. 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 The patient has elected to undergo treatment at [facility] facility - Roddy Leos per [facility] [place] - [place]exedwin xanax - Thrush: nystatin swish and swallow 5 mL p.o. every 8 hours. - Case d/w Dr. Zamorano (01/20) - Pt/family met with Dr. Mendoza 01/20 who has recommended surgical debulking followed by radiation - Pt/family discussed options and predicted survival with Dr. Zamorano 01/20. Per Dr. Zamorano's note: individuals with her degree of intracranial disease burden have atypical median survival measured between 6-8 months that is with aggressive therapeutic interventions. I did explain that the degree to which we control her intracranial metastatic disease burden will be the major drive her of her survival and overall predicted survival. 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 Mendoza. - Ventriculostomy removed on 01/30/18 - Pt currently on Decadron 4mg po BID, management per nsg- recommend continuing current dose at [facility] and neurosurgery will taper outpatient Iatrogenic Pneumothorax - chest tube placed by IR (01/20/18) - Chest X-Ray 01/21/18: Uncomplicated chest tube placement without pneumothorax. - Pt accidentally pulled out chest tube (01/22/18) - repeat CXR (01/23) --> slight enlargement of left pneumothorax - Case d/w Radiology (01/23). - 01/23 new left chest tube placed by IR - 01/24 CXR 12:[address] without obvious pneumothorax. Subcutaneous air is again seen. - repeat CXR 01/24 2136 Left apical pneumothorax 1.8 cm - CXR 01/26. questionable tiny ptx. - Pt underwent VATS (02/03/18) with GT and talc pleurodesis performed by Dr. Geoffrey Mendoza. - chest tube from VATS removed (02/06) - repeat CXR 02/07/18 1. No significant pneumothorax following chest tube removal. 2. Stable left apical mass. 3. New discoid atelectasis in the right lower lung zone. HTN - BP was elevated - Procardia 30mg bid started on 01/31 and metoprolol 25 mg Po BID - BP improving with meds - Monitor closely and titrate as needed. - prn meds ordered - Time Spent with Patient Total time spent providing and/or coordinating discharge services: Greater than 30 minutes - Quality: VTE Deep Vein Thrombosis/Pulmonary Embolism Present on Admission: No Exam Vital signs: Vital Signs 02/06/18 12:05 02/06/18 12:13 02/06/18 13:15 Temperature 97.8 F 97.5 F L Pulse Rate 78 67 74 Respiratory Rate 20 20 Blood Pressure 123/62 131/63 Pulse Oximetry 94 L 95 02/06/18 16:16 02/06/18 19:01 02/06/18 20:00 Temperature 98.0 F 98 F Pulse Rate 76 81 Respiratory Rate 18 18 18 Blood Pressure 137/63 137/70 Pulse Oximetry 91 L 94 L 02/07/18 00:00 02/07/18 04:00 02/07/18 07:45 Temperature 97.2 F L 97.3 F L 98 F Pulse Rate 75 68 72 Respiratory Rate 18 Blood Pressure 135/67 135/61 138/80 Pulse Oximetry 100 95 100 Intake & Output 02/06/18 02/07/18 02/07/18 18:59 06:59 18:59 Intake Total 980 / 980 Balance 980 / 980 Weight 55.1 kg Intake: Oral 980 / 980 Other: # Voids 3 1 Date of Last Bowel Movement 02/06/18 02/07/18 # Bowel Movements 1 Narrative: General: NAD, AAOx3 HEENT: incision well approximated, cathleen, without drainage Chest: CTA Cardiac: Regular Abd: +BS, soft ND/NT Ext: No edema Neuro: 4-5/5 strength in the upper and lower extremities Results Procedures completed during hospitalization: Pt underwent CT guided Bx of left lung mass (01/19/18) Pt underwent left suboccipital craniectomy with resection of cerebellar neoplasms; expansive dural repair with allograft patch graft; left occipital keenan hole for ventriculostomy placement on 01/27/[address] Mendoza. Ventriculostomy removed on 01/30/18 - chest tube placed by IR (01/20/18) - Pt accidentally pulled out chest tube (01/22/18) - 01/23 new left chest tube placed by IR - Pt underwent VATS (02/03/18) with GT and talc pleurodesis performed by Dr. Geoffrey Mendoza. - chest tube from VATS removed (02/06) Completed studies during hospitalization: Pending at discharge 01/27/18 07:35 Surgical [PTH] Routine - Impressions ITS Impressions Abdomen/Pelvis CT 01/16/18 00:00 CONCLUSION: Colonic diverticulosis and left adrenal nodule may be adenoma, however metastatic disease is difficult to exclude. Chest CT 01/16/18 00:00 CONCLUSION: 1. Left upper lobe mass almost certainly malignant with metastatic adenopathy within the mediastinum and left hilum. 2. Groundglass opacities right upper lobe and left lower lobe could be followed with repeat noncontrast chest CT in 6 months after appropriate clinical therapy. There are also tiny nodules in both lungs versus tortuous blood vessels. 3. Left adrenal mass could be an adenoma versus metastatic disease. Head MRI 01/16/18 00:00 CONCLUSION: 1. Too numerous to count enhancing mildly hemorrhagic metastatic deposits throughout the brain most numerous in the posterior fossa with some compression of the fourth ventricle. 2. Carcinomatous meningitis would be consideration 3. Lung mass would be amenable to pancreas biopsy for rapid diagnosis. 4. There is no significant hydronephrosis as yet. Lung Biopsy CT 01/19/18 00:00 CONCLUSION: 1. Uncomplicated CT guided biopsy. Chest Tube Insertion 01/23/18 11:03 CONCLUSION: Uncomplicated fluoroscopic guided left chest tube placement as above. Head CT 01/28/18 08:00 CONCLUSION: 1. Postoperative changes are noted. . Chest X-Ray 02/07/18 06:00 CONCLUSION: 1. No significant pneumothorax following chest tube removal. 2. Stable left apical mass. 3. New discoid atelectasis in the right lower lung zone. <Silver Agosto - Last Filed: 02/28/18 16:01> Date of admission: 01/15/18 22:09 Primary care physician: PROVIDER NON STAFF DS: Diagnosis - Discharge Diagnosis (1) Secondary malignant neoplasm of cerebellum Status: Acute (2) Lung cancer metastatic to brain Status: Acute DS: Summary Hospital Course: Patient examined. Assessment and plan formulated with Michelle Mercado PA-C. I agree with the above. - Time Spent with Patient Total time spent providing and/or coordinating discharge services: Results Completed studies during hospitalization: Pending at discharge 01/27/18 07:35 Surgical [PTH] Routine - Impressions ITS Impressions Abdomen/Pelvis CT 01/16/18 00:00 CONCLUSION: Colonic diverticulosis and left adrenal nodule may be adenoma, however metastatic disease is difficult to exclude. Chest CT 01/16/18 00:00 CONCLUSION: 1. Left upper lobe mass almost certainly malignant with metastatic adenopathy within the mediastinum and left hilum. 2. Groundglass opacities right upper lobe and left lower lobe could be followed with repeat noncontrast chest CT in 6 months after appropriate clinical therapy. There are also tiny nodules in both lungs versus tortuous blood vessels. 3. Left adrenal mass could be an adenoma versus metastatic disease. Head MRI 01/16/18 00:00 CONCLUSION: 1. Too numerous to count enhancing mildly hemorrhagic metastatic deposits throughout the brain most numerous in the posterior fossa with some compression of the fourth ventricle. 2. Carcinomatous meningitis would be consideration 3. Lung mass would be amenable to pancreas biopsy for rapid diagnosis. 4. There is no significant hydronephrosis as yet. Lung Biopsy CT 01/19/18 00:00 CONCLUSION: 1. Uncomplicated CT guided biopsy. Chest Tube Insertion 01/23/18 11:03 CONCLUSION: Uncomplicated fluoroscopic guided left chest tube placement as above. Head CT 01/28/18 08:00 CONCLUSION: 1. Postoperative changes are noted. . Chest X-Ray 02/07/18 06:00 CONCLUSION: 1. No significant pneumothorax following chest tube removal. 2. Stable left apical mass. 3. New discoid atelectasis in the right lower lung zone. Discharge Plan - Discharge Order Discharge Orders: Discharge Order (Routine); Ordered 02/08/18 Ordered By: Michelle Mercado - Discharge Details Anticipated Discharge Date: 02/08/18 - Physicians Team Primary Care Provider: NON STAFF,PROVIDER Attending Provider: Silver Agosto Other Providers: Dex Mendoza MD ; Watson Zamorano MD ; Mark Juárez MD ; Mir Coleman MD ; Geoffrey Mendoza MD ; [facility] - Rxs /Orders / Referrals /Forms Prescriptions: New alprazolam [Xanax] 0.5 mg Tablet 0.5 mg PO Q6H PRN (Reason: Anxiety) Qty: 60 RF: 0 hydrocodone-acetaminophen 5-325 mg Tablet 1 - 2 tab PO Q4H PRN (Reason: Pain) Qty: 100 RF: 0 metoprolol tartrate 25 mg Tablet 25 mg PO BID 30 Days Qty: 60 RF: 0 nifedipine 30 mg Tablet Extended Release 24hr 30 mg PO BID 30 Days Qty: 60 RF: 0 pantoprazole 40 mg Tablet,Delayed Release (Dr/Ec) 40 mg PO DAILY 30 Days Qty: 30 RF: 0 Referrals: Mark Juárez MD [Physician] - See Instructions (follow up in 1 week) Dex Mendoza MD [NEUROSURGERY] - See Instructions (follow up in 1 week) NON STAFF,PROVIDER [Primary Care Provider] - See Instructions (follow up with PCP Dr. Nader Power within 1 week) Watson Zamorano MD [Physician] - See Instructions (follow up in 3 weeks) - Discharge Instructions Patient Printed Instructions: Thoracoscopy (DC), Neck Pain (ED), Acute Neck Pain (ED), Craniotomy for Tumor Resection (DC) Additional Instructions: Incentive spirometry Q1 hr x 10, while awake, also use acapella device hourly whole Chest wall precautions: NO pushing or pulling, ( pt must use chest pillow support chest with all activities and with coughing Daily incision care: ok to shower ( 48hrs after chest tube removed) and then daily, no tub bath. Wash all incisions with liquid dial soap, clean wash cloth to each site, rinse and pat dry. Observe for any signs of infection, such as drainage which is dark yellow, moyer, green or foul smelling. Immediately report to the surgeon any drainage from the chest incision, or legs, and for any abnormal drainage from the chest tube sites. Notify surgeon if any temp > 101.5 degrees F. When specialty dressing removed/ or if you do not have one, continue to shower daily as above, then rinse and pat incision dry and paint with betadine daily x 5 days. Allow steri strips to fall off if you have any. Avoid lotions, creams, salves, oils, etc. for the first month For Dr. Christy patients , please obtain PA & Lat CXR in 2 weeks, results to Dr. Christy ( prescription will be given) ( ) (Tele: [phone]) , F/U appointment: as per [facility] instructions: PCP in 2 weeks, CV surgeon 2 weeks, Office Machine Technician 3-4 weeks For any questions regarding incisions/ dressing / meds / post op care or above Symptoms, Friday 8am-5pm Heart & Vascular Surgery Office ( Dr. Mendoza & Dr. Christy), After Hours / Nights (5pm -8am) Weekends and Holidays Please call [facility] ([facility]) Charge Nurse
--- NOTE | 2018-02-07 11:38 | P.PNIM ---
Subjective Interval history: Patient reports feeling well, happy to have chest tube out looking forward to DC Physical Exam Vital signs: Vital Signs 02/06/18 12:05 02/06/18 12:13 02/06/18 13:15 Temperature 97.8 F 97.5 F L Pulse Rate 78 67 74 Respiratory Rate 20 20 Blood Pressure 123/62 131/63 Pulse Oximetry 94 L 95 02/06/18 16:16 02/06/18 19:01 02/06/18 20:00 Temperature 98.0 F 98 F Pulse Rate 76 81 Respiratory Rate 18 18 18 Blood Pressure 137/63 137/70 Pulse Oximetry 91 L 94 L 02/07/18 00:00 02/07/18 04:00 02/07/18 07:45 Temperature 97.2 F L 97.3 F L 98 F Pulse Rate 75 68 72 Respiratory Rate 18 18 18 Blood Pressure 135/67 135/61 138/80 Pulse Oximetry 100 95 100 Intake & Output 02/06/18 02/07/18 02/07/18 18:59 06:59 18:59 Intake Total 980 / 980 Balance 980 / 980 Weight 55.1 kg Intake: Oral 980 / 980 Other: # Voids 3 1 Date of Last Bowel Movement 02/06/18 02/07/18 # Bowel Movements 1 Narrative: General: NAD, AAOx3 HEENT: incision well approximated, cathleen, without drainage Chest: CTA Cardiac: Regular Abd: +BS, soft ND/NT Ext: No edema Neuro: 5/5 strength in the upper and lower extremities - Urinary Catheter Management 1300 Cath placed during this visit: yes, but has since been removed by the nurse Reason for continuing: Not indwelling catheter Removal date: 01/28/18 Removal time: 10:00 Results - Labs CBC & Chem 7: 02/02/18 17:42 02/04/18 03:51 - Imaging Impressions Chest X-Ray 02/07/18 06:00 CONCLUSION: 1. No significant pneumothorax following chest tube removal. 2. Stable left apical mass. 3. New discoid atelectasis in the right lower lung zone. - Procedures Pt underwent CT guided Bx of left lung mass (01/19/18) Pt underwent left suboccipital craniectomy with resection of cerebellar neoplasms; expansive dural repair with allograft patch graft; left occipital keenan hole for ventriculostomy placement on 01/27/[address] Mendoza. Ventriculostomy removed on 01/30/18 - chest tube placed by IR (01/20/18) - Pt accidentally pulled out chest tube (01/22/18) - 01/23 new left chest tube placed by IR - Pt underwent VATS (02/03/18) with GT and talc pleurodesis performed by Dr. Geoffrey Mendoza. - chest tube from VATS removed (02/06) Assessment and Plan - Assessment (1) Secondary malignant neoplasm of cerebellum Code(s): C79.31 - Secondary malignant neoplasm of brain Status: Acute (2) Lung cancer metastatic to brain Code(s): C34.90 - Malignant neoplasm of unspecified part of unspecified bronchus or lung; C79.31 - Secondary malignant neoplasm of brain Status: Acute (3) Lung mass Code(s): R91.8 - Other nonspecific abnormal finding of lung field Status: Acute Plan: 62-year-old female with probable new diagnosis of metastatic lung cancer. Patient was transferred from [place] for neurosurgery consultation. She had an outpatient MRI of the brain that showed multiple brain lesions. CT imaging of the chest abdomen and pelvis showed a 5.5 x 5 cm mass involving the left upper lobe lung MRI brain performed at this facility confirmed presence of innumerable brain metastases clustered in her cerebellum but also present in the supratentorial brain associated with extensive vasogenic edema. No definite evidence of metastatic disease involving the abdomen or pelvis. Left lung mass with numerous brain metastases - comgmt with Medical Oncology, Surgical Oncology, and Neurosurgery - MRI brain (01/16/18) 1. Too numerous to count enhancing mildly hemorrhagic metastatic deposits throughout the brain most numerous in the posterior fossa with some compression of the fourth ventricle. 2. Carcinomatous meningitis would be consideration 3. Lung mass would be amenable to pancreas biopsy for rapid diagnosis. 4. There is no significant hydronephrosis as yet. 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 The patient has elected to undergo treatment at [facility] facility - Roddy Leos per [facility] [place] - Celexa, xanax - Thrush: nystatin swish and swallow 5 mL p.o. every 8 hours. - Case d/w Dr. Zmaorano (01/20) - Pt/family met with Dr. Mendoza 01/20 who has recommended surgical debulking followed by radiation - Pt/family discussed options and predicted survival with Dr. Zamorano 01/20. Per Dr. Zamorano's note: individuals with her degree of intracranial disease burden have atypical median survival measured between 6-8 months that is with aggressive therapeutic interventions. I did explain that the degree to which we control her intracranial metastatic disease burden will be the major drive her of her survival and overall predicted survival. 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 Mendoza. - Ventriculostomy removed on 01/30/18 - Pt currently on Decadron 4mg po BID, management per nsg- recommend continuing current dose at DC and neurosurgery will taper outpatient Iatrogenic Pneumothorax - chest tube placed by IR (01/20/18) - Chest X-Ray 01/21/18: Uncomplicated chest tube placement without pneumothorax. - Pt accidentally pulled out chest tube (01/22/18) - repeat CXR (01/23) --> slight enlargement of left pneumothorax - Case d/w Radiology (01/23). - 01/23 new left chest tube placed by IR - 01/24 CXR 12:[address] without obvious pneumothorax. Subcutaneous air is again seen. - repeat CXR 01/24 2136 Left apical pneumothorax 1.8 cm - CXR 01/26. questionable tiny ptx. - Pt underwent VATS (02/03/18) with GT and talc pleurodesis performed by Dr. Geoffrey Mendoza. - chest tube from VATS removed (02/06) - repeat CXR 02/07/18 1. No significant pneumothorax following chest tube removal. 2. Stable left apical mass. 3. New discoid atelectasis in the right lower lung zone. HTN - BP was elevated - Procardia 30mg bid started on 01/31 and metoprolol 25 mg Po BID - BP improving with meds - Monitor closely and titrate as needed. - prn meds ordered awaiting clearance from oncology to DC plan to DC tomorrow after oncology clears for DC - Attending Attestation Patient examined. Assessment and plan formulated with Michelle Mercado PA-C. I agree with the above.
[2018-02-07] MEDS ORDERED: Sodium Chloride 0.65% Nasal Spray 45 ML Bottle EACH NARE PRN (11:39)
--- NOTE | 2018-02-07 13:27 | P.PNONC ---
Subjective Interval history: Patient reports feeling much improved, she is especially relieved at having her left-sided chest tubes removed. She denies headaches, she denies difficulty breathing, she does report fatigue, she is eating well. She tells me she has gotten up out of bed to ambulate with assistance, she is looking forward to walking in the hallway with assistance later today. 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 Per her hospitalist physician, she will be discharged home on 02/08/2018. Objective Vital Signs/Intake & Output: Vital Signs 02/06/18 16:16 02/06/18 19:01 02/06/18 20:00 Temperature 98.0 F 98 F Pulse Rate 76 81 Respiratory Rate 18 18 18 Blood Pressure 137/63 137/70 Pulse Oximetry 91 L 94 L 02/07/18 00:00 02/07/18 04:00 02/07/18 07:45 Temperature 97.2 F L 97.3 F L 98 F Pulse Rate 75 68 72 Respiratory Rate 18 Blood Pressure 135/67 135/61 138/80 Pulse Oximetry 100 95 100 02/07/18 12:00 Temperature 97.9 F Pulse Rate 74 Respiratory Rate 18 Blood Pressure 143/65 H Pulse Oximetry 97 Intake & Output 02/06/18 02/07/18 02/07/18 18:59 06:59 18:59 Intake Total 980 / 980 Balance 980 / 980 Weight 55.1 kg Intake: Oral 980 / 980 Other: # Voids 3 1 Date of Last Bowel Movement 02/06/18 02/07/18 # Bowel Movements 1 Result Diagrams: 02/02/18 17:42 02/04/18 03:51 Imaging Studies: Impressions Chest X-Ray 02/07/18 06:00 CONCLUSION: 1. No significant pneumothorax following chest tube removal. 2. Stable left apical mass. 3. New discoid atelectasis in the right lower lung zone. Medications: Active Medications Generic Name Dose Route Start Last Admin Trade Name Freq PRN Reason Stop Dose Admin Hydrocodone Bitart/Acetaminophen 1 tab 01/15/18 23:43 02/07/18 02:34 [place] 5/325 PO 1 tab Q4H PRN Administration pain 1-6 Hydrocodone Bitart/Acetaminophen 2 tab 01/15/18 23:44 02/07/18 10:30 [place] 5/325 PO 2 tab Q4H PRN Administration pain 7-10 Albuterol 2.5 mg 01/16/18 02:00 02/03/18 12:07 Albuterol Neb (Prn) NEB 2.5 mg Q2HR NEB PRN Administration SHORTNESS OF BREATH/WHEEZING Alprazolam 0.5 mg 01/17/18 15:29 02/07/18 10:31 Xanax PO 0.5 mg Q6H PRN Administration ANXIETY Clonidine HCl 0.1 mg 01/17/18 20:01 02/06/18 04:26 Catapres PO 0.1 mg Q6H PRN Administration SBP >165 Sodium Chloride 500 ml/ 0 ml 02/02/18 14:30 02/03/18 09:27 Cefazolin Sodium 500 mg IRRIGATION 02/08/18 14:25 Not Given [employer] MARILIA Dexamethasone 4 mg 01/30/18 09:00 02/07/18 08:43 Decadron PO 4 mg BID MARILIA Administration Sodium Chloride 500 mls @ 30 mls/hr 01/27/18 02:00 01/27/18 21:48 Ns Inj IV.SIG Not Given .Q10H MARILIA Cefazolin Sodium 2,000 mg/ 100 mls @ 200 mls/hr 02/02/18 15:00 02/03/18 08:10 Sodium Chloride IV.SIG 02/08/18 14:26 Infused [employer] MARILIA Infusion Labetalol HCl 10 mg 01/17/18 00:09 02/03/18 09:55 Trandate Inj IV.PUSH 5 mg Q4H PRN Administration SYSTOLIC BP GREATER THAN 165 Levetiracetam 500 mg 01/16/18 21:00 02/07/18 08:43 Keppra PO 500 mg BID MARILIA Administration Metoprolol Tartrate 25 mg 01/17/18 21:00 02/07/18 08:43 Lopressor PO 25 mg BID MARILIA Administration Morphine Sulfate 2 mg 01/16/18 00:45 02/05/18 23:50 Morphine Inj IV.PUSH 2 mg Q2H PRN Administration BREAKTHROUGH PAIN Nifedipine 30 mg 01/31/18 09:00 02/07/18 08:43 Procardia Xl PO 30 mg BID MARILIA Administration Nystatin 5 ml 01/19/18 13:00 02/07/18 12:11 Mycostatin Liq SWISH-SWAL Not Given QID MARILIA Pantoprazole Sodium 40 mg 01/16/18 09:00 02/07/18 08:43 Protonix PO 40 mg DAILY MARILIA Administration Promethazine HCl 25 mg 01/15/18 23:45 01/24/18 23:04 Phenergan PO 25 mg Q6H PRN Administration nausea Senna/Docusate Sodium 1 tab 01/16/18 09:00 02/07/18 08:46 Geni-Colace PO 1 tab BID MARILIA Administration Sennosides 17.2 mg 01/16/18 00:13 02/07/18 08:43 Senokot PO 17.2 mg Q12H PRN Administration Moderate Constipation Sodium Chloride 2 ml 01/16/18 09:00 02/07/18 08:46 Ns Flush IV.FLUSH 2 ml BID MARILIA Administration Sodium Chloride 2 ml 01/16/18 00:13 01/23/18 00:11 Ns Flush IV.FLUSH 2 ml PRN PRN Administration FLUSH AFTER USING IV ACCESS Sodium Chloride 2 ml 02/02/18 21:00 02/06/18 23:35 Ns Flush IV.FLUSH Not Given BID MARILIA Objective Remarks: GENERAL: Middle-aged female, sitting up in bed, well-nourished, well-developed patient. She is not distressed and appears comfortable. SKIN: Warm and dry. HEAD: Normocephalic. Well-healing surgical incision noted, she has cathleen in place. EYES: No scleral icterus. No injection or drainage. NECK: Supple, trachea midline. No JVD or lymphadenopathy. LYMPHATIC: No adenopathy. CARDIOVASCULAR: Regular rate and rhythm without murmurs. RESPIRATORY: Breath sounds equal bilaterally. No accessory muscle use. Bandages noted on the anterior's aspect of her left upper chest and lateral aspect of her left chest as well. GASTROINTESTINAL: Abdomen soft, non-tender, nondistended. EXTREMITIES: No cyanosis, or edema. MUSCULOSKELETAL: Adequate muscle tone. NEUROLOGICAL: No obvious focal deficit. Awake, alert, and oriented x3. PSYCHIATRIC: Appropriate mood and affect; insight and judgment normal. Assessment/Plan - Plan 62-year-old female with probable new diagnosis of metastatic lung cancer. Patient was transferred from [place] for neurosurgery consultation. She had an outpatient MRI of the brain that showed multiple brain lesions. CT imaging of the chest abdomen and pelvis showed a 5.5 x 5 cm mass involving the left upper lobe lung MRI brain performed at this facility confirmed presence of innumerable brain metastases clustered in her cerebellum but also present in the supratentorial brain associated with extensive vasogenic edema. No definite evidence of metastatic disease involving the abdomen or pelvis. 1. Left lung mass: CT-guided biopsy of left upper lobe lung mass performed on . Pathology shows poorly differentiated adenocarcinoma. Disease has less than 1% PDL 1 staining, EGFR mutation negative, B DENISE mutation negative, remaining still molecular testing studies are pending at this time. It appears most likely the patient will be candidate for palliative systemic therapy as first-line treatment. 2. Numerous brain metastases: Status post surgical debulking on 01/27/2018; the larger cerebellar lesions were debulked. She is recovering well from the surgery. Outpatient radiation therapy will be scheduled, the patient is elected to drive up to [facility] every day to receive radiation at [facility]. 3. Continue prednisone 30 mg p.o. daily. I would advise continuing this dosing and taper after completion of radiation. 4. Outpatient follow-up: She is set up with Dr. arora to be seen at his [place] office upon discharge for palliative whole brain radiation. I have offered to see the patient and my [place] office for initiation of palliative systemic therapy. However I think it would work in the patient's favor to have a physician closer to where she lives in [place], [place]. This is because I do anticipate her having treatment-related adverse effects as most of her patients on palliative systemic therapy for lung cancer experience. Because of the risk of adverse effects and need for frequent evaluation logistically it would be difficult for me to coordinate care with her given that she is far away and given that I not familiar with physicians in [place]. The patient tells me she had already been referred to an oncologist and was waiting outpatient follow-up before she was transferred to [place] for neurosurgical evaluation. I have advised her to follow through with the original plan. I would be happy to forward records regarding her workup, treatment and the remaining mutational analyses which are pending. As far as treatment for metastatic poorly differentiated adenocarcinoma of the lung is concerned, treatments are fairly standardized in the community. The patient seeks higher level of care she is advised evaluation at a tertiary referral center such as the [facility] [place] [facility], the [facility] or the [facility].
[2018-02-08] MEDS: levETIRAcetam 500 MG Tablet PO SCH (09:05)
[2018-02-08] MEDS: Senna/Docusate Sodium 8.6/50 MG Tablet PO SCH (09:05)
[2018-02-08] MEDS: Metoprolol Tartrate 25 MG Tablet PO SCH (09:05)
[2018-02-08] MEDS: Nystatin Liq 500,000 UNIT/5 ML UDC SWISH-SWAL SCH (09:05)
[2018-02-08 10:21] VITALS: BP 136/63; PULSE 72; RESP 20; TEMP 97.4; O2SAT 96
[2018-02-08] MEDS: ALPRAZolam 0.5 MG Tablet PO PRN (11:00)
== END 2018-02-08 12:36 | disposition home health service (06) ==
LOC: N03 22:09 → HCIN 01-19 00:51 → N03 01-27 15:42 → N05 02-05 18:18
PROVIDERS: ADMIT Hospitalist; ATTEND Hospitalist